=== PATIENT | female | born 1975 | race Caucasian/White ===

== ENCOUNTER 2017-09-12 18:20 | Emergency (ER) | payer OTHER ==
[2017-09-12 18:56] LABS: Absolute Lymphocytes (CBC) 1.9 K/uL (0.7-4.9); Absolute Monocytes 0.5 K/uL (0.1-1.3); Absolute Neutrophil 4.2 K/uL (1.8-8.0); Basophils % 0.7 % (0-1.3); Eosinophils % 3.8 % (0-4.4); Lymphocytes % 27.3 % (15.3-44.8); MCH 29.3 pg (27.0-35.0); MCV 89.5 fL (80-100); MPV 9.2 fL (7.6-11.3); RBC Red Blood Cell Count 4.03 M/uL (3.86-4.86)
[2017-09-12] MEDS ORDERED: NA CHLORIDE 0.9% 1,000 ML ONE (18:56)
[2017-09-12 18:57] LABS: Urine Blood TRACE (NEG); Urine Glucose NEGATIVE (NEG); Urine Protein TRACE (NEG); Urine pH 7.5 (5.0-7.0)
[2017-09-12 19:01] LABS: Protime INR 1.04
[2017-09-12 19:04] LABS: Barbiturates POSITIVE (NEGATIVE); Benzodiazepines NEGATIVE (NEGATIVE); Cocaine NEGATIVE (NEGATIVE); METHAMPHETAM NEGATIVE (NEGATIVE); Methadone NEGATIVE (NEGATIVE); Opiates NEGATIVE (NEGATIVE); Phencyclidine NEGATIVE (NEGATIVE); THC Cannibis NEGATIVE (NEGATIVE)
--- NOTE | 2017-09-12 19:07 | RAD REPORT ---
EXAM DESCRIPTION: CT - Head Brain Wo Cont - 09/12/2017 6:47 pm CLINICAL HISTORY: Transient alteration of awareness, possible overdose COMPARISON: August 2016 TECHNIQUE: Axial 5 mm thick images of the head were obtained without IV contrast. All CT scans are performed using dose optimization technique as appropriate and may include automated exposure control or mA/KV adjustment according to patient size. FINDINGS: No intracranial hemorrhage, mass, edema or shift of mid-line structures. No acute infarcti on changes seen. No abnormal extra-axial fluid collections. Ventricles are normal. Mastoid air cells and visualized portions of the paranasal sinuses are clear. No acute bony findings. IMPRESSION: Negative non-contrast CT head examination. No significant change from comparison.
[2017-09-12 19:19] LABS: ALT/SGPT 20 U/L (12-78); AST/SGOT 29 U/L (15-37); Albumin 3.4 g/dL (3.4-5.0); Alcohol Serum/Plasma 4 mg/dL (<3); Alkaline Phosphatase 117 U/L (45-117); BUN Blood Urea Nitrogen 9 mg/dL (7-18); Bicarbonate 28 mmol/L (21-32); Bilirubin Direct < 0.1 mg/dL (0-0.2); Bilirubin Total 0.1 mg/dL (0.2-1.0); Glucose Level 85 mg/dL (74-106); Potassium 4.2 mmol/L (3.5-5.1); Protein, Total 6.9 g/dL (6.4-8.2); Sodium Level 139 mmol/L (136-145)
--- NOTE | 2017-09-12 20:10 | ER ---
Nurse's Notes [facility] Name: Pina Castrejon Age: 42 yrs Sex: Female : 1975 Arrival Date: 09/12/2017 Time: 18:23 Bed 3 Private MD: Diagnosis: Adverse effect of unspecified psychotropic drug Presentation: 09/12 18:23 Presenting complaint: EMS states: EMS reports that patient was at work and was called ss out by her because she was drowsy. Pt denies taking excess amount of medications, denies SI/HI. Pt is unable to state exactly what she took, but states it's to help with her balance. Transition of care: patient was not received from another setting of care. Onset of symptoms was September 12, 2017. Risk Assessment: Do you want to hurt yourself or someone else? Patient reports no desire to harm self or others. Initial Sepsis Screen: Does the patient meet any 2 criteria? No. Patient's initial sepsis screen is negative. Does the patient have a suspected source of infection? No. Patient's initial sepsis screen is negative. Care prior to arrival: Glucose check: 70. 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 hb Historical: - Allergies: 18:28 Sulfa (Sulfonamide Antibiotics); ss 18:28 NSAIDS; ss 18:28 Morphine; ss 18:28 Aspirin; - Home Meds: 20:14 Ambien 10 mg Oral tab 1 tab once daily [Active]; Klonopin 1 mg Oral tab 1 tab nightly ak1 [Active]; primidone 50 mg Oral tab 2 tabs twice a day [Active]; Prozac 40 mg Oral cap 1 cap 2 times per day [Active]; Xanax 0.25 mg Oral tab 1 tab nightly [Active]; 20:16 gabapentin 300 mg oral cap 1 cap nightly [Active]; Ambien 10 mg Oral tab 1 tab nightly fc [Active]; Ritalin Oral [Active]; Xanax Oral [Active]; Prozac Oral [Active]; primidone Oral [Active]; - PMHx: 18:28 Anemia; Anxiety; Depression; ESSENTIAL TREMORS; insomnia; diabetes (controlled with diet); - PSHx: 18:28 Gastric Bypass; Tubal ligation; uterine ablation; Cholecystectomy; ss - Immunization history:: Adult Immunizations up to date. - Social history:: Smoking status: Patient uses tobacco products, smokes one-half pack cigarettes per day. - Ebola Screening: : Patient negative for fever greater than or equal to 101.5 degrees Fahrenheit, and additional compatible Ebola Virus Disease symptoms Patient denies exposure to infectious person Patient denies travel to an Ebola-affected area in the 21 days before illness onset. Screenin:20 Abuse screen: Denies threats or abuse. Denies injuries from another. Nutritional hb screening: No deficits noted. Tuberculosis screening: No symptoms or risk factors identified. Fall Risk Total Mcconnell Fall Scale indicates High Risk Score (45 or more points). Fall prevention measures have been instituted. Side Rails Up X 2 Frequent Obs/Assessments Occuring Family Present and informed to notify staff if the need to leave the bedside As available patient and family educated on Fall Prevention Program and Strategies. Assessment: 18:30 General: Appears in no apparent distress. Behavior is calm, cooperative. Pain: Denies hb pain. Neuro: Level of Consciousness is confused, lethargic, Oriented to person. Cardiovascular: Heart tones S1 S2 present Capillary refill < 3 seconds Patient's skin is warm and dry. Respiratory: Airway is patent Trachea midline Respiratory effort is even, Respiratory pattern is regular, symmetrical, Breath sounds are clear bilaterally. GI: No signs and/or symptoms were reported involving the gastrointestinal system. : No signs and/or symptoms were reported regarding the genitourinary system. EENT: No signs and/or symptoms were reported regarding the EENT system. Derm: No signs and/or symptoms reported regarding the dermatologic system. Skin is intact, is healthy with good turgor. Musculoskeletal: No signs and/or symptoms reported regarding the musculoskeletal system. 20:14 Reassessment: Patient appears in no apparent distress at this time. No changes from ak1 previously documented assessment. Patient states feeling better. Patient states symptoms have improved. Charge nurse calling pt's for transport. . 20:17 Reassessment: Spoke with Ray pts at [phone] and got a list of pts fc medications but no doses. He states that he will not give her any medications tonight. He also understands that she is ready for discharge and will be here shortly. Vital Signs: 18:55 BP 110 / 88; Pulse 73; Resp 16; Temp 97.9; Pulse Ox 100% on R/A; Pain 0/10; hb 20:18 BP 103 / 75; Pulse 73; Resp 20; Pulse Ox 100% on R/A; Pain 0/10; ak1 ED Course: 18:23 Patient arrived in ED. ss 18:26 Triage completed. ss 18:28 Arm band placed on right wrist. ss 18:30 Patient has correct armband on for positive identification. Placed in gown. Bed in low hb position. Call light in reach. Side rails up X2. 18:30 Inserted saline lock: 22 gauge in right antecubital area, using aseptic technique. hb Blood collected. 18:31 Deyanira Welch, RN is Primary Nurse. hb 18:34 Balaji Smith MD is Attending Physician. gs 18:[address] via stretcher. jj2 18:46 CT Head Brain wo Cont In Process Unspecified. EDMS 18:46 CT completed. Patient tolerated procedure well. Patient moved back from CT. nj 20:13 No provider procedures requiring assistance completed. ak1 20:46 IV discontinued, pt pulled IV out on her own. ak1 Administered Medications: 18:50 Drug: NS 0.9% 1000 ml Route: IV; Rate: 1 bolus; Site: right antecubital; hb 20:16 Follow up: IV Status: Completed infusion ak1 Outcome: 20:09 Discharge ordered by . gs 20:15 Condition: improved ak1 20:47 Discharged to home ambulatory, with family. ak1 20:47 Discharge instructions given to patient, family, Instructed on discharge instructions, follow up and referral plans. Demonstrated understanding of instructions, follow-up care. 20:47 Patient left the ED. ak1 Signatures: Dispatcher [employer] EDMS Gurpreet Kwon jDebbie Awad RN RN fc Smirch, Shelby, RN RN ss Krenek, Amber, RN RN ak1 Deyanira Welch, Alebrt Martins RN, Gregory, MD MD
--- NOTE | 2017-09-12 20:10 | EDPHYS ---
Physician Documentation [facility] Name: Pina Castrejon Age: 42 yrs Sex: Female : 1975 Arrival Date: 09/12/2017 Time: 18:23 Bed 3 Private MD: ED Physician Balaji Smith HPI: 09/12 20:41 This 42 yrs old Female presents to ER via EMS with complaints of Possible gs Overdose. 20:41 The patient presents to the emergency department after a known overdose, that was gs intentional, says took an extra primidone, found lethargic at work. Associated signs and symptoms: Pertinent negatives: head injury. Severity of symptoms: At their worst the symptoms were moderate in the emergency department the symptoms have improved mildly. The patient has experienced similar episodes in the past, a few times. 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 hb Historical: - Allergies: 18:28 Sulfa (Sulfonamide Antibiotics); ss 18:28 NSAIDS; ss 18:28 Morphine; ss 18:28 Aspirin; ss - Home Meds: 20:14 Ambien 10 mg Oral tab 1 tab once daily [Active]; Klonopin 1 mg Oral tab 1 tab nightly ak1 [Active]; primidone 50 mg Oral tab 2 tabs twice a day [Active]; Prozac 40 mg Oral cap 1 cap 2 times per day [Active]; Xanax 0.25 mg Oral tab 1 tab nightly [Active]; 20:16 gabapentin 300 mg oral cap 1 cap nightly [Active]; Ambien 10 mg Oral tab 1 tab nightly fc [Active]; Ritalin Oral [Active]; Xanax Oral [Active]; Prozac Oral [Active]; primidone Oral [Active]; - PMHx: 18:28 Anemia; Anxiety; Depression; ESSENTIAL TREMORS; insomnia; diabetes (controlled with ss diet); - PSHx: 18:28 Gastric Bypass; Tubal ligation; uterine ablation; Cholecystectomy; ss - Immunization history:: Adult Immunizations up to date. - Social history:: Smoking status: Patient uses tobacco products, smokes one-half pack cigarettes per day. - Ebola Screening: : Patient negative for fever greater than or equal to 101.5 degrees Fahrenheit, and additional compatible Ebola Virus Disease symptoms Patient denies exposure to infectious person Patient denies travel to an Ebola-affected area in the 21 days before illness onset. ROS: 20:41 All other systems are negative. gs Exam: 20:41 Head/Face: Normocephalic, atraumatic. Eyes: Pupils equal round and reactive to light, gs extra-ocular motions intact. Lids and lashes normal. Conjunctiva and sclera are non-icteric and not injected. Cornea within normal limits. Periorbital areas with no swelling, redness, or edema. ENT: Nares patent. No nasal discharge, no septal abnormalities noted. Tympanic membranes are normal and external auditory canals are clear. Oropharynx with no redness, swelling, or masses, exudates, or evidence of obstruction, uvula midline. Mucous membranes moist. Neck: Trachea midline, no thyromegaly or masses palpated, and no cervical lymphadenopathy. Supple, full range of motion without nuchal rigidity, or vertebral point tenderness. No Meningismus. Chest/axilla: Normal chest wall appearance and motion. Nontender with no deformity. No lesions are appreciated. Cardiovascular: Regular rate and rhythm with a normal S1 and S2. No gallops, murmurs, or rubs. Normal PMI, no JVD. No pulse deficits. Respiratory: Lungs have equal breath sounds bilaterally, clear to auscultation and percussion. No rales, rhonchi or wheezes noted. No increased work of breathing, no retractions or nasal flaring. Abdomen/GI: Soft, non-tender, with normal bowel sounds. No distension or tympany. No guarding or rebound. No evidence of tenderness throughout. Back: No spinal tenderness. No costovertebral tenderness. Full range of motion. Skin: Warm, dry with normal turgor. Normal color with no rashes, no lesions, and no evidence of cellulitis. MS/ Extremity: Pulses equal, no cyanosis. Neurovascular intact. Full, normal range of motion. 20:41 Constitutional: The patient appears alert, awake, confused 20:41 Neuro: Orientation: to person, place, Not oriented to time, situation, Cranial nerves: CN II- XII are normal as tested, Cerebellar function: no acute changes, Motor: strength is normal, Sensation: is normal. 20:41 Psych: Patient has no thoughts/intents to harm self or others. Vital Signs: 18:55 BP 110 / 88; Pulse 73; Resp 16; Temp 97.9; Pulse Ox 100% on R/A; Pain 0/10; hb 20:18 BP 103 / 75; Pulse 73; Resp 20; Pulse Ox 100% on R/A; Pain 0/10; ak1 MDM: 18:38 Patient medically screened. 20:41 Differential diagnosis: polypharmacy, over medication, closed head injury, intracranial gs hemorrhage. Data reviewed: vital signs, nurses notes. Response to treatment: the patient's symptoms have markedly improved after treatment, the patient's symptoms have resolved after treatment, walking on own remembers circumstances of od says accidental. 09/12 18:39 Order name: Acetaminophen; Complete Time: 20:08 09/12 18:39 Order name: Basic Metabolic Panel; Complete Time: 20:08 09/12 18:39 Order name: CBC with Diff; Complete Time: 19:10 09/12 18:39 Order name: ETOH Level; Complete Time: 20:08 09/12 18:39 Order name: Hepatic Function; Complete Time: 20:08 09/12 18:39 Order name: PT-INR; Complete Time: 19:10 09/12 18:39 Order name: Salicylate; Complete Time: 20:08 09/12 18:39 Order name: Urine Drug Screen; Complete Time: 19:10 09/12 18:39 Order name: EKG - Nurse/Tech; Complete Time: 19:03 09/12 18:39 Order name: CT Head Brain wo Cont; Complete Time: 19:10 09/12 18:53 Order name: Urine Dipstick--Ancillary (enter results); Complete Time: 19:10 09/12 18:53 Order name: Urine --Ancillary (enter results); Complete Time: 19:10 09/12 18:39 Order name: IV Saline Lock; Complete Time: 19:03 09/12 18:39 Order name: Labs collected and sent; Complete Time: 19:03 09/12 18:39 Order name: Urine Test (obtain specimen); Complete Time: 19:03 Administered Medications: 18:50 Drug: NS 0.9% 1000 ml Route: IV; Rate: 1 bolus; Site: right antecubital; hb 20:16 Follow up: IV Status: Completed infusion ak1 Disposition: 09/12/17 20:09 Discharged to Home. Impression: Adverse effect of unspecified psychotropic drug. - Condition is Stable. - Discharge Instructions: Accidental Overdose. - Medication Reconciliation Form, Thank You Letter, Antibiotic Education, Prescription Opioid Use form. - Follow up: Private Physician; When: 2 - 3 days; Reason: Re-evaluation by your physician. Signatures: Dispatcher [employer] EDDebbie Pena RN RN Maira Marina RN RN Loni Flores RN RN ak1 Deyanira Welch RN RN Balaji Smith MD MD Corrections: (The following items were deleted from the chart) 20:47 20:09 09/12/2017 20:09 Discharged to Home. Impression: Adverse effect of unspecified ak1 psychotropic drug. Condition is Stable. Forms are Medication Reconciliation Form, Thank You Letter, Antibiotic Education, Prescription Opioid Use. Follow up: Private Physician; When: 2 - 3 days; Reason: Re-evaluation by your physician. gs
[2017-09-12 20:51] VITALS: TEMP 97.9; O2SAT 100
[2017-09-12 20:52] VITALS: BP 103/75
== END 2017-09-12 20:47 | disposition home or self-care (01) ==
LOC: ER 18:20
DX: T43.95XA Adverse effect of unspecified psychotropic drug, initial encounter (principal); E11.9 Type 2 diabetes mellitus without complications; F17.210 Nicotine dependence, cigarettes, uncomplicated; Y92.9 Unspecified place or not applicable; Z88.6 Allergy status to analgesic agent; Z88.2 Allergy status to sulfonamides
CPT/HCPCS: 36415; 70450; 80048; 80076; 80307; 80320; 80329; 81003; 81025; 85025; 85610; 96360; 99284; J7030

== ENCOUNTER 2018-02-18 18:45 | Emergency (ER) | payer OTHER ==
--- NOTE | 2018-02-18 19:50 | RAD REPORT ---
EXAM DESCRIPTION: CT - Stone Protocol - 02/18/2018 7:17 pm CLINICAL HISTORY: Coffee-ground emesis, possible perforation, anemia, diabetes and hypertension, gas tric bypass COMPARISON: CT study March 2016, January 2016 TECHNIQUE: Axial 5 mm thick images were obtained without oral or IV contrast. The jbrej-[id number]-imys span s the entirety of the system including uppermost abdomen and lung bases. All CT scans are performed using dose optimization technique as appropriate and may include automated exposure control or mA/KV adjustment according to patient size. FINDINGS: No lung base abnormality. No pericardial thickening effusion. The liver, spleen and pancreas show no suspicious findings. Cholecystectomy clips are present with no biliary tree dilatation. No suspicious adrenal finding. No hydronephrosis is present and no obstructing ureteral calculi. No suspicious renal masses. Isodens e masses and pyelonephritis are not excluded on a stone protocol CT scan. Left-sided parapelvic cysts are present similar to comparison. No significant adrenal finding. Urinary bladder is contracted swartz iting assessment. No suspicious uterine finding. No primary ovarian process seen. No adnexal mass. No distal esophagus abnormality. Patient is status post gastric bypass procedure which inherently dis torts the stomach. No extraluminal free air or fluid seen. No CT findings for bowel perforation. The stomach to small bowel anastomosis does appear irregular with thickened or nodular gastric sue. The pattern is not substantially different from comparison imaging. Gastritis or even small gastric mass cannot be excluded. No walled off fluid collection to suspect abscess. No acute colon finding seen. The remainder of the small bowel without acute finding. No bulky lymphadenopathy or mass. Very small abdominal wall defect is present to right of midline at the umbilicus. This is a stable finding. No significant bony abnormality. No acute vascular finding suspected. IMPRESSION: No free air, free fluid or other finding that would indicate perforation of a viscus. No abscess identified. Patient is status post gastric bypass surgery. This inherently distorts the stomach. The stomach smal l bowel anastomosis shows thickened irregular contour to the sue. Stomach small bowel anastomosis pattern is not substantially different back to 2016 imaging. Gastriti s, stomach/small bowel ulceration or small gastric wall mass(es) are certainly possible. Additional nonacute findings are detailed in the body of the report.
[2018-02-18] MEDS ORDERED: NA CHLORIDE 0.9% 1,000 ML ONE (20:18)
[2018-02-18] MEDS ORDERED: PANTOPRAZOLE 40 MG INJ ONE (20:18)
[2018-02-18 20:19] LABS: Absolute Lymphocytes (CBC) 1.8 K/uL (0.7-4.9); Absolute Neutrophil 7.1 K/uL (1.8-8.0); Basophils % 0.6 % (0-1.3); Eosinophils % 2.1 % (0-4.4); Hematocrit 35.3 % (36.0-45.0); Lymphocytes % 17.6 % (15.3-44.8); MPV 8.5 fL (7.6-11.3); Monocytes % 9.5 % (3.3-12.3); RBC Red Blood Cell Count 3.87 M/uL (3.86-4.86)
[2018-02-18 20:22] LABS: ALT/SGPT 26 U/L (12-78); AST/SGOT 26 U/L (15-37); Albumin 3.6 g/dL (3.4-5.0); Alkaline Phosphatase 108 U/L (45-117); BUN Blood Urea Nitrogen 16 mg/dL (7-18); Bicarbonate 29 mmol/L (21-32); Bilirubin Direct < 0.1 mg/dL (0-0.2); Bilirubin Total 0.2 mg/dL (0.2-1.0); Glucose Level 96 mg/dL (74-106); Lipase 112 U/L (73-393); Potassium 4.1 mmol/L (3.5-5.1); Protein, Total 7.3 g/dL (6.4-8.2); Sodium Level 140 mmol/L (136-145)
[2018-02-18 20:23] LABS: Urine Blood 1+ (NEG); Urine Glucose NEGATIVE (NEG); Urine Protein 2+ (NEG); Urine Specific Gravity 1.025 (1.005-1.030)
[2018-02-18] MEDS ORDERED: CIPROFLOXACIN 400mg IV 400 MG/200 ML BAG IV ONE (20:44)
[2018-02-18] MEDS ORDERED: ACETAMINOPHEN 500 MG TAB ONE (21:29)
[2018-02-18] MEDS ORDERED: PROMETHAZINE 25 MG/ML VIAL ONE (22:16)
[2018-02-18] MEDS ORDERED: FENTANYL CITR 100 MCG/2 ML ONE (22:34)
[2018-02-18] MEDS ORDERED: NA CHLORIDE 0.9% 500 ML ONE (22:34)
--- NOTE | 2018-02-18 23:22 | ER ---
Nurse's Notes [facility] Name: Pina Castrejon Age: 43 yrs Sex: Female : 1975 Arrival Date: 02/18/2018 Time: 18:47 Bed 14 Private MD: Fausto Ugarte T Diagnosis: Gastrointestinal hemorrhage, unspecified;Diarrhea, unspecified Presentation: 02/18 18:57 Presenting complaint: Patient states: I think my ucler perforated. I have not been able ch to eat or drink for 7 days, three days ago my stool started looking like coffee ground emesis. Transition of care: patient was not received from another setting of care. Onset of symptoms was February 11, 2018. Risk Assessment: Do you want to hurt yourself or someone else? Patient reports no desire to harm self or others. Initial Sepsis Screen: Does the patient meet any 2 criteria? No. Patient's initial sepsis screen is negative. Does the patient have a suspected source of infection? No. Patient's initial sepsis screen is negative. Care prior to arrival: None. 18:57 Method Of Arrival: Ambulatory 18:57 Acuity: SAMIRA 3 ch Triage Assessment: 18:59 General: Appears in no apparent distress. comfortable, Behavior is calm, cooperative, ch appropriate for age. Pain: Complains of pain in epigastric area, right upper quadrant, left upper quadrant and abdomen diffusely. GI: Reports lower abdominal pain, upper abdominal pain. Historical: - Allergies: 18:59 Aspirin; ch 18:59 Morphine; ch 18:59 NSAIDS; ch 18:59 Sulfa (Sulfonamide Antibiotics); - Home Meds: 18:59 Ritalin Oral [Active]; Primidone Oral [Active]; levothyroxine 50 mcg tab 1 tab once ch daily [Active]; Ambien 10 mg Oral tab 1 tab once daily [Active]; gabapentin 300 mg Oral cap 1 cap nightly [Active]; primidone 50 mg Oral tab 2 tabs twice a day [Active]; Prozac 40 mg Oral cap 1 cap 2 times per day [Active]; Prozac Oral [Active]; Xanax 0.25 mg Oral tab 1 tab nightly [Active]; Klonopin 1 mg Oral tab 1 tab nightly [Active]; - PMHx: 18:59 Anemia; Anxiety; Depression; diabetes (controlled with diet); ESSENTIAL TREMORS; ch insomnia; - PSHx: 18:59 Gastric Bypass; Tubal ligation; uterine ablation; Cholecystectomy; ch - Immunization history:: Adult Immunizations up to date, Flu vaccine is not up to date. - Social history:: Smoking status: Patient uses tobacco products, denies chronic smoking, but will smoke occasionally. - Ebola Screening: : Patient negative for fever greater than or equal to 101.5 degrees Fahrenheit, and additional compatible Ebola Virus Disease symptoms Patient denies exposure to infectious person Patient denies travel to an Ebola-affected area in the 21 days before illness onset No symptoms or risks identified at this time. Screenin:05 Abuse screen: Denies threats or abuse. Nutritional screening: No deficits noted. jb4 Tuberculosis screening: No symptoms or risk factors identified. Fall Risk None identified. Assessment: 19:05 General: Appears in no apparent distress. uncomfortable, Behavior is calm, cooperative, jb4 appropriate for age. Pain: Complains of pain in abdomen Pain does not radiate. Pain currently is 8 out of 10 on a pain scale. Quality of pain is described as burning, crampy, Pain began 2-3 days ago. Is continuous. Neuro: Level of Consciousness is awake, alert, obeys commands, Oriented to person, place, time, situation. Cardiovascular: Patient's skin is warm and dry. Respiratory: Airway is patent Respiratory effort is even, unlabored, Respiratory pattern is regular, symmetrical. GI: Abdomen is flat, Bowel sounds present X 4 quads. Abd is soft X 4 quads Abd is non tender in right upper quadrant and right lower quadrant Abdomen is tender to palpation in left upper quadrant and left lower quadrant Reports lower abdominal pain, upper abdominal pain, diarrhea, nausea, vomiting. : No signs and/or symptoms were reported regarding the genitourinary system. EENT: No signs and/or symptoms were reported regarding the EENT system. Derm: Skin is intact, Skin is pink, warm \T\ dry. Musculoskeletal: Circulation, motion, and sensation intact. 20:45 Reassessment: Patient appears in no apparent distress at this time. Patient and/or jb4 family updated on plan of care and expected duration. Pain level reassessed. Patient is alert, oriented x 3, equal unlabored respirations, skin warm/dry/pink. Pt reports pain but denies wanting pain medication. 21:15 Reassessment: Pt requested Tylenol for pain, see MAR for orders. jb4 22:20 Reassessment: Patient appears in no apparent distress at this time. Patient and/or jb4 family updated on plan of care and expected duration. Pain level reassessed. Patient is alert, oriented x 3, equal unlabored respirations, skin warm/dry/pink. Pt reports no decrease in pain after Tylenol given. Physician notified, see MAR for orders. Vital Signs: 18:59 BP 133 / 93; Pulse 95; Resp 16; Temp 98.8; Pulse Ox 99% on R/A; Weight 66.68 kg; Height 5 ft. 5 in. (165.10 cm); Pain 9/10; 20:45 BP 131 / 73; Pulse 77; Resp 16; Pulse Ox 100% on R/A; jb4 22:00 BP 133 / 75; Pulse 86; Resp 16; Pulse Ox 100% on R/A; jb4 23:00 BP 125 / 88; Pulse 75; Resp 16; Pulse Ox 100% ; jb4 18:59 Body Mass Index 24.46 (66.68 kg, 165.10 cm) ED Course: 18:47 Patient arrived in ED. as 18:47 Fausto Ugarte MD is Private Physician. as 18:48 Uzma Hwang FNP-C is [facility]. snw 18:48 Balaji Smith MD is Attending Physician. snw 18:57 Triage completed. ch 18:59 Arm band placed on left wrist. Patient placed in an exam room, on a stretcher. ch 19:01 Chon Velazquez RN is Primary Nurse. jb4 19:05 Patient has correct armband on for positive identification. Placed in gown. Bed in low jb4 position. Call light in reach. Side rails up X 1. Pulse ox on. NIBP on. 19:[address] via wheelchair. kw1 19:17 CT completed. Patient tolerated procedure well. Patient moved back from CT. bq 19:17 CT Stone Protocol In Process Unspecified. EDMS 20:12 Missed attempt(s): 22 gauge in right antecubital area. Bleeding controlled, band aid oe applied, catheter tip intact. 20:13 Inserted saline lock: 22 gauge in left forearm, using aseptic technique. Blood oe collected. 23:21 Fausto Ugarte MD is Referral Physician. snw 23:41 No provider procedures requiring assistance completed. IV discontinued, intact, jb4 bleeding controlled. Administered Medications: 20:20 Drug: NS 0.9% 1000 ml Route: IV; Rate: 1 bolus; Site: left forearm; jb4 21:50 Follow up: Response: No adverse reaction; IV Status: Completed infusion jb4 20:20 Drug: ProTONIX 40 mg Route: IVP; Site: left forearm; jb4 22:15 Follow up: Response: No adverse reaction jb4 20:43 Drug: Cipro 400 mg Volume: 200 ml; Route: IVPB; Infused Over: 60 mins; Site: left jb4 forearm; 21:43 Follow up: Response: No adverse reaction; IV Status: Completed infusion jb4 21:20 Drug: Tylenol 1000 mg Route: PO; jb4 22:32 Follow up: Response: No adverse reaction; Pain is unchanged, physician notified jb4 22:12 Drug: Phenergan 12.5 mg Route: IVP; Site: left forearm; jb4 22:32 Follow up: Response: No adverse reaction; Nausea is decreased jb4 22:31 Drug: fentaNYL (PF) 25 mcg Route: IVP; Site: left forearm; jb4 23:42 Follow up: Response: No adverse reaction; Pain is decreased jb4 22:32 Drug: NS 0.9% 500 ml Route: IV; Rate: bolus; Site: left forearm; jb4 23:15 Follow up: Response: No adverse reaction; IV Status: Completed infusion jb4 Outcome: 23:22 Discharge ordered by MD. snw 23:41 Discharged to home ambulatory, with significant other. jb4 23:41 Condition: stable 23:41 Discharge instructions given to patient, Instructed on discharge instructions, follow up and referral plans. medication usage, Demonstrated understanding of instructions, follow-up care, medications, Prescriptions given X 2. 23:43 Patient left the ED. jb4 Signatures: Dispatcher [employer] EDMS Gisel Hayes, APOLLO RN Uzma Rodriguez, LATH TIER-C LATH TIER-Csnw Leesa Leon Amelia as Bryson, James, RN RN jb4 Dejan Mckeon Kimberly kw1
--- NOTE | 2018-02-18 23:23 | EDPHYS ---
Physician Documentation [facility] Name: Pina Castrejon Age: 43 yrs Sex: Female : 1975 Arrival Date: 02/18/2018 Time: 18:47 Bed 14 Private MD: Fausto Ugarte T ED Physician Balaji Smith HPI: 02/18 20:15 This 43 yrs old Female presents to ER via Ambulatory with complaints of snw Vomiting. 20:15 The patient presents to the emergency department with nausea, vomiting, diarrhea, that snw is continuous. Onset: The symptoms/episode began/occurred 1 week(s) ago, and became persistent. Possible causes: unknown. The symptoms are aggravated by movement. Associated signs and symptoms: Pertinent positives: GI bleeding. Severity of symptoms: At their worst the symptoms were moderate severe. The patient has experienced a previous episode, approximately 2 years ago. The patient has not recently seen a physician. denies fever, bypass surgery was performed at [place]. Historical: - Allergies: 18:59 Aspirin; ch 18:59 Morphine; ch 18:59 NSAIDS; ch 18:59 Sulfa (Sulfonamide Antibiotics); ch - Home Meds: 18:59 Ritalin Oral [Active]; Primidone Oral [Active]; levothyroxine 50 mcg tab 1 tab once ch daily [Active]; Ambien 10 mg Oral tab 1 tab once daily [Active]; gabapentin 300 mg Oral cap 1 cap nightly [Active]; primidone 50 mg Oral tab 2 tabs twice a day [Active]; Prozac 40 mg Oral cap 1 cap 2 times per day [Active]; Prozac Oral [Active]; Xanax 0.25 mg Oral tab 1 tab nightly [Active]; Klonopin 1 mg Oral tab 1 tab nightly [Active]; - PMHx: 18:59 Anemia; Anxiety; Depression; diabetes (controlled with diet); ESSENTIAL TREMORS; ch insomnia; - PSHx: 18:59 Gastric Bypass; Tubal ligation; uterine ablation; Cholecystectomy; ch - Immunization history:: Adult Immunizations up to date, Flu vaccine is not up to date. - Social history:: Smoking status: Patient uses tobacco products, denies chronic smoking, but will smoke occasionally. - Ebola Screening: : Patient negative for fever greater than or equal to 101.5 degrees Fahrenheit, and additional compatible Ebola Virus Disease symptoms Patient denies exposure to infectious person Patient denies travel to an Ebola-affected area in the 21 days before illness onset No symptoms or risks identified at this time. ROS: 20:17 Constitutional: Negative for fever, chills, and weight loss, Eyes: Negative for injury, snw pain, redness, and discharge, ENT: Negative for injury, pain, and discharge, Neck: Negative for injury, pain, and swelling, Cardiovascular: Negative for chest pain, palpitations, and edema, Respiratory: Negative for shortness of breath, cough, wheezing, and pleuritic chest pain, Back: Negative for injury and pain, : Negative for injury, bleeding, discharge, and swelling, MS/Extremity: Negative for injury and deformity, Skin: Negative for injury, rash, and discoloration, Neuro: Negative for headache, weakness, numbness, tingling, and seizure. 20:17 Abdomen/GI: Positive for abdominal pain, nausea, vomiting, and diarrhea. Exam: 20:17 Constitutional: This is a well developed, well nourished patient who is awake, alert, snw and in no acute distress. Head/Face: Normocephalic, atraumatic. Eyes: Pupils equal round and reactive to light, extra-ocular motions intact. Lids and lashes normal. Conjunctiva and sclera are non-icteric and not injected. Cornea within normal limits. Periorbital areas with no swelling, redness, or edema. ENT: Nares patent. No nasal discharge, no septal abnormalities noted. Tympanic membranes are normal and external auditory canals are clear. Oropharynx with no redness, swelling, or masses, exudates, or evidence of obstruction, uvula midline. Mucous membranes moist. Neck: Trachea midline, no thyromegaly or masses palpated, and no cervical lymphadenopathy. Supple, full range of motion without nuchal rigidity, or vertebral point tenderness. No Meningismus. Chest/axilla: Normal chest wall appearance and motion. Nontender with no deformity. No lesions are appreciated. Cardiovascular: Regular rate and rhythm with a normal S1 and S2. No gallops, murmurs, or rubs. Normal PMI, no JVD. No pulse deficits. Respiratory: Lungs have equal breath sounds bilaterally, clear to auscultation and percussion. No rales, rhonchi or wheezes noted. No increased work of breathing, no retractions or nasal flaring. Back: No spinal tenderness. No costovertebral tenderness. Full range of motion. Skin: Warm, dry with normal turgor. Normal color with no rashes, no lesions, and no evidence of cellulitis. MS/ Extremity: Pulses equal, no cyanosis. Neurovascular intact. Full, normal range of motion. Neuro: Awake and alert, GCS 15, oriented to person, place, time, and situation. Cranial nerves II-XII grossly intact. Motor strength 5/5 in all extremities. Sensory grossly intact. Cerebellar exam normal. Normal gait. Psych: Awake, alert, with orientation to person, place and time. Behavior, mood, and affect are within normal limits. 20:17 Abdomen/GI: Inspection: abdomen appears normal, Bowel sounds: diminished, in all quadrants, Palpation: moderate abdominal tenderness, in the right lower quadrant and left lower quadrant, Rectal exam: rectal tone normal, Stool: guaiac positive, hemorrhoid(s), are not appreciated, tenderness, is not appreciated. Vital Signs: 18:59 BP 133 / 93; Pulse 95; Resp 16; Temp 98.8; Pulse Ox 99% on R/A; Weight 66.68 kg; Height ch 5 ft. 5 in. (165.10 cm); Pain 9/10; 20:45 BP 131 / 73; Pulse 77; Resp 16; Pulse Ox 100% on R/A; jb4 22:00 BP 133 / 75; Pulse 86; Resp 16; Pulse Ox 100% on R/A; jb4 23:00 BP 125 / 88; Pulse 75; Resp 16; Pulse Ox 100% ; jb4 18:59 Body Mass Index 24.46 (66.68 kg, 165.10 cm) MDM: 19:07 Patient medically screened. snw 23:24 Data reviewed: vital signs, nurses notes. Data interpreted: Pulse oximetry: on room air snw is 100 %. Interpretation: normal. Counseling: I had a detailed discussion with the patient and/or guardian regarding: the historical points, exam findings, and any diagnostic results supporting the discharge/admit diagnosis, lab results, radiology results, the need for outpatient follow up, to return to the emergency department if symptoms worsen or persist or if there are any questions or concerns that arise at home. Special discussion: Based on the patient's Hx, exam, and Dx evaluation, there is no indication for emergent surgery or inpatient Tx. It is understood by the patient/guardian that if the Sx's persist or worsen they need to return immediately for re-evaluation. Based on the history and exam findings, there is no indication for further emergent testing or inpatient evaluation. I discussed with the patient/guardian the need to see the barn worker for further evaluation of the symptoms. I discussed with the patient/guardian the need to see the primary care provider for further evaluation of the symptoms. 02/18 19:01 Order name: Basic Metabolic Panel; Complete Time: 20:36 snw 02/18 19:01 Order name: CBC with Diff; Complete Time: 20:36 snw 02/18 19:01 Order name: Hepatic Function; Complete Time: 20:36 snw 02/18 19:01 Order name: Lipase; Complete Time: 20:36 snw 02/18 19:01 Order name: TS; Complete Time: 20:44 snw 02/18 20:13 Order name: Urine Dipstick--Ancillary (enter results); Complete Time: 20:36 ag4 02/18 19:01 Order name: CT Stone Protocol; Complete Time: 19:53 snw 02/18 20:13 Order name: Urine --Ancillary (enter results); Complete Time: 20:36 ag4 02/18 19:01 Order name: IV Saline Lock; Complete Time: 20:03 snw 02/18 19:01 Order name: Labs collected and sent; Complete Time: 20:03 snw 02/18 21:53 Order name: PO challenge; Complete Time: 22:14 snw Administered Medications: 20:20 Drug: NS 0.9% 1000 ml Route: IV; Rate: 1 bolus; Site: left forearm; jb4 21:50 Follow up: Response: No adverse reaction; IV Status: Completed infusion jb4 20:20 Drug: ProTONIX 40 mg Route: IVP; Site: left forearm; jb4 22:15 Follow up: Response: No adverse reaction jb4 20:43 Drug: Cipro 400 mg Volume: 200 ml; Route: IVPB; Infused Over: 60 mins; Site: left jb4 forearm; 21:43 Follow up: Response: No adverse reaction; IV Status: Completed infusion jb4 21:20 Drug: Tylenol 1000 mg Route: PO; jb4 22:32 Follow up: Response: No adverse reaction; Pain is unchanged, physician notified jb4 22:12 Drug: Phenergan 12.5 mg Route: IVP; Site: left forearm; jb4 22:32 Follow up: Response: No adverse reaction; Nausea is decreased jb4 22:31 Drug: fentaNYL (PF) 25 mcg Route: IVP; Site: left forearm; jb4 23:42 Follow up: Response: No adverse reaction; Pain is decreased jb4 22:32 Drug: NS 0.9% 500 ml Route: IV; Rate: bolus; Site: left forearm; jb4 23:15 Follow up: Response: No adverse reaction; IV Status: Completed infusion jb4 Disposition: 02/18/18 23:22 Discharged to Home. Impression: Gastrointestinal hemorrhage, unspecified, Diarrhea, unspecified. - Condition is Stable. - Discharge Instructions: Food Choices to Help Relieve Diarrhea, Adult, Diarrhea, Adult, Gastrointestinal Bleeding, Peptic Ulcer, Rehydration, Adult. - Prescriptions for Zofran 4 mg Oral Tablet - take 1 tablet by ORAL route every 12 hours As needed; 20 tablet. Cipro 500 mg Oral Tablet - take 1 tablet by ORAL route every 12 hours for 10 days; 20 tablet. - Medication Reconciliation Form, Thank You Letter, Antibiotic Education, Prescription Opioid Use form. - Follow up: Fausto Ugarte MD; When: 2 - 3 days; Reason: Recheck today's complaints, Continuance of care, Re-evaluation by your physician. Follow up: Emergency Department; When: As needed; Reason: Worsening of condition. Addendum: 02/21/2018 10:20 Co-signature as Attending Physician, Balaji Smith MD. g s Signatures: Dispatcher [employer] EDOR Gisel Hayes, RN RN Uzma Rodriguez, PROGRAM WRITER-C PROGRAM WRITER-Csnw Chon Velazquez RN RN jb4 Starr, Gregory, MD MD Corrections: (The following items were deleted from the chart) 02/18 23:43 23:22 02/18/2018 23:22 Discharged to Home. Impression: Gastrointestinal hemorrhage, jb4 unspecified; Diarrhea, unspecified. Condition is Stable. Forms are Medication Reconciliation Form, Thank You Letter, Antibiotic Education, Prescription Opioid Use. Follow up: Fausto Ugarte; When: 2 - 3 days; Reason: Recheck today's complaints, Continuance of care, Re-evaluation by your physician. Follow up: Emergency Department; When: As needed; Reason: Worsening of condition. snw
[2018-02-18 23:48] VITALS: TEMP 98.8
[2018-02-18 23:49] VITALS: O2SAT 100
[2018-02-18 23:52] VITALS: BP 125/88
== END 2018-02-18 23:43 | disposition home or self-care (01) ==
LOC: ER 18:45
DX: K92.2 Gastrointestinal hemorrhage, unspecified (principal); E11.9 Type 2 diabetes mellitus without complications; F32.9 Major depressive disorder, single episode, unspecified; F41.9 Anxiety disorder, unspecified; Z72.0 Tobacco use; Z88.2 Allergy status to sulfonamides; Z88.5 Allergy status to narcotic agent; Z88.6 Allergy status to analgesic agent
CPT/HCPCS: 36415; 74176; 76377; 80048; 80076; 81003; 81025; 83690; 85025; 86850; 86900; 86901; 96361; 96365; 96375; 99284; C9113; J0744; J2550; J3010; J7030

== ENCOUNTER 2018-02-23 17:01 | Emergency (ER) | payer OTHER ==
[2018-02-23 19:08] LABS: BUN Blood Urea Nitrogen 8 mg/dL (7-18); Bicarbonate 29 mmol/L (21-32); Glucose Level 98 mg/dL (74-106); Potassium 3.5 mmol/L (3.5-5.1); Sodium Level 141 mmol/L (136-145)
[2018-02-23 19:13] LABS: Urine Blood TRACE (NEG); Urine Glucose NEGATIVE (NEG); Urine Protein NEGATIVE (NEG); Urine Specific Gravity 1.015 (1.005-1.030); Urine pH 8.5 (5.0-7.0)
--- NOTE | 2018-02-23 19:20 | RAD REPORT ---
EXAM DESCRIPTION: CT - Head Brain Wo Cont - 02/23/2018 6:50 pm CLINICAL HISTORY: Seizure COMPARISON: September 2017 TECHNIQUE: Computed axial tomography of the head was obtained. IV contrast was not requested. All CT scans are performed using dose optimization technique as appropriate and may include automated exposure control or mA/KV adjustment according to patient size. FINDINGS: An intracranial bleed is not seen . The ventricles are normal in caliber. No extra-axial fluid collection is noted. Fluid within the sinuses/ mastoids is not seen. IMPRESSION: No acute intracranial abnormality is seen. If patient's symptoms persist MRI of the bra in would be recommended.
[2018-02-23 19:27] LABS: Barbiturates POSITIVE (NEGATIVE); Benzodiazepines POSITIVE (NEGATIVE); Cocaine NEGATIVE (NEGATIVE); METHAMPHETAM NEGATIVE (NEGATIVE); Methadone NEGATIVE (NEGATIVE); Opiates NEGATIVE (NEGATIVE); Phencyclidine NEGATIVE (NEGATIVE); THC Cannibis NEGATIVE (NEGATIVE)
--- NOTE | 2018-02-23 20:42 | ER ---
Nurse's Notes [facility] Name: Pina Castrejon Age: 43 yrs Sex: Female : 1975 Arrival Date: 02/23/2018 Time: 17:01 Bed 27 Private MD: Diagnosis: Convulsions, not elsewhere classified Presentation: 02/23 17:02 Presenting complaint: EMS states: toned out for seizure like activity at Dr. Jean office. pt laid down on the floor and started thrashing. pt stopped with painful stimuli to check consciousness. no postictal time, pt remained responsive during her "seizure". pt followed commands during her seizure. no loss of consciousness. pt was in Dr. Jean office for a follow up, pt was discharged from our facility after a GI bleed two days ago. Transition of care: patient was not received from another setting of care. Onset of symptoms was February 23, 2018 at 16:30. Risk Assessment: Do you want to hurt yourself or someone else? Patient reports no desire to harm self or others. Initial Sepsis Screen: Does the patient meet any 2 criteria? No. Patient's initial sepsis screen is negative. Does the patient have a suspected source of infection? No. Patient's initial sepsis screen is negative. Care prior to arrival: None. 17:02 Method Of Arrival: EMS: [facility] 17:02 Acuity: SAMIRA 3 Triage Assessment: 17:08 General: Appears in no apparent distress. comfortable, Behavior is calm, cooperative, ch appropriate for age. Neuro: No deficits noted. Level of Consciousness is awake, alert, obeys commands, Oriented to person, place, time, situation. Historical: - Allergies: 17:08 Aspirin; 17:08 Morphine; 17:08 NSAIDS; 17:08 Sulfa (Sulfonamide Antibiotics); ch - PMHx: 17:08 Anemia; Depression; Anxiety; diabetes (controlled with diet); ESSENTIAL TREMORS; insomnia; GI Bleed; - PSHx: 17:08 Gastric Bypass; Tubal ligation; uterine ablation; Cholecystectomy; - Immunization history:: Adult Immunizations up to date. - Social history:: Smoking status: Patient uses tobacco products. - Ebola Screening: : Patient negative for fever greater than or equal to 101.5 degrees Fahrenheit, and additional compatible Ebola Virus Disease symptoms Patient denies exposure to infectious person Patient denies travel to an Ebola-affected area in the 21 days before illness onset No symptoms or risks identified at this time. Screenin:50 Abuse screen: Denies threats or abuse. Denies injuries from another. Nutritional rv screening: No deficits noted. Tuberculosis screening: No symptoms or risk factors identified. Fall Risk None identified. Assessment: 17:49 General: Appears in no apparent distress. comfortable, Behavior is calm, cooperative. rv Pain: Denies pain. Neuro: Level of Consciousness is awake, alert, obeys commands, Oriented to person, place, time, situation. Cardiovascular: Capillary refill < 3 seconds. Respiratory: Airway is patent. GI: No signs and/or symptoms were reported involving the gastrointestinal system. : No signs and/or symptoms were reported regarding the genitourinary system. EENT: No signs and/or symptoms were reported regarding the EENT system. Derm: Skin is intact. Musculoskeletal: No signs and/or symptoms reported regarding the musculoskeletal system. 17:50 Reassessment: Patient appears in no apparent distress at this time. Patient and/or ch family updated on plan of care and expected duration. Pain level reassessed. Patient is alert, oriented x 3, equal unlabored respirations, skin warm/dry/pink. pt has three "seizures". pt family reports pt eyes rolled back into her head and she shakes. pt episodes are finished before I can get from the nurses station into the room. pt is aaox4, responds appropriately to verbal commands. no s/s of distress. pt immediately c/o pain to L side of face when I walk into the room. episodes are not witnessed by staff. Vital Signs: 17:06 BP 154 / 101; Pulse 71; Resp 14; Temp 99.1(O); Pulse Ox 100% on R/A; Weight 70.76 kg; ss Height 5 ft. 5 in. (165.10 cm); Pain 8/10; 18:16 BP 132 / 74; Pulse 78; Resp 16; Temp 98.5; Pulse Ox 99% on R/A; Pain 7/10; ch 19:00 BP 133 / 92; Pulse 77; Resp 18; Pulse Ox 98% ; rv 19:30 BP 141 / 91; Pulse 68; Resp 17 S; Pulse Ox 100% on R/A; rv 20:00 BP 137 / 87; Pulse 71; Resp 18; Pulse Ox 100% on R/A; rv 20:30 BP 128 / 103; Pulse 80; Resp 18; Pulse Ox 100% on R/A; rv 17:06 Body Mass Index 25.96 (70.76 kg, 165.10 cm) ED Course: 17:01 Patient arrived in ED. 17:06 Triage completed. 17:06 Arm band placed on right wrist. ss 17:50 Patient has correct armband on for positive identification. Bed in low position. Call rv light in reach. Side rails up X 1. Adult w/ patient. Pulse ox on. NIBP on. 17:51 Neha Kurtz FNP-C is PHCP. kb 17:51 Mono Rojas MD is Attending Physician. kb 18:52 CT Head Brain wo Cont In Process Unspecified. EDMS 20:50 No provider procedures requiring assistance completed. Patient did not have IV access rv during this emergency room visit. Administered Medications: No medications were administered Outcome: 20:42 Discharge ordered by . kb 20:50 Discharged to home ambulatory. rv 20:50 Condition: good 20:50 Discharge instructions given to patient, Instructed on discharge instructions, follow up and referral plans. Demonstrated understanding of instructions, follow-up care. 20:52 Patient left the ED. rv Signatures: Dispatcher [employer] EDTX Neha Kurtz FNP-C FNP-Ckb Hammond, Christina, RN RN Maira Marina RN RN Carlos Manuel Lara RN RN rv Corrections: (The following items were deleted from the chart) 18:44 17:02 Acuity: SAMIRA 4 [facility]
--- NOTE | 2018-02-23 20:43 | EDPHYS ---
Physician Documentation [facility] Name: Pina Castrejon Age: 43 yrs Sex: Female : 1975 Arrival Date: 02/23/2018 Time: 17:01 Bed 27 Private MD: ED Physician Mono Rojas HPI: 02/23 20:53 This 43 yrs old Female presents to ER via EMS with complaints of Altered kb Mental Status. 20:53 The patient presents with a history of multiple seizures. Character of seizure(s): Loss kb of consciousness: the patient did not lose consciousness, Motor activity: blank stare, Incontinence: none, Apnea: the patient experienced apnea, Circulation: the patient did not experience evidence of pulse disturbance. Seizure onset: just prior to arrival. Context: the seizure(s) was witnessed, by family, sister, occurred at an office, occurred while the patient was sitting, Contributing factors: missed recent doses of medications. Seizure Hx: the patient has no previous seizure history. Associated injury: The patient did not suffer any apparent associated injury. EMS care: none. Current symptoms: Currently, the patient is not experiencing any symptoms, the patient feels back to baseline, no decreased level of consciousness, no confusion, no dysphasia, no headache, no paralysis, no visual changes. The patient has not experienced similar symptoms in the past. The patient has been recently seen by a physician: the patient's primary care provider, earlier today, with different complaint(s). Pt was at PCP's office and had seizure-like activity in the exam room. Sister reports pts muscles tightened up and she stopped breathing. States she had a few episodes. EMS reports pt had similar episodes in ambulance, but was able to stop them with painful stimuli. Reports pt followed commands during episodes as well. Pt A\T\Ox4, not post ictal, and normal neuro exam. Historical: - Allergies: 17:08 Aspirin; ch 17:08 Morphine; ch 17:08 NSAIDS; ch 17:08 Sulfa (Sulfonamide Antibiotics); ch - PMHx: 17:08 Anemia; Depression; Anxiety; diabetes (controlled with diet); ESSENTIAL TREMORS; ch insomnia; GI Bleed; - PSHx: 17:08 Gastric Bypass; Tubal ligation; uterine ablation; Cholecystectomy; ch - Immunization history:: Adult Immunizations up to date. - Social history:: Smoking status: Patient uses tobacco products. - Ebola Screening: : Patient negative for fever greater than or equal to 101.5 degrees Fahrenheit, and additional compatible Ebola Virus Disease symptoms Patient denies exposure to infectious person Patient denies travel to an Ebola-affected area in the 21 days before illness onset No symptoms or risks identified at this time. ROS: 20:52 Constitutional: Negative for fever, chills, and weight loss, ENT: Negative for injury, kb pain, and discharge, Neck: Negative for injury, pain, and swelling, Cardiovascular: Negative for chest pain, palpitations, and edema, Respiratory: Negative for shortness of breath, cough, wheezing, and pleuritic chest pain, Abdomen/GI: Negative for abdominal pain, nausea, vomiting, diarrhea, and constipation, Back: Negative for injury and pain, MS/Extremity: Negative for injury and deformity, Skin: Negative for injury, rash, and discoloration. 20:52 Neuro: Positive for seizure activity. Exam: 20:52 Constitutional: This is a well developed, well nourished patient who is awake, alert, kb and in no acute distress. Head/Face: Normocephalic, atraumatic. ENT: Nares patent. No nasal discharge, no septal abnormalities noted. Tympanic membranes are normal and external auditory canals are clear. Oropharynx with no redness, swelling, or masses, exudates, or evidence of obstruction, uvula midline. Mucous membranes moist. Neck: Trachea midline, no thyromegaly or masses palpated, and no cervical lymphadenopathy. Supple, full range of motion without nuchal rigidity, or vertebral point tenderness. No Meningismus. Chest/axilla: Normal chest wall appearance and motion. Nontender with no deformity. No lesions are appreciated. Cardiovascular: Regular rate and rhythm with a normal S1 and S2. No gallops, murmurs, or rubs. Normal PMI, no JVD. No pulse deficits. Respiratory: Lungs have equal breath sounds bilaterally, clear to auscultation and percussion. No rales, rhonchi or wheezes noted. No increased work of breathing, no retractions or nasal flaring. Abdomen/GI: Soft, non-tender, with normal bowel sounds. No distension or tympany. No guarding or rebound. No evidence of tenderness throughout. Skin: Warm, dry with normal turgor. Normal color with no rashes, no lesions, and no evidence of cellulitis. MS/ Extremity: Pulses equal, no cyanosis. Neurovascular intact. Full, normal range of motion. Neuro: Awake and alert, GCS 15, oriented to person, place, time, and situation. Cranial nerves II-XII grossly intact. Motor strength 5/5 in all extremities. Sensory grossly intact. Cerebellar exam normal. Normal gait. Vital Signs: 17:06 BP 154 / 101; Pulse 71; Resp 14; Temp 99.1(O); Pulse Ox 100% on R/A; Weight 70.76 kg; ss Height 5 ft. 5 in. (165.10 cm); Pain 8/10; 18:16 BP 132 / 74; Pulse 78; Resp 16; Temp 98.5; Pulse Ox 99% on R/A; Pain 7/10; ch 19:00 BP 133 / 92; Pulse 77; Resp 18; Pulse Ox 98% ; rv 19:30 BP 141 / 91; Pulse 68; Resp 17 S; Pulse Ox 100% on R/A; rv 20:00 BP 137 / 87; Pulse 71; Resp 18; Pulse Ox 100% on R/A; rv 20:30 BP 128 / 103; Pulse 80; Resp 18; Pulse Ox 100% on R/A; rv 17:06 Body Mass Index 25.96 (70.76 kg, 165.10 cm) ss MDM: 17:53 Patient medically screened. kb 20:39 Data reviewed: vital signs, nurses notes. Data interpreted: Pulse oximetry: on room air kb is 100 %. Interpretation: normal. Counseling: I had a detailed discussion with the patient and/or guardian regarding: the historical points, exam findings, and any diagnostic results supporting the discharge/admit diagnosis, lab results, radiology results, the need for outpatient follow up, a family practitioner, a neurologist, to return to the emergency department if symptoms worsen or persist or if there are any questions or concerns that arise at home. Physician consultation: Tarun Sandoval MD was contacted at 20:41, regarding consult, patient's condition, and will see patient in office, tomorrow. 02/23 18:32 Order name: UDS; Complete Time: 19:29 kb 02/23 18:32 Order name: CBC with Diff kb 02/23 18:17 Order name: CT Head Brain wo Cont; Complete Time: 19:29 kb 02/23 18:32 Order name: Basic Metabolic Panel; Complete Time: 19:12 kb 02/23 18:32 Order name: Urine Dipstick-Ancillary (obtain specimen); Complete Time: 19:48 kb 02/23 19:11 Order name: Urine Dipstick--Ancillary (enter results); Complete Time: 19:16 ag4 Administered Medications: No medications were administered Disposition: 02/23/18 20:42 Discharged to Home. Impression: Convulsions, not elsewhere classified. - Condition is Stable. - Discharge Instructions: Seizure, Adult, [id number]. - Medication Reconciliation Form, Thank You Letter, Antibiotic Education, Prescription Opioid Use form. - Follow up: Emergency Department; When: As needed; Reason: Worsening of condition. Follow up: Private Physician; When: 2 - 3 days; Reason: Recheck today's complaints, Continuance of care, Re-evaluation by your physician. Addendum: 03/02/2018 09:35 Co-signature as Attending Physician, Mono Rojas MD I agree with the assessment and k dr plan of care. Signatures: Dispatcher [employer] EDNM Neha Kurtz, SILK SCREEN FRAME ASSEMBLER-C SILK SCREEN FRAME ASSEMBLER-Ckb Gisel Hayes RN RN Mono Rojas MD MD [facility] Carlos Manuel Lara, RN RN rv Corrections: (The following items were deleted from the chart) 02/23 20:52 20:42 02/23/2018 20:42 Discharged to Home. Impression: Convulsions, not elsewhere rv classified. Condition is Stable. Forms are Medication Reconciliation Form, Thank You Letter, Antibiotic Education, Prescription Opioid Use. Follow up: Emergency Department; When: As needed; Reason: Worsening of condition. Follow up: Private Physician; When: 2 - 3 days; Reason: Recheck today's complaints, Continuance of care, Re-evaluation by your physician. kb
[2018-02-23 21:05] VITALS: TEMP 98.5
[2018-02-23 21:08] VITALS: O2SAT 100
[2018-02-23 21:10] VITALS: BP 128/103
== END 2018-02-23 20:52 | disposition home or self-care (01) ==
LOC: ER 17:01
DX: R56.9 Unspecified convulsions (principal); D64.9 Anemia, unspecified; F32.9 Major depressive disorder, single episode, unspecified; E11.9 Type 2 diabetes mellitus without complications; F41.9 Anxiety disorder, unspecified
CPT/HCPCS: 36415; 70450; 80048; 80307; 81003; 85025

== ENCOUNTER 2018-03-02 12:51 | Emergency (ER) | payer OTHER ==
--- OUTSIDE RECORDS SUMMARY | 2018-03-02 13:02 | XMS REPORT ---
:1975 [facility] Address [address] [place] [address] Dr. Moh[address]ud [address] [place] [id number] Care Team Providers Name Role Phone Unavailable Unavailable Unavailable Problems This patient has no known problems. Allergies, Adverse Reactions, Alerts This patient has no known allergies or adverse reactions. Medications This patient has no known medications.
[2018-03-02] MEDS ORDERED: NA CHLORIDE 0.9% 1,000 ML ONE ×2 (13:17→13:51)
[2018-03-02 14:19] LABS: Absolute Lymphocytes (CBC) 1.9 K/uL (0.7-4.9); Absolute Monocytes 0.9 K/uL (0.1-1.3); Absolute Neutrophil 7.1 K/uL (1.8-8.0); Basophils % 0.7 % (0-1.3); Eosinophils % 2.2 % (0-4.4); Hematocrit 29.9 % (36.0-45.0); Lymphocytes % 19.1 % (15.3-44.8); MPV 9.2 fL (7.6-11.3); Monocytes % 8.9 % (3.3-12.3); RBC Red Blood Cell Count 3.32 M/uL (3.86-4.86)
--- NOTE | 2018-03-02 14:20 | RAD REPORT ---
EXAM DESCRIPTION: CT - Head Brain Wo Cont - 03/02/2018 2:06 pm CLINICAL HISTORY: Syncope COMPARISON: CT head February 23 TECHNIQUE: Axial 5 mm thick images of the head were obtained without IV contrast. All CT scans are performed using dose optimization technique as appropriate and may include automated exposure control or mA/KV adjustment according to patient size. FINDINGS: No intracranial hemorrhage, mass, edema or shift of mid-line structures. No acute infarcti on changes seen. No abnormal extra-axial fluid collections. Ventricles are normal. Physiologic calcif ications are present. No changes identifiable since February 23. Mastoid air cells and visualized portions of the paranasal sinuses are clear. No acute bony findings. IMPRESSION: Negative non-contrast CT head examination for acute finding. No identifiable changes fr om February 23.
[2018-03-02 14:22] LABS: Protime INR 1.1
--- NOTE | 2018-03-02 15:00 | RAD REPORT ---
EXAM DESCRIPTION: RAD - Hip Right 2 View - 03/02/2018 2:29 pm CLINICAL HISTORY: Syncopal episode, fall, hip pain COMPARISON: None. FINDINGS: AP and frog-leg views of the right hip were obtained. There is no fracture or dislocation . No acute or destructive bony process seen. IMPRESSION: Negative right hip examination for acute findings.
--- NOTE | 2018-03-02 15:01 | RAD REPORT ---
EXAM DESCRIPTION: RAD - Hand Left 3 View - 03/02/2018 2:28 pm CLINICAL HISTORY: Syncope, fall, left hand pain COMPARISON: None. FINDINGS: No fracture, dislocation or periosteal reaction noted. No foreign body or other soft tissu e abnormality. IMPRESSION: Negative left hand examination.
--- NOTE | 2018-03-02 15:01 | RAD REPORT ---
EXAM DESCRIPTION: RAD - Chest Single View - 03/02/2018 2:29 pm CLINICAL HISTORY: Syncope, chest pain COMPARISON: August 2016 TECHNIQUE: AP portable chest image was obtained 1424 hours . FINDINGS: Lungs are clear. Heart and vasculature are normal. No measurable pleural effusion and no p neumothorax. No acute bony abnormality seen. No acute aortic findings suspected. IMPRESSION: No acute cardiopulmonary process. No significant interval change.
[2018-03-02 15:03] LABS: ALT/SGPT 13 U/L (12-78); AST/SGOT 15 U/L (15-37); Alkaline Phosphatase 86 U/L (45-117); BUN Blood Urea Nitrogen 13 mg/dL (7-18); Bicarbonate 27 mmol/L (21-32); Bilirubin Direct < 0.1 mg/dL (0-0.2); Bilirubin Total 0.2 mg/dL (0.2-1.0); Glucose Level 78 mg/dL (74-106); Potassium 3.9 mmol/L (3.5-5.1); Protein, Total 6.2 g/dL (6.4-8.2); Sodium Level 136 mmol/L (136-145); Troponin (Emerg Dept Use Only) < 0.02 ng/mL (0.0-0.045)
[2018-03-02 15:40] LABS: Barbiturates POSITIVE (NEGATIVE); Benzodiazepines NEGATIVE (NEGATIVE); Cocaine NEGATIVE (NEGATIVE); METHAMPHETAM NEGATIVE (NEGATIVE); Methadone NEGATIVE (NEGATIVE); Opiates NEGATIVE (NEGATIVE); Phencyclidine NEGATIVE (NEGATIVE); THC Cannibis NEGATIVE (NEGATIVE)
--- NOTE | 2018-03-02 16:18 | ER ---
Nurse's Notes [facility] Name: Pina Castrejon Age: 43 yrs Sex: Female : 1975 Arrival Date: 03/02/2018 Time: 13:02 Bed 15 Private MD: Diagnosis: Hypotension;Syncope and collapse;Dizziness and giddiness Presentation: 03/02 13:03 Presenting complaint: EMS states: Syncopal episode when patient was ambulating at home. aj Patient reports being taken off her medications yesterday. EMS reports patient was hypotensive upon arrival. Patient speech is slurred and pupils are sluggish to respond to light. Transition of care: patient was not received from another setting of care. Onset of symptoms was March 02, 2018. Risk Assessment: Do you want to hurt yourself or someone else? Patient reports no desire to harm self or others. Initial Sepsis Screen: Does the patient meet any 2 criteria? No. Patient's initial sepsis screen is negative. Does the patient have a suspected source of infection? No. Patient's initial sepsis screen is negative. Care prior to arrival: None. 13:03 Method Of Arrival: EMS: [facility] 13:03 Acuity: SAMIRA 2 aj Triage Assessment: 13:08 General: Appears in no apparent distress. comfortable, Behavior is flat. Pain: aj Complains of pain in dorsal aspect of distal phalanx of left middle finger. Neuro: Level of Consciousness is awake, lethargic, Oriented to person, place, time, situation, Appropriate for age Holistic Pulser are equal bilaterally Moves all extremities. Speech is slurred, Reports a syncopal episode. Respiratory: Airway is patent Respiratory effort is even, unlabored, Respiratory pattern is regular, symmetrical. Derm: Skin is intact, is healthy with good turgor, Skin is pale. CARDIOLOGY SPECIALIST: 13:08 LMP N/A - ablation aj Historical: - Allergies: 13:08 Aspirin; aj 13:08 Morphine; aj 13:08 NSAIDS; aj 13:08 Sulfa (Sulfonamide Antibiotics); aj - Home Meds: 13:08 Prozac 40 mg Oral cap 1 cap 2 times per day [Active]; carvedilol oral oral [Active]; aj levothyroxine 50 mcg tab 1 tab once daily [Active]; - PMHx: 13:08 Anemia; Anxiety; Depression; diabetes (controlled with diet); ESSENTIAL TREMORS; GI aj Bleed; insomnia; - PSHx: 13:08 Gastric Bypass; Tubal ligation; uterine ablation; Cholecystectomy; aj - Immunization history:: Adult Immunizations up to date. - Social history:: Smoking status: Patient/guardian denies using tobacco. - Ebola Screening: : Patient negative for fever greater than or equal to 101.5 degrees Fahrenheit, and additional compatible Ebola Virus Disease symptoms Patient denies exposure to infectious person Patient denies travel to an Ebola-affected area in the 21 days before illness onset No symptoms or risks identified at this time. Screenin:17 Abuse screen: Denies threats or abuse. Denies injuries from another. Nutritional jl7 screening: No deficits noted. Tuberculosis screening: No symptoms or risk factors identified. Fall Risk Fall in past 12 months (25 points). IV access (20 points). Gait- Weak (10 pts.). Total Mcconnell Fall Scale indicates High Risk Score (45 or more points). Fall prevention measures have been instituted. Side Rails Up X 2 Placed Close to Nursing Station Frequent Obs/Assessments Occuring Family Present and informed to notify staff if the need to leave the bedside As available patient and family educated on Fall Prevention Program and Strategies. Assessment: 13:17 General: Appears in no apparent distress. Behavior is cooperative, drowsy. Neuro: Level jl7 of Consciousness is obeys commands, Oriented to person, place, time, situation, Speech is slurred, Pupils are sluggish, pt responds to verbal stimuli, reports only taking Primidone this morning. Cardiovascular: Rhythm is regular. Respiratory: Airway is patent Respiratory effort is even, unlabored, Respiratory pattern is regular, symmetrical. EENT: Oral mucosa is dry. Derm: Skin Skin is dry, Skin is pale, Skin temperature is warm. 14:20 Reassessment: Patient appears in no apparent distress at this time. No changes from jl7 previously documented assessment. Patient and/or family updated on plan of care and expected duration. Pain level reassessed. Patient is alert, oriented x 3, equal unlabored respirations, skin warm/dry/pink. 15:11 Reassessment: Sary Esquivel, pt's sister, , reports will return in a little jl7 while. 16:00 Reassessment: Patient appears in no apparent distress at this time. Patient and/or jl7 family updated on plan of care and expected duration. Pain level reassessed. Patient is alert, oriented x 3, equal unlabored respirations, skin warm/dry/pink. Patient states feeling better. Patient states symptoms have improved. Vital Signs: 13:08 BP 87 / 65; Pulse 55; Resp 20; Temp 98.1; Pulse Ox 99% on R/A; Weight 68.04 kg; Height aj 5 ft. 3 in. (160.02 cm); 13:15 BP 92 / 66; Pulse 54; Resp 16 S; Pulse Ox 100% on R/A; jl7 13:30 BP 95 / 74; Pulse 57; Resp 12; Pulse Ox 94% on R/A; jl7 14:00 BP 101 / 66; Pulse 57; Resp 16 S; Pulse Ox 100% on R/A; jl7 14:51 BP 120 / 67; Pulse 58; Resp 18; Pulse Ox 98% on R/A; 5 15:30 BP 116 / 85; Pulse 61; Resp 13 S; Pulse Ox 100% on R/A; jl7 16:00 BP 118 / 83; Pulse 64; Resp 16 S; Pulse Ox 100% on R/A; jl7 16:26 BP 119 / 97; Pulse 58; Resp 16 S; Pulse Ox 100% on R/A; jl7 13:08 Body Mass Index 26.57 (68.04 kg, 160.02 cm) ED Course: 13:02 Patient arrived in ED. aj 13:06 Triage completed. aj 13:08 Arm band placed on left wrist. Patient placed in an exam room, on a stretcher, on aj environmental monitoring technician, on pulse oximetry. 13:09 Pb Patel PA is PHCP. jr8 13:09 Mono Rojas MD is Attending Physician. jr8 13:10 Inserted saline lock: 18 gauge in left EJ, using aseptic technique. Blood collected. aj Missed attempt(s): 22 gauge in right forearm. Bleeding controlled, band aid applied, catheter tip intact. 13:16 Jazmin Pardo, APOLLO is Primary Nurse. jl7 13:17 Patient has correct armband on for positive identification. Bed in low position. Call jl7 light in reach. Side rails up X2. Adult w/ patient. color television console monitor on. Pulse ox on. NIBP on. 13:22 EKG done, by certified medication technician. reviewed by Pb CHO. at1 14:10 Patient moved to radiology via stretcher. jb2 14:11 CT Head Brain wo Cont In Process Unspecified. EDMS 14:30 XRAY Chest (1 view) In Process Unspecified. EDMS 14:30 XRAY Hip RIGHT 2 view In Process Unspecified. EDMS 14:30 XRAY Hand LEFT 3 View In Process Unspecified. EDMS 14:30 X-ray completed. Patient tolerated procedure well. jb2 14:30 Patient moved back from radiology. jb2 15:13 Urine Drug Screen Sent. mh5 16:17 Tarun Sandoval MD is Referral Physician. jr8 16:39 No provider procedures requiring assistance completed. IV discontinued, intact, jl7 bleeding controlled, No redness/swelling at site. Pressure dressing applied. Administered Medications: 13:15 Drug: NS 0.9% 1000 ml Route: IV; Rate: 1 bolus; Site: left jugular; jl7 13:45 Follow up: IV Status: Completed infusion jl7 13:38 Drug: NS 0.9% 1000 ml Route: IV; Rate: 125 ml/hr; Site: left jugular; jl7 16:40 Follow up: IV Status: Completed infusion; Order to discontinue infusion jl7 Point of Care Testing: Blood Glucose: 16:42 Blood Glucose: 78 mg/dL; jl7 Ranges: Outcome: 16:18 Discharge ordered by MD. jr8 16:39 Discharged to home ambulatory, with family. jl7 16:39 Condition: stable 16:39 Discharge instructions given to patient, family, Instructed on discharge instructions, follow up and referral plans. Demonstrated understanding of instructions, follow-up care. 16:42 Patient left the ED. jl7 Signatures: Dispatcher [employer] Mirella Arellano, RN RN Beck Almaguer jb2 Pb Patel PA PA jr8 Mirella Rodríguez, transcriptionist EKG Tat1 Leila Seals [facility] Jazmin Pardo, RN RN jl7 Corrections: (The following items were deleted from the chart) 16:39 16:00 No provider procedures requiring assistance completed. jl7 jl7 16:39 16:00 IV discontinued, intact, bleeding controlled, No redness/swelling at site. jl7 Pressure dressing applied, jl7
--- NOTE | 2018-03-02 16:18 | EDPHYS ---
Physician Documentation [facility] Name: Pina Castrejon Age: 43 yrs Sex: Female : 1975 Arrival Date: 03/02/2018 Time: 13:02 Bed 15 Private MD: ED Physician Mono Rojas HPI: 03/02 16:18 This 43 yrs old Female presents to ER via EMS with complaints of Syncope. jr8 16:18 The patient has experienced syncope. Onset: The symptoms/episode began/occurred jr8 acutely, today. Duration: This was a single episode, that lasted 10 second(s). Context: the episode(s) was witnessed, by family, occurred at home, occurred while the patient was standing. Associated injury: Left upper extremity: contusion, swelling, tenderness, Right lower extremity: tenderness. Associated signs and symptoms: Pertinent positives: dizziness. Current symptoms: Currently, the patient is not experiencing any symptoms, the patient feels back to baseline, no decreased level of consciousness, no confusion, no dysphasia, no headache, no paralysis, no visual changes. It is unknown whether or not the patient has had similar symptoms in the past. The patient has been recently seen by a physician:. Patient with history of familial tremor. Was on benzodiazepines for some time for tremor and was recently taken off because of abuse. Now on primidone. Stated that she had upwards of 20, 1 mg Klonopin over the past two days. Non today. Has been dizzy and falling lately. Had another episode today . 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 - Social history:: Smoking status: Patient/guardian denies using tobacco. - Ebola Screening: : Patient negative for fever greater than or equal to 101.5 degrees Fahrenheit, and additional compatible Ebola Virus Disease symptoms Patient denies exposure to infectious person Patient denies travel to an Ebola-affected area in the 21 days before illness onset No symptoms or risks identified at this time. ROS: 16:18 Eyes: Negative for injury, pain, redness, and discharge, ENT: Negative for injury, jr8 pain, and discharge, Neck: Negative for injury, pain, and swelling, Cardiovascular: Negative for chest pain, palpitations, and edema, Respiratory: Negative for shortness of breath, cough, wheezing, and pleuritic chest pain, Abdomen/GI: Negative for abdominal pain, nausea, vomiting, diarrhea, and constipation, Back: Negative for injury and pain. 16:18 MS/extremity: Positive for contusion, pain, tenderness, of the left hand. 16:18 Neuro: Positive for dizziness, loss of consciousness, syncope, Negative for seizure activity, visual changes, weakness. Exam: 16:18 Eyes: Pupils equal round and reactive to light, extra-ocular motions intact. Lids and jr8 lashes normal. Conjunctiva and sclera are non-icteric and not injected. Cornea within normal limits. Periorbital areas with no swelling, redness, or edema. ENT: Nares patent. No nasal discharge, no septal abnormalities noted. Tympanic membranes are normal and external auditory canals are clear. Oropharynx with no redness, swelling, or masses, exudates, or evidence of obstruction, uvula midline. Mucous membranes moist. Neck: Trachea midline, no thyromegaly or masses palpated, and no cervical lymphadenopathy. Supple, full range of motion without nuchal rigidity, or vertebral point tenderness. No Meningismus. Cardiovascular: Regular rate and rhythm with a normal S1 and S2. No gallops, murmurs, or rubs. Normal PMI, no JVD. No pulse deficits. Respiratory: Lungs have equal breath sounds bilaterally, clear to auscultation and percussion. No rales, rhonchi or wheezes noted. No increased work of breathing, no retractions or nasal flaring. Abdomen/GI: Soft, non-tender, with normal bowel sounds. No distension or tympany. No guarding or rebound. No evidence of tenderness throughout. Back: No spinal tenderness. No costovertebral tenderness. Full range of motion. Skin: Warm, dry with normal turgor. Normal color with no rashes, no lesions, and no evidence of cellulitis. Neuro: Awake and alert, GCS 15, oriented to person, place, time, and situation. Cranial nerves II-XII grossly intact. Motor strength 5/5 in all extremities. Sensory grossly intact. Cerebellar exam normal. Normal gait. 16:18 Musculoskeletal/extremity: Extremities: grossly normal except: noted in the left hand: ecchymosis, pain, tenderness, small superficial avulsion of skin noted to left dorsal hand on fingers. Mild bruising and swelling to 3rd digit left hand. No other trauma noted to hand, noted in the right hip: pain, tenderness, ROM: intact in all extremities, full active range of motion, full passive range of motion, Circulation is intact in all extremities. Sensation intact. Weight bearing: able to fully bear weight, without difficulty. Vital Signs: 13:08 BP 87 / 65; Pulse 55; Resp 20; Temp 98.1; Pulse Ox 99% on R/A; Weight 68.04 kg; Height aj 5 ft. 3 in. (160.02 cm); 13:15 BP 92 / 66; Pulse 54; Resp 16 S; Pulse Ox 100% on R/A; jl7 13:30 BP 95 / 74; Pulse 57; Resp 12; Pulse Ox 94% on R/A; jl7 14:00 BP 101 / 66; Pulse 57; Resp 16 S; Pulse Ox 100% on R/A; jl7 14:51 BP 120 / 67; Pulse 58; Resp 18; Pulse Ox 98% on R/A; 5 15:30 BP 116 / 85; Pulse 61; Resp 13 S; Pulse Ox 100% on R/A; jl7 16:00 BP 118 / 83; Pulse 64; Resp 16 S; Pulse Ox 100% on R/A; jl7 16:26 BP 119 / 97; Pulse 58; Resp 16 S; Pulse Ox 100% on R/A; jl7 13:08 Body Mass Index 26.57 (68.04 kg, 160.02 cm) aj MDM: 13:46 Patient medically screened. 8 16:16 Data reviewed: vital signs, nurses notes, lab test result(s), EKG, radiologic studies, jr CT scan, plain films, and as a result, I will discharge patient. Data interpreted: Pulse oximetry: on room air is 98 %. Interpretation: normal. Counseling: I had a detailed discussion with the patient and/or guardian regarding: the historical points, exam findings, and any diagnostic results supporting the discharge/admit diagnosis, lab results, radiology results, the need for outpatient follow up, a family practitioner, a neurologist, to return to the emergency department if symptoms worsen or persist or if there are any questions or concerns that arise at home. Response to treatment: the patient's symptoms have markedly improved after treatment, patient is well hydrated. ED course: Patient with negative orthostatics. Well hydrated now and without hypotension. Feeling better. No other acute findings. Will f/u with Dr. Sandoval . 03/02 13:46 Order name: Acetaminophen; Complete Time: 15:55 03/02 13:46 Order name: Basic Metabolic Panel; Complete Time: 15:55 03/02 13:46 Order name: CBC with Diff; Complete Time: 14:32 03/02 13:46 Order name: ETOH Level; Complete Time: 14:41 03/02 13:46 Order name: Hepatic Function; Complete Time: 15:55 03/02 13:46 Order name: PT-INR; Complete Time: 14:32 03/02 13:46 Order name: Salicylate; Complete Time: 14:57 03/02 13:46 Order name: Urine Drug Screen; Complete Time: 15:55 03/02 13:46 Order name: Troponin (emerg Dept Use Only); Complete Time: 15:55 03/02 13:47 Order name: XRAY Chest (1 view); Complete Time: 15:03/02 13:47 Order name: XRAY Hip RIGHT 2 view; Complete Time: 15:03/02 13:47 Order name: XRAY Hand LEFT 3 View; Complete Time: 15:03/02 15:13 Order name: Urine Dipstick--Ancillary (enter results) 03/02 15:13 Order name: Urine --Ancillary (enter results) 03/02 13:46 Order name: EKG; Complete Time: 13:47 03/02 13:46 Order name: EKG - Nurse/Tech; Complete Time: 14:12 03/02 13:46 Order name: IV Saline Lock; Complete Time: 14:11 03/02 13:46 Order name: Labs collected and sent; Complete Time: 14:11 03/02 13:46 Order name: Urine Dipstick-Ancillary (obtain specimen); Complete Time: 15:13 03/02 13:47 Order name: CT Head Brain wo Cont; Complete Time: 14:32 Administered Medications: 13:15 Drug: NS 0.9% 1000 ml Route: IV; Rate: 1 bolus; Site: left jugular; jl7 13:45 Follow up: IV Status: Completed infusion jl7 13:38 Drug: NS 0.9% 1000 ml Route: IV; Rate: 125 ml/hr; Site: left jugular; jl7 16:40 Follow up: IV Status: Completed infusion; Order to discontinue infusion jl7 Point of Care Testing: Blood Glucose: 16:42 Blood Glucose: 78 mg/dL; jl7 Ranges: Critical Glucose Levels:Adult <50 mg/dl or >400 mg/dl <40 mg/dl or >180 mg/dl Disposition: 19:04 Co-signature as Attending Physician, Mono Rojas MD I agree with the assessment and kdr plan of care. Disposition: 03/02/18 16:18 Discharged to Home. Impression: Hypotension, Syncope and collapse, Dizziness and giddiness. - Condition is Stable. - Discharge Instructions: Dizziness, Hypotension, Syncope. - Medication Reconciliation Form, Thank You Letter, Antibiotic Education, Prescription Opioid Use form. - Follow up: Tarun Sandoval MD; When: 2 - 3 days; Reason: Recheck today's complaints, Continuance of care, Re-evaluation by your physician. - Problem is new. - Symptoms have improved. Signatures: Dispatcher [employer] Mirella Arellano RN Mono Canales MD MD kdr Roszak, Josh, PA PA jr8 Jazmin Pardo RN RN jl7 Corrections: (The following items were deleted from the chart) 16:42 16:18 03/02/2018 16:18 Discharged to Home. Impression: Hypotension; Syncope and jl7 collapse; Dizziness and giddiness. Condition is Stable. Forms are Medication Reconciliation Form, Thank You Letter, Antibiotic Education, Prescription Opioid Use. Follow up: Tarun Sandoval; When: 2 - 3 days; Reason: Recheck today's complaints, Continuance of care, Re-evaluation by your physician. Problem is new. Symptoms have improved. jr8
[2018-03-02 17:27] VITALS: TEMP 98.1
[2018-03-02 17:37] VITALS: O2SAT 100
[2018-03-02 17:38] VITALS: BP 119/97
[2018-03-02 21:48] LABS: Urine Blood NEGATIVE (NEG); Urine Glucose NEGATIVE (NEG); Urine Protein NEGATIVE (NEG)
--- NOTE | 2018-03-03 11:54 | EKG ---
Test Date: 2018-03-02 Test Time: 13:13:08 Apron Man: BENITO MEASUREMENT RESULTS: Intervals: Rate: 56 RI: 186 QRSD: 86 QT: 436 QTc: 420 [place]: P: 48 RI: 186 QRS: 40 T: 46 INTERPRETIVE STATEMENTS: Sinus bradycardia Otherwise normal ECG Compared to ECG 08/16/2016 08:07:16 Sinus rhythm no longer present Electronically Signed On 03-03-18 11:52:04 ETHNOARCHAEOLOGY PROFESSOR by Alexander Velez
== END 2018-03-02 16:42 | disposition home or self-care (01) ==
LOC: ER 12:51
DX: I95.9 Hypotension, unspecified (principal); R55 Syncope and collapse; R42 Dizziness and giddiness; M25.551 Pain in right hip; S60.032A Contusion of left middle finger without damage to nail, initial encounter; X58.XXXA Exposure to other specified factors, initial encounter; F32.9 Major depressive disorder, single episode, unspecified; F41.9 Anxiety disorder, unspecified; G25.0 Essential tremor; Z79.899 Other long term (current) drug therapy; Z98.84 Bariatric surgery status
CPT/HCPCS: 36415; 70450; 71045; 80048; 80076; 80307; 80320; 80329; 81003; 81025; 84484; 85025; 85610; 93005; 96360; 96361; 99285; J7030

== ENCOUNTER 2019-01-19 10:46 | Emergency (ER) | payer OTHER ==
--- OUTSIDE RECORDS SUMMARY | 2019-01-19 10:49 | XMS REPORT ---
:1975 [facility] Address [address] [place] [address] Dr. Mohamud [address] [place] [id number] Care Team Providers Name Role Phone Unavailable Unavailable Unavailable Problems This patient has no known problems. Allergies, Adverse Reactions, Alerts This patient has no known allergies or adverse reactions. Medications This patient has no known medications.
--- NOTE | 2019-01-19 11:51 | ER ---
Nurse's Notes [facility] Name: Pina Castrejon Age: 43 yrs Sex: Female : 1975 Arrival Date: 01/19/2019 Time: 10:49 Bed Waiting Private MD: Diagnosis: Presentation: 01/19 10:54 Presenting complaint: Patient states: Sitting in recovery with family member and the jl7 next thing I know my daughter is yelling at me and said I had a seizure, hit my head on the bed rail and passed out. Pt reports MICHELE rated 7/10, pupils are PERRLA at this time. Transition of care: patient was not received from another setting of care. Onset of symptoms was January 19, 2019 at 10:50. Risk Assessment: Do you want to hurt yourself or someone else? Patient reports no desire to harm self or others. Initial Sepsis Screen: Does the patient meet any 2 criteria? No. Patient's initial sepsis screen is negative. Does the patient have a suspected source of infection? No. Patient's initial sepsis screen is negative. 10:54 Method Of Arrival: Wheelchair jl7 10:54 Acuity: SAMIRA 3 jl7 Triage Assessment: 11:00 General: Appears in no apparent distress. uncomfortable, Behavior is calm, cooperative, jl7 appropriate for age. Pain: Complains of pain in MICHELE Pain currently is 7 out of 10 on a pain scale. Neuro: Level of Consciousness is awake, alert, obeys commands, Oriented to person, place, time, situation, Pupils are PERRLA. 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 - Social history:: Smoking status: Patient uses tobacco products, smokes one-half pack cigarettes per day. - Ebola Screening: : No symptoms or risks identified at this time. Vital Signs: 11:00 BP 112 / 63; Pulse 80; Resp 16 S; Temp 97.9(O); Pulse Ox 97% on R/A; Weight 61.23 kg jl7 (R); Pain 7/10; Monserrat Coma Score: 11:00 Eye Response: spontaneous(4). Verbal Response: oriented(5). Motor Response: obeys jl7 commands(6). Total: 15. ED Course: 10:49 Patient arrived in ED. as 10:58 Triage completed. jl7 11:00 Arm band placed on right wrist. jl7 11:03 Patient placed in waiting room, in view of staff members, Patient notified of wait time.jl7 11:25 Patient's name was called from ER lobby. No response. Unable to locate patient. Will jl7 disposition as left without being seen by a provider. Administered Medications: No medications were administered Outcome: 11:30 Eloped from waiting room, before seeing physician 11:50 Patient left the ED. Signatures: Evangelina Seals Shelby, RN RN Jazmin Pardo RN RN jl7
[2019-01-19 12:09] VITALS: BP 112/63; TEMP 97.9; O2SAT 97
== END 2019-01-19 11:50 | disposition left against medical advice (07) ==
LOC: ER 10:46
DX: Z02.9 Encounter for administrative examinations, unspecified (principal); Z53.21 Procedure and treatment not carried out due to patient leaving prior to being seen by health care provider
CPT/HCPCS: 99281

== ENCOUNTER 2019-09-29 16:30 | Emergency (ER) | payer OTHER ==
[2019-09-29] MEDS ORDERED: ONDANSETRON 4 MG/2 ML VIAL ONE ×2 (18:06→19:27)
[2019-09-29] MEDS ORDERED: MORPHINE 4 MG/ML SYR ONE (18:06)
[2019-09-29] MEDS ORDERED: NA CHLORIDE 0.9% 1,000 ML ONE (18:06)
[2019-09-29] MEDS ORDERED: PANTOPRAZOLE 40 MG INJ ONE ×2 (18:06→19:18)
[2019-09-29 18:42] LABS: Absolute Lymphocytes (CBC) 1.8 K/uL (0.7-4.9); Basophils % 0.9 % (0-1.3); Hematocrit 31.7 % (36.0-45.0); Lymphocytes % 25.3 % (15.3-44.8); MPV 7.3 fL (7.6-11.3); RBC Red Blood Cell Count 3.64 M/uL (3.86-4.86)
[2019-09-29 18:57] LABS: ALT/SGPT 15 U/L (12-78); AST/SGOT 14 U/L (15-37); Albumin 3.2 g/dL (3.4-5.0); Alkaline Phosphatase 99 U/L (45-117); BUN Blood Urea Nitrogen 11 mg/dL (7-18); Bicarbonate 29 mmol/L (21-32); Bilirubin Direct < 0.1 mg/dL (0-0.2); Bilirubin Total 0.2 mg/dL (0.2-1.0); Glucose Level 86 mg/dL (74-106); Lipase 100 U/L (73-393); Potassium 3.4 mmol/L (3.5-5.1); Protein, Total 7.2 g/dL (6.4-8.2); Sodium Level 140 mmol/L (136-145)
[2019-09-29] MEDS ORDERED: HYDROMORPHONE HCL 1 MG/ML INJ ONE (19:27)
[2019-09-29] MEDS ORDERED: NS KCL 20MEQ 1,000 ML IV ONE (19:28)
[2019-09-29 19:46] LABS: Urine Blood NEGATIVE (NEG); Urine Glucose NEGATIVE (NEG); Urine Protein NEGATIVE (NEG); Urine pH 6.5 (5.0-7.0)
--- NOTE | 2019-09-29 20:17 | RAD REPORT ---
EXAM DESCRIPTION: CT - Abdomen Pelvis W Contrast - 09/29/2019 7:45 pm CLINICAL HISTORY: Abdominal pain COMPARISON: 2018 TECHNIQUE: Computed axial tomography of the abdomen pelvis was obtained. 100 cc Isovue-300 was admin istered intravenously. Oral contrast was given All CT scans are performed using dose optimization technique as appropriate and may include automated exposure control or mA/KV adjustment according to patient size. FINDINGS: Post postsurgical changes of a gastric jejunostomy are present. The wall of the jejunum ju st distal to the anastomotic site is thickened. Curvilinear increased density near the anastomotic si te is unchanged from prior exam and is presumably postsurgical material. No free air. No abscess Mild fatty liver. Spleen, pancreas, and adrenal appear unremarkable. Parapelvic renal cysts There is no evidence of diverticulitis. Normal appendix IMPRESSION: Gastrojejunostomy. Thickening of the jejunal wall distal to the anastomotic site may ind icate inflammation.
--- NOTE | 2019-09-29 20:20 | RAD REPORT ---
EXAM DESCRIPTION: Janice Single View09/29/2019 6:29 pm CLINICAL HISTORY: Abdominal pain COMPARISON: 2014 FINDINGS: The lungs appear clear of acute infiltrate. The heart is normal size. Bilateral breast im plants IMPRESSION: No acute abnormalities displayed
[2019-09-29 20:26] LABS: Anisocytosis 2+; Blood Morphology Comment NOTED (NOT SEEN); Platelet Estimate ADEQ; Urine White Blood Cell Casts OK
--- NOTE | 2019-09-29 20:44 | ER ---
Nurse's Notes [facility] Name: Pina Castrejon Age: 44 yrs Sex: Female : 1975 Arrival Date: 09/29/2019 Time: 16:36 Bed 13 Private MD: Diagnosis: Gastritis, unspecified;Abdominal tenderness;Anemia, unspecified Presentation: 09/28 16:49 Chief complaint: Patient states: "My stomach ulcer has been hurting me for the past jd3 couple of days and I am just wanting to make sure everything is ok and that I do not have a bowel perforation.". Coronavirus screen: At this time, the client does not indicate any symptoms associated with coronavirus-19. Ebola Screen: Patient negative for fever greater than or equal to 101.5 degrees Fahrenheit, and additional compatible Ebola Virus Disease symptoms. Initial Sepsis Screen: Does the patient meet any 2 criteria? No. Patient's initial sepsis screen is negative. Does the patient have a suspected source of infection? No. Patient's initial sepsis screen is negative. Risk Assessment: Do you want to hurt yourself or someone else? Patient reports no desire to harm self or others. Onset of symptoms was September 26, 2019. 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 - Social history:: Smoking status: Patient reports the use of cigarette tobacco products, denies chronic smoking, but will smoke occasionally. - Family history:: not pertinent. Screenin:30 Abuse screen: Denies threats or abuse. Denies injuries from another. Nutritional jl7 screening: No deficits noted. Tuberculosis screening: No symptoms or risk factors identified. Fall Risk IV access (20 points). Total Mcconnell Fall Scale indicates No Risk (0-24 pts). Assessment: 18:00 General: Appears in no apparent distress. uncomfortable, Behavior is calm, cooperative, jl7 appropriate for age, drowsy. Pain: Complains of pain in right lower quadrant and left lower quadrant Pain currently is 9 out of 10 on a pain scale. Neuro: Level of Consciousness is awake, alert, obeys commands, Oriented to person, place, time, situation. Cardiovascular: Patient's skin is warm and dry. Respiratory: Airway is patent Respiratory effort is even, unlabored, Respiratory pattern is regular, symmetrical. GI: Abdomen is flat, non-distended, Abdomen is tender to palpation X 4 quads. : No signs and/or symptoms were reported regarding the genitourinary system. Derm: Skin is dry, Skin is pale, Skin temperature is warm. 19:46 Reassessment: Patient appears in no apparent distress at this time. Patient and/or mg2 family updated on plan of care and expected duration. Pain level reassessed. Patient is alert, oriented x 3, equal unlabored respirations, skin warm/dry/pink. sent to CT scan via stretcher. 20:57 Reassessment: Patient states feeling better. Patient states symptoms have improved. mg2 Vital Signs: 16:52 BP 115 / 95; Pulse 88; Resp 17 S; Temp 98.3(O); Pulse Ox 100% on R/A; Weight 64.41 kg jd3 (R); Height 5 ft. 6 in. (167.64 cm) (R); Pain 9/10; 18:30 BP 122 / 91; Pulse 73; Resp 17; Pulse Ox 100% ; Pain 9/10; jl7 20:57 BP 118 / 80; Pulse 80; Resp 18; Temp 98; Pulse Ox 100% ; Pain 1/10; mg2 16:52 Body Mass Index 22.92 (64.41 kg, 167.64 cm) jd3 ED Course: 16:36 Patient arrived in ED. as 16:51 Triage completed. jd3 16:51 Arm band placed on. jd3 17:19 Manuel Hemphill PA is PHCP. jmm 17:19 Jose Chahal MD is Attending Physician. jmm 17:32 Jose Chahal MD is Attending Physician. pino 18:29 Chest Single View XRAY In Process Unspecified. EDMS 18:30 Patient has correct armband on for positive identification. Placed in gown. Bed in low jl7 position. Call light in reach. Side rails up X 1. Pulse ox on. NIBP on. Warm blanket given. 18:30 Initial lab(s) drawn, by me, sent to lab. Inserted saline lock: 22 gauge in right jl7 antecubital area, using aseptic technique. Blood collected. 18:51 Jazmin Pardo, APOLLO is Primary Nurse. [facility] 19:33 Manuel Hemphill PA is PHCP. jm 19:46 CT Abd/Pelvis - PO and IV Contrast In Process Unspecified. EDMS 20:43 Missy Yanes MD is Referral Physician. jm 20:57 No provider procedures requiring assistance completed. IV discontinued, intact, mg2 bleeding controlled, No redness/swelling at site. Pressure dressing applied. Administered Medications: 18:30 Drug: NS 0.9% 1000 ml Route: IV; Rate: 1 bolus; Site: right antecubital; jl7 20:24 Follow up: Response: No adverse reaction; IV Status: Completed infusion; IV Intake: mg2 1000ml 18:30 Drug: ProTONIX 40 mg Route: IVP; Site: right antecubital; jl7 20:23 Follow up: Response: No adverse reaction mg2 18:30 Drug: morphine 2 mg Route: IVP; Site: right antecubital; jl7 18:30 Drug: Zofran (Ondansetron) 4 mg Route: IVP; Site: right antecubital; jl7 20:23 Follow up: Response: No adverse reaction mg2 18:35 Drug: morphine 2 mg Route: IVP; Site: right antecubital; jl7 20:23 Follow up: Response: No adverse reaction mg2 19:12 Drug: ProTONIX 40 mg Route: IVP; Site: right antecubital; mg2 20:23 Follow up: Response: No adverse reaction mg2 19:20 Drug: Zofran (Ondansetron) 4 mg Route: IVP; Site: right antecubital; mg2 20:22 Follow up: Response: No adverse reaction mg2 19:21 Drug: Dilaudid 0.5 mg Route: IVP; Site: right antecubital; mg2 20:23 Follow up: Response: No adverse reaction; RASS: Alert and Calm (0) mg2 19:30 Drug: NS 0.9% with KCl 20 mEq/L 1000 ml Route: IV; Rate: 500 ml/hr; Site: right mg2 antecubital; 20:50 Follow up: IV Status: Order to discontinue infusion; IV Intake: 500ml mg2 19:30 Drug: Dilaudid 0.5 mg Route: IVP; Site: right antecubital; mg2 20:23 Follow up: Response: No adverse reaction mg2 Intake: 20:24 IV: 1000ml; Total: 1000ml. mg2 20:50 IV: 500ml; Total: 1500ml. mg2 Outcome: 20:44 Discharge ordered by . erica 20:57 Discharged to home ambulatory. mg2 20:57 Condition: stable 20:57 Discharge instructions given to patient, Instructed on discharge instructions, follow up and referral plans. medication usage, Demonstrated understanding of instructions, follow-up care, medications, Prescriptions given X 3. 20:57 Patient left the ED. mg2 Signatures: Dispatcher [employer] EDJose Mcintosh MD MD cha Mickail, Joel, PA PA jmm Martinez, Amelia as Leal, Jahala, RN RN jl7 Maxime Najera RN RN jd3 Bib Rome RN RN mg2
--- NOTE | 2019-09-29 20:44 | EDPHYS ---
Physician Documentation [facility] Name: Pina Castrejon Age: 44 yrs Sex: Female : 1975 Arrival Date: 09/29/2019 Time: 16:36 Bed 13 Private MD: CATHIE Physician Jose Chahal HPI: 09/28 18:04 This 44 yrs old Female presents to ER via Ambulatory with complaints of pino Abdominal Pain. 18:04 The patient presents with abdominal pain in the epigastric area, in the upper abdomen. pino Onset: The symptoms/episode began/occurred 2 day(s) ago. The patient presents to the emergency department vomiting blood, red consistency . Onset: The symptoms/episode began/occurred 2 day(s) ago. Abdominal pain: located in the epigastric area, right upper quadrant and left upper quadrant. Modifying factors: The symptoms are alleviated by nothing, the symptoms are aggravated by food, PO intake. Associated signs and symptoms: The patient has no apparent associated signs or symptoms. The symptoms do not radiate. Associated signs and symptoms: Pertinent positives: nausea and vomiting. Severity of pain: At its worst the pain was mild moderate in the emergency department the pain is unchanged. 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 - Social history:: Smoking status: Patient reports the use of cigarette tobacco products, denies chronic smoking, but will smoke occasionally. - Family history:: not pertinent. ROS: 18:04 Constitutional: Negative for fever, chills, and weight loss, Eyes: Negative for injury, pino pain, redness, and discharge, ENT: Negative for injury, pain, and discharge, Neck: Negative for injury, pain, and swelling, Cardiovascular: Negative for chest pain, palpitations, and edema, Respiratory: Negative for shortness of breath, cough, wheezing, and pleuritic chest pain, Back: Negative for injury and pain, : Negative for injury, bleeding, discharge, and swelling, MS/Extremity: Negative for injury and deformity, Neuro: Negative for headache, weakness, numbness, tingling, and seizure, Psych: Negative for depression, anxiety, suicide ideation, homicidal ideation, and hallucinations, Allergy/Immunology: Negative for hives, rash, and allergies, Endocrine: Negative for neck swelling, polydipsia, polyuria, polyphagia, and marked weight changes, Hematologic/Lymphatic: Negative for swollen nodes, abnormal bleeding, and unusual bruising. 18:04 Abdomen/GI: Positive for abdominal pain, nausea and vomiting, black/tarry stool. 18:04 Skin: Positive for pallor. Exam: 18:04 Constitutional: This is a well developed, well nourished patient who is awake, alert, pino and in no acute distress. Head/Face: Normocephalic, atraumatic. Eyes: Pupils equal round and reactive to light, extra-ocular motions intact. Lids and lashes normal. Conjunctiva and sclera are non-icteric and not injected. Cornea within normal limits. Periorbital areas with no swelling, redness, or edema. ENT: Nares patent. No nasal discharge, no septal abnormalities noted. Tympanic membranes are normal and external auditory canals are clear. Oropharynx with no redness, swelling, or masses, exudates, or evidence of obstruction, uvula midline. Mucous membranes moist. Neck: Trachea midline, no thyromegaly or masses palpated, and no cervical lymphadenopathy. Supple, full range of motion without nuchal rigidity, or vertebral point tenderness. No Meningismus. Chest/axilla: Normal chest wall appearance and motion. Nontender with no deformity. No lesions are appreciated. Cardiovascular: Regular rate and rhythm with a normal S1 and S2. No gallops, murmurs, or rubs. Normal PMI, no JVD. No pulse deficits. Respiratory: Lungs have equal breath sounds bilaterally, clear to auscultation and percussion. No rales, rhonchi or wheezes noted. No increased work of breathing, no retractions or nasal flaring. Back: No spinal tenderness. No costovertebral tenderness. Full range of motion. MS/ Extremity: Pulses equal, no cyanosis. Neurovascular intact. Full, normal range of motion. Neuro: Awake and alert, GCS 15, oriented to person, place, time, and situation. Cranial nerves II-XII grossly intact. Motor strength 5/5 in all extremities. Sensory grossly intact. Cerebellar exam normal. Normal gait. Psych: Awake, alert, with orientation to person, place and time. Behavior, mood, and affect are within normal limits. 18:04 Abdomen/GI: Inspection: abdomen appears normal, Bowel sounds: normal, Palpation: mild abdominal tenderness, in the epigastric area, right upper quadrant and left upper quadrant, Rectal exam: is unremarkable, rectal tone normal, Stool: normal, guaiac negative, hemorrhoid(s), are not appreciated, mass, is not appreciated, swelling, is not appreciated, tenderness, is not appreciated, Liver: no appreciated palpable abnormalities, Hernia: not appreciated. Vital Signs: 16:52 BP 115 / 95; Pulse 88; Resp 17 S; Temp 98.3(O); Pulse Ox 100% on R/A; Weight 64.41 kg jd3 (R); Height 5 ft. 6 in. (167.64 cm) (R); Pain 9/10; 18:30 BP 122 / 91; Pulse 73; Resp 17; Pulse Ox 100% ; Pain 9/10; jl7 20:57 BP 118 / 80; Pulse 80; Resp 18; Temp 98; Pulse Ox 100% ; Pain 1/10; mg2 16:52 Body Mass Index 22.92 (64.41 kg, 167.64 cm) jd3 MDM: 17:32 Patient medically screened. pino 18:08 Differential diagnosis: gastritis, bowel obstruction, cholecystitis, Cholelithiasis, pino gastritis, gastroesophageal reflux disease, GI Bleed, myocardia ischemia or infarction, non-specific abd pain, pancreatitis, Peptic Ulcer Disease, Perf. Duodenal Ulcer, Perf. Gastric Ulcer, urinary tract infection. Data reviewed: vital signs, nurses notes, lab test result(s), EKG, radiologic studies, CT scan, plain films. Data interpreted: desk monitor: rate is 88 beats/min, rhythm is regular, Pulse oximetry: on room air is 100 %. Test interpretation: by ED physician or midlevel provider: ECG, plain radiologic studies. Counseling: I had a detailed discussion with the patient and/or guardian regarding: the historical points, exam findings, and any diagnostic results supporting the discharge/admit diagnosis, lab results, radiology results, the need for outpatient follow up. Medication response: 19:05 ED course: follow up dr herring, christelle, gibran and conor. [facility] 09/28 17:35 Order name: Basic Metabolic Panel; Complete Time: 19:04 [facility] 09/28 17:35 Order name: CBC with Diff; Complete Time: 20:40 [facility] 09/28 17:35 Order name: Hepatic Function; Complete Time: 19:04 [facility] 09/28 17:35 Order name: Lipase; Complete Time: 19:04 [facility] 09/28 18:04 Order name: Troponin (emerg Dept Use Only); Complete Time: 19:34 [facility] 09/28 18:44 Order name: CBC Smear Scan; Complete Time: 20:40 [facility] 09/28 17:35 Order name: CT Abd/Pelvis - PO and IV Contrast; Complete Time: 20:24 [facility] 09/28 18:04 Order name: Chest Single View XRAY; Complete Time: 20:24 [facility] 09/28 19:40 Order name: Urine Dipstick--Ancillary (enter results); Complete Time: 19:51 [facility] 09/28 19:40 Order name: Urine --Ancillary (enter results); Complete Time: 19:51 [facility] 09/28 17:35 Order name: IV Saline Lock; Complete Time: 18:54 [facility] 09/28 17:35 Order name: Labs collected and sent; Complete Time: 18:54 [facility] 09/28 17:35 Order name: Urine Test (obtain specimen); Complete Time: 19:31 [facility] 09/28 18:04 Order name: EKG; Complete Time: 18:05 [facility] 09/28 18:04 Order name: EKG - Nurse/Tech; Complete Time: 19:30 [facility] Administered Medications: 18:30 Drug: NS 0.9% 1000 ml Route: IV; Rate: 1 bolus; Site: right antecubital; jl7 20:24 Follow up: Response: No adverse reaction; IV Status: Completed infusion; IV Intake: mg2 1000ml 18:30 Drug: ProTONIX 40 mg Route: IVP; Site: right antecubital; jl7 20:23 Follow up: Response: No adverse reaction mg2 18:30 Drug: morphine 2 mg Route: IVP; Site: right antecubital; jl7 18:30 Drug: Zofran (Ondansetron) 4 mg Route: IVP; Site: right antecubital; jl7 20:23 Follow up: Response: No adverse reaction mg2 18:35 Drug: morphine 2 mg Route: IVP; Site: right antecubital; jl7 20:23 Follow up: Response: No adverse reaction mg2 19:12 Drug: ProTONIX 40 mg Route: IVP; Site: right antecubital; mg2 20:23 Follow up: Response: No adverse reaction mg2 19:20 Drug: Zofran (Ondansetron) 4 mg Route: IVP; Site: right antecubital; mg2 20:22 Follow up: Response: No adverse reaction mg2 19:21 Drug: Dilaudid 0.5 mg Route: IVP; Site: right antecubital; mg2 20:23 Follow up: Response: No adverse reaction; RASS: Alert and Calm (0) mg2 19:30 Drug: NS 0.9% with KCl 20 mEq/L 1000 ml Route: IV; Rate: 500 ml/hr; Site: right mg2 antecubital; 20:50 Follow up: IV Status: Order to discontinue infusion; IV Intake: 500ml mg2 19:30 Drug: Dilaudid 0.5 mg Route: IVP; Site: right antecubital; mg2 20:23 Follow up: Response: No adverse reaction mg2 Disposition: 09/29/19 20:44 Discharged to Home. Impression: Gastritis, unspecified, Abdominal tenderness, Anemia, unspecified. - Condition is Stable. - Discharge Instructions: Abdominal Pain, Adult, Anemia, Nonspecific, Gastrointestinal Bleeding, Nausea and Vomiting, Adult, Abdominal Pain, Adult, [id number]. - Prescriptions for Zofran ODT 4 mg Oral tablet,disintegrating - place 1 tablet by TRANSLINGUAL route every 4-6 hours; 20 tablet. Bentyl 20 mg Oral Tablet - take 1 tablet by ORAL route every 6 hours As needed; 20 tablet. Cipro 500 mg Oral Tablet - take 1 tablet by ORAL route every 12 hours for 7 days; 14 tablet. - Medication Reconciliation Form, Thank You Letter, Antibiotic Education, Prescription Opioid Use form. - Follow up: Private Physician; When: 2 - 3 days; Reason: Recheck today's complaints, Continuance of care, Re-evaluation by your physician. Follow up: Missy Herring; When: 2 - 3 days; Reason: Recheck today's complaints, Re-evaluation by your physician. - Problem is new. - Symptoms have improved. Signatures: Dispatcher [employer] EDJose Mcintosh MD MD cha Mickail, Joel, PA PA jmm Leal, Jahala RN RN jl7 Maxime Najera RN RN jd3 Bib Rome RN RN mg2 Corrections: (The following items were deleted from the chart) 20:57 20:44 09/29/2019 20:44 Discharged to Home. Impression: Gastritis, unspecified; mg2 Abdominal tenderness; Anemia, unspecified. Condition is Stable. Discharge Instructions: Abdominal Pain, Adult, Anemia, Nonspecific, Gastrointestinal Bleeding, Nausea and Vomiting, Adult, Abdominal Pain, Adult, [id number]. Prescriptions for Bentyl 20 mg Oral Tablet - take 2 tablets by ORAL route every 6 hours As needed; 28 tablet, Protonix 40 mg Oral Tablet - take 1 tablet by ORAL route once daily; 30 tablet, Zofran 4 mg Oral Tablet - take 1 tablet by ORAL route every 12 hours As needed; 20 tablet. and Forms are Medication Reconciliation Form, Thank You Letter, Antibiotic Education, Prescription Opioid Use. Follow up: Private Physician; When: 2 - 3 days; Reason: Recheck today's complaints, Continuance of care, Re-evaluation by your physician. Follow up: Missy Herring; When: 2 - 3 days; Reason: Recheck today's complaints, Re-evaluation by your physician. Problem is new. Symptoms have improved. erica
== END 2019-09-29 20:57 | disposition home or self-care (01) ==
LOC: ER 16:30
DX: K29.70 Gastritis, unspecified, without bleeding (principal); R10.9 Unspecified abdominal pain; D64.9 Anemia, unspecified; Z88.2 Allergy status to sulfonamides; Z88.6 Allergy status to analgesic agent; K92.2 Gastrointestinal hemorrhage, unspecified; F41.8 Other specified anxiety disorders; F17.210 Nicotine dependence, cigarettes, uncomplicated
CPT/HCPCS: 96361; 93005; 85025; 80048; 36415; 81025; 80076; 81003; 84484; 83690; 74177; 71045; 96375; 96374; 99284; Q9967; C9113 ×2; J1170; J7030; J2405 ×2

== ENCOUNTER 2019-11-17 11:32 | Emergency (ER) | payer OTHER ==
[2019-11-17 12:31] LABS: Absolute Lymphocytes (CBC) 1.4 K/uL (0.7-4.9); Basophils % 0.4 % (0-1.3); Hematocrit 38.8 % (36.0-45.0); Lymphocytes % 9.2 % (15.3-44.8); MPV 7.4 fL (7.6-11.3); RBC Red Blood Cell Count 4.47 M/uL (3.86-4.86)
[2019-11-17 12:36] LABS: Protime INR 1.11
[2019-11-17] MEDS ORDERED: MORPHINE 2 MG/ML SYR ONE (12:40)
[2019-11-17] MEDS ORDERED: NA CHLORIDE 0.9% 1,000 ML ONE ×3 (12:40→15:52)
[2019-11-17] MEDS ORDERED: FAMOTIDINE 20 MG/2 ML VIAL IV ONE ×2 (12:40→16:45)
[2019-11-17] MEDS ORDERED: ONDANSETRON 4 MG/2 ML VIAL ONE ×4 (12:40→18:58)
[2019-11-17 12:50] LABS: ALT/SGPT 14 U/L (12-78); AST/SGOT 14 U/L (15-37); Albumin 3.6 g/dL (3.4-5.0); Alkaline Phosphatase 144 U/L (45-117); BUN Blood Urea Nitrogen 17 mg/dL (7-18); Bicarbonate 21 mmol/L (21-32); Bilirubin Direct 0.1 mg/dL (0-0.2); Bilirubin Total 0.5 mg/dL (0.2-1.0); Glucose Level 103 mg/dL (74-106); Lipase 52 U/L (73-393); Magnesium 2.2 mg/dL (1.8-2.4); NT PRO-BNP 42 pg/mL (<125); Potassium 3.9 mmol/L (3.5-5.1); Protein, Total 8.3 g/dL (6.4-8.2); Sodium Level 134 mmol/L (136-145); Troponin (Emerg Dept Use Only) < 0.02 ng/mL (0.0-0.045)
[2019-11-17 13:20] LABS: Blood Morphology Comment NOT SEEN (NOT SEEN); Platelet Estimate INCR
[2019-11-17 13:42] LABS: Urine Blood NEGATIVE (NEG); Urine Glucose NEGATIVE (NEG); Urine Protein 1+ (NEG)
[2019-11-17] MEDS ORDERED: PANTOPRAZOLE 40 MG INJ ONE (14:01)
[2019-11-17] MEDS ORDERED: HYDROMORPHONE HCL 1 MG/ML INJ ONE ×3 (14:16→18:58)
--- NOTE | 2019-11-17 14:30 | RAD REPORT ---
EXAM DESCRIPTION: CT - Abdomen Pelvis W Contrast - 11/17/2019 1:55 pm CLINICAL HISTORY: Abdominal pain COMPARISON: September 2019 TECHNIQUE: Computed axial tomography of the abdomen pelvis was obtained. 100 cc Isovue-300 was admin istered intravenously. Oral contrast was not requested which limits evaluation of bowel. All CT scans are performed using dose optimization technique as appropriate and may include automated exposure control or mA/KV adjustment according to patient size. FINDINGS: Post postsurgical changes of a gastric jejunostomy are present. Marked thickening of the w all of the stomach. There is stranding within the fat adjacent to the anterior aspect of the proximal stomach. A 5 millimeter air bubble is present. Fatty liver. Cholecystectomy. Spleen, pancreas, and adrenal appear unremarkable. Parapelvic renal cysts There is no evidence of diverticulitis. Normal appendix IMPRESSION: Marked thickening of the wall of the stomach probably a gastritis. 5 millimeter air bubble lies adjacent to the anterior aspect of the proximal stomach. The air bubble probably is extraluminal.
--- NOTE | 2019-11-17 14:31 | RAD REPORT ---
EXAM DESCRIPTION: Janice Single View11/17/2019 12:11 pm CLINICAL HISTORY: Abdominal pain COMPARISON: September 2019 FINDINGS: The lungs appear clear of acute infiltrate. The heart is normal size IMPRESSION: No acute abnormalities displayed
--- NOTE | 2019-11-17 15:20 | EDPHYS ---
Physician Documentation [facility] Name: Pina Castrejon Age: 44 yrs Sex: Female : 1975 Arrival Date: 11/17/2019 Time: 11:34 Bed 13 Private MD: Jose Ariza HPI: 11/16 12:27 This 44 yrs old Female presents to ER via Ambulatory with complaints of pino Abdominal Pain. 12:27 The patient presents with abdominal pain in the epigastric area, in the upper abdomen. pino Onset: The symptoms/episode began/occurred 3 day(s) ago. The symptoms do not radiate. Associated signs and symptoms: Pertinent positives: nausea, vomiting. Severity of pain: At its worst the pain was mild. The patient has not experienced similar symptoms in the past. 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 - Social history:: Smoking status: Patient reports the use of cigarette tobacco products, denies chronic smoking, but will smoke occasionally, smokes one-half pack cigarettes per day. ROS: 12:27 Constitutional: Negative for fever, chills, and weight loss, Eyes: Negative for injury, pino pain, redness, and discharge, ENT: Negative for injury, pain, and discharge, Neck: Negative for injury, pain, and swelling, Cardiovascular: Negative for chest pain, palpitations, and edema, Respiratory: Negative for shortness of breath, cough, wheezing, and pleuritic chest pain, Back: Negative for injury and pain, : Negative for injury, bleeding, discharge, and swelling, MS/Extremity: Negative for injury and deformity, Skin: Negative for injury, rash, and discoloration, Neuro: Negative for headache, weakness, numbness, tingling, and seizure, Psych: Negative for depression, anxiety, suicide ideation, homicidal ideation, and hallucinations, Allergy/Immunology: Negative for hives, rash, and allergies, Endocrine: Negative for neck swelling, polydipsia, polyuria, polyphagia, and marked weight changes. 12:27 Abdomen/GI: Positive for abdominal pain, nausea, vomiting. Exam: 12:27 Constitutional: This is a well developed, well nourished patient who is awake, alert, pino and in no acute distress. Head/Face: Normocephalic, atraumatic. Eyes: Pupils equal round and reactive to light, extra-ocular motions intact. Lids and lashes normal. Conjunctiva and sclera are non-icteric and not injected. Cornea within normal limits. Periorbital areas with no swelling, redness, or edema. ENT: Nares patent. No nasal discharge, no septal abnormalities noted. Tympanic membranes are normal and external auditory canals are clear. Oropharynx with no redness, swelling, or masses, exudates, or evidence of obstruction, uvula midline. Mucous membranes moist. Neck: Trachea midline, no thyromegaly or masses palpated, and no cervical lymphadenopathy. Supple, full range of motion without nuchal rigidity, or vertebral point tenderness. No Meningismus. Chest/axilla: Normal chest wall appearance and motion. Nontender with no deformity. No lesions are appreciated. Cardiovascular: Regular rate and rhythm with a normal S1 and S2. No gallops, murmurs, or rubs. Normal PMI, no JVD. No pulse deficits. Respiratory: Lungs have equal breath sounds bilaterally, clear to auscultation and percussion. No rales, rhonchi or wheezes noted. No increased work of breathing, no retractions or nasal flaring. Back: No spinal tenderness. No costovertebral tenderness. Full range of motion. Female : Normal external genitalia. Skin: Warm, dry with normal turgor. Normal color with no rashes, no lesions, and no evidence of cellulitis. MS/ Extremity: Pulses equal, no cyanosis. Neurovascular intact. Full, normal range of motion. Neuro: Awake and alert, GCS 15, oriented to person, place, time, and situation. Cranial nerves II-XII grossly intact. Motor strength 5/5 in all extremities. Sensory grossly intact. Cerebellar exam normal. Normal gait. Psych: Awake, alert, with orientation to person, place and time. Behavior, mood, and affect are within normal limits. 12:27 Abdomen/GI: Inspection: abdomen appears normal, Bowel sounds: normal, Palpation: mild abdominal tenderness, in the epigastric area, right upper quadrant and left upper quadrant, Liver: no appreciated palpable abnormalities, Hernia: not appreciated. Vital Signs: 11:44 BP 121 / 91; Pulse 123; Resp 18; Temp 97.7; Pulse Ox 100% ; Weight 58.97 kg; Height 5 ll1 ft. 5 in. (165.10 cm); Pain 10/10; 14:08 BP 140 / 64; Pulse 97; Resp 16 S; Pulse Ox 100% on R/A; jd3 15:23 BP 128 / 77; Pulse 93; Resp 15 S; Pulse Ox 100% on R/A; jd3 16:45 BP 124 / 64; Pulse 100; Resp 17 S; Pulse Ox 100% on R/A; jd3 18:31 BP 121 / 87; Pulse 92; Resp 17 S; Pulse Ox 100% on R/A; jd3 19:30 BP 127 / 75; Pulse 90; Resp 17 S; Pulse Ox 100% on R/A; jd3 11:44 Body Mass Index 21.63 (58.97 kg, 165.10 cm) ll1 MDM: 11:51 Patient medically screened. pino 12:29 Differential diagnosis: cholecystitis, Cholelithiasis, gastritis, GI Bleed, pino non-specific abd pain, pancreatitis, Peptic Ulcer Disease, Perf. Duodenal Ulcer, Perf. Gastric Ulcer. Data reviewed: vital signs, nurses notes, lab test result(s), EKG, radiologic studies, CT scan, plain films. 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 Test interpretation: by ED physician or midlevel provider: ECG, plain radiologic studies. Counseling: I had a detailed discussion with the patient and/or guardian regarding: the historical points, exam findings, and any diagnostic results supporting the discharge/admit diagnosis, lab results, radiology results, the need for outpatient follow up. 11/16 11:56 Order name: Basic Metabolic Panel; Complete Time: 12:59 pino 11/16 11:56 Order name: CBC with Diff; Complete Time: 14:10 pino 11/16 11:56 Order name: LFT's; Complete Time: 12:59 [facility] 11/16 11:56 Order name: Magnesium; Complete Time: 12:59 [facility] 11/16 11:56 Order name: NT PRO-BNP; Complete Time: 12:59 [facility] 11/16 11:56 Order name: PT-INR; Complete Time: 12:59 [facility] 11/16 11:56 Order name: Troponin (emerg Dept Use Only); Complete Time: 12:59 [facility] 11/16 11:56 Order name: XRAY Chest (1 view); Complete Time: 15:11 [facility] 11/16 11:56 Order name: Lipase; Complete Time: 12:59 [facility] 11/16 11:56 Order name: Urine Culture [facility] 11/16 12:33 Order name: Manual Differential; Complete Time: 14:10 EDMS 11/16 13:09 Order name: Urine Dipstick--Ancillary (enter results); Complete Time: 14:10 11/16 17:18 Order name: SARS-COV-2 RT PCR; Complete Time: 18:44 EDMS 11/16 11:56 Order name: CT Abd/Pelvis - IV Contrast Only; Complete Time: 15:11 [facility] 11/16 11:56 Order name: EKG; Complete Time: 11:57 [facility] 11/16 11:56 Order name: Cardiac monitoring; Complete Time: 12:52 [facility] 11/16 11:56 Order name: EKG - Nurse/Tech; Complete Time: 12:52 [facility] 11/16 11:56 Order name: IV Saline Lock; Complete Time: 12:34 [facility] 11/16 11:56 Order name: Labs collected and sent; Complete Time: 12:34 [facility] 11/16 11:56 Order name: O2 Per Protocol; Complete Time: 11:57 [facility] 11/16 11:56 Order name: O2 Sat Monitoring; Complete Time: 11:57 [facility] 11/16 11:56 Order name: Urine Dipstick-Ancillary (obtain specimen); Complete Time: 13:01 [facility] Administered Medications: 12:34 Drug: Zofran (Ondansetron) 4 mg Route: IVP; Site: right antecubital; jd3 13:30 Follow up: Response: No adverse reaction jd3 12:35 Drug: NS 0.9% 1000 ml Route: IV; Rate: 1 bolus; Site: right antecubital; jd3 13:30 Follow up: Response: No adverse reaction; IV Status: Completed infusion; IV Intake: jd3 1000ml 12:35 Drug: Pepcid 20 mg Route: IVP; Site: right antecubital; jd3 13:30 Follow up: Response: No adverse reaction jd3 12:35 Drug: morphine 2 mg Route: IVP; Site: right antecubital; jd3 13:30 Follow up: Response: No adverse reaction; RASS: Alert and Calm (0) jd3 14:01 Drug: NS 0.9% 1000 ml Route: IV; Rate: 1 bolus; Site: right antecubital; jd3 14:01 Drug: ProTONIX 40 mg Route: IVP; Site: right antecubital; jd3 15:00 Follow up: Response: No adverse reaction jd3 14:07 Drug: Dilaudid 1 mg Route: IVP; Site: right antecubital; jd3 15:00 Follow up: Response: No adverse reaction; RASS: Alert and Calm (0) jd3 14:07 Drug: Zofran (Ondansetron) 4 mg Route: IVP; Site: right antecubital; jd3 15:00 Follow up: Response: No adverse reaction jd3 15:47 Drug: NS 0.9% 1000 ml Route: IV; Rate: 125 ml/hr; Site: right antecubital; jd3 19:31 Follow up: Response: No adverse reaction; IV Status: Infusion continued upon transfer jd3 15:48 Drug: Dilaudid 1 mg Route: IVP; Site: right antecubital; jd3 16:40 Follow up: Response: No adverse reaction; RASS: Alert and Calm (0) jd3 15:59 Drug: Zosyn 3.375 grams Route: IVPB; Infused Over: 60 mins; Site: right antecubital; jd3 16:40 Follow up: Response: itching noted, med stopped, and provider notified; IV Status: jd3 Order to discontinue infusion 15:59 Drug: Zofran (Ondansetron) 4 mg Route: IVP; Site: right antecubital; jd3 16:50 Follow up: Response: No adverse reaction jd3 16:43 Drug: Benadryl 25 mg Route: IVP; Site: right antecubital; jd3 17:40 Follow up: Response: No adverse reaction jd3 16:43 Drug: Meropenem 1 grams Route: IV; Rate: per protocol; Site: right antecubital; jd3 17:40 Follow up: Response: No adverse reaction; IV Status: Completed infusion jd3 18:50 Drug: Dilaudid 1 mg Route: IVP; Site: right antecubital; hb 19:30 Follow up: Response: No adverse reaction; RASS: Alert and Calm (0) jd3 18:50 Drug: Zofran (Ondansetron) 4 mg Route: IVP; Site: right antecubital; hb 19:30 Follow up: Response: No adverse reaction jd3 19:11 Drug: Benadryl 25 mg Route: IVP; Site: right antecubital; jd3 19:30 Follow up: Response: No adverse reaction j Disposition: 11/17/19 15:19 Transfer ordered to Other Acute Care Facility. Diagnosis are Acute gastric ulcer with perforation, Abdominal tenderness, Elevated white blood cell count, Bandemia. - Reason for transfer: Higher level of care. - Accepting physician is to [facility]. - Condition is Fair. - Problem is new. - Symptoms have improved. Signatures: Dispatcher [employer] [facility] Jose Chahal MD MD cha Baxter, Heather, RN RN hb Davies, Jonathon, RN RN jd3 Lewis, Lynsay, RN RN ll1 Corrections: (The following items were deleted from the chart) 15:53 15:19 11/17/2019 15:19 Transfer ordered to [facility]. Diagnosis is Acute pino gastric ulcer with perforation; Abdominal tenderness; Elevated white blood cell count. Reason for transfer: Higher level of care. Accepting physician is to [facility]. Condition is Fair. Problem is new. Symptoms have improved. [facility] 17:18 17:03 CORONAVIRUS+MR.LAB.BRZ ordered. [facility] 18:46 15:53 11/17/2019 15:19 Transfer ordered to Other Acute Care Facility. Diagnosis is [facility] Acute gastric ulcer with perforation; Abdominal tenderness; Elevated white blood cell count. Reason for transfer: Higher level of care. Accepting physician is to [facility]. Condition is Fair. Problem is new. Symptoms have improved. [facility] 19:31 18:46 11/17/2019 15:19 Transfer ordered to Other Acute Care Facility. Diagnosis is jd3 Acute gastric ulcer with perforation; Abdominal tenderness; Elevated white blood cell count; Bandemia. Reason for transfer: Higher level of care. Accepting physician is to [facility]. Condition is Fair. Problem is new. Symptoms have improved. pino
--- NOTE | 2019-11-17 15:20 | ER ---
Nurse's Notes [facility] Name: Pina Castrejon Age: 44 yrs Sex: Female : 1975 Arrival Date: 11/17/2019 Time: 11:34 Bed 13 Private MD: Diagnosis: Acute gastric ulcer with perforation;Abdominal tenderness;Elevated white blood cell count;Bandemia Presentation: 11/16 11:44 Chief complaint: Patient states: EGD done 11/05. Having abdominal pain since. Unable to ll1 hold down foods/fluids. No fever. Coronavirus screen: Client denies travel out of the [place] in the last 14 days. At this time, the client does not indicate any symptoms associated with coronavirus-19. The client reports previous COVID testing was negative. Ebola Screen: Patient denies travel to an Ebola-affected area in the 21 days before illness onset. Initial Sepsis Screen: Does the patient meet any 2 criteria? HR > 90 bpm. No. Patient's initial sepsis screen is negative. Does the patient have a suspected source of infection? Yes: Acute abdominal pain. Risk Assessment: Do you want to hurt yourself or someone else? Patient reports no desire to harm self or others. Onset of symptoms was November 06, 2019. 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 - Social history:: Smoking status: Patient reports the use of cigarette tobacco products, denies chronic smoking, but will smoke occasionally, smokes one-half pack cigarettes per day. Screenin:08 Abuse screen: Denies threats or abuse. Nutritional screening: No deficits noted. jd3 Tuberculosis screening: No symptoms or risk factors identified. Fall Risk IV access (20 points). Ambulatory Aid- None/Bed Rest/Nurse Assist (0 pts). Gait- Normal/Bed Rest/Wheelchair (0 pts) Mental Status- Oriented to own ability (0 pts). Total M[place]onnell Fall Scale indicates No Risk (0-24 pts). Assessment: 11:52 General: Appears in no apparent distress. uncomfortable, Behavior is calm, cooperative, jd3 appropriate for age. Pain: Complains of pain in abdomen Quality of pain is described as sharp, tender. Neuro: Level of Consciousness is awake, alert, obeys commands, Oriented to person, place, time, situation. Cardiovascular: Denies chest pain, Capillary refill < 3 seconds Patient's skin is warm and dry. Rhythm is regular. Respiratory: Airway is patent Respiratory effort is even, unlabored, Respiratory pattern is regular, symmetrical, Denies cough, shortness of breath. GI: Abdomen is flat, non-distended, Bowel sounds present X 4 quads. Abd is soft X 4 quads Abdomen is tender to palpation X 4 quads. Reports upper abdominal pain, intolerance of fluids, intolerance of food, nausea, vomiting. : No signs and/or symptoms were reported regarding the genitourinary system. EENT: No signs and/or symptoms were reported regarding the EENT system. Derm: Skin is intact, Skin is dry, Skin is normal, Skin temperature is warm. Musculoskeletal: Circulation, motion, and sensation intact. Range of motion:. 12:50 Reassessment: Patient appears in no apparent distress at this time. No changes from jd3 previously documented assessment. Patient and/or family updated on plan of care and expected duration. Pain level reassessed. Patient is alert, oriented x 3, equal unlabored respirations, skin warm/dry/pink. 13:40 Reassessment: Patient appears in no apparent distress at this time. No changes from jd3 previously documented assessment. Patient and/or family updated on plan of care and expected duration. Pain level reassessed. Patient is alert, oriented x 3, equal unlabored respirations, skin warm/dry/pink. 14:08 Reassessment: Patient appears in no apparent distress at this time. Patient and/or jd3 family updated on plan of care and expected duration. Pain level reassessed. Patient is alert, oriented x 3, equal unlabored respirations, skin warm/dry/pink. pt reports feeling better after new pain medication Patient states feeling better. 15:23 Reassessment: Patient appears in no apparent distress at this time. No changes from jd3 previously documented assessment. Patient and/or family updated on plan of care and expected duration. Pain level reassessed. Patient is alert, oriented x 3, equal unlabored respirations, skin warm/dry/pink. 16:29 Reassessment: Pt c/o itching, mild hives noted to back. Rusty paused and Dr. Chahal j notified. 16:40 Reassessment: Patient appears in no apparent distress at this time. Patient and/or jd3 family updated on plan of care and expected duration. Pain level reassessed. Patient is alert, oriented x 3, equal unlabored respirations, skin warm/dry/pink. provider notified of pt itching after antibiotics started, antibiotics changed after pt reporting itching Patient states feeling better. 16:50 Reassessment: called to [facility] to give report, was told to wait to give report until after jd3 COVID result by Toyin. 17:30 Reassessment: Patient appears in no apparent distress at this time. No changes from jd3 previously documented assessment. Patient and/or family updated on plan of care and expected duration. Pain level reassessed. Patient is alert, oriented x 3, equal unlabored respirations, skin warm/dry/pink. 18:31 Reassessment: Patient appears in no apparent distress at this time. No changes from jd3 previously documented assessment. Patient and/or family updated on plan of care and expected duration. Pain level reassessed. Patient is alert, oriented x 3, equal unlabored respirations, skin warm/dry/pink. 18:47 Reassessment: Patient appears in no apparent distress at this time. Patient and/or jd3 family updated on plan of care and expected duration. Pain level reassessed. Patient is alert, oriented x 3, equal unlabored respirations, skin warm/dry/pink. report given to Jeannine BUSTILLOS at [facility]. 18:51 Reassessment: Pt c/o abdominal pain 10/17, Dr. Chahal notified, repeat dilaudid and hb zofran administered as ordered. Vital Signs: 11:44 BP 121 / 91; Pulse 123; Resp 18; Temp 97.7; Pulse Ox 100% ; Weight 58.97 kg; Height 5 ll1 ft. 5 in. (165.10 cm); Pain 10/10; 14:08 BP 140 / 64; Pulse 97; Resp 16 S; Pulse Ox 100% on R/A; jd3 15:23 BP 128 / 77; Pulse 93; Resp 15 S; Pulse Ox 100% on R/A; jd3 16:45 BP 124 / 64; Pulse 100; Resp 17 S; Pulse Ox 100% on R/A; jd3 18:31 BP 121 / 87; Pulse 92; Resp 17 S; Pulse Ox 100% on R/A; jd3 19:30 BP 127 / 75; Pulse 90; Resp 17 S; Pulse Ox 100% on R/A; jd3 11:44 Body Mass Index 21.63 (58.97 kg, 165.10 cm) ll1 ED Course: 11:34 Patient arrived in ED. ds1 11:41 Jose Chahal MD is Attending Physician. pino 11:46 Triage completed. ll1 11:46 Arm band placed on Patient placed in an exam room, on a stretcher. ll1 11:52 Maxime Najera, RN is Primary Nurse. jd3 12:11 XRAY Chest (1 view) In Process Unspecified. EDMS 12:52 Accessed peripheral vein via ultrasound, utilizing dynamic ultrasound technique using jd3 20G Nexia IV catheter ,sterile technique, per hospital protocol. Clean \T\ dry. Dressing intact. placed to the right AC. Good blood return. Flushes easily. 12:56 EKG done, by ED staff, reviewed by Jose Chahal MD. dh3 13:55 CT Abd/Pelvis - IV Contrast Only In Process Unspecified. EDMS 14:09 Patient has correct armband on for positive identification. Placed in gown. Bed in low jd3 position. Call light in reach. Side rails up X2. cloth cutter on. Pulse ox on. NIBP on. 15:[address] Chahal with Ana from the [facility] Transfer [place]. bro 15:[address] Penaloza the Surgeon television station manager for [facility] with Dr. Chahal for bro patient transfer consultation. 15:[address] Ronan Sweet general surgeon from [facility] with James Chahal/ Dr. bro Ferraro requests we transfer the patient to [facility] where he will accept the patient in transfer. 15:52 initiated a transfer with Yolis from the [facility] transfer Center. 15:[address] Dejan Holloway the Emergency Room Doctor television station manager for [facility] with Dr. Chahal for patient transfer consultation. 15:59 administrative approval given by Yolis Orozco/ patient has been accepted to [facility] ER/ Dr. Dejan Cid has accepted the patient in transfer/ report to be called to [phone]. 19:28 No provider procedures requiring assistance completed. Patient transferred, IV remains jd3 in place. Administered Medications: 12:34 Drug: Zofran (Ondansetron) 4 mg Route: IVP; Site: right antecubital; jd3 13:30 Follow up: Response: No adverse reaction jd3 12:35 Drug: NS 0.9% 1000 ml Route: IV; Rate: 1 bolus; Site: right antecubital; jd3 13:30 Follow up: Response: No adverse reaction; IV Status: Completed infusion; IV Intake: jd3 1000ml 12:35 Drug: Pepcid 20 mg Route: IVP; Site: right antecubital; jd3 13:30 Follow up: Response: No adverse reaction jd3 12:35 Drug: morphine 2 mg Route: IVP; Site: right antecubital; jd3 13:30 Follow up: Response: No adverse reaction; RASS: Alert and Calm (0) jd3 14:01 Drug: NS 0.9% 1000 ml Route: IV; Rate: 1 bolus; Site: right antecubital; jd3 14:01 Drug: ProTONIX 40 mg Route: IVP; Site: right antecubital; jd3 15:00 Follow up: Response: No adverse reaction jd3 14:07 Drug: Dilaudid 1 mg Route: IVP; Site: right antecubital; jd3 15:00 Follow up: Response: No adverse reaction; RASS: Alert and Calm (0) jd3 14:07 Drug: Zofran (Ondansetron) 4 mg Route: IVP; Site: right antecubital; jd3 15:00 Follow up: Response: No adverse reaction jd3 15:47 Drug: NS 0.9% 1000 ml Route: IV; Rate: 125 ml/hr; Site: right antecubital; jd3 19:31 Follow up: Response: No adverse reaction; IV Status: Infusion continued upon transfer jd3 15:48 Drug: Dilaudid 1 mg Route: IVP; Site: right antecubital; jd3 16:40 Follow up: Response: No adverse reaction; RASS: Alert and Calm (0) jd3 15:59 Drug: Zosyn 3.375 grams Route: IVPB; Infused Over: 60 mins; Site: right antecubital; jd3 16:40 Follow up: Response: itching noted, med stopped, and provider notified; IV Status: jd3 Order to discontinue infusion 15:59 Drug: Zofran (Ondansetron) 4 mg Route: IVP; Site: right antecubital; jd3 16:50 Follow up: Response: No adverse reaction jd3 16:43 Drug: Benadryl 25 mg Route: IVP; Site: right antecubital; jd3 17:40 Follow up: Response: No adverse reaction jd3 16:43 Drug: Meropenem 1 grams Route: IV; Rate: per protocol; Site: right antecubital; jd3 17:40 Follow up: Response: No adverse reaction; IV Status: Completed infusion jd3 18:50 Drug: Dilaudid 1 mg Route: IVP; Site: right antecubital; hb 19:30 Follow up: Response: No adverse reaction; RASS: Alert and Calm (0) jd3 18:50 Drug: Zofran (Ondansetron) 4 mg Route: IVP; Site: right antecubital; hb 19:30 Follow up: Response: No adverse reaction jd3 19:11 Drug: Benadryl 25 mg Route: IVP; Site: right antecubital; jd3 19:30 Follow up: Response: No adverse reaction jd3 Intake: 13:30 IV: 1000ml; Total: 1000ml. jd3 Outcome: 15:19 ER care complete, transfer ordered by MD. pringle 19:30 Transferred by ground EMS to other acute care facility: [facility]. Transfer form jd3 completed. X-rays sent w/ patient. 19:30 Condition: stable 19:30 Instructed on the need for transfer, Demonstrated understanding of instructions. 19:31 Patient left the ED. jd3 Signatures: Dispatcher [employer] EDJose Mcintosh MD MD cha Sanford, Demi ds1 Deyanira Welch RN Ashly Mosqueda [facility] Maxime Najera RN RN qued3 Arianna Cruz Lynsay RN RN ll1 Corrections: (The following items were deleted from the chart) 14:09 14:08 Pulse 97bpm; Resp 16bpm; Spontaneous; Pulse Ox 100% RA; jd3 jd3 16:07 16:[address] Dejan Holloway the Emergency Room Doctor television station manager for [facility] with Dr. Chahal for patient transfer consultation. 16:42 14:08 Reassessment: Patient appears in no apparent distress at this time. No changes jd3 from previously documented assessment. Patient and/or family updated on plan of care and expected duration. Pain level reassessed. Patient is alert, oriented x 3, equal unlabored respirations, skin warm/dry/pink. jd3 16:42 15:23 Reassessment: Patient appears in no apparent distress at this time. No changes jd3 from previously documented assessment. Patient and/or family updated on plan of care and expected duration. Pain level reassessed. Patient is alert, oriented x 3, equal unlabored respirations, skin warm/dry/pink. jd3 16:42 16:40 Reassessment: Patient appears in no apparent distress at this time. Patient jd3 and/or family updated on plan of care and expected duration. Pain level reassessed. Patient is alert, oriented x 3, equal unlabored respirations, skin warm/dry/pink. Patient states feeling better. jd3 16:42 12:50 Reassessment: Patient appears in no apparent distress at this time. Patient jd3 and/or family updated on plan of care and expected duration. Pain level reassessed. Patient is alert, oriented x 3, equal unlabored respirations, skin warm/dry/pink. jd3 16:42 13:40 Reassessment: Patient appears in no apparent distress at this time. Patient jd3 and/or family updated on plan of care and expected duration. Pain level reassessed. Patient is alert, oriented x 3, equal unlabored respirations, skin warm/dry/pink. jd3 18:33 16:29 Reassessment: Pt c/o itching, mild hives noted to back. Rusty paused and Dr. eric Chahal notified, 18:35 16:50 Reassessment: called to [facility] to give report, was told to wait to give report until jd3 after COVID result jd3
[2019-11-17] MEDS ORDERED: PIPER/TAZO/NS 3.375gm 3.375 GM/100 ML BAG ONE (15:53)
[2019-11-17] MEDS ORDERED: DIPHENHYDRAMINE 50 MG/ML VIAL ONE ×2 (16:44→19:21)
[2019-11-17 20:07] VITALS: TEMP 97.7; O2SAT 100
[2019-11-17 20:24] VITALS: BP 127/75
--- NOTE | 2019-11-19 07:46 | EKG ---
Test Date: 2019-11-17 Test Time: 12:56:17 Credit Card Clerk: OJ MEASUREMENT RESULTS: Intervals: Rate: 84 SC: 168 QRSD: 76 QT: 356 QTc: 420 [place]: P: 66 SC: 168 QRS: 72 T: 82 INTERPRETIVE STATEMENTS: Normal sinus rhythm Normal ECG Compared to ECG 09/29/2019 19:25:57 No significant changes Electronically Signed On 11-19-19 07:43:19 CDT by Alexander Velez
== END 2019-11-17 19:31 ==
LOC: ER 11:32
DX: K25.1 Acute gastric ulcer with perforation (principal); D72.825 Bandemia; Z20.828 Contact with and (suspected) exposure to other viral communicable diseases; F17.210 Nicotine dependence, cigarettes, uncomplicated; Z88.2 Allergy status to sulfonamides; Z88.6 Allergy status to analgesic agent
CPT/HCPCS: 96365; 96367; 96361; 93005; 87088; 85025; 87086; 80048; 36415; 83735; 85610; 80076; 81003; 84484; 83690; 83880; 74177; 71045; 96375; 99285; U0003; Q9967; J1200 ×2; C9113; J2543; J2270; J1170 ×3; J7030 ×3; J2405 ×4

== ENCOUNTER 2020-08-16 23:42 | Emergency (ER) | payer OTHER ==
--- OUTSIDE RECORDS SUMMARY | 2020-08-16 23:44 | XMS REPORT | Continuity of Care Document ---
:1975 Author Organization [facility] t Address [address] [place] [address] Care Team Providers Name Role Phone Amado Saldaña MD Primary Care Physician Amrik Leggett MD Attending Clinician Cathleen Oglesby Attending Clinician Solis Gibson MD Attending Clinician Marley Whitley APRN Attending Clinician MD Alba LEGGETT. Attending Clinician Unavailable Layo PACHECO Attending Clinician Unavailable Alexis العلي MD Attending Clinician Kianna Lerner MD Attending Clinician MD KIANNA LERNER Attending Clinician Unavailable BETSEY Admitting Clinician Unavailable MD Amrik LEGGETT Admitting Clinician Unavailable MD KIANNA LERNER Admitting Clinician Unavailable Payers Payer Name Policy Type Policy Effective Date Expiration Date Sour ce Number AETNAAETNA [id number] [facility]00 Vi DAVID/[id number] /01/2012-Present [facility] Problems Condition Condition Condition Status Onset Resolution Last Treating Co mments Source Name Details Category Date Date Treatment Clinician Date Adult Adult Disease Active [place] hypertroph hypertroph 5-21 Me thodi ic pyloric ic pyloric 00:00: st stenosis stenosis 00 Vomiting Vomiting Disease Active [place] without without 06-03 [facility] nausea nausea 00:00: st 00 Anastomoti Anastomoti Disease Active [place] c stenosis c stenosis 4-27 Me thodi of of 00:00: st gastrojeju gastrojeju 00 nostomy nostomy Regurgitat Regurgitat Disease Active [place] ion of ion of 06-03 [facility] food food 00:00: st 00 Weight Weight Disease Active [place] loss loss 06-03 Methodi 00:00: st 00 Iron Iron Disease Active [place] deficiency deficiency 3-30 Me thodi anemia anemia 00:00: st secondary secondary 00 to to inadequate inadequate dietary dietary iron iron intake intake Vitamin A Vitamin A Disease Active [place] ston deficiency deficiency 3-30 Me thodi 00:00: st 00 Status Status Disease Active Overview: [place] post post 25 Formattin Methodi bariatric bariatric 00:00: g of this s t surgery surgery 00 note might be different from the original. Added automatic ally from request for surgery [id number] Allergies, Adverse Reactions, Alerts Allergy Allergy Status Severity Reaction(s) Onset Inactive Treating Comm ents Source Name Type Date Date Clinician Nsaids Propensi Active GI Bleeding [place] ston (Non-Kush ty to 511 [facility] roidal adverse 00:00: st Anti-Inf reaction 00 lammator s to y Drug) drug Morphine Propensi Active Itching [place] ty to 3 [facility] adverse 00:00: st reaction 00 s to drug aspirin DA Active MO 2019-02 [facility] 0[facility]11 [facility] NSAIDS; DA Active U 2019-02 [facility] SULFA 0-10 [place] (SULFONA 00:00: Health MIDE 00 are ANTIBIOT [facility] Center ASPIRIN Sulfa Propensi Active Other (See [place] (Sulfona ty to Comments) 03-01 Metho di mide adverse 00:00: st Antibiot reaction 00 ics) s to drug Family History Family Member Diagnosis Comments Start Date Stop Date Source Natural daughter Depression [place] [facility] Natural daughter Obesity [place] [facility] Natural daughter Autism [place] [facility] Natural father COPD [place] [facility] Natural father Hypertension [place] [facility] Natural father Ulcers [place] [facility] Natural mother Fibromyalgia [place] [facility] Natural sister Anxiety disorder [place] [facility] Natural sister Depression [place] [facility] Natural sister Tremor [place] Me th[facility]ist Natural sister Ulcers [place] [facility] Natural sister Fibromyalgia [place] [facility] Natural son ADD / ADHD [place] Metho dist Social History Social Habit Start Date Stop Date Quantity Comments Source Cigarettes smoked 2020-07-11 2020-07-11 Domenico Lebron current (pack per 00:00:00 00:00:00 day) - Reported Tobacco use and 2020-07-11 2020-07-11 Never used Domenico Willis ethodist exposure 00:00:00 00:00:00 Alcohol intake 2020-07-11 2020-07-11 Ex-drinker [place] thodist 00:00:00 00:00:00 (finding) History of tobacco 2020-06-07 Current smoker [place] [facility] use 00:00:00 History SDOH 2020-05-01 2020-05-01 14 [place] [facility]ist Education 00:00:00 00:00:00 Sex [birth year] Domenico petersonodist 00:00:00 00:00:00 Smoking Status Start Date Stop Date Source Former smoker 2020-07-11 00:00:00 2020-07-11 00:00:00 Domenico Lebron Medications Ordered Filled Start Stop Current Ordering Indication Dosage Frequency Signature Comments Components Source Medication Medication Date Date Medication? Clinician (SIG) Name Name ALPRAZolam Yes .25mg Q.5D Take 0.25 [place] (XANAX) 6-04 mg by [facility] 0.25 MG 11:15: mouth 2 st tablet 19 (two) times a day as needed for anxiety. FLUoxetine Yes 40mg QD Take 40 mg [place] (PROzac) 40 6-04 by mouth Meth yris MG capsule 11:15: daily. st 19 zolpidem Yes 20mg QD Take 20 mg [place] ston (AMBIEN) 10 6-04 by mouth Meth yris mg tablet 11:15: nightly. st 19 gabapentin Yes 300mg QD Take 300 [place] (NEURONTIN) 6-04 mg by Methodi 300 mg 11:15: mouth st capsule 19 every morning. dexlansopra Yes 20mg QD Take 20 mg [place] zole 6-04 by mouth Methodi (DEXILANT) 11:15: daily. st 60 mg 19 capsule trazodone Yes 50mg QD Take 50 mg [place] HCl 6-04 by mouth [facility] (TRAZODONE 11:15: nightly. st ORAL) 19 busPIRone Yes 10mg Q.5D Take 10 mg [place] (BUSPAR) 10 6-04 by mouth 2 Me thodi MG tablet 11:15: (two) st 19 times a day. FOLIC ACID Yes Take by Isaías ton ORAL 6-04 mouth. Methodi 11:15: st 19 cyanocobala Yes Q14D Inject as H mel[place] min, 6-04 directed [facility]i vitamin 11:15: every 14 st B-12, 19 (fourteen) (VITAMIN days. B-12 INJ) ergocalcife Yes Q.5W Take by Cort[place] roesnbaum rol, 6- mouth 2 Methodi vitamin D2, 11:15: (two) st (VITAMIN D2 19 times a ORAL) week. MULTIVITAMI Yes QD Take by Cort[place] rosenbaum N ORAL 6-04 mouth Methodi 11:15: daily. st 19 omeprazole 2020- No 40mg QD Take 1 Isaías ton (PriLOSEC) 06-29 06-22 capsule Metho di 40 MG 00:00: 23:59 ([address] capsule 00 :00 total) by mouth daily for 30 days. acetaminoph 2020- No 1000mg Q8H Take 2 H melchor en (Tylenol 5-23 05-30 tablets Meth yris Extra 00:00: 23:59 (1,[address] Strength) 00 :00 total) by 500 MG mouth tablet every 8 (eight) hours for 7 days. fluconazole 0 2020- No 200mg QD Take 1 [place] (Diflucan) 3-26 04-09 tablet Method i 200 MG 00:00: 23:59 ([address] tablet 00 :00 total) by mouth daily for 14 days. Vital Signs Vital Name Observation Time Observation Value Comments Source Systolic blood 2020-07-11 11:09:00 130 mm[Hg] Isaíasto n Tenriism pressure Diastolic blood 2020-07-11 11:09:00 77 mm[Hg] Olivia on Tenriism pressure Heart rate 2020-07-11 11:09:00 103 /min [place] [facility] Body temperature 2020-07-11 11:09:00 36.17 Aleah [place] [facility] Respiratory rate 2020-07-11 11:09:00 16 /min [place] [facility] Body height 2020-07-11 11:09:00 166.4 cm [place] [facility] Body weight 2020-07-11 11:09:00 51.982 kg [place] [facility] BMI 2020-07-11 11:09:00 18.78 kg/m2 [place] [facility] Oxygen saturation in 2020-06-29 08:45:58 99 /min [place] [facility] Arterial blood by Pulse oximetry Procedures Procedure Date / Time Performing Source Performed Clinician BASIC METABOLIC PANEL 2020-06-29 Issa Love 05:04:00 Ten[facility] HC COMPLETE BLD COUNT W/AUTO DIFF 2020-06-29 Issa Love 05:04:00 [facility] ESTIMATED GFR 2020-06-29 Gaby Leggett 05:04:00 Ten[facility] FL UGI W OR WO KUB 2020-06-28 Domenico Brown 10:45:00 Rogelio BOSE COMPLETE BLD COUNT W/AUTO DIFF 2020-06-28 Beck Quan [place] 03:06:00 Ten[facility] BASIC METABOLIC PANEL 2020-06-28 Beck Quan [place] 03:06:00 Ten[facility] ESTIMATED GFR 2020-06-28 Beck Quan [place] 03:06:00 [facility] SURGICAL PATHOLOGY REQUEST 2020-06-27 Gaby Leggett on 13:46:00 Tenriism MN AN ELECTIVE ENDOTRACHEAL AIRWAY 2020-06-27 Ramírez Maldonado 08:01:00 Ten[facility]ism PLACEMENT, JEJUNOSTOMY TUBE 2020-06-27 Gaby Leggett ton 07:54:00 [facility] COVID-19 QUALITATIVE RT-PCR 2020-06-26 aGby Leggett ton 12:50:00 [facility] HCG QUALITATIVE, SERUM SCREEN 2020-06-26 Manuela Whitleykanwal Roach [place] 12:50:00 Tenriism CBC HEMOGRAM 2020-06-26 Gaby Leggett [place] 12:50:00 Tenriism BASIC METABOLIC PANEL 2020-06-26 Gaby Leggett [place] 12:50:00 Tenriism ESTIMATED GFR 2020-06-26 Gaby Leggett [place] 12:50:00 Tenriism ECG 12-LEAD 2020-06-26 Gaby Leggett [place] 12:43:[address] ABDOMEN PELVIS W CONTRAST 2020-06-17 Pina Colunga [place] 15:07:42 Cathleen Ten[facility]ism YEAST SCREEN CULTURE 2020-05-02 Gaby Leggett [place] 07:13:00 Tenriism ESOPHAGOGASTRODUODENOSCOPY (EGD) 2020-05-02 Gaby Leggett [place] 06:57:00 Tenriism FL UGI W OR WO KUB 2020-05-01 Nwokedi, Ugoeze [place] 18:27:00 Kianna Lebron MAGNESIUM LEVEL 2020-05-01 Nwokedi, Ugoeze [place] 17:45:00 Kianna Lebron PHOSPHORUS LEVEL 2020-05-01 Nwokedi, Ugoeze [place] 17:45:00 Kianna Tenriism COMPREHENSIVE METABOLIC PANEL 2020-05-01 Nwokedi, Ugoeze [facility] 17:45:00 Kianna Tenriism LIPID PANEL 2020-05-01 Nwokedi, Ugoeze [place] 17:45:00 Kianna Lebron TOTAL IRON BINDING CAPACITY 2020-05-01 Nwokedi, Ugoeze [place] 17:45:00 Kianna Lebron T4, FREE 2020-05-01 Nwokedi, Ugoeze [place] 17:45:00 Kianna Tenriism THYROID STIMULATING HORMONE 2020-05-01 Nwokedi, Ugoeze [facility] 17:45:00 Kianna Lebron HEMOGLOBIN A1C 2020-05-01 Nwokedi, Ugoeze [place] 17:45:00 Kianna Tenriism PARATHYROID HORMONE 2020-05-01 Nwokedi, Ugoeze [place] 17:45:00 Kianna Lebron HC COMPLETE BLD COUNT W/AUTO DIFF 2020-05-01 Nwokedi, Ugoez e [place] 17:45:00 Kianna Tenriism VITAMIN A LEVEL, PLASMA OR SERUM 2020-05-01 Nwkyler, Ugoemaggie [place] 17:45:00 Kianna Lebron VITAMIN B12 LEVEL 2020-05-01 Scotty Lerner [place] 17:45:00 Kianna Lebron VITAMIN D 25 HYDROXY LEVEL 2020-05-01 Nwtrenti Ugoemaggie [place] 17:45:00 Kianna Lebron COPPER LEVEL, SERUM 2020-05-01 Scotty Lerner [place] 17:45:00 Kianna Lebron FOLATE LEVEL 2020-05-01 NwScotty chávez [place] 17:45:00 Kianna Lebron FERRITIN LEVEL 2020-05-01 Scotty Lerner [place] 17:45:00 Kianna Lebron VITAMIN B1 LEVEL, WHOLE BLOOD 2020-05-01 Scotty Lerner 17:45:00 Kianna Lebron ZINC LEVEL, SERUM 2020-05-01 Scotty Lerner [place] 17:45:00 Kianna Lebron T3 2020-05-01 [facility] [place] 17:45:00 Kianna Lebron VITAMIN E LEVEL, PLASMA OR SERUM 2020-05-01 Scotty Lerner [place] 17:45:00 Kianna Lebron ESTIMATED GFR 2020-05-01 [facility] [place] 17:45:00 Kianna Lebron COVID-19 QUALITATIVE RT-PCR 2020-05-01 Scotty Lerner [facility] 17:11:00 Kianna Lebron Plan of Care Planned Activity Planned Date Details Comments Source Future Scheduled 2020-09-07 INFLUENZA VACCINE Esvin n Tenriism Test 00:00:00 [code = INFLUENZA VACCINE] Future Scheduled 1995 Screening for [place] [facility] Test 00:00:00 malignant neoplasm of cervix (procedure) [code = 135155090] Future Scheduled 1992-02-10 Hepatitis C [place] Met [facility]odist Test 00:00:00 screening (procedure) [code = 437892250] Future Scheduled 1986 COVID-19 VACCINE (1) Cortney rosenbaum Ten[facility]ism Test 00:00:00 [code = COVID-19 VACCINE (1)] Encounters Start End Encounter Admission Attending Care Care Encounter Source Date/Time Date/Time Type Type Clinicians Facility Department ID 2020-07-11 2020-07-11 [facility] [id number] [place] 00:00:00 00:00:[address] 2020-06-27 2020-06-29 Outpatient G[facility]Y LEGGETT [facility] [id number] [place] 00:00:00 00:00:[address] 2020-06-26 2020-06-26 Outpatient [facility] LEGG[facility] [id number] [place] 00:00:00 00:00:[address] 2020-06-17 2020-06-17 Outpatient [facility] LEGGET[facility] [id number] [place] 00:00:00 00:00:[address] 2020-06-17 2020-06-17 Outpatient [facility] [id number] [place] 00:00:00 00:00:[address] 2020-06-03 2020-06-03 Outpatient [facility] [id number] [place] 00:00:00 00:00:[address] 2020-06-03 2020-06-03 Outpatient [facility] [id number] [place] 00:00:00 00:00:[address] 2020-05-02 2020-05-02 Outpatient GABY LEGGETT [facility] [id number] [place] 00:00:00 00:00:[address] 2020-05-01 2020-05-01 Outpatient [facility] [id number] [place] 00:00:00 00:00:00 UGOEZE [address] 2020-05-01 2020-05-01 Outpatient [facility] [id number] [place] 00:00:00 00:00:[address] 2020-05-01 2020-05-01 Outpatient [facility] [id number] [place] 00:00:00 00:00:00 UGOE[place] [address] Results Test Description Test Time Test Comments Results Result Comments Source Surgical pathology request 2020-07-02 10:01:37 Test Item Value Reference Range Interpretation Comme nts Case number (test code = [id number]) [id number] Surgical pathology report (test code = See link below for PDF Lab R [place]port 4889) Result status (test code = 4370171) This is Final Report for [id number] [place] [facility] with or without [id number] 12:33:28Hm Interface, Radiology Results Incoming - 06/28/2020 12:36 PM CDT EXAMINATION: [place] UGI W OR WO KUBCLINICAL HISTORY: s p Gastro-jejunostomy revisionCOMPARISON: CT 06/17/2020TECHNIQUE: Upper GI study was performed with water-soluble contrast.6 fluoroscopic spot images are acquired along with overhead radiographs.Total fluoroscopy time was 0.3 minutes.FINDINGS:[employer] Officer radiograph shows nonspecific bowel gas pattern.Patent gastrojejunostomy without extraluminal contrast extravasation.Opacified jejunal loops are borderline dilated.IMPRESSION:Patent gastrojejunostomy without evidence of leak.[id number] [id number] 08:01:00Ramírez Maldonado CRNA 06/27/2020 9:01 AMAirway Date/Time: 06/27/2020 8:01 AM Location: OR Performed by: ABDI/CRUZnesthesiologist: Corey Gibson MDResident/ABDI/AA: Ramírez Maldonado CRNAAuthorized by: Corey Gibson MD Urgency: ElectiveDifficult Airway: No C-spine Precautions Maintained Throughout: Yes Mask Ventilation: Easy maskFinal Airway Type: Endotracheal airwayFinal Endotracheal Airway: ETTCuffed: Yes Technique Used: Direct laryngoscopyDevices/Methods Used in Placement: Intubating styletInsertion Site: OralBlade Type: MillerLaryngoscope Blade/Videolaryngoscope Blade Size: 2ETT Size (mm): 7.0Cuff at minimum occlusion pressure: Yes Measured from: LipsETT to Lips (cm): 21Placement Verified by: CO2 detection, direct visualization and equal breath sounds Laryngoscopic view: Grade I - full view of glottisRapid Sequence Induction (RSI): No Modified RSI: No Number of Attempts at Approach: 1 Patient pre-oxygenated > 3 mins. Easy mask ventilation established on induction. DL X 1 with Serrano 2 blade by [employer] OPERATOR. Grade I view obtained. ETT easily passed through vocal cords with placement confirmed. Atraumatic intubation to lips, gums, and teeth intact as before induction.[place] NettieclayECG 12 lead 2020-06-26 21:02:32 Test Item Value Reference Range Interpretation Comments Ventricular rate (test 64 code = 253) Atrial rate (test code = 64 255) MN interval (test code = 154 266) QRSD interval (test code 76 = 260) QT interval (test code = 398 264) QTC interval (test code = 410 265) P axis 1 (test code = 73 267) QRS axis 1 (test code = 72 268) T wave axis (test code = 79 270) EKG impression (test code Normal sinus = 273) rhythm-Electronicall y Signed By Varun East MD ([id number]) on 06/26/2020 9:02:32 PM Domenico LebronCOVID-19 qualitative [id number] 19:44:56 Test Item Value Reference Range Interpretation Comments Interpretation (test Negative results do code = 5377491) not preclude 2019-nCoV infection and should not be used as the sole basis for treatment or other patient management decisions. Negative results must be combined with clinical observations, patient history, and epidemiological information. COVID-19 qualitative Not-Detected Not-Detected RT-PCR result (test code = 92731-9) COVID-19 qualitative See link below for C ase Number: RT-PCR (test code = PDF Lab Report [id number]) Domenico AlvarezCzgnvetjjUDOW-FzP-7 (COVID-19) RNA [Presence] in Respiratory specimen by NOLA with probe [id number] 19:44:12 Test Item Value Reference Range Interpretation Comments SARS-CoV-2 (COVID-19) RNA Not detected Not-Detected [Presence] in Respiratory specimen by NOLA with probe detection (test code = 40526-2) Whether patient is employed in a healthcare setting (test code = 74222-8) Whether the patient has symptoms related to condition of interest (test code = 90611-2) Patient was hospitalized because of this condition (test code = 77055-6) Whether the patient was admitted to intensive care unit (ICU) for condition of interest (test code = 37893-7) Whether patient resides in a congregate care setting (test code = 08468-6) CT Abdomen Pelvis W [id number] 15:51:57Hm Interface, Radiology Results Incoming 06/17/2020 3:55 PM CDT EXAMINATION: CT ABDOMEN PELVIS W CONTRAST CLINICAL HISTORY: E46 Unspecified protein-calorie malnutrition, R13.10 Dysphagia unspecified, GJ stenosis malnutrition intolerance to solids COMPARISON: None.Technique: Axial images of the abdomen and pelvis were obtained following intravenous and oral contrast administration using radiation dose reduction technique. 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 The gastrojejunostomy anastomosis is patent, and contrast extends from the gastric pouch into nondilated small bowel loops. Air is a moderate amount residual contrast and food within the gastric pouch. No extravasation id entified.2.No lesion seen in the liver, spleen, pancreas, kidneys, or adrenal glands3.Abdominal aorta is of normal caliber. No retroperitoneal mass or adenopathy.4.No CT findings of acute diverticulitis. No pelvic sidewall mass, adenopathy, or fluid collection.5.No inflammatory changes around the cecum .IMPRESSION:Dimple-en-Y gastric bypass with patent gastrojejunal anastomosis; moderate amount of residual contrast and food in the stomach above the level of the anastomosis..[id number] [facility] screen [id number] 12:51:10 Test Item Value Reference Interpretation Comments Range Yeast screen Nery albicansThe A Specimen culture isolate performance InformationS pecimen (test code = characteristics of Source: mervin torre 2536) this assay on this [facility] Site: isolatewere Not otherwise validated by the specified Microbiology Laboratory at [facility]. This source has not been approved by the U.S. Food and Drug Administration. The results are not intended to be used as the sole means for clinical diagnosis or patient management. The Microbiology Laboratory is authorized under the clinical Laboratory Improvement Amendments of 1988 (CLIA-88) to perform high complexity testing. Lab Abnormal Interpretation (test code = 88451-4) [facility] Hospital[facility]glcayykmJIEY-MpE-0 (COVID-19) RNA [Presence] in Respiratory specimen by NOLA with probe [id number] 21:53:07 Test Item Value Reference Range Interpretation Comments SARS-CoV-2 (COVID-19) RNA Not detected Not-Detected [Presence] in Respiratory specimen by NOLA with probe detection (test code = 39632-4) RENAL FUNCTION [id number] 06:31:00 Test Item Value Reference Range Interpretation Comments SODIUM (test code = 140 MMOL/L 136-143 N NA) POTASSIUM (test 3.6 MMOL/L 3.5-5.1 N code = K) CHLORIDE (test code 105 MMOL/L 98-107 N = CL) CARBON DIOXIDE 30 mmol/L 24-31 N (test code = CO2) GLUCOSE (test code 90 mg/dL 70-104 N = GLU) BLOOD UREA NITROGEN <1.4 MG/DL 7.0-21.0 L (test code = BUN) GLOMERULAR >=60 max >60 The estimated FILTRATION RATE estimate glomerular (test code = GFR) filtration rate is computed usingpatient ra ce, age (>18), sex, and serum creatinin e. If anyof the ne eded data elements a re missing the Laboratory bonifacio ot compute an estimation of t he glomerular filtration rate . CREATININE (test 0.5 mg/dL 0.8-1.5 L code = CREAT) ALBUMIN (test code 2.9 G/DL 3.5-5.0 L = ALB) CALCIUM (test code 8.5 mg/dL 8.8-10.2 L = CA) PHOSPHOROUS (test 3.0 mg/dL 2.7-4.5 N code = PHOS) [id number] 06:31:00 Test Item Value Reference Range Interpretation Comments MAGNESIUM (test code = MAG) 1.7 mg/dL 1.4-2.6 N - XR UGI SGL [id number] 10:18:00Patient Name: PINA MILLAN Unit No: [id number] EXAMS: CPT CODE: [id number] XR UGI SGL CONTRAST [id number] Single contrast upper GI 11/19/2019 CLINICAL INDICATION: Abdominaltenderness LOCATION: W1 REPORTED FLUOROSCOPY TIME: 0.9 minutes FINDINGS: Fluoroscopic imaging during oral administration of single contrast Gastrografin shows contrast passing into the stomach and small bowel with no evidence for leak or perforation. There was mild intraesophageal and gastroesophageal reflux. IMPRESSION: Nonworrisome postoperative appearance. at 1018 Reported and signed by: AYAKA MCCURDY M.D. CC: Ty Oliveira MD;Edy Chanel MD; Ronan Sweet MD Technologist: Mikael Lemos Time: DAP (Gy m2): Air Kerma (mGy): Trscr Dt/Tm: 11/19/2019 (1018) by:[email or web address] Printed Date/Time: 11/19/2019 (1022) Name: PINA MILLAN [facility] Phys: Ronan Srinivasan MD [address] : 1975 Age: 44 Sex: [place] [address] Loc: P.[id number] 1 Exam Date: 11/19/2019 Status: ADM IN PH: FAX: PAGE 1 Signed ReportFERRITIN 2019-11-18 13:48:00 Test Item Value Reference Range Interpretation Comments FERRITIN (test code = ROBYN) 21 ng/mL 13-150 N FE W/TOTAL IRON BINDING [id number] 13:28:00 Test Item Value Reference Range Interpretation Comments IRON (test code = IRON) 17 mcg/dL 53-167 L TOTAL IRON BINDING CAPACITY (test 261 mcg/dL 250-450 N code = TIBC) IRON SATURATION (test code = 7 % 15-50 L FESAT) [id number] 12:46:00 Test Item Value Reference Range Interpretation Comments PREALBUMIN (test code = PREALB) 7.8 MG/ML 15-42 L COMPREHENSIVE METABOLIC [id number] 12:46:00 Test Item Value Reference Range Interpretation Comments SODIUM (test code = 134 MMOL/L 136-143 L NA) POTASSIUM (test 3.4 MMOL/L 3.5-5.1 L code = K) CHLORIDE (test code 102 MMOL/L 98-107 N = CL) CARBON DIOXIDE 23 mmol/L 24-31 L (test code = CO2) GLUCOSE (test code 77 mg/dL 70-104 N = GLU) BLOOD UREA NITROGEN 6.3 MG/DL 7.0-21.0 L (test code = BUN) GLOMERULAR >=60 max >60 The estimated FILTRATION RATE estimate glomerular (test code = GFR) filtration rate is computed usingpatient ra ce, age (>18), sex, and serum creatinin e. If anyof the ne eded data elements a re missing the Laboratory bonifacio ot compute an estimation of t he glomerular filtration rate . CREATININE (test 0.4 mg/dL 0.8-1.5 L code = CREAT) TOTAL PROTEIN (test 5.5 g/dL 6.3-8.3 L code = PROT) ALBUMIN (test code 3.2 G/DL 3.5-5.0 L = ALB) CALCIUM (test code 8.4 mg/dL 8.8-10.2 L = CA) BILIRUBIN TOTAL 0.2 mg/dL 0.2-1.0 N (test code = BILT) SGOT/AST (test code 17 IU/L 10-34 N = AST) SGPT/ALT (test code 8 U/L 10-36 L = ALT) ALKALINE 83 U/L 32-104 N PHOSPHATASE (test code = ALKP) CBC W/AUTO [id number] 12:13:00 Test Item Value Reference Range Interpretation Comments WHITE BLOOD CELL (test code = 7.5 x10 3/uL 4.8-10.8 N WBC) RED BLOOD CELL (test code = 3.14 x10 6/uL 4.20-5.40 L RBC) HEMOGLOBIN (test code = HGB) 8.7 g/dL 14.5-20 L HEMATOCRIT (test code = HCT) 27.7 % 37.0-47.0 L MEAN CELL VOLUME (test code = 88.2 fL 81.0-99.0 N MCV) MEAN CELL HGB (test code = MCH) 27.7 pg 27-31 N MEAN CELL HGB CONCENTRATION 31.4 G/DL 33-36.5 L (test code = MCHC) RED CELL DISTRIBUTION WIDTH 18.3 % 12.9-16.9 H (test code = RDW) PLATELET COUNT (test code = 319 150-440 N PLT) MEAN PLATELET VOLUME (test code 9.3 fL 8.9-12.4 N = MPV) NEUTROPHIL % (test code = NT%) 62.2 % 42.2-75.2 N LYMPHOCYTE % (test code = LY%) 24.1 % 20.5-51.1 N MONOCYTE % (test code = MO%) 8.8 % 1.7-9.3 N EOSINOPHIL % (test code = EO%) 3.1 % 0.0-7.0 N BASOPHIL % (test code = BA%) 0.7 % 0-2.5 N NEUTROPHIL # (test code = NT#) 4.68 x10 3/uL 1.80-7.70 N LYMPHOCYTE # (test code = LY#) 1.81 x10 3/uL 1.00-4.80 N MONOCYTE # (test code = MO#) 0.66 x10 3/uL 0.00-0.80 N EOSINOPHIL # (test code = EO#) 0.23 x10 3/uL 0.00-0.45 N BASOPHIL # (test code = BA#) 0.05 x10 3/uL 0.0-0.20 N
[2020-08-17] MEDS ORDERED: ACETAMINOPHEN 500 MG TAB ONE (01:48)
--- NOTE | 2020-08-17 03:51 | ER ---
Nurse's Notes [facility] Name: Pina Castrejon Age: 45 yrs Sex: Female : 1975 Arrival Date: 08/16/2020 Time: 23:45 Bed 18 Private MD: Diagnosis: Phalanx Fracture, Left 5th Toe;Avulsion Fracture Phalanx, Right 5th Finger Presentation: 08/17 00:22 Chief complaint: Patient states: she fell earlier today injuring her right pinky finger bb and her left pinky toe pt denies LOC, did not hit her head. Coronavirus screen: At this time, the client does not indicate any symptoms associated with coronavirus-19. Ebola Screen: No symptoms or risks identified at this time. Initial Sepsis Screen: Does the patient meet any 2 criteria? No. Patient's initial sepsis screen is negative. Does the patient have a suspected source of infection? No. Patient's initial sepsis screen is negative. Risk Assessment: Do you want to hurt yourself or someone else? Patient reports no desire to harm self or others. Onset of symptoms was August 16, 2020. 00:22 Method Of Arrival: Ambulatory bb 00:22 Acuity: SAMIRA 4 bb Triage Assessment: 01:00 Injury Description: swelling. 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 - Social history:: Smoking status: Patient reports the use of cigarette tobacco products, denies chronic smoking, but will smoke occasionally. Screenin:42 Abuse screen: Denies threats or abuse. Denies injuries from another. Nutritional rr5 screening: No deficits noted. Tuberculosis screening: No symptoms or risk factors identified. Fall Risk None identified. Total Mcconnell Fall Scale indicates No Risk (0-24 pts). Assessment: 00:39 General: Appears in no apparent distress. uncomfortable, Behavior is calm, cooperative, rr5 appropriate for age. Pain: Complains of pain in right little finger and left foot 5th toe Pain currently is 7 out of 10 on a pain scale. Quality of pain is described as aching, Pain began suddenly, Is intermittent. Neuro: Level of Consciousness is awake, alert, obeys commands, Oriented to person, place, time. Cardiovascular: Patient's skin is warm and dry. Respiratory: Airway is patent Respiratory effort is even, unlabored, Respiratory pattern is regular, symmetrical. Musculoskeletal: Reports pain in right fifth finger and left fot 5th toe. 01:30 Reassessment: Patient appears in no apparent distress at this time. Patient is alert, rr5 oriented x 3, equal unlabored respirations, skin warm/dry/pink. 02:20 Reassessment: Patient appears in no apparent distress at this time. Patient is alert, rr5 oriented x 3, equal unlabored respirations, skin warm/dry/pink. awaiting for xray result. 03:54 Reassessment: Patient appears in no apparent distress at this time. Patient is alert, rr5 oriented x 3, equal unlabored respirations, skin warm/dry/pink. discharge instruction given and explained without complaints made. Vital Signs: 00:22 BP 124 / 81; Pulse 98; Resp 16 S; Temp 97.4(TE); Pulse Ox 100% on R/A; Weight 56.25 kg bb (R); Height 5 ft. 5 in. (165.10 cm) (R); Pain 7/10; 03:54 BP 121 / 75; Pulse 85; Resp 16; Pulse Ox 98% ; rr5 00:22 Body Mass Index 20.63 (56.25 kg, 165.10 cm) bb ED Course: 08/16 23:45 Patient arrived in ED. am4 08/17 00:24 Triage completed. bb 00:25 Arm band placed on. bb 00:30 Patient has correct armband on for positive identification. Bed in low position. Call rr5 light in reach. 00:35 Ziyad Galvin MD is Attending Physician. 7 00:39 Joe Gayle, APOLLO is Primary Nurse. rr5 01:48 Foot Left 3 View XRAY In Process Unspecified. EDMS 01:48 Hand Right 3 View XRAY In Process Unspecified. EDMS 03:00 No provider procedures requiring assistance completed. Patient did not have IV access rr5 during this emergency room visit. 03:48 Gentry Rios MD is Referral Physician. 7 03:52 Aluminum finger splint applied to dorsal aspect of middle phalanx of right little rr5 finger and dorsal aspect of proximal phalanx of right little finger Ortho shoe applied to left foot. Administered Medications: 01:29 Drug: Tylenol 1000 mg Route: PO; rr5 02:30 Follow up: Response: No adverse reaction rr5 Outcome: 03:51 Discharge ordered by . 7 04:10 Condition: stable rr5 04:10 Discharged to home ambulatory. rr5 04:10 Discharge instructions given to patient, Instructed on discharge instructions, follow up and referral plans. medication usage, Demonstrated understanding of instructions, follow-up care, medications, Prescriptions given X 1. 04:11 Patient left the ED. rr5 Signatures: Dispatcher [employer] EDME Cesilia Laura RN RN bb Roque, Raymond, RN RN rr5 Ziyad Galvin MD MD [facility] Gudelia Seals 4
--- NOTE | 2020-08-17 03:51 | EDPHYS ---
Physician Documentation [facility] Name: Pina Castrejon Age: 45 yrs Sex: Female : 1975 Arrival Date: 08/16/2020 Time: 23:45 Bed 18 Private MD: ED Physician Ziyad Galvin HPI: 08/17 01:31 This 45 yrs old Female presents to ER via Ambulatory with complaints of Foot mh7 Injury. 01:31 Trauma demographics: County: The injury occurred in [place] Location of Injury: The mh7 injury occurred at home, Date: August 14, 2020. 01:33 Mechanism of injury: playing around. Associated injuries: The patient sustained left mh7 foot little toe, painful injury. Onset: The symptoms/episode began/occurred 3 day(s) ago. 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 - Social history:: Smoking status: Patient reports the use of cigarette tobacco products, denies chronic smoking, but will smoke occasionally. ROS: 01:33 Constitutional: Negative for fever, chills, and weight loss, Eyes: Negative for injury, mh7 pain, redness, and discharge, ENT: Negative for injury, pain, and discharge, Neck: Negative for injury, pain, and swelling, Cardiovascular: Negative for chest pain, palpitations, and edema, Respiratory: Negative for shortness of breath, cough, wheezing, and pleuritic chest pain, Abdomen/GI: Negative for abdominal pain, nausea, vomiting, diarrhea, and constipation, Back: Negative for injury and pain, : Negative for injury, bleeding, discharge, and swelling, Skin: Negative for injury, rash, and discoloration, Neuro: Negative for headache, weakness, numbness, tingling, and seizure, Psych: Negative for depression, anxiety, suicide ideation, homicidal ideation, and hallucinations, Allergy/Immunology: Negative for hives, rash, and allergies, Endocrine: Negative for neck swelling, polydipsia, polyuria, polyphagia, and marked weight changes, Hematologic/Lymphatic: Negative for swollen nodes, abnormal bleeding, and unusual bruising. Exam: 01:33 Constitutional: This is a well developed, well nourished patient who is awake, alert, mh7 and in no acute distress. Head/Face: Normocephalic, atraumatic. Skin: Warm, dry with normal turgor. Normal color with no rashes, no lesions, and no evidence of cellulitis. 01:33 Neuro: Awake and alert, GCS 15, oriented to person, place, time, and situation. Cranial nerves II-XII grossly intact. Motor strength 5/5 in all extremities. Sensory grossly intact. Cerebellar exam normal. Normal gait. Psych: Awake, alert, with orientation to person, place and time. Behavior, mood, and affect are within normal limits. 01:33 Musculoskeletal/extremity: Extremities: noted in the left foot 5 th toe: ROM: limited active range of motion due to pain, in the left foot 5th toe, limited passive range of motion due to pain, in the left foot 5th toe, Circulation is intact in all extremities. Sensation intact. Compartment Syndrome exam of affected extremity: is normal. no numbness, no tingling, no sensation deficit, no palor, no weak pulses, Joints: All joints appear normal with full range of motion. Weight bearing: able to fully bear weight, without difficulty, Tendon exam: specific tendon testing normal through active and passive range of motion Vital Signs: 00:22 BP 124 / 81; Pulse 98; Resp 16 S; Temp 97.4(TE); Pulse Ox 100% on R/A; Weight 56.25 kg bb (R); Height 5 ft. 5 in. (165.10 cm) (R); Pain 7/10; 03:54 BP 121 / 75; Pulse 85; Resp 16; Pulse Ox 98% ; rr5 00:22 Body Mass Index 20.63 (56.25 kg, 165.10 cm) bb MDM: 03:47 Differential diagnosis: extremity fracture, contusion. Data reviewed: vital signs, [facility] nurses notes, radiologic studies, plain films. Counseling: I had a detailed discussion with the patient and/or guardian regarding: the historical points, exam findings, and any diagnostic results supporting the discharge/admit diagnosis, radiology results, the need for outpatient follow up, a orthopedic surgeon, to return to the emergency department if symptoms worsen or persist or if there are any questions or concerns that arise at home. Response to treatment: the patient's symptoms have markedly improved after treatment. 03:51 Patient medically screened. [facility] 08/17 01:17 Order name: Foot Left 3 View XRAY [facility] 08/17 01:37 Order name: Hand Right 3 View XRAY 5 08/17 03:35 Order name: Finger Splint; Complete Time: 03:52 7 08/17 03:35 Order name: Orthopedic shoe; Complete Time: 03:52 [facility] Administered Medications: 01:29 Drug: Tylenol 1000 mg Route: PO; rr5 02:30 Follow up: Response: No adverse reaction rr5 Disposition Summary: 08/17/20 03:51 Discharge Ordered Location: Home [facility] Problem: new [facility] Symptoms: have improved [facility] Condition: Stable [facility] Diagnosis - Phalanx Fracture, Left 5th Toe 7 - Avulsion Fracture Phalanx, Right 5th Finger [facility] Followup: [facility] - With: Private Physician - When: 1 - 2 days - Reason: Worsening of condition, Recheck today's complaints, Continuance of care, Re-evaluation by your physician Followup: [facility] - With: Gentry Rios MD - When: 1 - 2 days - Reason: Worsening of condition, Recheck today's complaints Discharge Instructions: - Discharge Summary Sheet [facility] - Toe Fracture, [id number] [facility] - Finger Fracture, Adult, [id number] [facility] Forms: - Medication Reconciliation Form [facility] - Thank You Letter [facility] - Antibiotic Education [facility] - Prescription Opioid Use [facility] Prescriptions: - Tramadol 50 mg Oral Tablet - take 1 tablet by ORAL route every 8 hours as needed; 12 tablet; Refills: 0, 7 Product Selection Permitted Signatures: Dispatcher [employer] Cesilia Snow RN RN bb Joe Gayle RN RN rr5 Ziyad Galvin MD MD 7
[2020-08-17 04:35] VITALS: TEMP 97.4
[2020-08-17 04:36] VITALS: BP 121/75; O2SAT 98
--- NOTE | 2020-08-17 09:49 | RAD REPORT ---
EXAM DESCRIPTION: RAD - Foot Left 3 View - 08/17/2020 1:48 am CLINICAL HISTORY: Left Foot pain status post injury FINDINGS: Nondisplaced oblique fracture fifth proximal phalanx. No dislocation
--- NOTE | 2020-08-17 09:55 | RAD REPORT ---
EXAM DESCRIPTION: RAD - Hand Right 3 View - 08/17/2020 1:48 am CLINICAL HISTORY: Right hand pain status post injury FINDINGS: 2.5 millimeter bony density adjacent to the dorsal aspect of the fifth DIP joint probably an avulsed bone fracture fragment. Clinical correlation is needed assure the patient has point tende rness in this region to confirm this is acute. No dislocation
== END 2020-08-17 04:11 | disposition home or self-care (01) ==
LOC: ER 23:42
PROC: 2W3JX1Z Immobilization of Right Finger using Splint (ICD-10-PCS; principal; 2020-08-17)
DX: S92.502A Displaced unspecified fracture of left lesser toe(s), initial encounter for closed fracture (principal); S62.606A Fracture of unspecified phalanx of right little finger, initial encounter for closed fracture; X58.XXXA Exposure to other specified factors, initial encounter; Y92.009 Unspecified place in unspecified non-institutional (private) residence as the place of occurrence of the external cause; Z88.2 Allergy status to sulfonamides; Z88.6 Allergy status to analgesic agent; F17.210 Nicotine dependence, cigarettes, uncomplicated
CPT/HCPCS: 99284

== ENCOUNTER 2020-11-18 07:32 | Emergency (ER) | payer OTHER ==
[2020-11-18 08:02] LABS: Absolute Lymphocytes (CBC) 1.2 K/uL (0.7-4.9); Basophils % 0.9 % (0-1.3); Hematocrit 32.4 % (36.0-45.0); Lymphocytes % 17.8 % (15.3-44.8); RBC Red Blood Cell Count 3.87 M/uL (3.86-4.86)
[2020-11-18 08:04] LABS: Protime INR 0.99
[2020-11-18 08:24] LABS: ALT/SGPT 15 U/L (12-78); AST/SGOT 17 U/L (15-37); Albumin 3.1 g/dL (3.4-5.0); Alkaline Phosphatase 111 U/L (45-117); BUN Blood Urea Nitrogen 11 mg/dL (7-18); Bicarbonate 25 mmol/L (21-32); Bilirubin Direct 0.1 mg/dL (0-0.2); Bilirubin Total 0.3 mg/dL (0.2-1.0); Glucose Level 90 mg/dL (74-106); Magnesium 2.1 mg/dL (1.8-2.4); NT PRO-BNP 118 pg/mL (<125); Potassium 3.2 mmol/L (3.5-5.1); Protein, Total 6.2 g/dL (6.4-8.2); Sodium Level 141 mmol/L (136-145); Troponin (Emerg Dept Use Only) < 0.02 ng/mL (0.0-0.045)
[2020-11-18] MEDS ORDERED: NA CHLORIDE 0.9% 500 ML ONE (08:24)
--- NOTE | 2020-11-18 08:41 | RAD REPORT ---
EXAM DESCRIPTION: CT - [id number] - 11/18/2020 8:06 am CLINICAL HISTORY: Trauma, head and neck injury. Syncope;Pain COMPARISON: CT HEAD CSPINE MPR WO CONTRAST dated 06/01/2014 TECHNIQUE: Axial 5 mm thick images of the head were obtained. Axial 2 mm thick images of the cervical spine were obtained with sagittal and coronal reconstruction images generated and reviewed. All CT scans are performed using dose optimization technique as appropriate and may include automated exposure control or mA/KV adjustment according to patient size. FINDINGS: CT HEAD WITHOUT CONTRAST: No acute hemorrhage, hydrocephalus or extra-axial collection is identified.No areas of brain edema or midline shift. The paranasal sinuses and mastoids are clear.The calvarium is intact. CT CERVICAL SPINE WITHOUT CONTRAST: No fracture or subluxation.Mild spondylosis is present at C4-5 and C6-7.No prevertebral soft tissues swelling is identified. IMPRESSION: No acute intracranial or cervical spine findings. Mild cervical spondylosis.
[2020-11-18] MEDS ORDERED: ONDANSETRON 4 MG/2 ML VIAL ONE (08:57)
[2020-11-18] MEDS ORDERED: MEPERIDINE HCL 25 MG/ML SYR ONE (08:58)
--- NOTE | 2020-11-18 09:46 | RAD REPORT ---
EXAM DESCRIPTION: RAD - Chest Single View - 11/18/2020 8:02 am CLINICAL HISTORY: Syncope Chest pain. COMPARISON: Chest Single View dated 11/17/2019; Chest Single View dated 09/29/2019; Chest Single View dated 03/02/2018; Chest Single View dated 08/16/2016 FINDINGS: Portable technique limits examination quality. The lungs are grossly clear. The heart is normal in size. No displaced fractures. IMPRESSION: No acute intrathoracic process suspected.
[2020-11-18] MEDS ORDERED: POTASSIUM CL SA 10 MEQ TAB PO ONE (10:03)
[2020-11-18] MEDS ORDERED: FENTANYL CITR 100 MCG/2 ML ONE ×2 (10:19→12:11)
--- NOTE | 2020-11-18 10:34 | RAD REPORT ---
EXAM DESCRIPTION: RAD - Shoulder Right 2 View - 11/18/2020 9:27 am CLINICAL HISTORY: PAIN COMPARISON: Shoulder Right 2 View dated 11/28/2009 FINDINGS: Mild AC joint and glenohumeral joint arthritic changes are present. Subtle irregularity is seen of the acromion in the region of the AC joint which could represent nondisplaced fracture. Harsh elation with clinical point tenderness in the AC joint region would be advised.
--- NOTE | 2020-11-18 10:36 | RAD REPORT ---
EXAM DESCRIPTION: RAD - Elbow Right 3 View - 11/18/2020 9:27 am CLINICAL HISTORY: PAIN COMPARISON: No comparisons FINDINGS: Subtle elevation of the fat pads is noted which could indicate radial head fracture which is not well seen by plain radiograph. Based on the radiographs, a clear fracture or dislocation is no t seen. If elbow pain persists, CT or MR imaging could be obtained for further evaluation.
--- NOTE | 2020-11-18 10:57 | EKG ---
Test Date: 2020-11-18 Test Time: 07:44:56 Admission Discharge Rn: DAYANARA MEASUREMENT RESULTS: Intervals: Rate: 76 IA: 182 QRSD: 86 QT: 398 QTc: 447 [place]: P: 55 IA: 182 QRS: 59 T: 86 INTERPRETIVE STATEMENTS: Normal sinus rhythm Normal ECG Compared to ECG 11/17/2019 12:56:17 No significant changes Electronically Signed On 11-18-20 10:56:44 CDT by Alexander Velez
--- NOTE | 2020-11-18 13:06 | ER ---
Nurse's Notes [facility] Name: Pina Castrejon Age: 45 yrs Sex: Female : 1975 Arrival Date: 11/18/2020 Time: 07:33 Bed 7 Private MD: Diagnosis: Syncope Near;Contusion of right elbow;Pain in right elbow Presentation: 11/18 07:38 Chief complaint: EMS states: "pt was [place] the [place] when she reported passing out and jd3 feeling faint. a bystander reported that the pt passed out twice. on our arrival the pt's BP was low on standing up. pt is now fully awake and no trauma noted. reports right shoulder and elbow pain. the pt reported this has happened before when her electrolytes were unbalanced, but reports eating well.". Coronavirus screen: Vaccine status: Patient reports receiving the 1st dose of the Covid vaccine. Date October 2020 At this time, the client does not indicate any symptoms associated with coronavirus-19. Ebola Screen: Patient negative for fever greater than or equal to 101.5 degrees Fahrenheit, and additional compatible Ebola Virus Disease symptoms. Initial Sepsis Screen: Does the patient meet any 2 criteria? No. Patient's initial sepsis screen is negative. Does the patient have a suspected source of infection? No. Patient's initial sepsis screen is negative. Risk Assessment: Do you want to hurt yourself or someone else? Patient reports no desire to harm self or others. Onset of symptoms was November 18, 2020. 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 - Social history:: Smoking status: Patient reports the use of cigarette tobacco products, denies chronic smoking, but will smoke occasionally. Screenin:47 Abuse screen: Denies threats or abuse. Nutritional screening: No deficits noted. jd3 Tuberculosis screening: No symptoms or risk factors identified. Fall Risk IV access (20 points). Ambulatory Aid- None/Bed Rest/Nurse Assist (0 pts). Gait- Normal/Bed Rest/Wheelchair (0 pts) Mental Status- Oriented to own ability (0 pts). Total Mcconnell Fall Scale indicates No Risk (0-24 pts). Assessment: 07:45 General: Appears comfortable, Behavior is calm, cooperative, appropriate for age. Pain: jd3 Complains of pain in right shoulder and right elbow Quality of pain is described as aching, tender. Neuro: Level of Consciousness is awake, alert, obeys commands, Oriented to person, place, time, situation, Moves all extremities. Full function Speech is normal, Facial symmetry appears normal, Pupils are PERRLA, Intact Reports a syncopal episode. Cardiovascular: Denies chest pain, Capillary refill < 3 seconds Patient's skin is warm and dry. Rhythm is regular. Respiratory: Airway is patent Respiratory effort is even, unlabored, Respiratory pattern is regular, symmetrical, Denies cough, shortness of breath. GI: No signs and/or symptoms were reported involving the gastrointestinal system. Patient currently denies constipation, diarrhea, nausea, vomiting. : No signs and/or symptoms were reported regarding the genitourinary system. EENT: No signs and/or symptoms were reported regarding the EENT system. Derm: Skin is intact, Skin is dry, Skin is normal, Skin temperature is warm. Musculoskeletal: Circulation, motion, and sensation intact. Range of motion: intact in all extremities. 08:20 Reassessment: Patient appears in no apparent distress at this time. No changes from j previously documented assessment. Patient and/or family updated on plan of care and expected duration. Pain level reassessed. Patient is alert, oriented x 3, equal unlabored respirations, skin warm/dry/pink. 09:30 Reassessment: Patient appears in no apparent distress at this time. Patient and/or jd3 family updated on plan of care and expected duration. Pain level reassessed. Patient is alert, oriented x 3, equal unlabored respirations, skin warm/dry/pink. 10:30 Reassessment: Patient appears in no apparent distress at this time. No changes from jd3 previously documented assessment. Patient and/or family updated on plan of care and expected duration. Pain level reassessed. Patient is alert, oriented x 3, equal unlabored respirations, skin warm/dry/pink. 11:20 Reassessment: Patient appears in no apparent distress at this time. No changes from jd3 previously documented assessment. Patient and/or family updated on plan of care and expected duration. Pain level reassessed. Patient is alert, oriented x 3, equal unlabored respirations, skin warm/dry/pink. 12:09 Reassessment: Patient appears in no apparent distress at this time. Patient and/or jd3 family updated on plan of care and expected duration. Pain level reassessed. Patient is alert, oriented x 3, equal unlabored respirations, skin warm/dry/pink. pt stated the pain medication took the edge off, but it is still hurting. 13:27 Reassessment: Patient appears in no apparent distress at this time. Patient and/or jd3 family updated on plan of care and expected duration. Pain level reassessed. Patient is alert, oriented x 3, equal unlabored respirations, skin warm/dry/pink. awaiting ride for discharge. Vital Signs: 07:42 BP 117 / 77; Pulse 77; Resp 16 S; Temp 98.0(O); Pulse Ox 99% on R/A; Weight 68.04 kg jd3 (R); Height 5 ft. 5 in. (165.10 cm) (R); Pain 4/10; 08:19 BP 130 / 84 Supine; Pulse 78; jd3 08:19 BP 132 / 85 Sitting; Pulse 78; jd3 08:19 BP 124 / 81 Standing; Pulse 89; Resp 16 S; Pulse Ox 100% on R/A; jd3 11:20 BP 125 / 80; Pulse 81; Resp 15 S; Pulse Ox 100% on R/A; jd3 12:10 BP 130 / 88; Pulse 79; Resp 16 S; Pulse Ox 100% on R/A; jd3 13:27 BP 130 / 91; Pulse 78; Resp 16 S; Pulse Ox 100% on R/A; jd3 07:42 Body Mass Index 24.96 (68.04 kg, 165.10 cm) jd3 ED Course: 07:33 Patient arrived in ED. am2 07:34 Mono Rojas MD is Attending Physician. kdr 07:37 Maxime Najera, APOLLO is Primary Nurse. jd3 07:42 Triage completed. jd3 07:45 Arm band placed on. EKG completed in triage. Results shown to MD. jd3 07:47 Patient has correct armband on for positive identification. Bed in low position. Call jd3 light in reach. Side rails up X2. ekg monitor tech on. Pulse ox on. NIBP on. 07:47 Maintain EMS IV. Dressing intact. Site clean \\T\\ dry. Gauge \\T\\ site: 20 G right hand. lina 3 07:50 Radiology exam delayed due to patient is not appropriately dressed for the exam at this md1 time. 07:52 EKG done, by ED staff, reviewed by Mono Rojas MD. em1 08:02 XRAY Chest (1 view) In Process Unspecified. EDMS 08:06 CT Head C Spine In Process Unspecified. EDMS 09:27 Shoulder Right (2 View) XRAY In Process Unspecified. EDMS 09:27 Elbow Right 3 View XRAY In Process Unspecified. EDMS 10:58 Orthoglass splint: posterior long arm splint applied to the right arm. Sling applied to kj1 right arm. 11:54 Shoulder Right Wo Cont In Process Unspecified. EDMS 11:54 Elbow Right Wo Con In Process Unspecified. EDMS 13:25 No provider procedures requiring assistance completed. IV discontinued, intact, jd3 bleeding controlled, No redness/swelling at site. Pressure dressing applied. Administered Medications: 08:20 Drug: NS 0.9% 500 ml Route: IV; Rate: bolus; Site: right hand; jd3 09:20 Follow up: Response: No adverse reaction; IV Status: Completed infusion; IV Intake: jd3 500ml 08:36 Drug: Demerol (meperidine) 12.5 mg Route: IVP; Site: right hand; jd3 09:33 Follow up: Response: Pain is decreased ch5 08:36 Drug: Zofran (Ondansetron) 4 mg Route: IVP; Site: right hand; jd3 09:33 Follow up: Response: No adverse reaction ch5 09:49 Drug: Potassium Chloride 40 mEq Route: PO; ch5 10:40 Follow up: Response: No adverse reaction jd3 09:57 Drug: fentaNYL (PF) 25 mcg Route: IVP; Site: right hand; ch5 10:50 Follow up: Response: No adverse reaction; RASS: Alert and Calm (0) jd3 11:49 Drug: fentaNYL (PF) 50 mcg Route: IVP; Site: right hand; ch5 12:45 Follow up: Response: No adverse reaction; RASS: Alert and Calm (0) jd3 Point of Care Testing: Blood Glucose: 07:50 Blood Glucose: 61 mg/dL; jd3 Ranges: Intake: 09:20 IV: 500ml; Total: 500ml. jd3 Outcome: 13:06 Discharge ordered by . kdr 13:26 Discharged to home ambulatory, with family. jd3 13:26 Condition: stable 13:26 Discharge instructions given to patient, Instructed on discharge instructions, follow up and referral plans. medication usage, Demonstrated understanding of instructions, follow-up care, medications, Prescriptions given X 1. 13:48 Patient left the ED. jd3 Signatures: Dispatcher [employer] EDMS Mono Rojas MD MD kdr Martinez, Eric em1 Mirella Slade am2 Maxime Najera RN RN Nette Porras kj1 Marie Funk md1 Rogelio Lala RN RN ch5 Corrections: (The following items were deleted from the chart) 07:42 07:37 Chief complaint: jd3 jd3
--- NOTE | 2020-11-18 13:06 | EDPHYS ---
Physician Documentation [facility] Name: Pina Castrejon Age: 45 yrs Sex: Female : 1975 Arrival Date: 11/18/2020 Time: 07:33 Bed 7 Private MD: ED Physician Mono Rojas HPI: 11/18 07:56 This 45 yrs old Female presents to ER via EMS with complaints of Syncope. kdr 07:56 The patient has experienced syncope, became unresponsive, collapsed. Onset: The kdr symptoms/episode began/occurred suddenly, just prior to arrival. Duration: This was a single episode, that lasted an unknown period of time. 11/19 08:06 Context: occurred At a bus stop. Associated injury: Head/face: Right upper extremity: kdr anterior aspect of right shoulder, right antecubital area and right elbow, decreased range of motion, pain, swelling, tenderness. Associated signs and symptoms: The patient has no apparent associated signs or symptoms. Current symptoms: Patient is back to baseline mentally however she continues to have pain in her right elbow and shoulder. The patient has had syncopal episodes in the past and this is not unusual for her. The patient has not recently seen a physician. CIO: 11/18 07:55 LMP N/A - pt reports LMP over 5 years ago jd3 Historical: - Allergies: 07:42 Sulfa (Sulfonamide Antibiotics); jd3 07:42 NSAIDS; jd3 07:42 Aspirin; jd3 07:42 Morphine; jd3 - Home Meds: 07:42 gabapentin Oral [Active]; Xanax Oral [Active]; Ambien Oral [Active]; Adipex-P oral jd3 [Active]; - PMHx: 07:42 Anemia; Anxiety; Depression; diabetes (controlled with diet); ESSENTIAL TREMORS; GI jd3 Bleed; insomnia; Seizures; - PSHx: 07:42 ablation; gastric bypass; jd3 - Immunization history:: Adult Immunizations up to date, Client reports receiving the 1st dose of the Covid vaccine, October 2020. - Social history:: Smoking status: Patient reports the use of cigarette tobacco products, denies chronic smoking, but will smoke occasionally. ROS: 11/19 08:06 Constitutional: Negative for fever, chills, and weight loss, Eyes: Negative for injury, kdr pain, redness, and discharge, ENT: Negative for injury, pain, and discharge, Neck: Negative for injury, pain, and swelling, Cardiovascular: Negative for chest pain, palpitations, and edema, Respiratory: Negative for shortness of breath, cough, wheezing, and pleuritic chest pain, Abdomen/GI: Negative for abdominal pain, nausea, vomiting, diarrhea, and constipation, Back: Negative for injury and pain, : Negative for injury, bleeding, discharge, and swelling, Skin: Negative for injury, rash, and discoloration, Psych: Negative for depression, anxiety, suicide ideation, homicidal ideation, and hallucinations, Allergy/Immunology: Negative for hives, rash, and allergies, Endocrine: Negative for neck swelling, polydipsia, polyuria, polyphagia, and marked weight changes, Hematologic/Lymphatic: Negative for swollen nodes, abnormal bleeding, and unusual bruising. MS/extremity: Positive for injury or acute deformity, decreased range of motion, pain, swelling, of the right antecubital area, posterior aspect of right shoulder and right elbow. Neuro: Positive for syncope, near syncope, weakness. Exam: 08:06 Constitutional: This is a well developed, well nourished patient who is awake, alert, kdr and in no acute distress. Head/Face: Normocephalic, atraumatic. Eyes: Pupils equal round and reactive to light, extra-ocular motions intact. Lids and lashes normal. Conjunctiva and sclera are non-icteric and not injected. Cornea within normal limits. Periorbital areas with no swelling, redness, or edema. Neck: Trachea midline, no thyromegaly or masses palpated, and no cervical lymphadenopathy. Supple, full range of motion without nuchal rigidity, or vertebral point tenderness. No Meningismus. Chest/axilla: Normal chest wall appearance and motion. Nontender with no deformity. No lesions are appreciated. Cardiovascular: Regular rate and rhythm with a normal S1 and S2. No gallops, murmurs, or rubs. Normal PMI, no JVD. No pulse deficits. Respiratory: Lungs have equal breath sounds bilaterally, clear to auscultation and percussion. No rales, rhonchi or wheezes noted. No increased work of breathing, no retractions or nasal flaring. Abdomen/GI: Soft, non-tender, with normal bowel sounds. No distension or tympany. No guarding or rebound. No evidence of tenderness throughout. Back: No spinal tenderness. No costovertebral tenderness. Full range of motion. Skin: Warm, dry with normal turgor. Normal color with no rashes, no lesions, and no evidence of cellulitis. Neuro: Awake and alert, GCS 15, oriented to person, place, time, and situation. Cranial nerves II-XII grossly intact. Motor strength 5/5 in all extremities. Sensory grossly intact. Cerebellar exam normal. Normal gait. Psych: Awake, alert, with orientation to person, place and time. Behavior, mood, and affect are within normal limits. 08:06 Musculoskeletal/extremity: Extremities: grossly normal except: noted in the anterior aspect of right shoulder, right antecubital area, posterior aspect of right shoulder and right elbow: decreased ROM, pain, swelling, tenderness. Vital Signs: 11/18 07:42 BP 117 / 77; Pulse 77; Resp 16 S; Temp 98.0(O); Pulse Ox 99% on R/A; Weight 68.04 kg jd3 (R); Height 5 ft. 5 in. (165.10 cm) (R); Pain 4/10; 08:19 BP 130 / 84 Supine; Pulse 78; jd3 08:19 BP 132 / 85 Sitting; Pulse 78; jd3 08:19 BP 124 / 81 Standing; Pulse 89; Resp 16 S; Pulse Ox 100% on R/A; jd3 11:20 BP 125 / 80; Pulse 81; Resp 15 S; Pulse Ox 100% on R/A; jd3 12:10 BP 130 / 88; Pulse 79; Resp 16 S; Pulse Ox 100% on R/A; jd3 13:27 BP 130 / 91; Pulse 78; Resp 16 S; Pulse Ox 100% on R/A; jd3 07:42 Body Mass Index 24.96 (68.04 kg, 165.10 cm) j MDM: 13:06 Patient medically screened. kdr 11/19 08:06 Data reviewed: vital signs, nurses notes, lab test result(s), radiologic studies. kdr Counseling: I had a detailed discussion with the patient and/or guardian regarding: the historical points, exam findings, and any diagnostic results supporting the discharge/admit diagnosis, lab results, radiology results, the need for outpatient follow up. 11/18 07:36 Order name: Basic Metabolic Panel; Complete Time: 09:33 kdr 11/18 07:36 Order name: CBC with Diff; Complete Time: 09:33 kdr 11/18 07:36 Order name: LFT's; Complete Time: 09:33 kdr 11/18 07:36 Order name: Magnesium; Complete Time: 09:33 kdr 11/18 07:36 Order name: NT PRO-BNP; Complete Time: 09:33 kdr 11/18 07:36 Order name: PT-INR; Complete Time: 09:33 kdr 11/18 07:36 Order name: Troponin (emerg Dept Use Only); Complete Time: 09:33 kdr 11/18 07:36 Order name: XRAY Chest (1 view); Complete Time: 09:52 kdr 11/18 07:55 Order name: CT Head C Spine; Complete Time: 09:33 kdr 11/18 08:02 Order name: Glucose, Ancillary Testing; Complete Time: 09:33 EDMS 11/18 08:23 Order name: Shoulder Right (2 View) XRAY; Complete Time: 10:51 kdr 11/18 08:23 Order name: Elbow Right 3 View XRAY; Complete Time: 10:51 kdr 11/18 07:36 Order name: EKG; Complete Time: 07:37 kdr 11/18 07:36 Order name: Cardiac monitoring; Complete Time: 07:55 kdr 11/18 07:36 Order name: EKG - Nurse/Tech; Complete Time: 07:52 kdr 11/18 07:36 Order name: IV Saline Lock; Complete Time: 07:55 kdr 11/18 07:36 Order name: Labs collected and sent; Complete Time: 07:55 kdr 11/18 07:36 Order name: O2 Per Protocol; Complete Time: 07:55 kdr 11/18 07:36 Order name: O2 Sat Monitoring; Complete Time: 07:55 kdr 11/18 11:16 Order name: Shoulder Right Wo Cont EDMS 11/18 11:16 Order name: Elbow Right Wo Con EDMS 11/18 07:56 Order name: Orthostatic Blood Pressure; Complete Time: 08:20 kdr 11/18 10:10 Order name: Posterior Elbow Splint; Complete Time: 10:58 kdr 11/18 12:59 Order name: Sling; Complete Time: 13:24 kdr Administered Medications: 11/18 08:20 Drug: NS 0.9% 500 ml Route: IV; Rate: bolus; Site: right hand; jd3 09:20 Follow up: Response: No adverse reaction; IV Status: Completed infusion; IV Intake: jd3 500ml 08:36 Drug: Demerol (meperidine) 12.5 mg Route: IVP; Site: right hand; jd3 09:33 Follow up: Response: Pain is decreased ch5 08:36 Drug: Zofran (Ondansetron) 4 mg Route: IVP; Site: right hand; jd3 09:33 Follow up: Response: No adverse reaction ch5 09:49 Drug: Potassium Chloride 40 mEq Route: PO; ch5 10:40 Follow up: Response: No adverse reaction jd3 09:57 Drug: fentaNYL (PF) 25 mcg Route: IVP; Site: right hand; ch5 10:50 Follow up: Response: No adverse reaction; RASS: Alert and Calm (0) jd3 11:49 Drug: fentaNYL (PF) 50 mcg Route: IVP; Site: right hand; ch5 12:45 Follow up: Response: No adverse reaction; RASS: Alert and Calm (0) jd3 Point of Care Testing: Blood Glucose: 07:50 Blood Glucose: 61 mg/dL; jd3 Ranges: Critical Glucose Levels:Adult <50 mg/dl or >400 mg/dl <40 mg/dl or >180 mg/dl Disposition Summary: 11/18/20 13:06 Discharge Ordered Location: Home kdr Problem: new kdr Symptoms: have improved kdr Condition: Stable kdr Diagnosis - Syncope Near kdr - Contusion of right elbow kdr - Pain in right elbow kdr Followup: kdr - With: Private Physician - When: 2 - 3 days - Reason: If symptoms return, Further diagnostic work-up, Recheck today's complaints, Continuance of care, Re-evaluation by your physician Discharge Instructions: - Discharge Summary Sheet kdr - Joint Pain kdr - Musculoskeletal Pain kdr - Syncope, [id number] kdr - Elbow Contusion, [id number] kdr - Elbow Sprain kdr Forms: - Medication Reconciliation Form kdr - Thank You Letter kdr - Prescription Opioid Use kdr Prescriptions: - Tylenol-Codeine #3 300 mg-30 mg Oral - take 1 tablet by ORAL route every 4-6 hours; 12 tablet; Refills: 0, Product kdr Selection Permitted Signatures: Dispatcher [employer] EDMS Mono Rojas MD MD kdr Davies, Jonathon RN RN jd3 Rogelio Lala RN RN ch5 Corrections: (The following items were deleted from the chart) 11:16 10:55 CT RIGHT ELEBOW WO CONTRAST ordered. EDMS EDMS 11:16 10:55 CT RIGHT SHOULDER W/O CONTRAST ordered. EDMS EDMS 12:29 07:56 TYPE AND SCREEN+[id number].BRZ ordered. EDMS EDMS
[2020-11-18 13:58] VITALS: TEMP 98
[2020-11-18 14:03] VITALS: O2SAT 100
[2020-11-18 14:26] VITALS: BP 130/91
--- NOTE | 2020-11-18 17:19 | RAD REPORT ---
EXAM DESCRIPTION: CT - Elbow Right Wo Con - 11/18/2020 11:54 am CLINICAL HISTORY: r/o fracture Right shoulder pain and swelling COMPARISON: No comparisons FINDINGS: The bones are mildly demineralized. AC joint and glenohumeral joint alignment is normal. T here is no evidence of fracture or dislocation seen. IMPRESSION: No evidence of fracture or dislocation. All CT scans are performed using dose optimization technique as appropriate and may include automated exposure control or mA/KV adjustment according to patient size.
--- NOTE | 2020-11-18 17:21 | RAD REPORT ---
EXAM DESCRIPTION: CT - Shoulder Right Wo Cont - 11/18/2020 11:54 am CLINICAL HISTORY: r/o fracture Trauma, pain and swelling COMPARISON: No comparisons FINDINGS: A mild elbow joint effusion is seen. No acute fracture or dislocation is evident. No aggre ssive marrow lesion. No evidence of a soft tissue mass or hematoma. IMPRESSION: No acute fracture or dislocation seen. Mild elbow joint effusion. If the patient experiences progressive symptoms or pain, MRI of the elbow may be of value.
== END 2020-11-18 13:48 | disposition home or self-care (01) ==
LOC: ER 07:32
DX: S50.01XA Contusion of right elbow, initial encounter (principal); F41.8 Other specified anxiety disorders; F17.210 Nicotine dependence, cigarettes, uncomplicated
CPT/HCPCS: 93005; 85025; 80048; 36415; 83735; 85610; 82947; 80076; 84484; 83880; 70450; 72125; 73200 ×2; 71045; 73080; 73030; J3010 ×2; J2175; J7040; J2405

== ENCOUNTER 2021-07-07 12:32 | Emergency (ER) | payer OTHER ==
--- OUTSIDE RECORDS SUMMARY | 2021-07-07 12:35 | XMS REPORT | Continuity of Care Document ---
:1975 Author Organization [facility] t Address [address] [place] [address] Care Team Providers Name Role Phone Darío Attending Clinician Unavailable BETSEY Attending Clinician Unavailable MD Amrik LEGGETT Attending Clinician Unavailable MD CHERYL LERNER Attending Clinician Unavailable YANN Attending Clinician Unavailable VINAY Attending Clinician Unavailable Darío Admitting Clinician Unavailable BETSEY Admitting Clinician Unavailable MD Amrik LEGGETT Admitting Clinician Unavailable MD CHERYL LERNER Admitting Clinician Unavailable Payers Payer Name Policy Type Policy Number Effective Date Expiration Date S ource [employer] CHOICE POS [id number] 2019 00:00:00 II Problems This patient has no known problems. Allergies, Adverse Reactions, Alerts Allergy Allergy Status Severity Reaction(s) Onset Inactive Treating Comm ents Source Name Type Date Date Clinician aspirin DA Active MO 2019-02 [facility] 011 [place] 00:00: Health 00 are [facility] aspirin DA Active MO RASH-HIVES 2019-02 [facility] 0-11 [place] 00:00: Health 00 are [facility] NSAIDS; DA Active U RASH WITH 2019-02 [facility] SULFA THE SULFA [place] (SULFONA DRUGS; CAN'T 00:00: He althc MIDE NSAIDS D/T 00 are ANTIBIOT HX GASTRIC Medi michele ICS); [facility] ASPIRIN NSAIDS Drug Active Unknown-Cmnt Univ ers (NON-NICOLE Class 1-23 ity of ROIDAL 00:00: [place] ANTI-INF 00 Medical LAMMATOR Branch Y DRUG) SULFA Drug Active N/V Univers (SULFONA Class 1-23 ity of MIDE 00:00: [place] ANTIBIOT 00 Medical ICS) Branch Medications This patient has no known medications. Procedures This patient has no known procedures. Encounters Start End Encounter Admission Attending Care Care Encounter Source Date/Time Date/Time Type Type Clinicians Facility Department ID 2019-11-17 Inpatient FELTON Chanel [facility] ADMI [id number] [facility] 20:47:00 Adnan [facility] 2020-07-11 2020-07-11 Outpatient [facility] [id number] [place] 00:00:00 00:00:[address] 2020-06-27 2020-06-29 Outpatient GABY LEGGETT [facility] 021 [id number] [place] 00:00:00 00:00:[address] 2020-06-26 2020-06-26 Outpatient GABY LEGGETT [facility] [id number] [place] 00:00:00 00:00:[address] 2020-06-17 2020-06-17 Outpatient GABY LEGGETT [facility] [id number] [place] 00:00:00 00:00:[address] 2020-06-17 2020-06-17 Outpatient GABY LEGGETT [facility] [id number] [place] 00:00:00 00:00:[address] 2020-06-03 2020-06-03 Outpatient GABY LEGGETT [facility] [id number] [place] 00:00:00 00:00:[address] 2020-06-03 2020-06-03 Outpatient GABY LEGGETT [facility] [id number] [place] 00:00:00 00:00:[address] 2020-05-02 2020-05-02 Outpatient GABY LEGGETT [facility] 021 [id number] [place] 00:00:00 00:00:[address] 2020-05-01 2020-05-01 Outpatient YANN [facility] [id number] [place] 00:00:00 00:00:00 UGOEZE [address] 2020-05-01 2020-05-01 Outpatient BETSEYGAYB [facility] [id number] [place] 00:00:00 00:00:[address] 2020-05-01 2020-05-01 Outpatient NWAZAMI, [facility] [id number] [place] 00:00:00 00:00:00 DIANNA [address] 2019-11-30 2019-11-30 Emergency X VINAY [facility] [id number] [facility] 18:13:00 18:13:00 OPAL hassan [facility] Results Test Description Test Time Test Comments Results Result Comments Source SARS-CoV-2 (COVID-19) RNA [Presence] in Respiratory sp ecimen by 2020-06-26 19:44:12 NOLA with probe detection Test Item Value Reference Range Interpretation Comme nts SARS-CoV-2 (COVID-19) RNA [Presence] in Respiratory Not detected No t-Detected specimen by NOLA with probe detection (test code = 70224-5) Whether patient is employed in a healthcare setting (test code = 82492-3) Whether the patient has symptoms related to condition of interest (test code = 03318-6) Patient was hospitalized because of this condition (test code = 70530-1) Whether the patient was admitted to intensive care unit (ICU) for condition of interest (test code = 39299-4) Whether patient resides in a congregate care setting (test code = 94414-8) SARS-CoV-2 (COVID-19) RNA [Presence] in Respiratory specimen by NOLA with probe [id number] 21:53:07 Test Item Value Reference Range Interpretation Comments SARS-CoV-2 (COVID-19) RNA Not detected Not-Detected [Presence] in Respiratory specimen by NOLA with probe detection (test code = 51563-1) RENAL FUNCTION [id number] 06:31:00 Test Item Value Reference Range Interpretation [...] 3.0 mg/dL 2.7-4.5 N code = PHOS) [id number] 06:31:00 Test Item Value Reference Range Interpretation Comments MAGNESIUM (test code = MAG) 1.7 mg/dL 1.4-2.6 N - XR UGI SGL [id number] 10:18:00Patient Name: ERIC MILLAN DOTTIE Unit No: [id number] EXAMS: CPT CODE: [id number] XR UGI SGL CONTRAST [id number] Single contrast upper GI 11/19/2019 CLINICAL INDICATION: [...] Chanel MD; Ronan Sweet MD Technologist: Mikael Gallardo Fluoro Time: DAP (Gy m2): Air Kerma (mGy): Trscr Dt/Tm: 11/19/2019 (1018) by:[email or web address] Printed Date/Time: 11/19/2019 (1022) Name: ERIC MILLAN [facility] Phys: Ronan Srinivasan MD [address] : 1975 Age: 44 Sex: [place] [id number] Loc: P.[phone] 1 Exam Date: 11/19/2019 Status: ADM IN PH: FAX: PAGE 1 Signed ReportFERRITIN 2019-11-18 13:48:00 Test Item Value Reference Range Interpretation Comments FERRITIN (test code = ROBYN) 21 ng/mL 13-150 N FE W/TOTAL IRON BINDING [id number] 13:28:00 Test Item Value Reference Range Interpretation Comments IRON (test code = IRON) 17 mcg/dL 53-167 L TOTAL IRON BINDING CAPACITY (test 261 mcg/dL 250-450 N code = TIBC) IRON SATURATION (test code = 7 % 15-50 L FESAT) [id number] 12:46:00 Test Item Value Reference Range Interpretation Comments PREALBUMIN (test code = PREALB) 7.8 MG/ML 15-42 L COMPREHENSIVE METABOLIC [id number] 12:46:00 Test Item Value Reference Range Interpretation [...] PHOSPHATASE (test code = ALKP) CBC W/AUTO [id number] 12:13:00 Test Item Value Reference Range Interpretation [...]
--- NOTE | 2021-07-07 13:08 | RAD REPORT ---
EXAM DESCRIPTION: CT - Head Brain Wo Cont - 07/07/2021 1:03 pm CLINICAL HISTORY: syncope, fall Fall, trauma, head injury COMPARISON: Head Brain Wo Cont dated 03/02/2018; Head Brain Wo Cont dated 02/23/2018 TECHNIQUE: All CT scans are performed using dose optimization technique as appropriate and may inclu de automated exposure control or mA/KV adjustment according to patient size. FINDINGS: No intracranial hemorrhage, hydrocephalus or extra-axial fluid collection.Mild brain atrop hy.No areas of brain edema or evidence of midline shift. The paranasal sinuses and mastoids are clear. The calvarium is intact. IMPRESSION: No acute intracranial abnormality.
--- NOTE | 2021-07-07 13:14 | RAD REPORT ---
EXAM DESCRIPTION: RAD - Chest Single View - 07/07/2021 1:08 pm CLINICAL HISTORY: syncope Chest pain. COMPARISON: Chest Single View dated 11/18/2020; Chest Single View dated 11/17/2019; Chest Single Vie w dated 09/29/2019; Chest Single View dated 03/02/2018 FINDINGS: Portable technique limits examination quality. The lungs are grossly clear. The heart is normal in size. No displaced fractures. IMPRESSION: No acute intrathoracic process suspected.
[2021-07-07 14:13] LABS: Absolute Lymphocytes (CBC) 1.1 K/uL (0.7-4.9); Lymphocytes % 12.9 % (15.3-44.8); MPV 8.1 fL (7.6-11.3); RBC Red Blood Cell Count 4.83 M/uL (3.86-4.86)
[2021-07-07 14:43] LABS: ALT/SGPT 18 U/L (12-78); AST/SGOT 18 U/L (15-37); Albumin 3.7 g/dL (3.4-5.0); Alkaline Phosphatase 150 U/L (45-117); BUN Blood Urea Nitrogen 10 mg/dL (7-18); Bicarbonate 24 mmol/L (21-32); Bilirubin Total 0.3 mg/dL (0.2-1.0); Glomerular Filtration Rate 82 ml/min (=/>90); Glucose Level 105 mg/dL (74-106); Magnesium 2.2 mg/dL (1.8-2.4); NT PRO-BNP 34 pg/mL (<125); Potassium 3.7 mmol/L (3.5-5.1); Protein, Total 7.4 g/dL (6.4-8.2); Sodium Level 138 mmol/L (136-145); Troponin High Sensitivity 3.6 pg/mL (<58.9)
[2021-07-07 14:53] LABS: Bilirubin Direct < 0.1 mg/dL (0-0.2)
[2021-07-07] MEDS ORDERED: NA CHLORIDE 0.9% 1,000 ML ONE (15:38)
--- NOTE | 2021-07-07 17:15 | ER ---
Nurse's Notes [facility] Name: Pina Castrejon Age: 46 yrs Sex: Female : 1975 Arrival Date: 07/07/2021 Time: 12:33 Bed 10 Private MD: Diagnosis: Dehydration;Syncope;Orthostatic hypotension Presentation: 07/07 12:33 Chief complaint: pt was found on ground in lab office , someone heard her fall , has iw had syncopal episode in past and was dehydrated and anemic on two different occasions , pt does not remember falling, denies pain or injury at this time, does not falling. Coronavirus screen: At this time, the client does not indicate any symptoms associated with coronavirus-19. Ebola Screen: Patient negative for fever greater than or equal to 101.5 degrees Fahrenheit, and additional compatible Ebola Virus Disease symptoms Patient denies exposure to infectious person. Patient denies travel to an Ebola-affected area in the 21 days before illness onset. No symptoms or risks identified at this time. 12:33 Method Of Arrival: Wheelchair iw 12:35 Initial Sepsis Screen: Does the patient meet any 2 criteria? No. Patient's initial iw sepsis screen is negative. Does the patient have a suspected source of infection? No. Patient's initial sepsis screen is negative. Risk Assessment: Do you want to hurt yourself or someone else? Patient reports no desire to harm self or others. Onset of symptoms was July 07, 2021. 12:35 Acuity: SAMIRA 3 iw Historical: - Allergies: 12:35 Aspirin; iw 12:35 Morphine; iw 12:35 NSAIDS; iw 12:35 Sulfa (Sulfonamide Antibiotics); iw - Home Meds: 12:35 Adipex-P Oral [Active]; Ambien Oral [Active]; gabapentin Oral [Active]; Xanax Oral iw [Active]; - PMHx: 12:35 Anemia; Anxiety; Depression; diabetes (controlled with diet); ESSENTIAL TREMORS; GI iw Bleed; insomnia; Seizures; - PSHx: 12:35 ablation; Gastric Bypass; iw Screenin:30 Abuse screen: Denies threats or abuse. Nutritional screening: No deficits noted. jb4 Tuberculosis screening: No symptoms or risk factors identified. Fall Risk Fall in past 12 months (25 points). Total Mcconnell Fall Scale indicates Low Risk Score (25-44 pts). Fall prevention measures have been instituted. Side Rails Up X 2 Placed close to Nursing Station Frequent Obs/Assesments occuring Family Present and informed to notify staff if they need to leave bedside As available Patient and Family Educated on Fall Prevention Program and strategies. Assessment: 15:30 Reassessment: Pt appears dazed and is AO\T\x2, is disoriented to time and situation. jb4 Respirations are even and unlabored with no s/s of distress noted. 16:33 Reassessment: Patient appears in no apparent distress at this time. Patient and/or jb4 family updated on plan of care and expected duration. Pain level reassessed. Patient is alert, oriented x 3, equal unlabored respirations, skin warm/dry/pink. 17:34 Reassessment: Patient appears in no apparent distress at this time. Patient and/or jb4 family updated on plan of care and expected duration. Pain level reassessed. Patient is alert, oriented x 3, equal unlabored respirations, skin warm/dry/pink. Vital Signs: 12:33 BP 147 / 90; Pulse 105; Resp 16; Pulse Ox 98% on R/A; iw 15:30 BP 145 / 91 LA Supine (auto/reg); Pulse 95; Resp 16; Pulse Ox 98% on R/A; jb4 15:31 BP 164 / 91 LA Sitting (auto/reg); Pulse 95; Resp 16; Pulse Ox 98% on R/A; jb4 15:32 BP 147 / 91 LA Standing (auto/reg); Pulse 104; Resp 16; Pulse Ox 97% on R/A; jb4 16:33 BP 148 / 88; Pulse 95; Resp 16; Pulse Ox 100% on R/A; jb4 ED Course: 12:33 Patient arrived in ED. iw 12:35 Triage completed. iw 12:36 Arm band placed on. iw 12:37 Gomez Khan NP is PHCP. iw 12:42 Kavon Marrero DO is Attending Physician. pm1 13:04 CT Head Brain wo Cont In Process Unspecified. EDMS 13:09 XRAY Chest (1 view) In Process Unspecified. EDMS 14:05 Fatmata Kent, RN is Primary Nurse. iw 15:30 Patient has correct armband on for positive identification. Bed in low position. Call jb4 light in reach. Side rails up X 1. 15:47 Diet: Patient given a heart healthy meal tray. Patient given juice. 5 17:35 No provider procedures requiring assistance completed. IV discontinued, intact, jb4 bleeding controlled, No redness/swelling at site. Pressure dressing applied. Administered Medications: 15:37 Drug: NS 0.9% 1000 ml Route: IV; Rate: 1000 ml; Site: right antecubital; jb4 17:35 Follow up: Response: No adverse reaction; IV Status: Completed infusion; IV Intake: jb4 1000ml Medication: 16:33 VIS not applicable for this client. jb4 Intake: 17:35 IV: 1000ml; Total: 1000ml. jb4 Outcome: 17:14 Discharge ordered by . pm1 17:35 Discharged to home ambulatory. jb4 17:35 Condition: stable 17:35 Discharge instructions given to patient, Instructed on discharge instructions, follow up and referral plans. Demonstrated understanding of instructions, follow-up care. 17:36 Patient left the ED. 4 Signatures: Dispatcher [employer] EDMS Fatmata Kent RN RN iw Gomez Khan, CHILD ADOLESCENT PSYCHIATRIST CHILD ADOLESCENT PSYCHIATRIST pm1 Chon Velazquez RN RN 4 Leila Seals [facility] Corrections: (The following items were deleted from the chart) 12:35 12:33 Chief complaint: pt was found on ground in lab office , someone heard her fall , iw has had syncopal episode in past and was dehydrated and anemic on two different occasions , pt does not remember falling, denies pain or injury at this time, does not remember getting to work today iw
--- NOTE | 2021-07-07 17:15 | EDPHYS ---
Physician Documentation [facility] Name: Pina Castrejon Age: 46 yrs Sex: Female : 1975 Arrival Date: 07/07/2021 Time: 12:33 Bed 10 Private MD: ED Physician Kavon Marrero HPI: 07/07 12:40 This 46 yrs old Female presents to ER via Wheelchair with complaints of Syncope. pm1 12:40 The patient has experienced syncope. Onset: The symptoms/episode began/occurred just pm1 prior to arrival. Duration: This was a single episode, that lasted an unknown period of time. Context: the episode(s) was witnessed, by a bystander, occurred at work, occurred while the patient was walking, To work. Just prior to the episode the patient experienced no apparent symptoms. Associated injury: The patient did not suffer any apparent associated injury. Associated signs and symptoms: Pertinent negatives: chest pain, headache, shortness of breath, vomiting, weakness. Current symptoms: Currently, the patient is not experiencing any symptoms. The patient has experienced similar episodes in the past, a few times. The patient has not recently seen a physician. Patient reports no p.o. intake of fluids and food today. Patient was walking into work and was found outside the lab door on the floor by a bystander that exited the restroom. Historical: - Allergies: 12:35 Aspirin; iw 12:35 Morphine; iw 12:35 NSAIDS; iw 12:35 Sulfa (Sulfonamide Antibiotics); iw - Home Meds: 12:35 Adipex-P Oral [Active]; Ambien Oral [Active]; gabapentin Oral [Active]; Xanax Oral iw [Active]; - PMHx: 12:35 Anemia; Anxiety; Depression; diabetes (controlled with diet); ESSENTIAL TREMORS; GI iw Bleed; insomnia; Seizures; - PSHx: 12:35 ablation; Gastric Bypass; iw ROS: 12:40 Constitutional: Negative for fever, chills, and weight loss, Cardiovascular: Negative pm1 for chest pain, palpitations, and edema, Respiratory: Negative for shortness of breath, cough, wheezing, and pleuritic chest pain, Abdomen/GI: Negative for abdominal pain, nausea, vomiting, diarrhea, and constipation, MS/Extremity: Negative for injury and deformity, Skin: Negative for injury, rash, and discoloration. 12:40 Neuro: Positive for syncope, Negative for headache, weakness. 12:40 All other systems are negative. Exam: 12:40 Abdomen/GI: Exam negative for acute changes, Inspection: abdomen appears normal, pm1 Palpation: abdomen is soft and non-tender, in all quadrants. 12:40 Constitutional: This is a well developed, well nourished patient who is awake, alert, and in no acute distress. Head/Face: Normocephalic, atraumatic. 12:40 Back: No spinal tenderness. No costovertebral tenderness. Full range of motion. Skin: Warm, dry with normal turgor. Normal color with no rashes, no lesions, and no evidence of cellulitis. MS/ Extremity: Pulses equal, no cyanosis. Neurovascular intact. Full, normal range of motion. 12:40 Cardiovascular: Exam negative for acute changes, Rate: normal, Rhythm: regular, Pulses: no pulse deficits are appreciated, Heart sounds: normal, Edema: is not appreciated. 12:40 Respiratory: Exam negative for acute changes, respiratory distress, shortness of breath, Breath sounds: are clear throughout. 12:40 Abdomen/GI: Exam negative for acute changes, Inspection: abdomen appears normal, Palpation: abdomen is soft and non-tender, in all quadrants. 12:40 Neuro: Exam negative for acute changes, Orientation: is normal, Mentation: is normal, Motor: is normal, moves all fours, Gait: is steady, at a normal pace, without difficulty. Vital Signs: 12:33 BP 147 / 90; Pulse 105; Resp 16; Pulse Ox 98% on R/A; iw 15:30 BP 145 / 91 LA Supine (auto/reg); Pulse 95; Resp 16; Pulse Ox 98% on R/A; jb4 15:31 BP 164 / 91 LA Sitting (auto/reg); Pulse 95; Resp 16; Pulse Ox 98% on R/A; jb4 15:32 BP 147 / 91 LA Standing (auto/reg); Pulse 104; Resp 16; Pulse Ox 97% on R/A; jb4 16:33 BP 148 / 88; Pulse 95; Resp 16; Pulse Ox 100% on R/A; jb4 MDM: 12:38 Patient medically screened. pm1 17:13 Data reviewed: vital signs. Data interpreted: Pulse oximetry: on room air is 100 %. pm1 Interpretation: normal. Counseling: I had a detailed discussion with the patient and/or guardian regarding: the historical points, exam findings, and any diagnostic results supporting the discharge/admit diagnosis, lab results, radiology results, the need for outpatient follow up, to return to the emergency department if symptoms worsen or persist or if there are any questions or concerns that arise at home. 07/07 12:40 Order name: Basic Metabolic Panel; Complete Time: 14:59 pm1 07/07 12:40 Order name: CBC with Diff; Complete Time: 14:42 pm1 07/07 12:40 Order name: LFT's; Complete Time: 14:59 pm1 07/07 12:40 Order name: Magnesium; Complete Time: 14:59 pm1 07/07 12:40 Order name: NT PRO-BNP; Complete Time: 14:59 pm1 07/07 12:40 Order name: PT-INR; Complete Time: 14:15 pm07/07 12:40 Order name: Troponin HS; Complete Time: 14:59 pm1 07/07 12:40 Order name: XRAY Chest (1 view); Complete Time: 13:17 pm1 07/07 12:40 Order name: EKG; Complete Time: 12:41 pm1 07/07 12:40 Order name: CT Head Brain wo Cont; Complete Time: 13:17 pm1 07/07 12:51 Order name: Glucose, Ancillary Testing; Complete Time: 12:53 EDMS 07/07 14:05 Order name: Diet Regular; Complete Time: 14:07/07 16:36 Order name: Glucose, Ancillary Testing; Complete Time: 16:51 EDMS 07/07 12:40 Order name: Cardiac monitoring pm07/07 12:40 Order name: EKG - Nurse/Tech; Complete Time: 15:37 pm1 07/07 12:40 Order name: IV Saline Lock; Complete Time: 15:37 pm07/07 12:40 Order name: Labs collected and sent; Complete Time: 15:37 pm1 07/07 12:40 Order name: O2 Per Protocol; Complete Time: 15:37 pm1 07/07 12:40 Order name: O2 Sat Monitoring; Complete Time: 15:37 pm07/07 12:41 Order name: Urine Dipstick-Ancillary (obtain specimen) pm1 07/07 12:41 Order name: Urine Test (obtain specimen) pm1 07/07 15:01 Order name: Orthostatics; Complete Time: 15:37 pm1 07/07 15:31 Order name: Glucose Level; Complete Time: 16:25 pm1 Administered Medications: 15:37 Drug: NS 0.9% 1000 ml Route: IV; Rate: 1000 ml; Site: right antecubital; jb4 17:35 Follow up: Response: No adverse reaction; IV Status: Completed infusion; IV Intake: jb4 1000ml Disposition: 22:11 Co-signature as Attending Physician, Kavon Marrero DO I was immediately available on-site ms3 in the Emergency Department for consultation in the care of the patient. . Disposition Summary: 07/07/21 17:14 Discharge Ordered Location: Home pm1 Problem: new pm1 Symptoms: have improved pm1 Condition: Stable pm1 Diagnosis - Dehydration pm1 - Syncope pm1 - Orthostatic hypotension pm1 Followup: pm1 - With: Emergency Department - When: As needed - Reason: Worsening of condition Followup: pm1 - With: Private Physician - When: 2 - 3 days - Reason: Recheck today's complaints, Continuance of care, Re-evaluation by your physician Discharge Instructions: - Discharge Summary Sheet pm1 - Dehydration, Adult pm1 - Syncope pm1 - Rehydration, Adult pm1 - Orthostatic Hypotension pm1 Forms: - Work release form pm1 - Medication Reconciliation Form pm1 - Thank You Letter pm1 - Antibiotic Education pm1 - Prescription Opioid Use pm1 Signatures: Dispatcher [employer] Fatmata Johnston RN RN iw Marinas, Patrick, NP COMMERCIAL LINES MANAGER pm1 Chon Velazquez RN RN Kavon Almonte DO DO ms3
[2021-07-07 17:48] VITALS: BP 148/88; O2SAT 100
--- NOTE | 2021-07-08 07:52 | EKG ---
Test Date: 2021-07-07 Test Time: 15:38:08 Attending Ambulatory Care: VANESSA MEASUREMENT RESULTS: Intervals: Rate: 86 AK: 190 QRSD: 80 QT: 370 QTc: 442 [place]: P: 45 AK: 190 QRS: 39 T: 74 INTERPRETIVE STATEMENTS: Normal sinus rhythm Normal ECG Compared to ECG 11/18/2020 07:44:56 No significant changes Electronically Signed On 07-08-21 07:50:27 CDT by Alexander Velez
== END 2021-07-07 17:36 | disposition home or self-care (01) ==
LOC: ER 12:32
DX: E86.0 Dehydration (principal); I95.1 Orthostatic hypotension; E11.9 Type 2 diabetes mellitus without complications; F32.A Depression, unspecified; F41.9 Anxiety disorder, unspecified; Z98.84 Bariatric surgery status; Z88.2 Allergy status to sulfonamides; Z88.5 Allergy status to narcotic agent; Z88.6 Allergy status to analgesic agent
CPT/HCPCS: 96361; 93005; 85025; 80048; 36415; 83735; 85610; 82947 ×2; 80076; 84484; 83880; 70450; 71045; 96360; 99283; J7030

== ENCOUNTER 2021-10-26 20:29 | Emergency (ER) | payer OTHER ==
--- OUTSIDE RECORDS SUMMARY | 2021-10-26 20:32 | XMS REPORT | Continuity of Care Document ---
:1975 Author Organization [facility] t Address [address] [place] [address] Care Team Providers Name Role Phone Yuriy Saldaña MD Primary Care Physician [phone] Edy Chanel Attending Clinician Unavailable Provider, Unknown Attending Clinician Unavailable GABY LEGGETT Attending Clinician Unavailable MD GABY LEGGETT Attending Clinician Unavailable MD DIANNA LERNER Attending Clinician Unavailable DIANNA LERNER Attending Clinician Unavailable OPAL MCLEAN Attending Clinician Unavailable Edy Chanel Admitting Clinician Unavailable GABY LEGGETT Admitting Clinician Unavailable MD GABY LEGGETT Admitting Clinician Unavailable MD DIANNA LERNER Admitting Clinician Unavailable Payers Payer Name Policy Type Policy Number Effective Date Expiration Date S ourtorey [employer] CHOICE POS [id number] 2019 00:00:00 II Problems Condition Condition Condition Status Onset Resolution Last Treating Co mments Source Name Details Category Date Date Treatment Clinician Date 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 5-21 st ic pyloric ic pyloric 00:00: Ho spita stenosis stenosis 00 l Vomiting Vomiting Disease Active Metho di without without 4-27 st nausea nausea 00:00: Hospita 00 l Anastomoti 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 4-27 st of of 00:00: Hospita gastrojeju gastrojeju 00 l nostomy nostomy Regurgitat Regurgitat Disease Active M ethodi ion of ion of 06-03 food food 00:00: Hospita 00 l Weight Weight Disease Active Methodi loss loss 06-03 00:00: Hospita 00 l Iron Iron Disease Active Methodi deficiency deficiency 05-06 anemia anemia 00:00: Hospita secondary secondary 00 l to to inadequate inadequate dietary dietary iron iron intake intake Vitamin A Vitamin A Disease Active Met hodi deficiency deficiency 05-06 00:00: Hospita 00 l Status Status Disease Active Overview: Method i post post 05-01 bariatric bariatric 00:00: g of this H ospita surgery surgery 00 note l might be different from the original. Added automatic ally from request for surgery [id number] Allergies, Adverse Reactions, Alerts Allergy Allergy Status Severity Reaction(s) Onset Inactive Treating Comm ents Source Name Type Date Date Clinician Nsaids Propensi Active GI Bleeding Met hodi (Non-Kush ty to 06-17 roidal adverse 00:00: Hospita Anti-Inf reaction 00 l lammator s to y Drug) drug Morphine Propensi Active Itching Metho di ty to 05-01 adverse 00:00: Hospita reaction 00 l s to drug aspirin DA Active MO 2019-02 [facility] [place] [facility] aspirin DA Active MO RASH-HIVES 2019-02 [facility] [place] 00:00: [facility] NSAIDS; DA Active U RASH WITH 2019-02 [facility] SULFA THE SULFA [place] (SULFONA DRUGS; CAN'T 00:00: He althc MIDE NSAIDS D/T 00 are ANTIBIOT HX GASTRIC Medi michele ICS); [facility] ASPIRIN Sulfa Propensi Active Other (See Meth yris (Sulfona ty to Comments) 03-01 st mide adverse 00:00: Hospita Antibiot reaction 00 l ics) s to drug NSAIDS Drug Active Unknown-Cmnt Univ ers (NON-KUSH Class 03-01 ity of ROIDAL 00:00: [place] ANTI-INF 00 Medical LAMMATOR Branch Y DRUG) SULFA Drug Active N/V Univers (SULFONA Class 1-23 ity of MIDE 00:00: [place] ANTIBIOT 00 Medical ICS) Branch Family History Family Member Diagnosis Comments Start Date Stop Date Source Natural daughter Autism [facility] Natural daughter Depression [facility] Natural daughter Obesity [facility] Natural father COPD Pentecostalism [facility] Natural father Hypertension [facility] Natural father Ulcers [facility] Natural mother [facility] An[facility] sister Depression [facility] Natural sister Tremor [facility] Natural sister Ulcers [facility] Natural sister Fibromyalgia [facility] Natural son ADD / ADHD [facility] Hos pital Social History Social Habit Start Date Stop Date Quantity Comments Source Alcohol intake 2020-07-11 2020-07-11 Ex-drinker Pent[employer]ism 00:00:00 00:00:00 (finding) [facility] Cigarettes smoked 2020-06-24 2020[facility] 00:00:00 Hospita l day) - Reported Tobacco use and 2020-06-24 2020-06-24 Smokeless tobacco [facility] exposure 00:00:00 00:00:00 non-user Hospital History of tobacco 2020-06-07 Current smoker [facility] use 00:00:00 Hospital Education 2020-05-01 2020-05-01 14 [facility]ism 00:00:00 00:00:00 [facility] Sex Ass[birth year] Pent[employer]ism 00:00:00 00:00:00 [facility] Smoking Status Start Date Stop Date Source Ex-smoker 2020-06-24 00:00:00 2020-06-24 00:00:00 [facility] Medications Ordered Filled Start Stop Current Ordering Indication Dosage Frequency Signature Comments Components Source Medication Medication Date Date Medication? Clinician (SIG) Name Name ALPRAZolam Yes .25mg Q.5D Take 0.25 M ethodi (XANAX) 6-[address] 0.25 MG 11:15: mouth 2 Hospita tablet 19 (two) l times a day as needed for anxiety. FLUoxetine Yes 40mg QD Take 40 mg M ethodi (PROzac) 40 6-[address] MG capsule 11:15: daily. Hospi ta 19 l zolpidem 0 Yes 20mg QD Take 20 mg Met hodi (AMBIEN) 10 6-[address] mg tablet 11:15: nightly. Hosp mehrdad 19 l gabapentin 0 Yes 300mg QD Take 300 Me thodi (NEURONTIN) 6-[address] 300 mg 11:15: mouth Hospita capsule 19 every l morning. dexlansopra 0 Yes 20mg QD Take 20 mg Methodi zole 6-[address] (DEXILANT) 11:15: daily. Hospi ta 60 mg 19 l capsule trazodone Yes 50mg QD Take 50 mg Me thodi HCl 6-[address] (TRAZODONE 11:15: nightly. Hos rhina ORAL) 19 l busPIRone 0 Yes 10mg Q.5D Take 10 mg Me thodi (BUSPAR) 10 6-[address] MG tablet 11:15: (two) Hospita 19 times a l day. FOLIC ACID Yes Take by Meth yris ORAL 6-[address] 11:15: Hospita 19 l cyanocobala 0 Yes Q14D Inject as M ethodi min, 6-[address] vitamin 11:15: every 14 Hospit a B-12, 19 (fourteen) l (VITAMIN days. B-12 INJ) ergocalcife 0 Yes Q.5W Take by Met garrett rol, 6-[address] vitamin D2, 11:15: (two) Hospi ta (VITAMIN D2 19 times a l ORAL) week. MULTIVITAMI Yes QD Take by Met garrett N ORAL 6-[address] 11:15: daily. Hospita 19 l Procedures This patient has no known procedures. Plan of Care Planned Activity Planned Date Details Comments Source Future Scheduled 2021-10-09 HEPATITIS B VACCINES [facility] Test 20:23:15 (1 of 3 - 3-dose series) [code = HEPATITIS B VACCINES (1 of 3 - 3-dose series)] Future Scheduled 2021-10-09 COVID-19 VACCINE (#1) [facility] Test 20:23:15 [code = COVID-19 VACCINE (#1)] Future Scheduled 2021-10-09 Hepatitis C screening [facility] Test 20:23:15 (procedure) [code = 372584506] Future Scheduled 2021-10-09 Screening for [facility] Test 20:23:15 malignant neoplasm of cervix (procedure) [code = 756715932] Future Scheduled 2021-10-09 BREAST CANCER [facility] Test 20:23:15 SCREENING [code = BREAST CANCER SCREENING] Future Scheduled 2021-10-09 COLONOSCOPY SCREENING [facility] Test 20:23:15 [code = COLONOSCOPY SCREENING] Future Scheduled 2021-10-09 INFLUENZA VACCINE [facility] Test 20:23:15 [code = INFLUENZA VACCINE] Encounters Start End Encounter Admission Attending Care Care Encounter Source Date/Time Date/Time Type Type Clinicians Facility Department ID 2019-11-17 Inpatient FELTON Chanel [facility] ADMI [id number] [facility] 20:47:00 Tusharbutch Talley [facility] 2021-10-07 2021-10-07 Documentat Provider, [id number] Methodi 00:00:00 00:00:00 ion Unknown [id number] [id number] Hospit a .[id number] l .8 2020-07-11 2020-07-11 Outpatient [facility] [id number] [place] 00:00:00 00:00:[address] 2020-06-27 2020-06-29 Outpatient GABY LEGGETT [place] [id number] [place] 00:00:00 00:00:[address] 2020-06-26 2020-06-26 Outpatient GABY LEGGETT [facility] [id number] [place] 00:00:00 00:00:[address] 2020-06-17 2020-06-17 Outpatient GABY LEGGETT [facility] [id number] [place] 00:00:00 00:00:[address] 2020-06-17 2020-06-17 Outpatient GABY LEGGETT [facility] [id number] [place] 00:00:00 00:00:[address] 2020-06-03 2020-06-03 Outpatient GABY LEGGETT [facility] [id number] [place] 00:00:00 00:00:[address] 2020-06-03 2020-06-03 Outpatient GABY LEGGETT [facility] [id number] [place] 00:00:00 00:00:00 108 Method i 2020-05-02 2020-05-02 Outpatient GABY LEGGETT [facility] [id number] [place] 00:00:00 00:00:00 765 Method i 2020-05-01 2020-05-01 Outpatient YANN [facility] [id number] [place] 00:00:00 00:00:00 UGOEZE 426 Method i 2020-05-01 2020-05-01 Outpatient GABY LEGGETT [facility] [id number] [place] 00:00:00 00:00:00 070 Method i 2020-05-01 2020-05-01 Outpatient YANN [facility] [id number] [place] 00:00:00 00:00:00 UGOEZE 433 Method i 2019-11-30 2019-11-30 Emergency X [facility]LEAN, [facility] [id number] [facility] 18:13:00 18:13:00 OPAL hassan [facility] Results Test Description Test Time Test Comments Results Result Comments Source SARS-CoV-2 (COVID-19) RNA [Presence] in Respiratory sp ecimen by 2020-06-26 19:44:12 [place] with probe detection Test Item Value Reference Range Interpretation Comme nts SARS-CoV-2 (COVID-19) RNA [Presence] in Respiratory Not detected No t-Detected specimen by NOLA with probe detection (test code = 06424-3) Whether patient is employed in a healthcare setting (test code = 85316-3) Whether the patient has symptoms related to condition of interest (test code = 31777-9) Patient was hospitalized because of this condition (test code = 19823-5) Whether the patient was admitted to intensive care unit (ICU) for condition of interest (test code = 20452-1) Whether patient resides in a congregate care setting (test code = 99489-5) SARS-CoV-2 (COVID-19) RNA [Presence] in Respiratory specimen by NOLA with probe [id number] 21:53:07 Test Item Value Reference Range Interpretation Comments SARS-CoV-2 (COVID-19) RNA Not detected Not-Detected [Presence] in Respiratory specimen by NOLA with probe detection (test code = 93592-9) RENAL FUNCTION [id number] 06:31:00 Test Item Value Reference Range Interpretation [...] 3.0 mg/dL 2.7-4.5 N code = PHOS) [id number] 06:31:00 Test Item Value Reference Range Interpretation Comments MAGNESIUM (test code = MAG) 1.7 mg/dL 1.4-2.6 N - XR UGI SGL [id number] 10:18:00Patient Name: ERIC MILLAN Unit No: [id number] EXAMS: CPT CODE: [id number] XR UGI SGL CONTRAST [id number] Single contrast upper GI 11/19/2019 CLINICAL INDICATION: Abdominal tenderness LOCATION: W1 REPORTED FLUOROSCOPY TIME: 0.9 minutes FINDINGS: Fluoroscopic imaging during oral administration of single contrast Gastrografin shows contrast passing into the stomach and small bowel with no evidence for leak or perforation. There was mild intraesophageal and gastroesophageal reflux. IMPRESSION: Nonworrisome postoperative appearance. at 1018 Reported and signed by: AYAKA MCCURDY M.D. CC: Ty Oliveira MD; Edy Chanel MD; Ronan Sweet MD Technologist: Mikael Lemos Time: DAP (Gy m2): Air Kerma (mGy): Trscr Dt/Tm: 11/19/2019 (1018) by:[email or web address] Printed Date/Time: 11/19/2019 (1022) Name: ERIC MILLAN [facility] Phys: Ronan Srinivasan MD [address] : 1975 Age: 44 Sex: [place] [address] Loc: P.0571 1 Exam Date: 11/19/2019 Status: ADM IN PH: FAX: PAGE 1 Signed ReportFERRITIN 2019-11-18 13:48:00 Test Item Value Reference Range Interpretation Comments FERRITIN (test code = ROBYN) 21 ng/mL 13-150 N FE W/TOTAL IRON BINDING [id number] 13:28:00 Test Item Value Reference Range Interpretation Comments IRON (test code = IRON) 17 mcg/dL 53-167 L TOTAL IRON BINDING CAPACITY (test 261 mcg/dL 250-450 N code = TIBC) IRON SATURATION (test code = 7 % 15-50 L FESAT) [id number] 12:46:00 Test Item Value Reference Range Interpretation Comments PREALBUMIN (test code = PREALB) 7.8 MG/ML 15-42 L COMPREHENSIVE METABOLIC [id number] 12:46:00 Test Item Value Reference Range Interpretation [...] PHOSPHATASE (test code = ALKP) CBC W/AUTO [id number] 12:13:00 Test Item Value Reference Range Interpretation [...]
[2021-10-26 21:12] LABS: Hematocrit 35.6 % (36.0-45.0); Lymphocytes % 18.6 % (15.3-44.8); MCV 72.6 fL (80-100); MPV 7.7 fL (7.6-11.3)
[2021-10-26 21:26] LABS: Albumin 3.4 g/dL (3.4-5.0); Bilirubin Total 0.2 mg/dL (0.2-1.0); Potassium 3.4 mmol/L (3.5-5.1); Protein, Total 7.3 g/dL (6.4-8.2)
--- NOTE | 2021-10-26 22:09 | RAD REPORT ---
EXAM DESCRIPTION: CT - Abdomen Pelvis W Contrast - 10/26/2021 9:44 pm CLINICAL HISTORY: Abdominal pain COMPARISON: none. TECHNIQUE: Computed axial tomography of the abdomen pelvis was obtained. 100 cc Isovue-300 was admin istered intravenously. Oral contrast was not requested which limits evaluation of bowel and appendix All CT scans are performed using dose optimization technique as appropriate and may include automated exposure control or mA/KV adjustment according to patient size. FINDINGS: Postsurgical changes stomach and jejunum. Chronic mild dilatation of a loop of jejunum. Mild fatty liver. Cholecystectomy. Spleen, pancreas, adrenals and right kidney unremarkable. Parapelvic left renal cyst. . There is no evidence of diverticulitis. Normal appendix. 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 IMPRESSION: 2 centimeter right ovarian cyst without significant free fluid
[2021-10-26] MEDS ORDERED: FAMOTIDINE 20 MG/2 ML VIAL IV ONE (22:10)
[2021-10-26] MEDS ORDERED: ONDANSETRON 4 MG/2 ML VIAL ONE (22:10)
[2021-10-26] MEDS ORDERED: NA CHLORIDE 0.9% 1,000 ML ONE (22:10)
[2021-10-26] MEDS ORDERED: FENTANYL CITR 100 MCG/2 ML ONE (22:25)
--- NOTE | 2021-10-26 22:54 | EDPHYS ---
[facility] Name: Pina Castrejon Age: 46 yrs Sex: Female : 1975 Arrival Date: 10/26/2021 Time: 20:33 Bed 11 Private MD: ED Physician Kavon Marrero HPI: 10/26 23:09 This 46 yrs old Female presents to ER via Ambulatory with complaints of Abdominal Pain. kb 23:09 The patient presents with abdominal pain in the upper abdomen. The patient has not kb recently seen a physician. 23:09 Onset: The symptoms/episode began/occurred today. The symptoms do not radiate. kb Associated signs and symptoms: Pertinent positives: nausea and vomiting, constipation. The symptoms are described as constant. Modifying factors: The symptoms are alleviated by nothing, the symptoms are aggravated by nothing. Severity of pain: At its worst the pain was moderate in the emergency department the pain is unchanged. The patient has not experienced similar symptoms in the past. 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 - Social history:: Smoking status: Patient reports the use of cigarette tobacco products, denies chronic smoking, but will smoke occasionally. ROS: 23:08 Constitutional: Negative for fever, chills, and weight loss. kb 23:08 Abdomen/GI: Positive for abdominal pain, nausea and vomiting, Negative for diarrhea, constipation. 23:08 All other systems are negative. Exam: 23:08 Constitutional: This is a well developed, well nourished patient who is awake, alert, kb and in no acute distress. Head/Face: Normocephalic, atraumatic. ENT: Moist Mucous membranes Cardiovascular: Regular rate and rhythm with a normal S1 and S2. No gallops, murmurs, or rubs. No pulse deficits. Respiratory: Respirations even and unlabored. No increased work of breathing. Talking in full sentences Skin: Warm, dry with normal turgor. Normal color. MS/ Extremity: Pulses equal, no cyanosis. Neurovascular intact. Full, normal range of motion. Neuro: Awake and alert, GCS 15, oriented to person, place, time, and situation. Moves all extremities. Normal gait. Psych: Awake, alert, with orientation to person, place and time. Behavior, mood, and affect are within normal limits. 23:08 Abdomen/GI: Inspection: abdomen appears normal, Bowel sounds: normal, in all quadrants, Palpation: soft, in all quadrants, nontender, in the right lower quadrant and left lower quadrant, mild abdominal tenderness, in the right upper quadrant and left upper quadrant. Vital Signs: 20:35 BP 152 / 95; Pulse 98; Resp 18 S; Temp 98.3(O); Pulse Ox 100% on R/A; Weight 77.11 kg as6 (R); Height 5 ft. 5 in. (165.10 cm) (R); Pain 5/10; 20:35 Body Mass Index 28.29 (77.11 kg, 165.10 cm) as6 MDM: 20:39 Patient medically screened. kb 23:08 Data reviewed: vital signs, nurses notes. Data interpreted: Pulse oximetry: on room air kb is 100 %. Interpretation: normal. 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 10/26 20:40 Order name: CBC with Diff; Complete Time: 21:32 kb 10/26 20:40 Order name: CMP; Complete Time: 21:32 kb 10/26 20:40 Order name: Lipase; Complete Time: 21:32 kb 10/26 20:40 Order name: CT Abd/Pelvis - IV Contrast Only; Complete Time: 22:14 kb 10/26 20:40 Order name: IV Saline Lock; Complete Time: 20:50 kb 10/26 20:40 Order name: Labs collected and sent; Complete Time: 20:50 kb Administered Medications: 22:07 Drug: NS 0.9% 1000 ml Route: IV; Rate: 1 bolus; Site: left antecubital; kl 23:15 Follow up: IV Status: Completed infusion; IV Intake: 1000ml kl 22:07 Drug: Pepcid (famotidine) 20 mg Route: IVP; Site: right antecubital; kl 23:19 Follow up: Response: No adverse reaction kl 22:07 Drug: Zofran (Ondansetron) 4 mg Route: IVP; Site: right antecubital; kl 23:19 Follow up: Response: No adverse reaction kl 22:18 Drug: fentaNYL (PF) 50 mcg Route: IVP; Site: right antecubital; kl 22:57 Follow up: Response: Marked relief of symptoms kl 22:56 Drug: Ketorolac 15 mg Route: IVP; Site: right antecubital; Disposition: 10/27 03:18 Co-signature as Attending Physician, Kavon HARP was immediately available onsite ms3 in the emergency department for consultation in the care of the patient. Disposition Summary: 10/26/21 22:53 Discharge Ordered Location: Home kb Condition: Stable kb Diagnosis - Upper abdominal pain, unspecified kb Followup: kb - With: Emergency Department - When: As needed - Reason: Worsening of condition Followup: kb - With: Private Physician - When: 2 - 3 days - Reason: Recheck today's complaints, Continuance of care, Re-evaluation by your physician Discharge Instructions: - Discharge Summary Sheet kb - Abdominal Pain, Adult, [id number] kb Forms: - Medication Reconciliation Form kb - Thank You Letter kb - Antibiotic Education kb - Prescription Opioid Use kb Prescriptions: - Zofran 4 mg Oral Tablet - take 1 tablet by ORAL route every 6 hours As needed; 20 tablet; Refills: 0, kamini Product Selection Permitted - dicyclomine 20 mg Oral Tablet - take 1 tablet by ORAL route 4 times per day As needed; 20 tablet; Refills: 0, kb Product Selection Permitted Signatures: Dispatcher [employer] Neha Patino FNP-C FNP-Ckb Lewis, Kimberly RN Kavon Alford DO DO ms3 Frederick Mcleod RN RN as6
--- NOTE | 2021-10-26 22:54 | ER ---
Nurse's Notes [facility] Name: Pina Castrejon Age: 46 yrs Sex: Female : 1975 Arrival Date: 10/26/2021 Time: 20:33 Bed 11 Private MD: Diagnosis: Upper abdominal pain, unspecified Presentation: 10/26 20:35 Chief complaint: Patient states: "I've been having abdominal pain and I can't remember as6 the last time I had a bowel movement". Coronavirus screen: At this time, the client does not indicate any symptoms associated with coronavirus-19. Ebola Screen: No symptoms or risks identified at this time. Initial Sepsis Screen: Does the patient meet any 2 criteria? No. Patient's initial sepsis screen is negative. Does the patient have a suspected source of infection? No. Patient's initial sepsis screen is negative. Risk Assessment: Do you want to hurt yourself or someone else? Patient reports no desire to harm self or others. Onset of symptoms was October 12, 2021. 20:35 Method Of Arrival: Ambulatory as6 20:35 Acuity: SAMIRA 3 as6 Triage Assessment: 20:41 General: Appears uncomfortable, Behavior is calm, cooperative. Pain: Complains of pain as6 in abdomen. Neuro: Level of Consciousness is awake, alert. Respiratory: Respiratory effort is even, unlabored. GI: Reports lower abdominal pain, upper abdominal pain, constipation, vomiting. 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 - Social history:: Smoking status: Patient reports the use of cigarette tobacco products, denies chronic smoking, but will smoke occasionally. Screenin:10 Abuse screen: Denies threats or abuse. Nutritional screening: No deficits noted. kl Tuberculosis screening: No symptoms or risk factors identified. Fall Risk None identified. Assessment: 22:10 General: Appears distressed, uncomfortable, Behavior is calm, cooperative. Pain: kl Complains of pain in left lower quadrant and right lower quadrant and left upper quadrant and right upper quadrant and abdomen. Neuro: No deficits noted. Cardiovascular: No deficits noted. Respiratory: No deficits noted. GI: No deficits noted. Bowel sounds present X 4 quads. Abdomen is tender to palpation. : No deficits noted. No signs and/or symptoms were reported regarding the genitourinary system. EENT: No deficits noted. No signs and/or symptoms were reported regarding the EENT system. Derm: No deficits noted. No signs and/or symptoms reported regarding the dermatologic system. Vital Signs: 20:35 BP 152 / 95; Pulse 98; Resp 18 S; Temp 98.3(O); Pulse Ox 100% on R/A; Weight 77.11 kg as6 (R); Height 5 ft. 5 in. (165.10 cm) (R); Pain 5/10; 20:35 Body Mass Index 28.29 (77.11 kg, 165.10 cm) as6 ED Course: 20:33 Patient arrived in ED. dt4 20:35 Neha Kurtz FNP-C is PHCP. kb 20:35 Kavon Marrero DO is Attending Physician. kb 20:40 Triage completed. as6 20:41 Arm band placed on. as6 20:50 Inserted saline lock: 20 gauge in right antecubital area, using aseptic technique. as6 Blood collected. 21:46 CT Abd/Pelvis - IV Contrast Only In Process Unspecified. EDMS 23:17 Patient has correct armband on for positive identification. kl 23:17 No provider procedures requiring assistance completed. IV discontinued, intact, kl bleeding controlled, No redness/swelling at site. Pressure dressing applied. Administered Medications: 22:07 Drug: NS 0.9% 1000 ml Route: IV; Rate: 1 bolus; Site: left antecubital; kl 23:15 Follow up: IV Status: Completed infusion; IV Intake: 1000ml kl 22:07 Drug: Pepcid (famotidine) 20 mg Route: IVP; Site: right antecubital; kl 23:19 Follow up: Response: No adverse reaction kl 22:07 Drug: Zofran (Ondansetron) 4 mg Route: IVP; Site: right antecubital; kl 23:19 Follow up: Response: No adverse reaction kl 22:18 Drug: fentaNYL (PF) 50 mcg Route: IVP; Site: right antecubital; kl 22:57 Follow up: Response: Marked relief of symptoms kl 22:56 Drug: Ketorolac 15 mg Route: IVP; Site: right antecubital; Medication: 23:17 VIS not applicable for this client. kl Intake: 23:15 IV: 1000ml; Total: 1000ml. kl Outcome: 22:53 Discharge ordered by . kamini 23:17 Discharged to home ambulatory. kl 23:17 Condition: improved 23:17 Discharge instructions given to patient, Instructed on discharge instructions, follow up and referral plans. medication usage, Demonstrated understanding of instructions, follow-up care, medications, Prescriptions given X 2. 23:18 Patient left the ED. Signatures: Dispatcher [employer] EDIA Neha Kurtz, SENIOR STAFF [employer]-C SENIOR [employer]AFF [employer]MENT-Taisha Olivera RN RN kl Slawson, Ashby, RN RN as6 Rita Madrigal dt4
[2021-10-26] MEDS ORDERED: KETOROLAC 30 MG/ML INJ ONE (23:03)
[2021-10-28 08:02] VITALS: BP 152/95; TEMP 98.3; O2SAT 100
== END 2021-10-26 23:18 | disposition home or self-care (01) ==
LOC: ER 20:29
DX: R10.10 Upper abdominal pain, unspecified (principal); F32.A Depression, unspecified; F17.210 Nicotine dependence, cigarettes, uncomplicated; Z88.2 Allergy status to sulfonamides; Z88.5 Allergy status to narcotic agent
CPT/HCPCS: 96361; 85025; 36415; 83690; 80053; 74177; 96375; 96374; 99284; Q9967; J3010; J7030; J2405

== ENCOUNTER 2022-01-27 10:36 | Observation (INO) | payer OTHER ==
--- OUTSIDE RECORDS SUMMARY | 2022-01-27 10:38 | XMS REPORT | Continuity of Care Document ---
:1975 Author Organization [facility] t Address [address] [place] [address] Care Team Providers Name Role Phone Yuriy Saldaña MD Primary Care Physician [phone] Edy Chanel Attending Clinician Unavailable Provider, Unknown [...] Expiration Date S ourtorey [employer] CHOICE POS [id number] 2019 00:00:00 II Problems Condition Condition Condition [...] Added automatic ally from request for surgery [id number] Allergies, Adverse Reactions, Alerts Allergy Allergy Status [...] aspirin DA Active MO 2019-02 [facility] [place] [facility] aspirin DA Active MO RASH-HIVES 2019-02 [facility] [place] 00:00: [facility] NSAIDS; DA Active U RASH WITH 2019-02 [facility] SULFA THE SULFA [place] (SULFONA DRUGS; CAN'T 00:00: He althc MIDE NSAIDS D/T 00 are ANTIBIOT HX GASTRIC Medi michele ICS); [facility] ASPIRIN Sulfa Propensi Active Other (See Meth yris (Sulfona ty to Comments) 03-01 st mide adverse 00:00: Hospita Antibiot reaction 00 l ics) s to drug NSAIDS Drug Active Unknown-Cmnt Univ ers (NON-KUHS Class 03-01 ity of RO[place] 00:00: [place] ANTI-INF 00 Medical LAMMATOR Branch Y DRUG) SULFA Drug Active N/V Univers (SULFONA Class 1-23 ity of MIDE 00:00: [place] ANTIBIOT 00 Medical ICS) Branch Family History Family Member Diagnosis Comments Start Date Stop Date Source [facility] Natural daughter Depression [facility] Natural father COPD [facility] Natural father Hypertension [facility] Natural father Ulcers [facility] Natural mother Fibromyalgia [facility] Natural [facility] An[facility] sister Depression [facility] Natural sister Trem[place] [facility] Natural sister Ulcers [facility] Natural sister Fibromyalgia [facility] Natural son ADD / ADHD [facility] Social History Social Habit Start Date Stop Date Quantity Comments Source Alcohol intake 2020-07-11 2020-07-11 Ex-drinker [facility] 00:00:00 00:00:00 (finding) [facility] Cigarettes smoked 2020-06-24 2020-06-[facility] per 00:[facility]:00 00:00:00 Hospita l day) - Reported Tobacco use and 2020-06-24 2020-06-24 Smokeless tobacco [facility] exposure 00:00:00 00:00:00 non-user Hospital History of tobacco 2020-06-07 Current smoker [facility] use 00:00:00 Hospital Education 2020-05-01 2020-05-01 14 [facility] 00:00:00 00:00:00 [facility] Sex Ass[birth year] [facility] 00:00:00 00:00:00 [facility] Smoking Status Start Date Stop Date Source Ex-smoker 2020-06-24 00:00:00 2020-06-24 00:00:00 [facility] Medications Ordered Filled Start Stop Current Ordering [...] ta 60 mg 19 l capsule trazodone 0 Yes 50mg QD Take 50 mg Me [...] 19 times a l ORAL) week. MULTIVITAMI 0 Yes QD Take by [facility] garrett N ORAL 6-[address] 11:15: daily. Hospita 19 l ALPRAZolam 0 Yes .25mg Q.5D Take 0.25 M ethodi [...] Hospita capsule 19 every l morning. dexlansopra Yes 20mg QD Take 20 mg Methodi [...] mouth. st 11:15: Hospita 19 l cyanocobala Yes Q14D Inject as M ethodi min, 6-[address] vitamin 11:15: every 14 Hospit a B-12, 19 (fourteen) l (VITAMIN days. B-12 INJ) ergocalcife 0 Yes Q.5W Take by [facility] rol, 6-[address] vitamin D2, 11:15: (two) Hospi ta (VITAMIN D2 19 times a l ORAL) week. MULTIVITAMI Yes QD Take by Met agrrett N ORAL 6-[address] 11:15: daily. Hospita 19 l Procedures This patient has no known procedures. Plan of Care Planned Activity Planned Date Details Comments Source Future Scheduled 2022-01-21 COVID-19 VACCINE (#1) [facility] Test 12:53:01 [code = COVID-19 VACCINE (#1)] Future Scheduled 2022-01-21 Hepatitis C screening [facility] Test 12:53:01 (procedure) [code = 321252425] Future Scheduled 2022-01-21 BREAST CANCER [facility] Test 12:53:01 SCREENING [code = BREAST CANCER SCREENING] Future Scheduled 2022-01-21 COLONOSCOPY SCREENING [facility] Test 12:53:01 [code = COLONOSCOPY SCREENING] Future Scheduled 2022-01-21 INFLUENZA VACCINE [facility] Test 12:53:01 [code = INFLUENZA VACCINE] Future Scheduled 2021-10-09 HEPATITIS B VACCINES Met [facility] Test 20:23:15 (1 of 3 - 3-dose series) [code = HEPATITIS B VACCINES (1 of 3 - 3-dose series)] Future Scheduled 2021-10-09 COVID-19 VACCINE (#1) [facility] Test 20:23:15 [code = COVID-19 VACCINE (#1)] Future Scheduled 2021-10-09 Hepatitis C screening [facility] Test 20:23:15 (procedure) [code = 692697170] Future Scheduled 2021-10-09 Screening for [facility] Test 20:23:15 malignant neoplasm of cervix (procedure) [code = 834155187] Future Scheduled 2021-10-09 BREAST CANCER [facility] Test 20:23:15 SCREENING [code = BREAST CANCER SCREENING] Future Scheduled 2021-10-09 COLONOSCOPY SCREENING [facility] Test 20:23:15 [code = COLONOSCOPY SCREENING] Future Scheduled 2021-10-09 INFLUENZA VACCINE Method [facility] Test 20:23:15 [code = INFLUENZA VACCINE] Encounters Start End Encounter Admission Attending Care Care Encounter Source Date/Time Date/Time Type Type Clinicians Facility Department ID 2019-11-17 Inpatient FELTON Chanel [facility] ADMI [id number] [facility] 20:47:[address] 2021-12-09 2021-12-09 Documentat Provider, 1.2.840.1 [id number] Methodi 00:00:00 00:00:00 ion Unknown [id number] 3.430.2.7 Hospit a .3.857062 l .8 2021-10-07 2021-10-07 Documentat Provider, 1.2.840.1 [id number] 2 [id number] [facility] 00:00:00 00:00:00 ion Unknown [id number] 3.430.2.7 Hospit a .3.669154 l .8 2021-10-07 2021-10-07 Documentat Provider, 1.2.840.1 [id number] 2 [id number] [facility] 00:00:00 00:00:00 ion Unknown 48099.1.[address] 3.430.2.7 Hospit a .3.459752 l .8 2020-07-11 2020-07-11 Outpatient [facility] [id number] [place] 00:00:00 00:00:[address] 2020-06-27 2020-06-29 Outpatient GABY LEGGETT [facility] 021 [id number] [place] 00:00:00 00:00:[address] 2020-06-26 2020-06-26 Outpatient GABY LEGGETT [facility] [id number] [place] 00:00:00 00:00:[address] 2020-06-17 2020-06-17 Outpatient GABY LEGGETT [facility] [id number] [place] 00:00:00 00:00:[address] 2020-06-17 2020-06-17 Outpatient GABY LEGGETT [facility] [id number] [place] 00:00:00 00:00:[address] 2020-06-03 2020-06-03 Outpatient GABY LEGGETT [facility] [id number] [place] 00:00:00 00:00:[address] 2020-06-03 2020-06-03 Outpatient GABY LEGGETT [facility] [id number] [place] 00:00:00 00:00:[address] 2020-05-02 2020-05-02 Outpatient GABY LEGGETT [facility] 021 [id number] [place] 00:00:00 00:00:[address] 2020-05-01 2020-05-01 Outpatient NWHENRY [facility] [id number] [place] 00:00:00 00:00:00 UGOEZE [address] 2020-05-01 2020-05-01 Outpatient GABY LEGGETT [facility] [id number] [place] 00:00:00 00:00:[address] 2020-05-01 2020-05-01 Outpatient NWHENRY [facility] [id number] [place] 00:00:00 00:00:00 UGOEZE [address] 2019-11-30 2019-11-30 Emergency X MCLEAN, [facility] ERT [id number] [facility] 18:13:00 18:13:00 OPAL hassan [facility] Results Test Description Test Time Test Comments Results Result Comments Source SARS-CoV-2 (COVID-19) RNA [Presence] in Respiratory sp ecimen by 2020-06-26 19:44:12 [place] with probe detection Test Item Value Reference Range Interpretation Comme nts SARS-CoV-2 (COVID-19) RNA [Presence] in Respiratory Not detected No t-Detected specimen by [place]OL[place] with probe detection (test code = 14764-3) Whether patient is employed in a healthcare setting (test code = 25330-9) Whether the patient has symptoms related to condition of interest (test code = 12619-1) Patient was hospitalized because of this condition (test code = 17085-1) Whether the patient was admitted to intensive care unit (ICU) for condition of interest (test code = 49262-1) Whether patient resides in a congregate care setting (test code = 70971-6) ZULAY WILLISSARS-CoV-2 (COVID-19) RNA [Presence] in Respiratory specimen by NOL[place] with probe [id number] 21:53:07 Test Item Value Reference Range Interpretation Comments SARS-CoV-2 (COVID-19) RNA Not detected Not-Detected [Presence] in Respiratory specimen by [place]OL[place] with probe detection (test code = 41831-3) ZULAY WILLISRENAL FUNCTION [id number] 06:31:00 Test Item Value Reference Range Interpretation [...] 3.0 mg/dL 2.7-4.5 N code = PHOS) [id number] 06:31:00 Test Item Value Reference Range Interpretation Comments MAGNESIUM (test code = MAG) 1.7 mg/dL 1.4-2.6 N - XR UGI SGL [id number] 10:18:00Patient Name: ERIC MILLAN Unit No: [id number] EXAMS: CPT CODE: [id number] XR UGI SGL CONTRAST [id number] Single contrast upper GI 11/19/2019 CLINICAL INDICATION: Abdominal tenderness LOCATION: [id number] FLUOROSCOPY TIME: 0.9 minutes FINDINGS: Fluoroscopic imaging during oral administration of single contrast Gastrografin shows contrast passing into the stomach and small bowel with no evidencefor leak or perforation. There was mild intraesophageal and gastroesophageal reflux. IMPRESSION: Nonworrisome postoperative appearance. at 1018 Reported and signed by: AYAKA MCCURDY M.D. CC: Ty Oliveira MD; Edy Chanel MD; Ronan Sweet MD Technologist: Mikael Gallardo Fluoro Time: DAP (Gy m2): Air Kerma (mGy): Trscr Dt/Tm: 11/19/2019 (1018) by:[email or web address] Printed Date/Time: 11/19/2019 (1022) Name: ERIC MILLAN [facility] Phys: Ronan Srinivasan MD [address] : 1975 Age: 44 Sex: [place] [id number] Loc: P.0571 1 Exam Date: 11/19/2019 Status: ADM IN PH: FAX: PAGE 1 Signed [id number] 13:48:00 Test Item Value Reference Range Interpretation Comments FERRITIN (test code = ROBYN) 21 ng/mL 13-150 N FE W/TOTAL IRON BINDING [id number] 13:28:00 Test Item Value Reference Range Interpretation Comments IRON (test code = IRON) 17 mcg/dL 53-167 L TOTAL IRON BINDING CAPACITY (test 261 mcg/dL 250-450 N code = TIBC) IRON SATURATION (test code = 7 % 15-50 L FESAT) [id number] 12:46:00 Test Item Value Reference Range Interpretation Comments PREALBUMIN (test code = PREALB) 7.8 MG/ML 15-42 L COMPREHENSIVE METABOLIC [id number] 12:46:00 Test Item Value Reference Range Interpretation [...] PHOSPHATASE (test code = ALKP) CBC W/AUTO [id number] 12:13:00 Test Item Value Reference Range Interpretation [...]
[2022-01-27] MEDS ORDERED: NA CHLORIDE 0.9% 1,000 ML ONE (10:50)
[2022-01-27 10:54] LABS: Absolute Lymphocytes (CBC) 1.5 K/uL (0.7-4.9); Hematocrit 33.9 % (36.0-45.0); Lymphocytes % 18.4 % (15.3-44.8); MPV 7.6 fL (7.6-11.3); RBC Red Blood Cell Count 4.65 M/uL (3.86-4.86)
--- NOTE | 2022-01-27 11:03 | RAD REPORT ---
EXAM DESCRIPTION: CT - Head Brain Wo Cont - 01/27/2022 10:49 am CLINICAL HISTORY: seizure Headache, drowsiness COMPARISON: Head Brain Wo Cont dated 07/07/2021; Head Brain Wo Cont dated 03/02/2018 TECHNIQUE: All CT scans are performed using dose optimization technique as appropriate and may inclu de automated exposure control or mA/KV adjustment according to patient size. FINDINGS: No intracranial hemorrhage, hydrocephalus or extra-axial fluid collection.Mild brain atrop hy.No areas of brain edema or evidence of midline shift. The paranasal sinuses and mastoids are clear. The calvarium is intact. IMPRESSION: No acute intracranial abnormality.
[2022-01-27] MEDS ORDERED: ONDANSETRON 4 MG/2 ML VIAL ONE (11:04)
[2022-01-27 11:15] LABS: ALT/SGPT 21 U/L (13-56); AST/SGOT 19 U/L (15-37); Albumin 3.4 g/dL (3.4-5.0); Alkaline Phosphatase 167 U/L (45-117); BUN Blood Urea Nitrogen 9 mg/dL (7-18); Bicarbonate 25 mmol/L (21-32); Bilirubin Total 0.3 mg/dL (0.2-1.0); Glomerular Filtration Rate 104 ml/min (=/>90); Glucose Level 106 mg/dL (74-106); Magnesium 2.1 mg/dL (1.6-2.4); Potassium 3.7 mmol/L (3.5-5.1); Sodium Level 137 mmol/L (136-145); Troponin High Sensitivity 3.6 pg/mL (<58.9)
[2022-01-27 11:17] LABS: Bilirubin Direct < 0.1 mg/dL (0-0.2)
--- NOTE | 2022-01-27 11:31 | RAD REPORT ---
EXAM DESCRIPTION: RAD - Chest Single View - 01/27/2022 11:21 am CLINICAL HISTORY: MALAISE Chest pain. COMPARISON: Chest Single View dated 07/07/2021; Chest Single View dated 11/18/2020; Chest Single View dated 11/17/2019; Chest Single View dated 09/29/2019 FINDINGS: Portable technique limits examination quality. The lungs are grossly clear. The heart is normal in size. No displaced fractures. IMPRESSION: No acute intrathoracic process suspected.
[2022-01-27] MEDS ORDERED: KETOROLAC 30 MG/ML INJ ONE (11:57)
[2022-01-27] MEDS ORDERED: LORazepam 2 MG/ML VIAL ONE (11:59)
[2022-01-27] MEDS ORDERED: LEVETIRACETAM IV ONE (12:15)
[2022-01-27] MEDS ORDERED: NA CHLORIDE 0.9% IV ONE (12:15)
--- NOTE | 2022-01-27 12:58 | ER ---
Nurse's Notes [facility] Name: Pina Castrejon Age: 46 yrs Sex: Female : 1975 Arrival Date: 01/27/2022 Time: 10:39 Bed 6 Private MD: Diagnosis: Other seizures Presentation: 01/27 10:39 Chief complaint: EMS states: Toned out for witnessed seizure, coworkers assisted pt to 7 ground and reported tonic clonic activity x30 seconds and a period of post ictal; pt A\T\Ox4 on EMS arrival and pt reports hx of seizure one time a few months ago. Coronavirus screen: Vaccine status: Patient reports receiving the 2nd dose of the covid vaccine. At this time, the client does not indicate any symptoms associated with coronavirus-19. Ebola Screen: No symptoms or risks identified at this time. Initial Sepsis Screen: Does the patient meet any 2 criteria? No. Patient's initial sepsis screen is negative. Does the patient have a suspected source of infection? No. Patient's initial sepsis screen is negative. Risk Assessment: Do you want to hurt yourself or someone else? Patient reports no desire to harm self or others. Onset of symptoms was January 27, 2022 at 10:00. Care prior to arrival: IV initiated. 20 GA, in the right antecubital area, Glucose check: 81. 10:39 Method Of Arrival: EMS: [facility] 10:39 Acuity: SAMIRA 2 jl7 Triage Assessment: 10:42 General: Appears in no apparent distress. uncomfortable, Behavior is calm, cooperative, jl7 appropriate for age. Pain: Denies pain. Neuro: Roque Agitation-Sedation Scale (RASS): -1 Drowsy Level of Consciousness is awake, alert, obeys commands, Oriented to person, place, time, situation, Speech is normal, slow to respond. Cardiovascular: Patient's skin is warm and dry. Respiratory: Airway is patent Respiratory effort is even, unlabored, Respiratory pattern is regular, symmetrical. Derm: Skin is pink, warm \T\ dry. 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 - Social history:: Smoking status: Patient reports the use of cigarette tobacco products, denies chronic smoking, but will smoke occasionally. Screenin:45 [facility] ED Fall Risk Assessment (Adult) History of falling in the last 3 months, kd3 including since admission No falls in past 3 months (0 pts) Confusion or Disorientation No (0 pts) Intoxicated or Sedated No (0 pts) Impaired Gait No (0 pts) Mobility Assist Device Used No (0 pt) Altered Elimination No (0 pt) Score/Fall Risk Level 0 - 2 = Low Risk Oriented to surroundings. Abuse screen: Denies threats or abuse. Denies injuries from another. Nutritional screening: No deficits noted. Tuberculosis screening: No symptoms or risk factors identified. Assessment: 11:55 Reassessment: Pt reports MICHELE to left side of head, ERP notified, see MAR for orders. jl7 11:55 Reassessment: Prior to Toradol administration ERP at bedside and pt appeared to stare jl7 off then right eye and lip appeared to twitch. Pt not verbally responding, ERP gave VO to administer 2 mg Ativan IVP. On arrival back to bedside pt's O2 noted to be 80% on room air. O2 administered at 4 lpm via NC with good results. Pt post ictal. Ativan administered as ordered. 19:46 General: Appears in no apparent distress. Behavior is calm, cooperative. Neuro: Level kd3 of Consciousness is awake, alert, obeys commands, Oriented to person, place, time, situation. Cardiovascular: Patient's skin is warm and dry. Respiratory: Airway is patent Trachea midline Respiratory effort is even, unlabored, Respiratory pattern is regular, symmetrical. Vital Signs: 10:39 BP 146 / 102; Pulse 94; Resp 15; Temp 97.6(TE); Pulse Ox 95% on R/A; Weight 77.11 kg; jl7 Height 5 ft. 6 in. (167.64 cm); Pain 0/10; 11:07 BP 147 / 93; Pulse 87; Resp 15; Pulse Ox 99% ; jl7 12:00 BP 148 / 90; Pulse 92; Resp 17; Pulse Ox 100% on 4 lpm NC; jl7 14:00 BP 154 / 84; Pulse 84; Resp 15; Pulse Ox 99% ; jl7 15:00 BP 132 / 68; Pulse 83; Resp 14; Pulse Ox 100% ; jl7 16:00 BP 131 / 94; Pulse 77; Resp 15; Pulse Ox 100% ; jl7 10:39 Body Mass Index 27.44 (77.11 kg, 167.64 cm) jl7 [place] Coma Score: 10:42 Eye Response: spontaneous(4). Verbal Response: oriented(5). Motor Response: obeys jl7 commands(6). Total: 15. ED Course: 10:39 Patient arrived in ED. jl7 10:39 Kianna Hackett FNP [facility]. jh7 10:39 Adrian Muir MD is Attending Physician. jh7 10:42 Triage completed. jl7 10:42 Arm band placed on right wrist. jl7 10:45 Patient has correct armband on for positive identification. Placed in gown. Bed in low jl7 position. Call light in reach. Side rails up X2. Client placed on continuous cardiac and pulse oximetry monitoring. NIBP monitoring applied. 10:45 Maintain EMS IV. Dressing intact. Good blood return noted. Site clean \T\ dry. Gauge \T\ jl 7 site: 20 R AC. 10:46 Jazmin Pardo RN is Primary Nurse. jl7 10:51 CT Head Brain wo Cont In Process Unspecified. EDMS 11:22 XRAY Chest (1 view) In Process Unspecified. EDMS 12:57 Luis Fernando Jones MD is Hospitalizing Provider. jh7 19:45 Seizure precautions initiated. kd3 19:45 No provider procedures requiring assistance completed. Patient admitted, IV remains in kd3 place. Administered Medications: 11:02 Drug: NS 0.9% 1000 ml Route: IV; Rate: 1 bolus; Site: right antecubital; aa5 12:06 Follow up: Response: No adverse reaction; IV Status: Completed infusion; IV Intake: jl7 1000ml 11:05 Drug: Zofran (Ondansetron) 4 mg Route: IVP; Site: right antecubital; jl7 11:45 Follow up: Response: Nausea is decreased jl7 11:58 Drug: Ativan (LORazepam) 2 mg Route: IVP; Site: right antecubital; jl7 19:47 Follow up: Response: No adverse reaction kd3 12:04 Not Given (Physician Discretion): Ketorolac 30 mg IVP once jl7 12:26 Drug: Keppra (levETIRAcetam) 2000 mg Route: IV; Rate: 1 calculated rate; Site: right jl7 antecubital; 19:47 Follow up: Response: No adverse reaction; IV Status: Completed infusion kd3 14:25 Drug: Tylenol 650 mg Route: PO; jl7 19:46 Follow up: Response: No adverse reaction; Pain is decreased kd3 Medication: 10:45 VIS not applicable for this client. jl7 Intake: 12:06 IV: 1000ml; Total: 1000ml. jl7 Outcome: 12:57 Decision to Hospitalize by Provider. jh7 19:45 Admitted to Med/surg kd3 19:45 Condition: stable 19:45 Discharge instructions given to patient, family, Instructed on follow up and referral plans. the need for admit, Demonstrated understanding of instructions, follow-up care, Prescriptions given X 19:47 Patient left the ED. kd3 Signatures: Dispatcher [employer] EDMS Lorraine Wang, RN RN aa5 Jazmin Pardo RN RN jl7 Kaleigh Silva RN RN kd3 Kianna Hackett, GUEST SERVICES COORDINATOR GUEST SERVICES COORDINATOR 7
--- NOTE | 2022-01-27 12:58 | EDPHYS ---
Physician Documentation [facility] Name: Pina Castrejon Age: 46 yrs Sex: Female : 1975 Arrival Date: 01/27/2022 Time: 10:39 Bed 6 Private MD: CATHIE Physician Adrian Muir HPI: 01/27 10:42 This 46 yrs old Female presents to ER via EMS with complaints of Seizure. jh7 10:42 The patient presents after having a single isolated seizure, that lasted 30 second(s), jh7 the episode(s) was witnessed, by co-worker(s). Character of seizure(s): Loss of consciousness: the patient experienced loss of consciousness, during seizure(s), Motor activity: generalized, shaking all over, Incontinence: none, Apnea: the patient did not experience apnea, Circulation: the patient did not experience evidence of pulse disturbance. Seizure onset: 45 minute(s) ago. Context: the seizure(s) was witnessed, by co-worker(s), occurred at work, occurred while the patient was standing, Contributing factors: unknown. Seizure Hx: 1 prior seizure occurring 2 months ago.. Associated injury: The patient did not suffer any apparent associated injury. EMS care: none. Current symptoms: Currently, the patient is not experiencing any symptoms, the patient feels back to baseline, no decreased level of consciousness. 43-year-old female presents for tonic-clonic seizure occurring for 30 seconds while at work. Her coworkers assisted her to the floor, and she had a short postictal period immediately after. The patient was ANO x4 upon EMS arrival. Patient reports 1 other occurrence a few months ago. She does not have a diagnosis of epilepsy and is not on any seizure medication. Reports that she takes Ambien and Xanax for anxiety and insomnia. Past surgical history includes gastric bypass. She has no complaints at this time.. 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 - Social history:: Smoking status: Patient reports the use of cigarette tobacco products, denies chronic smoking, but will smoke occasionally. ROS: 10:42 Constitutional: Negative for fever, chills, and weight loss, Eyes: Negative for injury, jh7 pain, redness, and discharge, Neck: Negative for injury, pain, and swelling, Cardiovascular: Negative for chest pain, palpitations, and edema, Respiratory: Negative for shortness of breath, cough, wheezing, and pleuritic chest pain, Abdomen/GI: Negative for abdominal pain, nausea, vomiting, diarrhea, and constipation, Back: Negative for injury and pain, MS/Extremity: Negative for injury and deformity, Skin: Negative for injury, rash, and discoloration. 10:42 Neuro: Positive for seizure activity, Negative for dizziness, headache, numbness, syncope, visual changes, weakness. 10:42 All other systems are negative. Exam: 10:42 Constitutional: This is a well developed, well nourished patient who is awake, alert, jh7 and in no acute distress. Head/Face: Normocephalic, atraumatic. Eyes: Pupils equal round and reactive to light, extra-ocular motions intact. Lids and lashes normal. Conjunctiva and sclera are non-icteric and not injected. Cornea within normal limits. Periorbital areas with no swelling, redness, or edema. ENT: Nares patent. No nasal discharge, no septal abnormalities noted. Tympanic membranes are normal and external auditory canals are clear. Oropharynx with no redness, swelling, or masses, exudates, or evidence of obstruction, uvula midline. Mucous membranes moist. Neck: Trachea midline, no thyromegaly or masses palpated, and no cervical lymphadenopathy. Supple, full range of motion without nuchal rigidity, or vertebral point tenderness. No Meningismus. Cardiovascular: Regular rate and rhythm with a normal S1 and S2. No gallops, murmurs, or rubs. Normal PMI, no JVD. No pulse deficits. Respiratory: Lungs have equal breath sounds bilaterally, clear to auscultation and percussion. No rales, rhonchi or wheezes noted. No increased work of breathing, no retractions or nasal flaring. Abdomen/GI: Soft, non-tender, with normal bowel sounds. No distension or tympany. No guarding or rebound. No evidence of tenderness throughout. Back: No spinal tenderness. No costovertebral tenderness. Full range of motion. Skin: Warm, dry with normal turgor. Normal color with no rashes, no lesions, and no evidence of cellulitis. MS/ Extremity: Pulses equal, no cyanosis. Neurovascular intact. Full, normal range of motion. Neuro: Awake and alert, GCS 15, oriented to person, place, time, and situation. Cranial nerves II-XII grossly intact. Motor strength 5/5 in all extremities. Sensory grossly intact. Cerebellar exam normal. Normal gait. Vital Signs: 10:39 BP 146 / 102; Pulse 94; Resp 15; Temp 97.6(TE); Pulse Ox 95% on R/A; Weight 77.11 kg; jl7 Height 5 ft. 6 in. (167.64 cm); Pain 0/10; 11:07 BP 147 / 93; Pulse 87; Resp 15; Pulse Ox 99% ; jl7 12:00 BP 148 / 90; Pulse 92; Resp 17; Pulse Ox 100% on 4 lpm NC; jl7 14:00 BP 154 / 84; Pulse 84; Resp 15; Pulse Ox 99% ; jl7 15:00 BP 132 / 68; Pulse 83; Resp 14; Pulse Ox 100% ; jl7 16:00 BP 131 / 94; Pulse 77; Resp 15; Pulse Ox 100% ; jl7 10:39 Body Mass Index 27.44 (77.11 kg, 167.64 cm) jl7 [place] Coma Score: 10:42 Eye Response: spontaneous(4). Verbal Response: oriented(5). Motor Response: obeys jl7 commands(6). Total: 15. MDM: 10:39 Patient medically screened. [facility] 12:00 ED course: Went to reassess the patient. When discussing her potential discharge, she [facility] suddenly stared off and stop speaking. Her right eye began twitching and her mouth began making unusual movements. The incident lasted about 30 seconds, there was a brief period of confusion (post ictal), and the patient became oriented about 2 minutes later. Ativan 2 mg IV and Keppra 2000 mg IV given. The patient will be admitted for new onset seizures.. 12:05 ED course: Dr. Suzette denise. [facility] 12:30 Differential diagnosis: cerebral vascular accident, seizure, TIA. Data reviewed: vital [facility] signs, nurses notes, lab test result(s), EKG, radiologic studies, CT scan. Data interpreted: Pulse oximetry: is 100 %. Interpretation: normal. Counseling: I had a detailed discussion with the patient and/or guardian regarding: the historical points, exam findings, and any diagnostic results supporting the discharge/admit diagnosis, the need for further work-up and treatment in the hospital. 01/27 10:40 Order name: Basic Metabolic Panel; Complete Time: 11:28 [facility] 01/27 10:40 Order name: CBC with Diff; Complete Time: 11:28 [facility] 01/27 10:40 Order name: LFT's; Complete Time: 11:28 [facility] 01/27 10:40 Order name: Magnesium; Complete Time: 11:28 [facility] 01/27 10:40 Order name: Troponin HS; Complete Time: 11:28 [facility] 01/27 10:40 Order name: Urine Microscopic Only [facility] 01/27 10:57 Order name: Glucose, Ancillary Testing; Complete Time: 10:57 [facility] 01/27 13:20 Order name: Hemoglobin A1c; Complete Time: 14:07 [facility] 01/27 13:20 Order name: Lipid Profile; Complete Time: 14:07 [facility] 01/27 13:22 Order name: Magnesium; Complete Time: 14:07 [facility] 01/27 13:22 Order name: Phosphorus; Complete Time: 14:07 [facility] 01/27 13:22 Order name: Protein, Total; Complete Time: 14:07 [facility] 01/27 13:22 Order name: Thyroid Stimulating Hormone; Complete Time: 14:07 [facility] 01/27 13:22 Order name: Urinalysis [facility] 01/27 10:40 Order name: XRAY Chest (1 view); Complete Time: 11:53 [facility] 01/27 10:40 Order name: EKG; Complete Time: 10:41 [facility] 01/27 10:40 Order name: CT Head Brain wo Cont; Complete Time: 11:28 [facility] 01/27 13:22 Order name: Regular [facility] 01/27 13:22 Order name: Basic Metabolic Panel [facility] 01/27 13:22 Order name: Basic Metabolic Panel EDMS 01/27 13:22 Order name: CBC with Automated Diff EDMS 01/27 13:22 Order name: CBC with Automated Diff EDMS 01/27 13:24 Order name: SARS-COV-2 Antigen Rapid bd 01/27 14:03 Order name: T4 Free; Complete Time: 14:07 EDMS 01/27 10:40 Order name: Cardiac monitoring; Complete Time: 10:41 [facility] 01/27 10:40 Order name: EKG - Nurse/Tech; Complete Time: 11:07 7 01/27 10:40 Order name: IV Saline Lock; Complete Time: 10:41 7 01/27 10:40 Order name: Labs collected and sent; Complete Time: 10:46 7 01/27 10:40 Order name: O2 Per Protocol; Complete Time: 10:41 7 01/27 10:40 Order name: O2 Sat Monitoring; Complete Time: 10:41 7 01/27 10:41 Order name: Blood Glucose Level; Complete Time: 10:46 7 EC:11 Rate is 87 beats/min. Rhythm is regular. QRS Bypro is Normal. [place] interval is normal at jh7 196 msec. QRS interval is normal at 86 msec. QT interval is normal at 360 msec. No Q waves. No ST changes noted. Clinical impression: Normal sinus rhythm with abnormal QRS-T angle. Administered Medications: 11:02 Drug: NS 0.9% 1000 ml Route: IV; Rate: 1 bolus; Site: right antecubital; aa5 12:06 Follow up: Response: No adverse reaction; IV Status: Completed infusion; IV Intake: jl7 1000ml 11:05 Drug: Zofran (Ondansetron) 4 mg Route: IVP; Site: right antecubital; jl7 11:45 Follow up: Response: Nausea is decreased jl7 11:58 Drug: Ativan (LORazepam) 2 mg Route: IVP; Site: right antecubital; jl7 19:47 Follow up: Response: No adverse reaction kd3 12:04 Not Given (Physician Discretion): Ketorolac 30 mg IVP once jl7 12:26 Drug: Keppra (levETIRAcetam) 2000 mg Route: IV; Rate: 1 calculated rate; Site: right jl7 antecubital; 19:47 Follow up: Response: No adverse reaction; IV Status: Completed infusion kd3 14:25 Drug: Tylenol 650 mg Route: PO; jl7 19:46 Follow up: Response: No adverse reaction; Pain is decreased kd3 Disposition: 01/28 12:34 Co-signature as Attending Physician, Adrian Muir MD I agree with the assessment and rt plan of care. Disposition Summary: 01/27/22 12:57 Hospitalization Ordered Hospitalization Status: Inpatient Admission [facility] Provider: Luis Fernando Jones [facility] Location: Telemetry/MedSurg (Inpatient) [facility] Condition: Stable [facility] Problem: new [facility] Symptoms: have worsened [facility] Bed/Room Type: Standard [facility] Room Assignment: 407(01/27/22 18:33) bd Diagnosis - Other seizures [facility] Forms: - Medication Reconciliation Form [facility] - SBAR form [facility] Signatures: Dispatcher [employer] EDMS Mag Everett Audri, RN RN aa5 Jazmin Pardo RN RN jl7 Kianna Hackett FNP GMAT TUTOR [facility] Adrian Muir MD MD rt Kaleigh Silva RN kd3 Corrections: (The following items were deleted from the chart) 01/27 18:33 12:57 [facility] bd
[2022-01-27] MEDS ORDERED: HYDROCODONE/APAP 5/325 MG TAB PO PRN (13:15)
[2022-01-27] MEDS ORDERED: ACETAMINOPHEN 325 MG TABLET PO PRN (13:15)
[2022-01-27] MEDS ORDERED: LORazepam 2 MG/ML VIAL IV PRN (13:16)
[2022-01-27] MEDS ORDERED: ONDANSETRON 4 MG/2 ML VIAL IV PRN (13:20)
--- NOTE | 2022-01-27 13:21 | P.HP ---
Certification for Inpatient Patient admitted to: Inpatient With expected LOS: >2 Midnights Patient will require the following post-hospital care: None Practitioner: I am a practitioner with admitting privileges, knowledge of patient current condition, hospital course, and medical plan of care. Services: Services provided to patient in accordance with Admission requirements found in Title 42 Section 412.3 of the Code of Federal Regulations <ChagoteriJeff jeffries Katya - Last Filed: 01/28/22 06:33> Patient History Date of Service: 01/27/22 Reason for admission: Seizures History of Present Illness: Patient is a 46-year-old female with a past medical history significant for seizures, anxiety, depression, insomnia who presents with complaint of seizures. Patient reported that she was at work sitting in the front of the computer when she started having seizures. Patient denies any precipitating factor. Patient reported that she regained consciousness when she was about to be transported to the ER. Initially patient was confused but regained her mental status. At time of assessment patient is alert and oriented x3. Patient reported associated signs and symptoms of nausea and headache. Patient denies any other signs or symptoms. Symptoms are aggravated or relieved by nothing. 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 - Past Medical/Surgical History Diabetic: No -: History of Gestational Diabetes-diet controlled -: GERD -: Gastric ulcer -: Iron deficiency anemia -: Insomnia -: Essential tremors -: T -: 1992 &1995-normal vaginal delivery -: 1998-D&C -: 1999- Section -: 2009-Cholecystectomy -: 03/16/2012-Gastric Bypass Psychosocial/ Personal History: The patient is . She has 4 children. She works in the [employer] the [employer]. - Family History Mother -: Other (see notes) Sister -: Other (see notes) - Social History Smoking Status: Unknown if ever smoked Alcohol use: No CD- Drugs: No Caffeine use: Yes Place of Residence: Home <Jeff Talbert - Last Filed: 01/28/22 06:33> Date of Service: 01/28/22 <Luis Fernando Jones - Last Filed: 01/28/22 16:29> Allergies aspirin Allergy (Intermediate, Verified 08/16/16 12:13) Nausea/Vomiting morphine Allergy (Intermediate, Verified 08/16/16 12:13) Rash Sulfa (Sulfonamide Antibiotics) Allergy (Mild, Verified 08/16/16 12:13) Hives NSAIDS Allergy (Intermediate, Uncoded 08/16/16 12:13) Nausea/Vomiting Home Medications: ALPRAZolam [Xanax*] 0.75 mg PO TID 01/27/22 Gabapentin 400 mg PO BID 01/27/22 Zolpidem Tartrate [Ambien] 1 tab PO BEDTIME 01/27/22 levETIRAcetam [Keppra Tab] 500 mg PO BID #60 tab 01/28/22 Review of Systems General: Unremarkable Eyes: Unremarkable ENT: Unremarkable Cardiovascular: Unremarkable Gastrointestinal: Nausea Genitourinary: Unremarkable Musculoskeletal: Unremarkable Integumentary: Unremarkable Neurological: Other (Headache) Lymphatics: Unremarkable <Jeff Talbert - Last Filed: 01/28/22 06:33> Physical Examination - Physical Exam General: Alert, In no apparent distress, Oriented x3, Cooperative HEENT: Atraumatic, PERRLA, Mucous membr. moist/pink, EOMI, Sclerae nonicteric Neck: Supple, 2+ carotid pulse no bruit, No LAD, Without JVD or thyroid abnormality Respiratory: Clear to auscultation bilaterally, Normal air movement Cardiovascular: No edema, Regular rate/rhythm, Normal S1 S2 Gastrointestinal: Normal bowel sounds, Non-distended, No tenderness Musculoskeletal: No clubbing, No swelling, No tenderness Integumentary: No rashes Neurological: Normal speech, Normal tone, Normal affect Lymphatics: No axilla or inguinal lymphadenopathy - Studies Laboratory Data (last 24 hrs) 01/27/22 10:45: WBC 8.00, Hgb 10.8 L, Hct 33.9 L, Plt Count 263 01/27/22 10:45: Sodium 137, Potassium 3.7, BUN 9, Creatinine 0.72, Glucose 106, Magnesium 2.1, Total Bilirubin 0.3, AST 19, ALT 21, Alkaline Phosphatase 167 H <Jeff Talbert - Last Filed: 01/28/22 06:33> Assessment and Plan - Plan -- Seizures. Seizure precautions. Continue Keppra. Patient reported that she is not on any medication for seizures. Neurologist consulted. We will await further recommendations. --Insomnia. Continue home medication. --Anxiety disorder\depression. Continue home medications. --JOSIANE. Continue ferrous sulfate --Hyperlipidemia. Further management per patient's PCP outpatient. --GERD. Continue protonix --Nasuea. Antiemetics on board --Headache. Tylenol prn --Hx of Essential tremors. Stable. Continue supportive care --DVT prophylaxis with Lovenox subQ. Discharge Plan: Home Plan to discharge in: Greater than 2 days - Advance Directives Does patient have a Living Will: No Does patient have a Durable POA for Healthcare: No - Code Status/Comfort Care Code Status Assessed: Yes Physician Review: Patient Assessed, Agree with Above Assessment and Plan Critical Care: No <Jeff Talbert - Last Filed: 01/28/22 06:33> Physician Review: Patient Assessed, Agree with Above Assessment and Plan <Luis Fernando Jones - Last Filed: 01/28/22 16:29>
[2022-01-27 13:49] LABS: Magnesium 2.1 mg/dL (1.6-2.4); Phosphorus 3.1 mg/dL (2.5-4.9); Protein, Total 6.9 g/dL (6.4-8.2)
[2022-01-27 13:50] LABS: Thyroid Stimulating Hormone 5.85 uIU/mL (0.358-3.740)
[2022-01-27] MEDS: ENOXAPARIN 40 MG/0.4 ML SQ SCH (14:00)
[2022-01-27] MEDS ORDERED: ACETAMINOPHEN 325 MG TABLET ONE (14:24)
[2022-01-27 15:27] LABS: SARS-CoV-2 Antigen Rapid Res Negative (Negative)
[2022-01-27 20:14] VITALS: BMI 28.1
[2022-01-27] MEDS ORDERED: HOME MED 1 EA UNK (Fluoxetine Hcl [Prozac] 40 MG Capsule) PO SCH (21:00)
[2022-01-27] MEDS ORDERED: levETIRAcetam 1,000 MG in NA CHLORIDE 0.9% 100 ML IV SCH (21:00)
[2022-01-27] MEDS ORDERED: clonazePAM 1 MG TAB PO SCH (21:00)
[2022-01-27] MEDS ORDERED: FERROUS SULFATE 325 MG TAB PO SCH (21:00)
[2022-01-27] MEDS: levETIRAcetam 1,000 MG in NA CHLORIDE 0.9% 100 ML IV SCH (22:11)
[2022-01-27] MEDS ORDERED: ALPRAZOLAM 0.25 MG TABLET PO PRN (22:49)
[2022-01-27] MEDS ORDERED: ZOLPIDEM TARTRATE 10 MG TABLET PO SCH (22:52)
[2022-01-27] MEDS: GABAPENTIN 400 MG CAP PO SCH (22:54)
[2022-01-28 05:56] LABS: Absolute Lymphocytes (CBC) 1.5 K/uL (0.7-4.9); Hematocrit 31.2 % (36.0-45.0); Lymphocytes % 19.7 % (15.3-44.8); MPV 7.7 fL (7.6-11.3); RBC Red Blood Cell Count 4.28 M/uL (3.86-4.86)
[2022-01-28 06:13] LABS: Potassium 3.8 mmol/L (3.5-5.1)
[2022-01-28] MEDS ORDERED: PANTOPRAZOLE 40MG TABLET PO SCH (07:00)
[2022-01-28] MEDS: levETIRAcetam 1,000 MG in NA CHLORIDE 0.9% 100 ML IV SCH (08:46)
[2022-01-28] MEDS: GABAPENTIN 400 MG CAP PO SCH (08:47)
[2022-01-28] MEDS: ENOXAPARIN 40 MG/0.4 ML SQ SCH (08:48)
[2022-01-28] MEDS ORDERED: FOLIC ACID 1 MG TABLET PO SCH (09:00)
[2022-01-28] MEDS ORDERED: ASPIRIN 81 MG CHEWABLE TABLET PO SCH (09:00)
[2022-01-28] MEDS ORDERED: FLUOXETINE 20 MG CAP PO SCH (09:00)
[2022-01-28] MEDS ORDERED: POTASSIUM CL SA 10 MEQ TAB PO ONE (09:00)
[2022-01-28] MEDS ORDERED: CYANOCOBALAMIN 1,000 MCG TAB PO SCH (09:00)
[2022-01-28 09:34] VITALS: O2SAT 97
--- NOTE | 2022-01-28 12:55 | EEG ---
CHART: [id number] TEST ID#: [id number] DATE OF STUDY: 01/28/2022 THE EEG WAS RECORDED PORTABLE IN THE PATIENT'S ROOM ON A 17 CHANNEL MACHINE. ELECTRODES WERE APPLIED IN THE USUAL MANNER USING THE INTERNATIONAL 10-20 SYSTEM. THE WAKING BACKGROUND RHYTHM IN THIS RECORD CONSISTS OF VERY WELL DEVELOPED AND WELL ORGANIZED WAVES OF 9 HZ., MAXIMAL IN THE POSTERIOR HEAD REGIONS WHICH ATTENUATE NORMALLY WITH EYE OPENING. LOW VOLTAGE 18-22 HZ ACTIVITY IS EXPRESSED IN THE FRONTAL REGIONS. THERE ARE NO FOCAL OR LATERALIZING FEATURES. NO EPILEPTIFORM ACTIVITY APPEARS. SLEEP DID NOT OCCUR. HYPERVENTILATION WAS NOT PERFORMED. PHOTIC STIMULATION PRODUCED GOOD DRIVING BILATERALLY. IMPRESSION: NORMAL EEG FOR THE AGE OF THE PATIENT IN [place].
--- NOTE | 2022-01-28 16:14 | RAD REPORT ---
EXAM DESCRIPTION: MRI - Brain W/Wo Cont - 01/28/2022 3:54 pm CLINICAL HISTORY: seizure COMPARISON: No comparisons TECHNIQUE: Sagittal T1-weighted images were obtained along with PD/heavily T2-weighted and T2-FLAIR images. Axial DWI and ADC mapping sequences were also obtained along with coronal heavily T2-weighted images were obtained. Post contrast enhanced images were obtained. FINDINGS: No intracranial hemorrhage, mass or acute infarction. No edema or shift of midline structu res. No extra-axial fluid collections. Signal voids are seen as a normal finding in the major intracr anial vessels. No significant white matter disease. No abnormal enhancement. Scattered nonspecific T2 /FLAIR hyperintense signal foci within the subcortical and deep white matter. No mastoid effusion.Paranasal sinuses are clear. IMPRESSION: No acute intracranial abnormality. No abnormal enhancement. Nonspecific T2/FLAIR hyperin tense signal foci within the centrum semiovale and nino radiata could reflect chronic small vessel ischemic changes versus sequela of autoimmune or inflammatory processes . No seizure focus identified .
--- NOTE | 2022-01-28 16:30 | P.DS ---
Admission Date: 01/27/22 Discharge Date: 01/28/22 Primary Care Provider: Dr. Ramsey Discharge Condition: GOOD Reason for Admission: Seizures Consultations: 1. Neurology Hospital Course: DIAGNOSES: # Acute Seizure with history of Seizure Disorder # Hyperintense Foci in the Centrum Semiovale and Nino Radiata # Generalized Anxiety Disorder # Depression # Dyslipidemia # Subclinical Hypothyroidism # History of Essential Tremors # Gastroesophageal Reflux Disease HOSPITAL COURSE: Ms. Pina Castrejon is a pleasant 46 year old female with a past medical hist ory significant for seizure disorder, essential tremors, generalized anxiety disorder, depression, dyslipidemia, and gastroesophageal reflux disease who was admitted to the [facility] on 01/27/2022 for a seizure. She was admitted to the Medicine service. CT head revealed, "no acute intracranial abnormality." Her EEG here revealed, "normal EEG for the age of the patient in [place]." MRI brain revealed, "no acute intracranial abnormality. No abnormal enhancement. Nonspecific T2/FLAIR hyperintense signal foci within the centrum semiovale and nino radiata could reflect chronic small vessel ischemic changes versus sequela of autoimmune or inflammatory processes. No seizure focus identified." Neurology was consulted and she was evaluated by Dr. Bradford. She was observed in the hospital and monitored, without any evidence of recurrent seizures. She was started on levetiracetam and did well. Dr. Bradford felt that given the non-specific findings, she should be empirically be started on clopidogrel, folic acid, and atorvastatin. He stated that she is cleared to be discharged and he will follow-up with her in the clinic setting. On 01/28/2022, she was seen on morning rounds and deemed medically stable for discharge. She was discharged with instructions to schedule follow-up appointments with her PCP (Dr. Ramsey) and with Neurology (Dr. Bradford). She was provided prescriptions for atorvastatin, clopidogrel, atorvastatin, and folic acid. She was given the opportunity to ask questions and reported no further questions. Furthermore, all questions were answered to the best of my ability. A copy of this discharge summary will be sent to the above providers to facilitate continuity of care. Today, I personally spent 35 minutes on her case, of which greater than 50% of the time was spent in patient education, counseling, and coordination of care as described above. Vital Signs/Physical Exam: Temp Pulse Resp BP Pulse Ox 97.5 F 78 16 120/66 95 01/28/22 12:00 01/28/22 12:00 01/28/22 12:00 01/28/22 12:00 01/28/22 12:00 General: Alert, In no apparent distress, Oriented x3 HEENT: Atraumatic, PERRLA, Mucous membr. moist/pink, EOMI, Sclerae nonicteric Neck: JVD not distended Respiratory: Clear to auscultation bilaterally, Normal air movement Cardiovascular: No edema, Regular rate/rhythm, Normal S1 S2, No gallops, No rubs, No murmurs Gastrointestinal: Normal bowel sounds, Soft and benign, Non-distended, No tenderness, No rebound, No guarding Musculoskeletal: No clubbing Integumentary: No rashes Neurological: Normal speech, Normal strength at 5/5 x4 extr, Sensation intact, Cranial nerves 3-12 intact, Normal affect Laboratory Data at Discharge: WBC 7.50 K/uL (4.3-10.9) 01/28/22 05:27 Hgb 10.1 g/dL (12.0-15.0) L 01/28/22 05:27 Hct 31.2 % (36.0-45.0) L 01/28/22 05:27 Plt Count 245 K/uL (152-406) 01/28/22 05:27 Sodium 138 mmol/L (136-145) 01/28/22 05:27 Potassium 3.8 mmol/L (3.5-5.1) 01/28/22 05:27 BUN 9 mg/dL (7-18) 01/28/22 05:27 Creatinine 0.70 mg/dL (0.55-1.02) 01/28/22 05:27 Glucose 86 mg/dL (74-106) 01/28/22 05:27 Phosphorus 3.1 mg/dL (2.5-4.9) 01/27/22 10:45 Magnesium 2.1 mg/dL (1.6-2.4) 01/27/22 10:45 Magnesium 2.1 mg/dL (1.6-2.4) 01/27/22 10:45 Total Bilirubin 0.3 mg/dL (0.2-1.0) 01/27/22 10:45 AST 19 U/L (15-37) 01/27/22 10:45 ALT 21 U/L (13-56) 01/27/22 10:45 Alkaline Phosphatase 167 U/L (45-117) H 01/27/22 10:45 Triglycerides 82 mg/dL (<150) 01/27/22 10:45 Cholesterol 219 mg/dL (<200) H 01/27/22 10:45 HDL Cholesterol 70 mg/dL (40-60) H 01/27/22 10:45 Cholesterol/HDL Ratio 3.13 01/27/22 10:45 Home Medications: ALPRAZolam [Xanax*] 0.75 mg PO TID 01/27/22 Gabapentin 400 mg PO BID 01/27/22 Zolpidem Tartrate [Ambien] 1 tab PO BEDTIME 01/27/22 Atorvastatin Calcium [Lipitor] 40 mg PO BEDTIME #30 tab 01/28/22 Clopidogrel Bisulfate [Plavix*] 75 mg PO DAILY #30 tab 01/28/22 Folic Acid 1 mg PO DAILY #30 tab 01/28/22 levETIRAcetam [Keppra Tab] 500 mg PO BID #60 tab 01/28/22 New Medications: Folic Acid 1 mg PO DAILY #30 tab levETIRAcetam [Keppra Tab] 500 mg PO BID #60 tab Atorvastatin Calcium [Lipitor] 40 mg PO BEDTIME #30 tab Clopidogrel Bisulfate [Plavix*] 75 mg PO DAILY #30 tab Physician Discharge Instructions: 1. Please call and schedule a follow-up appointment with your PCP (Dr. Ramsey) in 3-5 days - Please have him follow-up on your thyroid function tests 2. Please call and schedule a follow-up appointment with Neurology (Dr. Bradford) in 5-7 days - As we have discussed, please review the abnormalities on your MRI with him Diet: AHA Activity: No driving until cleared by Dr. Bradford Followup: Ramirez Bradford MD [ASSOCIATE-ACTIVE - CAN ADMIT] - 1 Week (Call for appointment.) Horacio Ramsey MD [Primary Care Provider] - 1 Week (Call for appointment.) Time spent managing pt's care (in minutes): 35
[2022-01-28 16:46] VITALS: BP 126/74; TEMP 97.6
[2022-01-28] MEDS ORDERED: CLOPIDOGREL 75 MG TABLET PO SCH (17:00)
--- NOTE | 2022-01-28 19:40 | CON ---
Reason For Consultation: Consultation called because of seizures. History Of Present Illness: Ms. Castrejon is a 46-year-old patient with a prior history of seizures, a nxiety, depression, gastroesophageal reflux disease, and gastric bypass surgery who had a witnessed s eizure while at work at [employer]. She reports remembering working on a computer and next recalled being on a gurney, being brought to the hospital. She reportedly had shaking consistent wit h seizures, loss of consciousness, and falling. She denies tongue biting or loss of bowel and bladde r control. She had another witnessed event while in the emergency room. Prior to that, she had epis odes of seizures and has also been treated for essential tremor with primidone by Dr. Tarun Sandoval, [facility] neurologist. She has not taken antiepileptic medication recently except for gabapentin 400 mg tw ice daily, apparently for tremors. Her MRI of the brain done earlier today identified scattered nonspecific T2 FLAIR hyperintensities wi thin the subcortical white matter. These included the centrum semiovale and nino radiata. Noted t hat this could reflect small vessel ischemic disease versus sequelae of autoimmune or inflammatory pr ocess. No areas were likely to be involved as etiology for seizures. Her electroencephalogram done yesterday was normal. She is now loaded with Keppra 1000 mg and is on 500 mg twice daily. She has n ot had additional events while hospitalized. Past Medical History: Diet-controlled diabetes mellitus, gastroesophageal reflux disease, insomnia, essential tremor, iron-deficiency anemia. Past Surgical History: section and D and C in 1998, cholecystectomy in 2009, and gastric by pass surgery on November 13, 2012. Family History: No seizures in family history. Social History: No alcohol, tobacco, or IV drug use. Allergies: ASPIRIN, MORPHINE, SULFA, AND NSAID. Medications: At home include gabapentin 400 mg twice daily, zolpidem 1 tab daily, and alprazolam 0.7 5 mg 3 times daily. Review of Systems: Aside from mentioned above, she denies any recent fevers or chills. She does have nausea related to her GI surgery, but no vomiting. She does have headaches per history and no dermatological issues, n o genitourinary issues, and no pulmonary issues or cardiovascular issues. Physical Examination: Vital Signs: Blood pressure 126/74, pulse 86, respiratory rate 16, temperature 97.6, and oxygen satu ration 99%. Weight 169 pounds, height 5 feet 5 inches, BMI 28.1. General: Ms. Castrejon is resting in bed. She is in no acute distress. HEENT: She is normocephalic, atraumatic. Sclerae anicteric. Oropharynx is pink and moist. Neck: Supple. Chest: Clear. Heart: Regular. Extremities: No clubbing, cyanosis, or edema. Neurologic: She is alert and oriented to person, place, time, and situation. Cranial nerves 2 throu gh 12 are intact. Motor examination: 5/5 strength proximally and distally in the upper and lower ex tremities. Sensation intact in the upper and lower extremities to light touch, pinprick, and tempera ture. Coordination intact in upper and lower extremities. Reflexes 2+ symmetric in upper and lower extremities. Gait good stance with right arm swing. Assessment: Ms. 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 She has areas of T2 and FLAIR hyperintensities suggestive of prior strokes versus a utoimmune or inflammatory processes. She has comorbidities as noted above. Plan: 1.Outpatient basis stroke workup. 2.Plavix 75 mg daily. 3.Her lipid panel does show elevated LDL to 133, total cholesterol 217, HDL is 70, and she should be on statin, may be Zocor 20 mg at night and she is actually on Lipitor 40 mg at bedtime. 4.Continue Keppra 500 mg twice daily and folic acid 1 mg daily. 5.After discharge, she should follow up with Dr. Bradford in clinic within 1-2 months. ARIK/RANDALL Voice ID: [id number] Report ID: [id number]
[2022-01-28] MEDS ORDERED: ATORVASTATIN 40 MG TAB PO SCH (21:00)
--- NOTE | 2022-01-30 17:33 | EKG ---
Test Date: 2022-01-27 Test Time: 11:11:57 [employer] Specialist: JOSE MEASUREMENT RESULTS: Intervals: Rate: 87 MS: 196 QRSD: 86 QT: 360 QTc: 433 [place]: P: 37 MS: 196 QRS: 24 T: 110 INTERPRETIVE STATEMENTS: Normal sinus rhythm Abnormal QRS-T angle, consider primary T wave abnormality Abnormal ECG Compared to ECG 07/07/2021 15:38:08 T-wave abnormality now present Electronically Signed On 01-30-22 17:28:26 [employer] by Bharathi Hamilton
== END 2022-01-28 17:30 | disposition home health service (06) ==
LOC: ER 10:36 → INTOOBSV 13:11 → ERHOLD 13:11 → 4TH 19:38
PROVIDERS: ADMIT Internal Medicine; ATTEND Internal Medicine
DX: R56.9 Unspecified convulsions (principal); G40.909 Epilepsy, unspecified, not intractable, without status epilepticus; F32.A Depression, unspecified; G47.00 Insomnia, unspecified; F41.9 Anxiety disorder, unspecified; E78.5 Hyperlipidemia, unspecified; K21.9 Gastro-esophageal reflux disease without esophagitis; R11.0 Nausea; R51.9 Headache, unspecified; E03.8 Other specified hypothyroidism; R94.02 Abnormal brain scan; D50.9 Iron deficiency anemia, unspecified; E78.00 Pure hypercholesterolemia, unspecified; Z20.822 Contact with and (suspected) exposure to COVID-19; Z88.2 Allergy status to sulfonamides; Z88.6 Allergy status to analgesic agent
CPT/HCPCS: 96365; 96361; 95816; 93005; 85025 ×2; 80048 ×2; 36415 ×2; 83735 ×2; 84100; 84155; 80061; 82947; 80076; 84443; 83036; 84484; 84439; 70450; 71045; 70553; 96375; 99285; 96366; 87811; A9577; J1650; J1953 ×2; J7030; J2405; G0378

== ENCOUNTER 2022-04-22 14:48 | Emergency (ER) | payer OTHER ==
--- OUTSIDE RECORDS SUMMARY | 2022-04-22 14:53 | XMS REPORT | Continuity of Care Document ---
:1975 Author Organization [facility] t Address [address] [place] [address] [place] [id number] Care Team Providers Name Role Phone Yuriy Saldaña MD Primary Care Physician [phone] Edy Chanel Attending Clinician Unavailable JOJO VAZQUEZ Attending Clinician Unavailable Jojo Washington Attending Clinician Cathy Moura NP Attending Clinician CATHY MOURA Attending Clinician Unavailable Provider, Unknown Attending Clinician Unavailable GABY LEGGETT Attending Clinician Unavailable MD GABY LEGGETT Attending Clinician Unavailable MD DIANNA LERNER Attending Clinician Unavailable DIANNA LERNER Attending Clinician Unavailable OPAL MCLEAN Attending Clinician Unavailable Edy Chanel Admitting Clinician Unavailable JOJO VAZQUEZ Admitting Clinician Unavailable CATHY MOURA Admitting Clinician Unavailable GABY LEGGETT Admitting Clinician Unavailable MD GABY LEGGETT Admitting Clinician Unavailable MD DIANNA LERNER Admitting Clinician Unavailable Payers Payer Name Policy Type Policy Number Effective Date Expiration Date [employer] [id number] 2021 OUT OF NETWORK 00:00:00 Problems Condition Condition Condition Status Onset Resolution Last Treating Co mments Source Name Details Category Date Date Treatment Clinician Date 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 06-27 st ic pyloric ic pyloric 00:00: Ho spita stenosis stenosis 00 l Vomiting Vomiting Disease Active Metho di without without 06-03 nausea nausea 00:00: Hospita 00 l Anastomoti 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 06-03 st of of 00:00: Hospita gastrojeju gastrojeju 00 l nostomy nostomy Regurgitat Regurgitat Disease Active M ethodi ion of ion of 06-03 food food 00:00: Hospita 00 l Weight Weight Disease Active Methodi loss loss 06-03 st 00:00: Hospita 00 l Iron Iron Disease Active Methodi deficiency deficiency 05-06 anemia anemia 00:00: Hospita secondary secondary 00 l to to inadequate inadequate dietary dietary iron iron intake intake Vitamin A Vitamin A Disease Active Met hodi deficiency deficiency 05-06 st 00:00: Hospita 00 l Status Status Disease Active Overview: Method i post post [address] bariatric bariatric 00:00: g of this H ospita surgery surgery 00 note l might be different from the original. Added automatic ally from request for surgery [id number] Allergies, Adverse Reactions, Alerts Allergy Allergy Status Severity Reaction(s) Onset Inactive Treating Comm ents Source Name Type Date Date Clinician Morphine Propensi Active Itching Unive rs ty to 2-04 ity of adverse 00:00: [place] reaction 00 Medical s Branch MORPHINE DRUG Active ITCHING Univers INGREDI 2-04 ity of 00:00: [place] 00 Medical Branch Nsaids Propensi Active GI Bleeding Met hodi (Non-Kush ty to 5-11 st roidal adverse 00:00: Hospita Anti-Inf reaction 00 l lammator s to y Drug) drug Morphine Propensi Active Itching Metho di ty to 05-01 adverse 00:00: Hospita reaction 00 l s to drug aspirin DA Active MO 2019-02 [facility] 0[facility] [place] [facility] aspirin DA Active MO RASH-HIVES 2019-02 [facility] 0 [place] 00:[facility]: [facility] NSAIDS; DA Active U RASH WITH 2019-02 [facility] SULFA THE SULFA [place] (SULFONA DRUGS; CAN'T 00:00: He althc MIDE NSAIDS D/T 00 are ANTIBIOT HX GASTRIC Medi michele ICS); [facility] ASPIRIN Nsaids Propensi Active Unknown - BYPASS Univ ers (Non-Kush ty to See comments 03-01 it y of roidal adverse 00:00: [place] Anti-Inf reaction 00 Medica l lammator s Branch y Drug) Sulfa Propensi Active Nausea Univers (Sulfona ty to and/or 03-01 ity of mide adverse Vomiting 00:00: [place] Antibiot reaction 00 Medica l ics) s Branch NSAIDS Drug Active Unknown-Cmnt Univ ers (NON-KUSH Class 1-23 ity of ROIDAL 00:00: [place] ANTI-INF 00 Medical LAMMATOR Branch Y DRUG) SULFA Drug Active N/V Univers (SULFONA Class -23 ity of MIDE 00:00: [place] ANTIBIOT 00 Medical ICS) Branch Sulfa Propensi Active Other (See Meth yris (Sulfona ty to Comments) 03-01 st mide adverse 00:00: Hospita Antibiot reaction 00 l ics) s to drug Family History Family Member Diagnosis Comments Start Date Stop Date Source Natural [facility] Natural daughter Depression [facility] Natural father COPD [facility] Natural father Hypertension [facility] Natural father Ulcers [facility] Natural mother Fibromyalgia [facility] Natural sister Anxiety [facility] Natural sister Depression [facility] Natural sister [facility] Natural sister Ulcers [facility] Natural sister Fibromyalgia [facility] Natural son ADD / ADHD [facility] Social History Social Habit Start Date Stop Date Quantity Comments Source Exposure to 2022-03-10 2022-03-20 Not sure University of SARS-CoV-2 (event) 00:00:00 14:40:00 [facility] Alcohol intake 2020-07-11 2020-07-11 Ex-drinker [facility] 00:00:00 00:00:00 (finding) Hospital Cigarettes smoked 2020-06-24 2020-06-[address] current (pack per 00:00:00 00:00:00 Hospita l day) - Reported History of tobacco 2020-06-07 Cigarette Smoker [facility] use 00:00:00 Hospital Education 2020-05-01 2020-05-01 14 [facility] 00:00:00 00:00:00 Hospital Tobacco use and 2018-03-01 2018-03-01 Smokeless Universit y of exposure 00:00:00 00:00:00 tobacco non-user [facility] Sex Ass[birth year] At [birth year] [facility] 00:00:00 00:00:00 Hospital Smoking Status Start Date Stop Date Source Ex-smoker 2020-06-24 00:00:00 2020-06-24 00:00:[facility] Sm[facility] tobacco daily 2018-03-01 00:00:00 Univers ity of [facility] Medications Ordered Filled Start Stop Current Ordering Indication Dosage Frequency Signature Comments Components Source Medication Medication Date Date Medication? Clinician (SIG) Name Name traMADoL 50 Yes [id number] 50mg Take 1 Univ ers mg tablet 2-11 tablet by ity o f 00:00: mouth [place] 00 every 6 Medical (six) Branch hours as needed for Pain (scale 7-10). Indication s: acute pain iopamidol 2022- No [id number] 80mL 80 mL, Univers (ISOVUE 2-03-14 Intravenou ity o f 370-500 mL) 02:15: 01:19 s, ONCE, 1 [place] injection 00 :00 dose, On Medica l 80 mL 03/13/22 Branch at 2014, Routine NaCl 0.9% Yes 1000mL at 999 Univ ers (NS) IV 2-05 mL/hr, ity of infusion 01:45: Intravenou [place] as 1,000 mL 00 s, Medical CONTINUOUS Branch , Starting on 03/13/22 at 1945, Until Discontinu ed, HEBER clopidogrel 0 Yes 75mg Take 75 mg Univers bisulfate 2-04 by mouth. ity o f (PLAVIX 21:00: [place] ORAL) 10 Medical Branch zolpidem 10 Yes 10mg Take 10 mg Univers mg tablet 2-04 by mouth. ity o f 21:00: [place] 10 Medical Branch traZODone 0 Yes 50mg Take 50 mg Un karime 50 mg 2-04 by mouth ity of tablet 21:00: at bedtime [place] 10 as needed. Medical Branch busPIRone Yes 10mg Take 10 mg Un karime 10 mg 2-04 by mouth. ity of tablet 21:00: [place] [address] Medical Branch foLIC acid 0 Yes Take by Univ ers 1 mg tablet 2-04 mouth ity of 21:00: daily. [place] [address] Medical Branch levETIRAcet Yes 500mg Take 500 U nivers am 500 mg 2-04 mg by ity of tablet 21:00: mouth in [place] 10 the Medical morning Branch and 500 mg in the evening. desvenlafax Yes 1{tbl} Take 1 Un karime ine 2-04 tablet by ity of succinate 21:00: mouth [place] 25 mg Tb24 10 daily. Medical Branch phentermine 0 Yes 37.5mg Take 37.5 Univers 37.5 mg 2-04 mg by ity of capsule 21:00: mouth [place] 10 every Medical morning. Branch propranoloL Yes 10mg Take 10 mg Univers 10 mg 2-04 by mouth ity of tablet 21:00: in the [place] 10 morning Medical and 10 mg Branch in the evening. atorvastati Yes 40mg Take 40 mg Univers n calcium 2-04 by mouth. ity o f (ATORVASTAT 21:00: [place] IN ORAL) 10 Medical Branch clopidogrel 2022-0 Yes 75mg Take 75 mg Univers bisulfate 2-04 by mouth. ity o f (PLAVIX 21:00: [place] ORAL) 10 Medical Branch zolpidem 10 Yes 10mg Take 10 mg Univers mg tablet 2-04 by mouth. ity o f 21:00: [place] 10 Medical Branch traZODone 2022-0 Yes 50mg Take 50 mg Un karime 50 mg 2-04 by mouth ity of tablet 21:00: at bedtime [place] [address] as needed. Medical Branch busPIRone 2022-0 Yes 10mg Take 10 mg Un karime 10 mg 2-04 by mouth. ity of tablet 21:00: [place] [address] Medical Branch foLIC acid 2022-0 Yes Take by Univ ers 1 mg tablet 2-04 mouth ity of 21:00: daily. [place] [address] Medical Branch levETIRAcet 2022-0 Yes 500mg Take 500 U nivers am 500 mg 2-04 mg by ity of tablet 21:00: mouth in [place] 10 the Medical morning Branch and 500 mg in the evening. desvenlafax 2022-0 Yes 1{tbl} Take 1 Un karime ine 2-04 tablet by ity of succinate 21:00: mouth [place] 25 mg Tb24 10 daily. Medical Branch phentermine 2022-0 Yes 37.5mg Take 37.5 Univers 37.5 mg 2-04 mg by ity of capsule 21:00: mouth [place] [address] every Medical morning. Branch propranoloL 2022-0 Yes 10mg Take 10 mg Univers 10 mg 2-04 by mouth ity of tablet 21:00: in the [place] [address] morning Medical and 10 mg Branch in the evening. atorvastati 2022-0 Yes 40mg Take 40 mg Univers n calcium 2-04 by mouth. ity o f (ATORVASTAT 21:00: [place] IN ORAL) 10 Medical Branch gabapentin 2022-0 Yes 400mg Take 400 Un karime 300 mg 2-04 mg by ity of capsule 16:52: mouth in [place] [address] the Medical morning Branch and 400 mg in the evening. ALPRAZolam 2022-0 Yes .75mg Take 0.75 U nivers 0.25 mg 2-04 mg by ity of tablet 16:52: mouth in [place] [address] the Medical morning Branch and 0.75 mg at noon and 0.75 mg in the evening. gabapentin 2022-0 Yes 400mg Take 400 Un karime 300 mg 2-04 mg by ity of capsule 16:52: mouth in [place] [address] the Medical morning Branch and 400 mg in the evening. ALPRAZolam 2023-0 Yes .75mg Take 0.75 U nivers 0.25 mg 2-04 mg by ity of tablet 16:52: mouth in [place] 17 the Medical morning Branch and 0.75 mg at noon and 0.75 mg in the evening. zolpidem 2022- No 20mg Take 20 mg Un karime tartrate 03-13-04 by mouth ity of (AMBIEN 16:52: 00:00 at [place] ORAL) 01 :00 bedtime. Medical Branch primidone 2022- No 250mg Take 250 Un karime 250 mg 03-13-04 mg by ity of tablet 16:51: 00:00 mouth 2 [place] 52 :00 (two) Medical times Branch daily. pantoprazol 2022- No 40mg Take 40 mg Univers e sodium 03-13- by mouth. ity o f (PANTOPRAZO 16:51: 00:00 [place] LE ORAL) 46 :00 Medical Branch methylpheni 2022- No 20mg Take 20 mg Univers date HCl 03-13 by mouth 2 ity of (RITALIN) 16:51: 00:00 (two) [place] 20 mg 37 :00 times Medical tablet daily. Branch MELATONIN 2022- No Take by [facility] ers ORAL 03-13-04 mouth. ity of 16:51: 00:00 [place] 34 :00 Medical Branch levothyroxi 2022- No 75ug Take 75 Un karime ne 75 mcg 03-13 mcg by ity of tablet 16:51: 00:00 mouth [place] 31 :00 every Medical morning. Branch FLUoxetine 2022- No 40mg Take 40 mg Univers (PROZAC) 40 03-13 by mouth 2 i ty of mg capsule 16:50: 00:00 (two) [place] 25 :00 times Medical daily. Branch diphenhydrA 2022- No 2722 25mg Take 25 mg Univers MINE 03-13-04 by mouth ity of (BENADRYL) 16:50: 00:00 at [place] 25 mg 19 :00 bedtime. Medical capsule Branch clonazePAM 2022- No 1mg Take 1 mg U nivers 1 mg tablet 03-13-04 by mouth ity of 16:50: 00:00 at [place] 16 :00 bedtime. Medical Branch carvedilol 2022- No 6.25mg Take 6.25 Univers 6.25 mg 2-04 02-04 mg by ity of tablet 16:49: 00:00 mouth as [place] 42 :00 needed for Medical Other Branch (take one pill for diastolic >100). butalb/acet 2022- No Take by Óscar schaffer aminophen/c 2-04 02-04 mouth. ity o f affeine 16:49: 00:00 [place] (FIORICET 18 :00 Medical ORAL) Branch ALPRAZolam Yes .25mg Q.5D Take 0.25 M ethodi (XANAX) 6-[address] 0.25 MG 11:15: mouth 2 Hospita tablet 19 (two) l times a day as needed for anxiety. FLUoxetine Yes 40mg QD Take 40 mg M ethodi (PROzac) 40 6-[address] MG capsule 11:15: daily. Hospi ta 19 l zolpidem Yes 20mg QD Take 20 mg Met hodi (AMBIEN) 10 6-[address] mg tablet 11:15: nightly. Hosp mehrdad 19 l gabapentin Yes 300mg QD Take 300 Me thodi [...] nightly. Hos rhina ORAL) 19 l busPIRone Yes 10mg Q.5D Take 10 mg Me [...] st 11:15: daily. Hospita 19 l ALPRAZolam Yes .25mg Q.5D Take 0.25 M ethodi (XANAX) 6-[address] 0.25 MG 11:15: mouth 2 Hospita tablet 19 (two) l times a day as needed for anxiety. FLUoxetine Yes 40mg QD Take 40 mg M ethodi (PROzac) 40 6-[address] MG capsule 11:15: daily. Hospi ta 19 l zolpidem Yes 20mg QD Take 20 mg Met [...] (fourteen) l (VITAMIN days. B-12 INJ) ergocalcife 2021-0 Yes Q.5W Take by Met garrett iqbal, 6-[address] vitamin D2, 11:15: [...] 11:15: nightly. Hosp mehrdad 19 l gabapentin Yes 300mg QD Take 300 Me thodi [...] 0 Yes Q.5W Take by Met garrett iqbal, 6-[address] vitamin D2, 11:15: (two) Hospi ta (VITAMIN D2 19 times a l ORAL) week. MULTIVITAMI Yes QD Take by Met garrett Márquez ORAL 6-[address] 11:15: daily. Hospita 19 l Vital Signs Vital Name Observation Time Observation Value Comments Source Systolic blood 2022-03-20 20:44:00 108 mm[Hg] Univer sity of [facility] Diastolic blood 2022-03-20 20:44:00 73 mm[Hg] Unive rsity of [facility] Heart rate 2022-03-20 20:44:00 80 /min Universi ty of [facility] Body temperature 2022-03-20 20:44:00 37 [place] Univ ersity [facility] Respiratory rate 2022-03-20 20:44:00 16 /min Univ ersity [facility] Body height 2022-03-20 20:44:00 165.1 cm Universi ty of [facility] Body weight 2022-03-20 20:44:00 77.111 kg Universi ty of [place] [facility] Sabin BMI 2022-03-20 20:44:00 28.29 kg/m2 Universi ty [facility] Oxygen saturation in 2022-03-20 20:44:00 100 /min University of Arterial blood by [facility] Pulse oximetry Branch Systolic blood 2022-03-14 02:00:00 120 mm[Hg] Univer sity of [facility] Diastolic blood 2022-03-14 02:00:00 79 mm[Hg] Unive rsity [facility] Heart rate 2022-03-14 02:00:00 64 /min Universi ty of [facility] Respiratory rate 2022-03-14 02:00:00 18 /min Univ ersity [facility] Oxygen saturation in 2022-03-14 02:00:00 100 /min University of Arterial blood by [facility] Pulse oximetry Branch Body temperature 2022-03-13 22:34:00 36.89 [place] Univ ersity of [facility] Body height 2022-03-13 22:34:00 165.1 cm Universi ty of [place] [facility] Body weight 2022-03-13 22:34:00 77.111 kg Universi ty of [place] [facility] Sab[place] BMI 2022-03-13 22:34:00 28.29 kg/m2 [facility] Procedures Procedure Date / Time Performed Performing Clinician Abdulkadir e XR ANKLE 3+ VW LEFT 2022-03-20 21:39:34 Jojo Vazquez [facility] XR FOOT 3+ VW LEFT 2022-03-20 21:39:34 [facility] TOES 2 VW LEFT 2022-03-20 21:39:34 [facility] CONSENT/REFUSAL FOR 2022-03-20 20:38:15 [facility]igned, [facility] Name [facility] TREATMENT CT CHEST PULMONARY 2022-03-14 01:18:11 Cathy Moura [facility] ANGIOGRAM Medical Branch MAGNESIUM 2022-03-14 00:05:00 Cathy Moura [facility] TROPONIN I 2022-03-14 00:05:00 Cathy Moura [facility] COMP. METABOLIC PANEL 2022-03-14 00:05:00 Cathy Moura [facility] ([id number]) [facility] CBC WITH DIFF 2022-03-14 00:05:00 Cathy Moura [facility] D-DIMER 2022-03-14 00:05:00 Cathy Moura [facility] N-TERMINAL PRO-BNP 2022-03-14 00:05:00 Cathy Moura [facility] NOTICE OF PRIVACY 2022-03-13 22:29:55 Doctor Unassigned, No Univ [facility] PRACTICES [facility] CONSENT/REFUSAL FOR 2022-03-13 22:26:01 Doctor Unassigned, No Un [facility] DIAGNOSIS AND [facility] TREATMENT Plan of Care Planned Activity Planned Date Details Comments Source Future Scheduled 2022-03-30 COVID-19 VACCINE (#1) [facility] Test 10:09:44 [code = COVID-19 VACCINE (#1)] Future Scheduled 2022-03-30 Hepatitis C screening [facility] Test 10:09:44 (procedure) [code = 316252228] Future Scheduled 2022-03-30 Screening for [facility] Test 10:09:44 malignant neoplasm of cervix (procedure) [code = 872823967] Future Scheduled 2022-03-30 BREAST CANCER [facility] Test 10:09:44 SCREENING [code = BREAST CANCER SCREENING] Future Scheduled 2022-03-30 COLONOSCOPY SCREENING [facility] Test 10:09:44 [code = COLONOSCOPY SCREENING] Future Scheduled 2022-03-30 INFLUENZA VACCINE [facility] Test 10:09:44 [code = INFLUENZA VACCINE] Future Scheduled 2022-01-21 COVID-19 VACCINE (#1) [facility] Test 12:53:01 [code = COVID-19 VACCINE (#1)] Future Scheduled 2022-01-21 Hepatitis C screening [facility] Test 12:53:01 (procedure) [code = 679269235] Future Scheduled 2022-01-21 BREAST CANCER [facility] Test 12:53:01 SCREENING [code = BREAST CANCER SCREENING] Future Scheduled 2022-01-21 COLONOSCOPY SCREENING [facility] Test 12:53:01 [code = COLONOSCOPY SCREENING] Future Scheduled 2022-01-21 INFLUENZA VACCINE [facility] Test 12:53:01 [code = INFLUENZA VACCINE] Future Scheduled 2021-10-09 HEPATITIS B VACCINES Met [facility] Test 20:23:15 (1 of 3 - 3-dose series) [code = HEPATITIS B VACCINES (1 of 3 - 3-dose series)] Future Scheduled 2021-10-09 COVID-19 VACCINE (#1) [facility] Test 20:23:15 [code = COVID-19 VACCINE (#1)] Future Scheduled 2021-10-09 Hepatitis C screening [facility] Test 20:23:15 (procedure) [code = 985401123] Future Scheduled 2021-10-09 Screening for [facility] Test 20:23:15 malignant neoplasm of cervix (procedure) [code = 500614569] Future Scheduled 2021-10-09 BREAST CANCER [facility] Test 20:23:15 SCREENING [code = BREAST CANCER SCREENING] Future Scheduled 2021-10-09 COLONOSCOPY SCREENING [facility] Test 20:23:15 [code = COLONOSCOPY SCREENING] Future Scheduled 2021-10-09 INFLUENZA VACCINE [facility] Test 20:23:15 [code = INFLUENZA VACCINE] Encounters Start End Encounter Admission Attending Care Care Encounter Source Date/Time Date/Time Type Type Clinicians Facility Department ID 2019-11-17 Inpatient FELTON Chanel [facility] ADMI [id number] [facility] 20:47:00 Tusharbutch Talley [facility] 2022-03-20 2022-03-20 Emergency X [facility] ERT [id number] Univers 14:47:00 16:38:00 JOJO ity [facility] 2022-03-20 2022-03-20 Emergency [facility] [id number] Univers 14:47:00 16:38:00 Jojo Diamond MANAN [id number] [facility] 4.2.7.2.686 [facility] [id number] [address] 2022-03-13 2022-03-13 Emergency [facility] [id number] Univers 16:37:00 21:05:00 Cathy HINKLE [id number] [facility] 4.2.7.2.686 [facility] [id number] [address] 2022-03-13 2022-03-13 Emergency X [facility] ERT [id number] Univers 16:37:00 21:05:00 CATHY hassan [facility] 2021-12-09 2021-12-09 Documentat Provider, 1.2.840.1 [id number] Methodi 00:00:00 00:00:00 ion Unknown [id number] 3.430.2.7 Hospit a .3.260512 l .8 2021-12-09 2021-12-09 Documentat Provider, 1.2.840.1 [id number] Methodi 00:00:00 00:00:00 ion Unknown [id number] 3.430.2.7 Hospit a .3.674685 l .8 2021-10-07 2021-10-07 Documentat Provider, 1.2.840.1 [id number] Methodi 00:00:00 00:00:00 ion Unknown [id number] 3.430.2.7 Hospit a .3.208632 l .8 2021-10-07 2021-10-07 Documentat [facility], .2.840.1 [id number] 2 [id number] Methodi 00:00:00 00:00:00 ion Unknown [id number] 3.430.2.7 Hospit a .3.787809 l .8 2020-07-11 2020-07-11 Outpatient [facility] [id number] [place] 00:00:00 00:00:[address] 2020-06-27 2020-06-29 Outpatient [facility] [id number] [place] 00:00:00 00:00:[address] 2020-06-26 2020-06-26 Outpatient GBAY LEGGETT [facility] [id number] [place] 00:00:00 00:00:[address] 2020-06-17 2020-06-17 Outpatient GABY LEGGETT [facility] [id number] [place] 00:00:00 00:00:[address] 2020-06-17 2020-06-17 Outpatient [facility] [id number] [place] 00:00:00 00:00:[address] 2020-06-03 2020-06-03 Outpatient GABY LEGGETT [facility] [id number] [place] 00:00:00 00:00:[address] 2020-06-03 2020-06-03 Outpatient GABY LEGGETT [facility] [id number] [place] 00:00:00 00:00:[address] 2020-05-02 2020-05-02 Outpatient GABY LEGGETT [facility] [id number] [place] 00:00:00 00:00:[address] 2020-05-01 2020-05-01 [facility] [id number] [place] 00:00:00 00:00:00 UGOEZE [address] 2020-05-01 2020-05-01 Outpatient GABY LEGGETT [facility] [id number] [place] 00:00:00 00:00:[address] 2020-05-01 2020-05-01 [facility] [id number] [place] 00:00:00 00:00:00 UGOEZE [address] 2019-11-30 2019-11-30 Emergency X VINAY [facility] ERT [id number] Univers 18:13:00 18:13:00 OPAL blaynerod [facility] Results Test Description Test Time Test Comments Results Result Comments Source TROPONIN I 2022-03-14 00:39:36 Test Item Value Reference Range Interpretation Comme nts TROPONIN I (test code = 8472059529) 0.003 ng/mL <=0.034 ARCADIO (test code = ARCADIO) Reference (Normal) Range (defined by the 99th percentile reference limit): <= 0.034 ng/mL Note: Cardiac troponin begins to rise 3-4 hours after the onset of ischemia. Repeat in 4-6 hours if the sample was drawn within 3-4 hours of the onset of the symptom and found normal. Diagnosis of myocardial injury is made with acute changes in cTn concentrations with at least one serial sample above the 99th percentile upper reference limit (URL), taken together with the patient's clinical presentation. Biotin has been reported to cause a negative bias, interpret results relative to patient's use of biotin. Lab Interpretation (test code = Normal 76648-7) [id number] 00:35:55 Test Item Value Reference Range Interpretation Comments NT-proBNP (test code = 62 pg/mL <=125 [id number]) ARCADIO (test code = ARCADIO) Biotin has been reported to cause a negative bias, interpret results relative to patient's use of biotin. Lab Interpretation (test Normal code = 83610-2) [facility] 00:27:58 Test Item Value Reference Range Interpretation Comments MAGNESIUM (test code = 8499010279) 2.1 mg/dL 1.7-2.4 Lab Interpretation (test code = Normal 93935-5) [facility] ([id number])2022-03-14 00:27:58 Test Item Value Reference Range Interpretation Comments NA (test code = 140 mmol/L 135-145 6973527094) K (test code = 3.9 mmol/L 3.5-5.0 6254787047) CL (test code = 106 mmol/L 98-108 1544100889) CO2 TOTAL (test code = 26 mmol/L 23-31 3183383480) AGAP (test code = 8 2-16 4633162833) BUN (test code = 10 mg/dL 7-23 6406914677) GLUCOSE (test code = 106 mg/dL 70-110 9166068686) CREATININE (test code = 0.72 mg/dL 0.50-1.04 [id number]) TOTAL BILI (test code = 0.4 mg/dL 0.1-1.8 6649411386) CALCIUM (test code = 8.5 mg/dL 8.6-10.6 L [id number]) T PROTEIN (test code = 6.5 g/dL 6.3-8.2 5772109645) ALBUMIN (test code = 3.9 g/dL 3.5-5.0 4815798789) ALK PHOS (test code = 108 U/L 34-122 8283883808) ALTv (test code = 20 U/L 5-35 1742-6) AST(SGOT) (test code = 25 U/L 13-40 7512829232) eGFR (test code = 86.5 mL/min/1.73m2 2096589793) ARCADIO (test code = ARCADIO) Association of Glomerular Filtration Rate (GFR) and Staging of Kidney Disease* + --+ --+ ------+| GFR (mL/min/1.73 m2) ?| With Kidney Damage ?| ?Without Kidney Damage+ --------+ --------+ +| ?>90 ?| ?Stage one ?| ? Normal ?+ ---+ ---+ -------+| ?60-89 ?| ?Stage two ?| ? Decreased GFR ? + --+ --+ ------+| ?30-59 ?| ?Stage three ?| ? Stage three ? + --+ --+ ------+| ?15-29 ?| ?Stage four ? | ? Stage four ?+ ---+ ---+ -------+| ?<15 (or dialysis) ? ?| ?Stage five ? | ? Stage five ?+ ---+ ---+ -------+ *Each stage assumes the associated GFR level has been in effect for at least three months. ?Stages 1 to 5, with or without kidney disease, indicate chronic kidney disease. Notes: Determination of stages one and two (with eGFR >59mL/min/1.73 m2) requires estimation of kidney damage for at least three months as defined by structural or functional abnormalities of the kidney, manifested by either:Pathological abnormalities or Markers of kidney damage (including abnormalities in the composition of the blood or urine or abnormalities in imaging tests). Lab Interpretation Abnormal (test code = 24098-1) [id number]17 Test Item Value Reference Interpretation Comments Range D-DIMER (test code = 0.99 See_Comment H [Autom ated [id number]) message] The system which generated this result transmitted reference range : <0.41 ?g/mL (FEU). The reference range was not used to interpret this result as normal/abnormal . ARCADIO (test code = This test may be ARCADIO) used in conjunction with a clinical pretest probability (PTP) assessment model to exclude venous thromboembolism (VTE) in patients suspected of deep venous thrombosis (DVT) and pulmonary embolism (PE) A D-Dimer value less than 0.50 ?g/ml (FEU) has a negative predicative value of 96 to 100% (95% CI)and 97 to 100% (95% CI) as an aid in the diagnosis of deep vein thrombosis (DVT) and pulmonary embolism when there is low or moderate pretest probability of PE or DVT. D-Dimer values are expressed in initial fibrinogen equivalent units (FEU)" The assay results should be used with other information, including the clinical context, in forming a diagnosis. Lab Interpretation Abnormal (test code = 58759-6) [facility] WITH [id number] 00:16:54 Test Item Value Reference Range Interpretation Comments WBC (test code = 6.85 See_Comment [Automated 3880-2) message] The sy stem which generated this result transmitted reference range : 4.30 - 11.10 10*3/?L. The reference range was not used to interpret this result as normal/abnormal . RBC (test code = 4.73 See_Comment [Automated 574-8) message] The sy stem which generated this result transmitted reference range : 3.93 - 5.25 10*6/?L. The reference range was not used to interpret this result as normal/abnormal . HGB (test code = 11.0 g/dL 11.6-15.0 L 718-7) HCT (test code = 36.4 % 35.7-45.2 4544-3) MCV (test code = 77.0 fL 80.6-95.5 L 787-2) MCH (test code = 23.3 pg 25.9-32.8 L 785-6) MCHC (test code = 30.2 g/dL 31.6-35.1 L 786-4) RDW-SD (test code = 47.4 fL 39.0-49.9 75152-0) RDW-CV (test code = 16.8 % 12.0-15.5 H 788-0) PLT (test code = 250 See_Comment [Automated 777-3) message] The sy stem which generated this result transmitted reference range : 166 - 358 10*3/ ?L. The reference r aayush was not used to interpret this result as normal/abnormal . MPV (test code = 9.9 fL 9.5-12.9 80425-8) NRBC/100 WBC (test 0.0 See_Comment [Automat ed code = [id number]) message] The system which generated this result transmitted reference range : 0.0 - 10.0 /100 WBCs. The refer ence range was not u sed to interpret th is result as normal/abnormal . NRBC x10^3 (test code See_Comment [Auto mated = 9581325570) message] The s ystem which generated this result transmitted reference range : 10*3/?L. The reference range was not used to interpret this result as normal/abnormal . GRAN MAT (NEUT) % 56.2 % (test code = 770-8) IMM GRAN % (test code 0.30 % = 2179804484) LYMPH % (test code = 33.9 % 736-9) MONO % (test code = 5.3 % 5905-5) EOS % (test code = 3.9 % 713-8) BASO % (test code = 0.4 % 706-2) GRAN MAT x10^3(ANC) 3.85 10*3/uL 1.88-7.09 (test code = 9899739160) IMM GRAN x10^3 (test 0.00-0.06 code = 1778755535) LYMPH x10^3 (test code 2.32 10*3/uL 1.32-3.29 = 731-0) MONO x10^3 (test code 0.36 10*3/uL 0.33-0.92 = 742-7) EOS x10^3 (test code = 0.27 10*3/uL 0.03-0.39 711-2) BASO x10^3 (test code 0.03 10*3/uL 0.01-0.07 = 704-7) Lab Interpretation Abnormal (test code = 39342-4) [facility] RNA [Presence] in Respiratory specimen by NOLA with probe [id number] 19:44:12 Test Item Value Reference Range Interpretation Comments SARS-CoV-2 (COVID-19) RNA Not detected Not-Detected [Presence] in Respiratory specimen by NOLA with probe detection (test code = 72947-7) Whether patient is employed in a healthcare setting (test code = 72982-3) Whether the patient has symptoms related to condition of interest (test code = 49175-2) Patient was hospitalized because of this condition (test code = 26458-6) Whether the patient was admitted to intensive care unit (ICU) for condition of interest (test code = 63664-0) Whether patient resides in a congregate care setting (test code = 20629-0) ZULAY JACOBRS-CoV-2 (COVID-19) RNA [Presence] in Respiratory specimen by NOLA with probe [id number] 21:53:07 Test Item Value Reference Range Interpretation Comments SARS-CoV-2 (COVID-19) RNA Not detected Not-Detected [Presence] in Respiratory specimen by NOLA with probe detection (test code = 31582-0) ZULAY TORRES WESTRENAL FUNCTION [id number] 06:31:00 Test Item Value Reference Range Interpretation [...] 3.0 mg/dL 2.7-4.5 N code = PHOS) [id number] 06:31:00 Test Item Value Reference Range Interpretation Comments MAGNESIUM (test code = MAG) 1.7 mg/dL 1.4-2.6 N - XR UGI SGL [id number] 10:18:00Patient Name: ERIC MILLAN Unit No: [id number] EXAMS: CPT CODE: [id number] XR UGI SGL CONTRAST 22202 Single contrast upper GI 11/19/2019 CLINICAL INDICATION: [...] Dt/Tm: 11/19/2019 (1018) by:[email or web address] Printed Date/Time: 11/19/2019 (6484) Name: ERIC MILLAN [facility] Phys: Ronan Srinivasan MD [address] : 1975 Age: 44 Sex: F [place] [address] [id number] Loc: P.[id number] 1 Exam Date: 11/19/2019 Status: ADM IN PH: FAX: PAGE 1 Signed ReportFERRITIN 2019-11-18 13:48:00 Test Item Value Reference Range Interpretation Comments FERRITIN (test code = ROBYN) 21 ng/mL 13-150 N FE W/TOTAL IRON BINDING [id number] 13:28:00 Test Item Value Reference Range Interpretation Comments IRON (test code = IRON) 17 mcg/dL 53-167 L TOTAL IRON BINDING CAPACITY (test 261 mcg/dL 250-450 N code = TIBC) IRON SATURATION (test code = 7 % 15-50 L FESAT) [id number] 12:46:00 Test Item Value Reference Range Interpretation Comments PREALBUMIN (test code = PREALB) 7.8 MG/ML 15-42 L COMPREHENSIVE METABOLIC [id number] 12:46:00 Test Item Value Reference Range Interpretation [...] PHOSPHATASE (test code = ALKP) CBC W/AUTO [id number] 12:13:00 Test Item Value Reference Range Interpretation [...]
[2022-04-22] MEDS ORDERED: FAMOTIDINE 20 MG/2 ML VIAL IV ONE (15:09)
[2022-04-22] MEDS ORDERED: PROMETHAZINE INJ 25 MG/ML AMP ONE (15:09)
[2022-04-22] MEDS ORDERED: NA CHLORIDE 0.9% 250 ML ONE (15:09)
[2022-04-22 16:02] LABS: Absolute Lymphocytes (CBC) 1.4 K/uL (0.7-4.9); Hematocrit 36.5 % (36.0-45.0); Lymphocytes % 8.6 % (15.3-44.8); MCV 77.1 fL (80-100); MPV 8.9 fL (7.6-11.3); RBC Red Blood Cell Count 4.74 M/uL (3.86-4.86)
[2022-04-22 16:03] LABS: Anisocytosis 1+; Blood Morphology Comment NOTED (NOT SEEN); Platelet Estimate ADEQ; White Blood Cell Scan OK (OK)
[2022-04-22 17:02] LABS: Albumin 3.4 g/dL (3.4-5.0); Bilirubin Total 0.5 mg/dL (0.2-1.0); Potassium 3.4 mEq/L (3.5-5.1); Protein, Total 6.8 g/dL (6.4-8.2)
[2022-04-22 17:48] LABS: Thyroid Stimulating Hormone 1.05 uIU/mL (0.358-3.740)
--- NOTE | 2022-04-22 17:55 | RAD REPORT ---
EXAM DESCRIPTION: CT - Abdomen Pelvis W Contrast - 04/22/2022 5:26 pm CLINICAL HISTORY: ABD PAIN Left lower quadrant pain COMPARISON: Abdomen Pelvis W Contrast dated 10/26/2021; Abdomen Pelvis W Contrast dated 0; Abdomen Pelvis W Contrast dated 09/29/2019; Abdomen Pelvis W Contrast dated 03/18/2016 TECHNIQUE: Thin cut axial CT imaging of the abdomen and pelvis was performed following intravenous a dministration of Isovue 300. Multiplanar reformats were generated and reviewed. All CT scans are performed using dose optimization technique as appropriate and may include automated exposure control or mA/KV adjustment according to patient size. FINDINGS: No suspicious findings in the lung bases. Partially visualized breast implants. The liver, spleen, and pancreas show no suspicious findings. Small region of focal fatty infiltration adjacent to the gallbladder lumen is stable. Gallbladder has been surgically removed. No evidence of intra or extrahepatic biliary ductal dilation. Small left adrenal nodule, measuring approximately 6 millimeter stable, difficult to characterize on a single phase exam. Symmetric renal function is seen with no hydronephrosis or suspicious renal mass. Bilateral small par apelvic cysts again noted. Sequelae of prior Dimple-en-Y gastric bypass. Inflammatory changes with wall thickening, mucosal hypere nhancement, and adjacent fat stranding along the jejunal loop just distal to the gastrojejunostomy an astomotic suture line. Mild fluid distention of the afferent jejunal loop of the jejunojejunostomy wi thout evidence of inflammatory changes. No other dilated bowel loops or bowel wall thickening. No cristine dence of free air or loculated fluid collections. Trace free fluid is layering in the pelvis. No srinath ia, mass or bulky lymphadenopathy. The urinary bladder is suboptimally distended limiting evaluation. . No suspicious bony findings. IMPRESSION: Inflammatory changes involving the jejunal loop adjacent to the gastrojejunostomy anasto motic suture line. Mild fluid distention of the afferent jejunal loop of the jejunojejunostomy, without evidence of infl ammatory changes. No evidence of free air or loculated collections. Trace free fluid layering in the pelvis. The findings were communicated to [place] on 04/22/2022 at 17:49 hours.
--- NOTE | 2022-04-22 18:55 | ER ---
Nurse's Notes [facility] Name: Pina Castrejon Age: 47 yrs Sex: Female : 1975 Arrival Date: 04/22/2022 Time: 14:54 Bed 2 Private MD: Diagnosis: Lower abdominal pain, unspecified;Encounter for screening for lower gastrointestinal disorder;Cramp and spasm Presentation: 04/22 17:00 Chief complaint: EMS states: patient has been having increasing abdominal pain. ko1 17:02 Coronavirus screen: Vaccine status: Patient reports receiving the 2nd dose of the covid ph vaccine. Ebola Screen: No symptoms or risks identified at this time. Initial Sepsis Screen: Does the patient meet any 2 criteria? No. Patient's initial sepsis screen is negative. Does the patient have a suspected source of infection? No. Patient's initial sepsis screen is negative. Risk Assessment: Do you want to hurt yourself or someone else? Patient reports no desire to harm self or others. Onset of symptoms was April 22, 2022. 17:02 Acuity: SAMIRA 3 ph 17:02 Method Of Arrival: EMS ph Triage Assessment: 17:00 General: Appears in no apparent distress. uncomfortable, Behavior is calm, cooperative, ko1 appropriate for age. Pain: Complains of pain in left lower quadrant. Historical: - Allergies: 17:09 Morphine; ph 17:09 Sulfa (Sulfonamide Antibiotics); ph - Home Meds: 17:09 Ambien Oral [Active]; doxipen [Active]; Xanax Oral [Active]; ph - PMHx: 17:09 Anemia; Anxiety; Depression; diabetes (controlled with diet); ESSENTIAL TREMORS; GI ph Bleed; insomnia; Seizures; - PSHx: 17:09 ablation; Gastric Bypass; ph - Immunization history:: Adult Immunizations unknown. - Social history:: Smoking status: Patient denies any tobacco usage or history of. Screenin:00 [facility] ED Fall Risk Assessment (Adult) History of falling in the last 3 months, ko1 including since admission No falls in past 3 months (0 pts) Confusion or Disorientation No (0 pts) Intoxicated or Sedated No (0 pts) Impaired Gait No (0 pts) Mobility Assist Device Used No (0 pt) Altered Elimination No (0 pt) Score/Fall Risk Level 0 - 2 = Low Risk Oriented to surroundings, Maintained a safe environment, Educated pt \\T\\ family on fall prevention, incl call for assistance when getting out of bed, Assessed \\T\\ reinforced patient's understanding of fall precautions, Provided non-skid footwear, Hourly rounding (assess needs \\T\\ fall precautionary measures) done, Used ambulatory aids as needed (educated on \\T\\ assisted with), Used gait belt as appropriate. Abuse screen: Denies threats or abuse. Denies injuries from another. Nutritional screening: No deficits noted. Tuberculosis screening: No symptoms or risk factors identified. Assessment: 15:00 General: Appears in no apparent distress. uncomfortable. Neuro: No deficits noted. ko1 Cardiovascular: No deficits noted. Respiratory: No deficits noted. GI: Reports lower abdominal pain. : No deficits noted. EENT: No deficits noted. Derm: No deficits noted. Musculoskeletal: No deficits noted. 18:37 Reassessment: Patient appears in no apparent distress at this time. Patient and/or ph family updated on plan of care and expected duration. Pain level reassessed. Patient is alert, oriented x 3, equal unlabored respirations, skin warm/dry/pink. Ambulated to restroom w/ pt to obtain urine sample, pt exited restroom and stated, " Oops, I'm not used to be a patient, I flushed it. If you can send me home w/ the order for the test I can bring a sample tomorrow?" ERP notified. Vital Signs: 15:30 BP 112 / 68; Pulse 74; Resp 18; Pulse Ox 99% ; ko1 16:00 BP 100 / 63; Pulse 72; Resp 18; Pulse Ox 100% ; ko1 16:30 BP 99 / 81; Pulse 65; Resp 16; Pulse Ox 100% ; ko1 17:00 BP 122 / 87; Pulse 63; Resp 16; Pulse Ox 98% ; ko1 17:02 BP 122 / 87; Pulse 72; Resp 18; Pulse Ox 100% on R/A; ED Course: 14:54 Patient arrived in ED. snw 15:00 Patient has correct armband on for positive identification. Bed in low position. Call ko1 light in reach. Side rails up X 1. night monitor on. Pulse ox on. NIBP on. Door closed. Lights dimmed. Warm blanket given. 15:02 Francisca Garcia, RN is Primary Nurse. ko1 15:03 Mono Rojas MD is Attending Physician. kdr 15:08 Uzma Carrasco FNP-C [facility]. snw 17:00 Arm band placed on right wrist. ko1 17:03 Triage completed. ph 17:28 CT Abd/Pelvis - IV Contrast Only In Process Unspecified. EDMS Administered Medications: 15:27 Drug: NS 0.9% IV 250 ml Route: IV; Rate: bolus; Site: left wrist; ko1 15:27 Drug: Promethazine IVP 25 mg Route: IVP; Site: left wrist; ko1 15:28 Drug: Famotidine IVP 20 mg Route: IVP; Site: left wrist; ko1 Outcome: 18:54 Discharge ordered by . snw Signatures: Dispatcher [employer] EDMS Mono Rojas MD MD kdr Waters, Shelly, FNP-C DIDACTIC INSTRUCTOR-Csnw Lina Turpin RN RN Francisca Garcia, RN RN ko1
--- NOTE | 2022-04-22 18:55 | EDPHYS ---
Physician Documentation [facility] Name: Pina Castrejon Age: 47 yrs Sex: Female : 1975 Arrival Date: 04/22/2022 Time: 14:54 Bed 2 Private MD: ED Physician Mono Rojas HPI: 04/22 14:57 This 47 yrs old Female presents to ER via Unassigned with complaints of abd pain. snw 14:57 The patient presents with abdominal pain in the lower abdomen, in the left lower snw quadrant. Onset: The symptoms/episode began/occurred acutely, 2 day(s) ago, and became persistent. The symptoms radiate to the left shoulder. Associated signs and symptoms: Pertinent positives: nausea. The symptoms are described as crampy. Severity of pain: At its worst the pain was severe today. The patient has experienced similar episodes in the past, but today's symptoms are worse, more painful. The patient has not recently seen a physician. hx of gastric bypass. Historical: - Allergies: 17:09 Morphine; ph 17:09 Sulfa (Sulfonamide Antibiotics); ph - Home Meds: 17:09 Ambien Oral [Active]; doxipen [Active]; Xanax Oral [Active]; ph - PMHx: 17:09 Anemia; Anxiety; Depression; diabetes (controlled with diet); ESSENTIAL TREMORS; GI ph Bleed; insomnia; Seizures; - PSHx: 17:09 ablation; Gastric Bypass; ph - Immunization history:: Adult Immunizations unknown. - Social history:: Smoking status: Patient denies any tobacco usage or history of. ROS: 14:57 Constitutional: Negative for fever, chills, and weight loss, Eyes: Negative for injury, snw pain, redness, and discharge, ENT: Negative for injury, pain, and discharge, Neck: Negative for injury, pain, and swelling, Cardiovascular: Negative for chest pain, palpitations, and edema, Respiratory: Negative for shortness of breath, cough, wheezing, and pleuritic chest pain, Back: Negative for injury and pain, : Negative for injury, bleeding, discharge, and swelling, MS/Extremity: Negative for injury and deformity, Skin: Negative for injury, rash, and discoloration, Neuro: Negative for headache, weakness, numbness, tingling, and seizure. 14:57 Abdomen/GI: Positive for abdominal pain, nausea. Exam: 15:03 Head/Face: Normocephalic, atraumatic. snw 15:03 ENT: Nares patent. No nasal discharge, no septal abnormalities noted. Tympanic membranes are normal and external auditory canals are clear. Oropharynx with no redness, swelling, or masses, exudates, or evidence of obstruction, uvula midline. Mucous membranes moist. Neck: Trachea midline, no thyromegaly or masses palpated, and no cervical lymphadenopathy. Supple, full range of motion without nuchal rigidity, or vertebral point tenderness. No Meningismus. Chest/axilla: Normal chest wall appearance and motion. Nontender with no deformity. No lesions are appreciated. Cardiovascular: Regular rate and rhythm with a normal S1 and S2. No gallops, murmurs, or rubs. Normal PMI, no JVD. No pulse deficits. Respiratory: Lungs have equal breath sounds bilaterally, clear to auscultation and percussion. No rales, rhonchi or wheezes noted. No increased work of breathing, no retractions or nasal flaring. 15:03 Back: No spinal tenderness. No costovertebral tenderness. Full range of motion. MS/ Extremity: Pulses equal, no cyanosis. Neurovascular intact. Full, normal range of motion. 15:03 Neuro: Awake and alert, GCS 15, oriented to person, place, time, and situation. Cranial nerves II-XII grossly intact. Motor strength 5/5 in all extremities. Sensory grossly intact. Cerebellar exam normal. Normal gait. 15:03 Constitutional: The patient appears alert, listless, pale, uncomfortable. 15:03 Eyes: Conjunctiva: pale, bilaterally. 15:03 Abdomen/GI: Inspection: abdomen appears normal, Bowel sounds: normal, Palpation: moderate abdominal tenderness, in the left lower quadrant. 15:03 Skin: Appearance: Color: pale. Vital Signs: 15:30 BP 112 / 68; Pulse 74; Resp 18; Pulse Ox 99% ; ko1 16:00 BP 100 / 63; Pulse 72; Resp 18; Pulse Ox 100% ; ko1 16:30 BP 99 / 81; Pulse 65; Resp 16; Pulse Ox 100% ; ko1 17:00 BP 122 / 87; Pulse 63; Resp 16; Pulse Ox 98% ; ko1 17:02 BP 122 / 87; Pulse 72; Resp 18; Pulse Ox 100% on R/A; ph MDM: 14:56 Differential diagnosis: diverticulitis, Endometriosis, non-specific abd pain, snw Ureterolithiasis, urinary tract infection. 14:56 Differential diagnosis: anemia from gastric bypass. Data reviewed: vital signs, nurses snw notes, EMS record. I considered the following discharge prescriptions or medication management in the emergency department Medications were administered in the Emergency Department. See MAR. Historians other than the Patient: EMS: LJ. 15:09 Patient medically screened. snw 18:29 Counseling: I had a detailed discussion with the patient and/or guardian regarding: the snw historical points, exam findings, and any diagnostic results supporting the discharge/admit diagnosis, lab results, radiology results. Response to treatment: pt complains of lower abd cramping pain similar to her monthly pain, came to ED today as it did not go away as quickly as normal. Discussed CT report with patient and she states she has not had any changes in bowel habits, consistency, or character. Pt describes bladder spasms and was assisted to the bathroom by me. When pt came out of the bathroom, she relayed to her nurse that she forgot to collect the specimen. Special discussion: Based on the patient's Hx, exam, and Dx evaluation, there is no indication for emergent surgery or inpatient Tx. It is understood by the patient/guardian that if the Sx's persist or worsen they need to return immediately for re-evaluation. ED course: Considered admitting pt for inflammation at the jejunostomy site. Pt states this is the same pain she gets every month and would like pain medications and discharge. 04/22 14:55 Order name: CBC with Diff; Complete Time: 16:06 w 04/22 14:55 Order name: Urine Microscopic Only w 04/22 14:55 Order name: IV Saline Lock; Complete Time: 15:02 snw 04/22 14:55 Order name: TS w 04/22 14:55 Order name: CMP; Complete Time: 17:50 snw 04/22 14:55 Order name: Lipase; Complete Time: 17:50 w 04/22 14:55 Order name: TSH; Complete Time: 17:50 snw 04/22 14:55 Order name: Ferritin; Complete Time: 17:50 snw 04/22 14:55 Order name: Vitamin B12; Complete Time: 17:50 snw 04/22 16:08 Order name: Labs - recollect needed: recollect type and screen and cbc; Complete Time: bd 17:50 04/22 14:55 Order name: Labs collected and sent; Complete Time: 17:51 snw 04/22 14:55 Order name: Urine Dipstick-Ancillary (obtain specimen); Complete Time: 17:51 snw 04/22 14:55 Order name: CT Abd/Pelvis - IV Contrast Only; Complete Time: 18:02 snw 04/22 16:03 Order name: CBC Smear Scan; Complete Time: 16:06 EDMS Administered Medications: 15:27 Drug: NS 0.9% IV 250 ml Route: IV; Rate: bolus; Site: left wrist; ko1 15:27 Drug: Promethazine IVP 25 mg Route: IVP; Site: left wrist; ko1 15:28 Drug: Famotidine IVP 20 mg Route: IVP; Site: left wrist; ko1 Disposition Summary: 04/22/22 18:54 Discharge Ordered Location: Home snw Condition: Stable snw Diagnosis - Lower abdominal pain, unspecified snw - Encounter for screening for lower gastrointestinal disorder snw - Cramp and spasm snw Followup: snw - With: Emergency Department - When: As needed - Reason: Worsening of condition Followup: snw - With: Private Physician - When: 2 - 3 days - Reason: Recheck today's complaints, Continuance of care, Re-evaluation by your physician Forms: - Medication Reconciliation Form snw - Thank You Letter snw - Antibiotic Education snw - Prescription Opioid Use snw Signatures: Dispatcher [employer] EDMS Mag Everett Shelly, SUPERVISOR [employer]OR[employer]-C SUPERVISOR TANK STORAGE-Csnw Lina Turpin, RN RN Francisca Powell RN RN ko1
[2022-04-22] MEDS ORDERED: CIPROFLOXACIN HCL 500 MG TAB ONE (19:18)
[2022-04-22] MEDS ORDERED: METRONIDAZOLE 500mg IVPB 500 MG/100 ML BAG IV ONE (19:19)
[2022-04-22] MEDS ORDERED: FENTANYL CITR 100 MCG/2 ML ONE (19:19)
[2022-04-22] MEDS ORDERED: NA CHLORIDE 0.9% 100 ML ONE (19:20)
[2022-04-22 22:24] VITALS: BP 122/87
[2022-04-22 22:26] VITALS: O2SAT 100
== END 2022-04-22 20:01 | disposition home or self-care (01) ==
LOC: ER 14:48
DX: R10.32 Left lower quadrant pain (principal); Z13.811 Encounter for screening for lower gastrointestinal disorder; R25.2 Cramp and spasm; Z88.2 Allergy status to sulfonamides; Z88.5 Allergy status to narcotic agent
CPT/HCPCS: 96365; 96361; 85025; 36415; 86900; 86850; 86901; 84443; 82728; 82607; 83690; 80053; 74177; 96375; 99284; Q9967; J2550; J3010; J7050

== ENCOUNTER 2022-10-16 19:16 | Emergency (ER) | payer OTHER ==
--- OUTSIDE RECORDS SUMMARY | 2022-10-16 19:21 | XMS REPORT | Continuity of Care Document ---
:1975 Author Organization [facility] t Address [address] [place] [address] [place] [address] Care Team Providers Name Role Phone Yuriy Saldaña MD Primary Care Physician [phone] Edy Chanel Attending Clinician Unavailable JOJO VAZQUEZ [...] Effective Date Expiration Date [employer] [id number] 2021 OUT OF NETWORK 00:00:00 Problems Condition [...] Added automatic ally from request for surgery [id number] Allergies, Adverse Reactions, Alerts Allergy Allergy Status [...] aspirin DA Active MO 2019-02 [facility] 0[facility] [place] [facility] aspirin DA Active MO RASH-HIVES 2019-02 [facility] 0 [place] [facility] NSAIDS; DA Active U RASH WITH 2019-02 [facility] SULFA THE SULFA [place] (SULFONA DRUGS; CAN'T 00:00: He althc MIDE NSAIDS D/T 00 are ANTIBIOT HX GASTRIC Medi michele ICS); [facility] ASPIRIN Nsaids Propensi Active Unknown - BYPASS [...] Stop Date Source Natural [facility] Hy[facility] mother Fibromyalgia [facility] Natural sister An[facility] Natural sister Depression [facility] Natural sister [facility] [facility] Natural sister Ulcers [facility] Natural sister Fibromyalgia [facility] Natural son ADD / ADHD [facility] pital Social History Social Habit Start Date Stop Date Quantity Comments Source [facility] identity [facility] Exposure to 2022-03-10 2022-03-20 Not sure University of SARS-CoV-2 (event) 00:00:00 14:40:00 [facility] Alcohol intake 2020-07-11 2020-07-11 Ex-drinker [facility] 00:00:00 00:00:00 (finding) Hospital History of Social 2020-07-11 2020-07-[address] function 00:00:00 00:00:00 Hospital Cigarettes smoked 2020-06-24 2020-06-[address] current (pack per 00:00:00 00:00:00 Hospita l day) - Reported History of tobacco 2020-06-07 Cigarette Smoker [facility] use 00:00:00 Hospital Education 2020-05-01 2020-05-01 14 [facility] 00:00:00 00:00:00 Hospital Tobacco use and 2018-03-01 2018-03-01 Smokeless Universit y of exposure 00:00:00 00:00:00 tobacco non-user [facility] Sex Assigned At [birth year] [facility] 00:00:00 00:00:00 Hospital Smoking Status Start Date Stop Date Source Ex-smoker 2020-06-24 00:00:00 2020-06-24 00:00:00 [facility] Smokes tobacco daily 2018-03-01 00:00:00 [facility] ity [facility] Medications Ordered Filled Start Stop Current Ordering Indication Dosage Frequency Signature Comments Components Source Medication Medication Date Date Medication? Clinician (SIG) Name Name traMADoL 50 Yes [id number] 50mg Take 1 Univ ers mg tablet 2-11 tablet by ity o f 00:00: mouth [place] 00 every 6 Medical (six) Branch hours as needed for Pain (scale 7-10). Indication s: acute pain iopamidol 2022- No [id number] 80mL 80 mL, Univers (ISOVUE 03-14 Intravenou ity o f 370-500 mL) 02:15: 01:19 s, ONCE, 1 [place] injection 00 :00 dose, On Medica l 80 mL 03/13/22 Branch at 2014, Routine NaCl 0.9% 2023-0 Yes 1000mL at 999 Univ ers (NS) IV 2-05 mL/hr, ity of infusion 01:45: Intravenou [place] as 1,000 mL 00 s, Medical CONTINUOUS Branch , Starting on 03/13/22 at 1945, Until Discontinu ed, HEBER clopidogrel 2022-0 Yes 75mg Take 75 mg Univers bisulfate 2-04 by mouth. ity o f (PLAVIX 21:00: [place] ORAL) 10 Medical Branch zolpidem 10 0 Yes 10mg Take 10 mg Univers mg tablet 2-04 by mouth. ity o f 21:00: [place] [facility] traZODone 0 Yes 50mg Take 50 mg Un karime 50 mg 2-04 by mouth ity of tablet 21:00: at bedtime [place] 10 as needed. Medical Branch busPIRone 0 Yes 10mg Take 10 mg Un karime 10 mg 2-04 by mouth. ity of tablet 21:00: [place] [address] Medical Branch foLIC acid 0 Yes Take by Univ ers 1 mg tablet 2-04 mouth ity of 21:00: daily. [place] [address] Medical Branch levETIRAcet 0 Yes 500mg Take 500 U nivers am 500 mg 2-04 mg by ity of tablet 21:00: mouth in [place] 10 the Medical morning Branch and 500 mg in the evening. desvenlafax 0 Yes 1{tbl} Take 1 Un karime ine 2-04 tablet by ity of succinate 21:00: mouth [place] 25 mg Tb24 10 daily. Medical Branch phentermine 0 Yes 37.5mg Take 37.5 Univers 37.5 mg 2-04 mg by ity of capsule 21:00: mouth [place] 10 every Medical morning. Branch propranoloL 0 Yes 10mg Take 10 mg Univers 10 mg 2-04 by mouth ity of tablet 21:00: in the [place] [address] morning Medical and 10 mg Branch in the evening. atorvastati 0 Yes 40mg Take 40 mg Univers n calcium 2-04 by mouth. ity o f (ATORVASTAT 21:00: [place] IN ORAL) 10 Medical Branch clopidogrel 2022-0 Yes 75mg Take 75 mg Univers bisulfate 2-04 by mouth. ity o f (PLAVIX 21:00: [place] ORAL) 10 Medical Branch zolpidem 10 2022-0 Yes 10mg Take 10 mg Univers mg tablet 2-04 by mouth. ity o f 21:00: [place] 10 Medical Branch traZODone 2022-0 Yes 50mg Take 50 mg Un karime 50 mg 2-04 by mouth ity of tablet 21:00: at bedtime [place] 10 as needed. Medical Branch busPIRone 2022-0 Yes 10mg Take 10 mg Un karime 10 mg 2-04 by mouth. ity of tablet 21:00: [place] [address] Medical Branch foLIC acid 2022-0 Yes Take by Univ ers 1 mg tablet 2-04 mouth ity of 21:00: daily. [place] [address] Medical Branch levETIRAcet 2022-0 Yes 500mg Take 500 U nivers am 500 mg 2-04 mg by ity of tablet 21:00: mouth in [place] 10 the Medical morning Branch and 500 mg in the evening. desvenlafax 2022-0 Yes 1{tbl} Take 1 Un karime ine 2-04 tablet by ity of succinate 21:00: mouth [place] 25 mg Tb24 10 daily. Medical Branch phentermine 2022-0 Yes 37.5mg Take 37.5 Univers 37.5 mg 2-04 mg by ity of capsule 21:00: mouth [place] 10 every Medical morning. Branch propranoloL 2022-0 Yes 10mg Take 10 mg Univers 10 mg 2-04 by mouth ity of tablet 21:00: in the [place] [address] morning Medical and 10 mg Branch in the evening. atorvastati 2022-0 Yes 40mg Take 40 mg Univers n calcium 2-04 by mouth. ity o f (ATORVASTAT 21:00: [place] IN ORAL) 10 Medical Branch gabapentin 2022-0 Yes 400mg Take 400 Un karime 300 mg 2-04 mg by ity of capsule 16:52: mouth in [place] [address] the Medical morning Branch and 400 mg in the evening. ALPRAZolam 3-0 Yes .75mg Take 0.75 U nivers 0.25 mg 2-04 mg by ity of tablet 16:52: mouth in [place] [address] the Medical morning Branch and 0.75 mg at noon and 0.75 mg in the evening. gabapentin 2022-0 Yes 400mg Take 400 Un karime 300 mg 2-04 mg by ity of capsule 16:52: mouth in [place] [address] the Medical morning Branch and 400 mg in the evening. ALPRAZolam Yes .75mg Take 0.75 U nivers 0.25 mg 2-04 mg by ity of tablet 16:52: mouth in [place] [address] the Medical morning Branch and 0.75 mg at noon and 0.75 mg in the evening. zolpidem 2022- No 20mg Take 20 mg Un karime tartrate 03-13-04 by mouth ity of (AMBIEN 16:52: 00:00 at [place] ORAL) 01 :00 bedtime. Medical Branch primidone 2022- No 250mg Take 250 Un karime 250 mg 03-13-04 mg by ity of tablet 16:51: 00:00 mouth 2 [place] 52 :00 (two) Medical times Branch daily. pantoprazol 2022- No 40mg Take 40 mg Univers e sodium 03-13-04 by mouth. ity o f (PANTOPRAZO 16:51: 00:00 [facility] ORAL) 46 :00 Medical Branch methylpheni 2022- No 20mg Take 20 mg Univers date HCl 03-13 by mouth 2 ity of (RITALIN) 16:51: 00:00 (two) [place] 20 mg 37 :00 times Medical tablet daily. Branch MELATONIN 2022- No Take by [facility] ORAL 03-13-04 mouth. ity of 16:51: 00:00 [place] 34 :00 Medical Branch levothyroxi 2022- No 75ug Take 75 Un karime ne 75 mcg 03-13 mcg by ity of tablet 16:51: 00:00 mouth [place] 31 :00 every Medical morning. Branch FLUoxetine 2022- No 40mg Take 40 mg Univers (PROZAC) 40 03-13-04 by mouth 2 i ty of mg capsule 16:50: 00:00 (two) [place] 25 :00 times Medical daily. Branch diphenhydrA 2022- No 2722 25mg Take 25 mg Univers MINE 03-13-04 by mouth ity of (BENADRYL) 16:50: 00:00 at [place] 25 mg 19 :00 bedtime. Medical capsule Branch clonazePAM 2022- No 1mg Take 1 mg U nivers 1 mg tablet 2-04 02-04 by mouth ity of 16:50: 00:00 at [place] 16 :00 bedtime. Medical Branch carvedilol 2022- No 6.25mg Take 6.25 Univers 6.25 mg 2-04 02-04 mg by ity of tablet 16:49: 00:00 mouth as [place] 42 :00 needed for Medical Other Branch (take one pill for diastolic >100). butalb/acet 2022-0 2022- No Take by Un karime aminophen/c 2-04 02-04 mouth. ity o f affeine 16:49: 00:00 [place] (FIORICET 18 :00 Medical ORAL) Branch ALPRAZolam [...] Yes 20mg QD Take 20 mg Met thomasi (AMBIEN) 10 6-[address] mg [...] 19 times a l day. FOLIC ACID 0 Yes Take by Meth yris ORAL 6-04 [...] 2022-03-20 20:44:00 108 mm[Hg] Univer sity of [facility] Diastolic blood 2022-03-20 20:44:00 73 mm[Hg] Unive rsity of [facility] Heart rate 2022-03-20 20:44:00 80 /min Universi ty of [facility] Body temperature 2022-03-20 20:44:00 37 [place] Univ ersity [facility] [place] [facility] Respiratory rate 2022-03-20 20:44:00 16 /min Univ ersity [facility] [place] [facility] Body height 2022-03-20 20:44:00 165.1 cm [facility]i ty [facility] Body weight 2022-03-20 20:44:00 77.111 kg Universi ty of [place] [facility] [place] BMI 2022-03-20 20:44:00 28.29 kg/m2 Universi ty [facility] [place] [facility] Oxygen saturation in 2022-03-20 20:44:00 100 /min University of Arterial blood by [facility] Pulse oximetry Branch Systolic blood 2022-03-14 02:00:00 120 mm[Hg] Univer sity of [facility] Diastolic blood 2022-03-14 02:00:00 79 mm[Hg] Unive rsity of [facility] Heart rate 2022-03-14 02:00:00 64 /min Universi ty [facility] Respiratory rate 2022-03-14 02:00:00 18 /min Univ ersity [facility] [place] [facility] Oxygen saturation in 2022-03-14 02:00:00 100 /min University of Arterial blood by [facility] Pulse oximetry [place] Body temperature 2022-03-13 22:34:00 36.89 [place] Univ ersity [facility] Body height 2022-03-13 22:34:00 165.1 cm Universi ty [facility] Body weight 2022-03-13 22:34:00 77.111 kg [facility] BMI 2022-03-13 22:34:00 28.29 kg/m2 [facility] Procedures Procedure Date / Time Performed Performing Clinician Abdulkadir jeffries XR ANKLE 3+ VW LEFT 2022-03-20 21:39:34 [facility] VW LEFT 2022-03-20 21:39:34 [facility] TOES 2 VW LEFT 2022-03-20 21:39:34 [facility] 2022-03-20 20:38:15 [facility] TREATMENT CT CHEST PULMONARY 2022-03-14 01:18:11 Cathy Moura [facility] ANGIOGRAM Medical Branch MAGNESIUM 2022-03-14 00:05:00 Cathy Moura [facility] TROPONIN I 2022-03-14 00:05:00 Cathy Moura [facility] COMP. METABOLIC PANEL 2022-03-14 00:05:00 Cathy Moura [facility] ([id number]) [facility] CBC WITH DIFF 2022-03-14 00:05:00 Cathy Moura [facility] D-DIMER 2022-03-14 00:05:00 Cathy Moura [facility] N-TERMINAL PRO-BNP 2022-03-14 00:05:00 Cathy Moura [facility] NOTICE OF PRIVACY 2022-03-13 22:29:55 Doctor Unassigned, No Univ [facility] PRACTICES Name [facility] CONSENT/REFUSAL FOR 2022-03-13 22:26:01 [facility] Name [facility] TREATMENT Plan of Care Planned Activity Planned Date Details Comments Source Future Scheduled 2022-10-15 [facility] Test 09:15:34 malignant neoplasm of colon (procedure) [code = 270473936] Future Scheduled 2022-10-15 [facility] Test 09:15:34 malignant neoplasm of colon (procedure) [code = 381519255] Future Scheduled 2022-10-15 [facility] Test 09:15:34 malignant neoplasm of colon (procedure) [code = 157899599] Future Scheduled 2022-10-15 COVID-19 VACCINE (#1) [facility] Test 09:15:34 [code = COVID-19 VACCINE (#1)] Future Scheduled 2022-10-15 Hepatitis C screening [facility] Test 09:15:34 (procedure) [code = 267351758] Future Scheduled 2022-10-15 [facility] Test 09:15:34 malignant neoplasm of cervix (procedure) [code = 435037771] Future Scheduled 2022-10-15 [facility] Test 09:15:34 SCREENING [code = BREAST CANCER SCREENING] Future Scheduled 2022-10-15 [facility] Test 09:15:34 malignant neoplasm of colon (procedure) [code = 889560123] Future Scheduled 2022-10-15 [facility] Test 09:15:34 malignant neoplasm of colon (procedure) [code = 504476253] Future Scheduled 2022-10-15 INFLUENZA VACCINE [facility] Test 09:15:34 (#1) [code = INFLUENZA VACCINE (#1)] Future Scheduled 2022-03-30 COVID-19 VACCINE (#1) [facility] Test 10:09:44 [code = COVID-19 VACCINE (#1)] Future Scheduled 2022-03-30 Hepatitis C screening [facility] Test 10:09:44 (procedure) [code = 070815866] Future Scheduled 2022-03-30 [facility] Test 10:09:44 malignant neoplasm of cervix (procedure) [code = 509533190] Future Scheduled 2022-03-30 [facility] Test 10:09:44 SCREENING [code = BREAST CANCER SCREENING] Future Scheduled 2022-03-30 COLONOSCOPY SCREENING [facility] Test 10:09:44 [code = COLONOSCOPY SCREENING] Future Scheduled 2022-03-30 INFLUENZA VACCINE [facility] Test 10:09:44 [code = INFLUENZA VACCINE] Future Scheduled 2022-01-21 COVID-19 VACCINE (#1) [facility] Test 12:53:01 [code = COVID-19 VACCINE (#1)] Future Scheduled 2022-01-21 Hepatitis C screening [facility] Test 12:53:01 (procedure) [code = 449618603] Future Scheduled 2022-01-21 BREAST CANCER [facility] Test 12:53:01 SCREENING [code = BREAST CANCER SCREENING] Future Scheduled 2022-01-21 COLONOSCOPY SCREENING [facility] Test 12:53:01 [code = COLONOSCOPY SCREENING] Future Scheduled 2022-01-21 INFLUENZA VACCINE [facility] Test 12:53:01 [code = INFLUENZA VACCINE] Future Scheduled 2021-10-09 HEPATITIS B VACCINES [facility] Test 20:23:15 (1 of 3 - 3-dose series) [code = HEPATITIS B VACCINES (1 of 3 - 3-dose series)] Future Scheduled 2021-10-09 COVID-19 VACCINE (#1) [facility] Test 20:23:15 [code = COVID-19 VACCINE (#1)] Future Scheduled 2021-10-09 Hepatitis C screening [facility] Test 20:23:15 (procedure) [code = 823570832] Future Scheduled 2021-10-09 Screening for [facility] Test 20:23:15 malignant neoplasm of cervix (procedure) [code = 765797622] Future Scheduled 2021-10-09 BREAST CANCER [facility] Test 20:23:15 SCREENING [code = BREAST CANCER SCREENING] Future Scheduled 2021-10-09 COLONOSCOPY SCREENING [facility] Test 20:23:15 [code = COLONOSCOPY SCREENING] Future Scheduled 2021-10-09 INFLUENZA VACCINE [facility] Test 20:23:15 [code = INFLUENZA VACCINE] Encounters Start End Encounter Admission Attending Care Care Encounter Source Date/Time Date/Time Type Type Clinicians Facility Department ID 2019-11-17 Inpatient FELTON Chanel [facility] ADMI [id number] [facility] 20:47:00 Edy 69 [facility] 2022-03-20 2022-03-20 Emergency X GEORGE DESHARON ERT [id number] Univers 14:47:00 16:38:00 JOJO hassan [facility] [place] [facility] 2022-03-20 2022-03-20 Emergency George DESHARON [id number] Univers 14:47:00 16:38:00 [id number] [facility] 4.2.7.2.686 [facility] [id number] [place] [address] Branch 2022-03-13 2022-03-13 Emergency [facility] [id number] Univers 16:37:00 21:05:00 Cathy HINKLE [id number] ity [facility] 4.2.7.2.686 [facility] [id number] [place] [address] Branch 2022-03-13 2022-03-13 Emergency X [facility] ERT [id number] Univers 16:37:00 21:05:00 CATHY itrod [facility] [place] [facility] 2021-12-09 2021-12-09 Documentat Provider, 1.2.840.1 [id number] Methodi 00:00:00 00:00:00 ion Unknown [id number] 3.430.2.7 Hospit a .3.182025 l .8 2021-12-09 2021-12-09 Documentat Provider, 1.2.840.1 [id number] Methodi 00:00:00 00:00:00 ion Unknown 38939.1.[address] 3.430.2.7 Hospit a .3.476029 l .8 2021-10-07 2021-10-07 Documentat Provider, 1.2.840.1 [id number] Methodi 00:00:00 00:00:00 ion Unknown [id number] 3.430.2.7 Hospit a .3.768697 l .8 2020-07-11 2020-07-11 Outpatient [facility] [id number] 00:00:00 00:00:[address] 2020-06-27 2020-06-29 Outpatient GABY LEGGETT [facility] 021 [id number] [place] 00:00:00 00:00:[address] 2020-06-26 2020-06-26 Outpatient GABY LEGGETT [facility] [id number] [place] 00:00:00 00:00:[address] 2020-06-17 2020-06-17 Outpatient GABY LEGGETT [facility] [id number] [place] 00:00:00 00:00:[address] 2020-06-17 2020-06-17 Outpatient GABY LEGGETT [facility] [id number] [place] 00:00:00 00:00:[address] 2020-06-03 2020-06-03 Outpatient GABY LEGGETT [facility] [id number] [place] 00:00:00 00:00:[address] 2020-06-03 2020-06-03 Outpatient GABY LEGGETT [facility] [id number] [place] 00:00:00 00:00:[address] 2020-05-02 2020-05-02 Outpatient GABY LEGGETT [place] [id number] [place] 00:00:00 00:00:[address] 2020-05-01 2020-05-01 Outpatient YANN [facility] [id number] [place] 00:00:00 00:00:00 UGOEZE [address] 2020-05-01 2020-05-01 Outpatient GABY LEGGETT [facility] [id number] [place] 00:00:00 00:00:[address] 2020-05-01 2020-05-01 Outpatient YANN [facility] [id number] [place] 00:00:00 00:00:00 UGOEZE [address] 2019-11-30 2019-11-30 Emergency X MCLEAN, [facility] ERT [id number] Univers 18:13:00 18:13:00 OPAL hassan [facility] [place] [facility] Results Test Description Test Time Test Comments Results Result Comments Source TROPONIN I 2022-03-14 00:39:36 Test Item Value Reference Range Interpretation Comme nts TROPONIN I (test code = 0477369646) 0.003 ng/mL <=0.034 ARCADIO (test code = [...] biotin. Lab Interpretation (test code = Normal 29181-9) [id number] 00:35:55 Test Item Value Reference Range Interpretation Comments NT-proBNP (test code = 62 pg/mL <=125 0309891936) ARCADIO (test code = ARCADIO) Biotin has been reported to cause a negative bias, interpret results relative to patient's use of biotin. Lab Interpretation (test Normal code = 68591-8) [facility] 00:27:58 Test Item Value Reference Range Interpretation Comments MAGNESIUM (test code = 0451302775) 2.1 mg/dL 1.7-2.4 Lab Interpretation (test code = Normal 70569-8) [facility] (97377)2022-03-14 00:27:58 Test Item Value Reference Range Interpretation Comments NA (test code = 140 mmol/L 135-145 5827472279) K (test code = 3.9 mmol/L 3.5-5.0 1271944250) CL (test code = 106 mmol/L 98-108 7144011923) CO2 TOTAL (test code = 26 mmol/L 23-31 4587055451) AGAP (test code = 8 2-16 8226317253) BUN (test code = 10 mg/dL 7-23 0975637293) GLUCOSE (test code = 106 mg/dL 70-110 5335608003) CREATININE (test code = 0.72 mg/dL 0.50-1.04 5971774537) TOTAL BILI (test code = 0.4 mg/dL 0.1-1.0 1251046641) CALCIUM (test code = 8.5 mg/dL 8.6-10.6 L 6104554849) T PROTEIN (test code = 6.5 g/dL 6.3-8.2 4056602287) ALBUMIN (test code = 3.9 g/dL 3.5-5.0 3195488907) ALK PHOS (test code = 108 U/L 34-122 1146371369) ALTv (test code = 20 U/L 5-35 1742-6) AST(SGOT) (test code = 25 U/L 13-40 6291359070) eGFR (test code = 86.5 mL/min/1.73m2 8661773635) ARCADIO (test code = ARCADIO) Association of [...] tests). Lab Interpretation Abnormal (test code = 74521-7) [id number] 00:24:17 Test Item Value Reference Interpretation Comments Range D-DIMER (test code = 0.99 See_Comment H [Autom ated 1952187072) message] The system which generated this result [...] diagnosis. Lab Interpretation Abnormal (test code = 13094-4) [facility] WITH [id number] 00:16:54 Test Item Value Reference Range Interpretation Comments WBC (test code = 6.85 See_Comment [Automated 9172-2) message] The sy stem which generated this result transmitted reference range : 4.30 - 11.10 10*3/?L. The reference range was not used to interpret this result as normal/abnormal . RBC (test code = 4.73 See_Comment [Automated 479-8) message] The sy stem which generated this [...] RDW-SD (test code = 47.4 fL 39.0-49.9 51475-3) RDW-CV (test code = 16.8 % 12.0-15.5 H 788-0) PLT (test code = 250 See_Comment [Automated 777-3) message] The sy stem which generated this result transmitted reference range : 166 - 358 10*3/ ?L. The reference r aayush was not used to interpret this result as normal/abnormal . MPV (test code = 9.9 fL 9.5-12.9 79240-9) NRBC/100 WBC (test 0.0 See_Comment [Automat ed code = 0252032601) message] The system which generated this result transmitted reference range : 0.0 - 10.0 /100 WBCs. The refer ence range was not u sed to interpret th is result as normal/abnormal . NRBC x10^3 (test code See_Comment [Auto mated = 0315108836) message] The s ystem which generated this result transmitted reference range : 10*3/?L. The reference range was not used to interpret this result as normal/abnormal . GRAN MAT (NEUT) % 56.2 % (test code = 770-8) IMM GRAN % (test code 0.30 % = 4286151317) LYMPH % (test code = 33.9 % 736-9) MONO % (test code = 5.3 % 5905-5) EOS % (test code = 3.9 % 713-8) BASO % (test code = 0.4 % 706-2) GRAN MAT x10^3(ANC) 3.85 10*3/uL 1.88-7.09 (test code = 1851056923) IMM GRAN x10^3 (test 0.00-0.06 code = 6224027888) LYMPH x10^3 (test code 2.32 10*3/uL 1.32-3.29 = 731-0) MONO x10^3 (test code 0.36 10*3/uL 0.33-0.92 = 742-7) EOS x10^3 (test code = 0.27 10*3/uL 0.03-0.39 711-2) BASO x10^3 (test code 0.03 10*3/uL 0.01-0.07 = 704-7) Lab Interpretation Abnormal (test code = 17659-2) [facility] RNA [Presence] in Respiratory specimen by [facility] with probe [id number] 19:44:12 Test Item Value Reference Range Interpretation Comments SARS-CoV-2 (COVID-19) RNA Not detected Not-Detected [Presence] in Respiratory specimen by [facility] with probe detection (test code = 93537-3) Whether patient is employed in a healthcare setting (test code = 25585-1) Whether the patient has symptoms related to condition of interest (test code = 82913-1) Patient was hospitalized because of this condition (test code = 42862-7) Whether the patient was admitted to intensive care unit (ICU) for condition of interest (test code = 92934-7) Whether patient resides in a congregate care setting (test code = 46171-6) ZULAY WILLISSARS-CoV-2 (COVID-19) RNA [Presence] in Respiratory specimen by [facility] with probe [id number] 21:53:07 Test Item Value Reference Range Interpretation Comments SARS-CoV-2 (COVID-19) RNA Not detected Not-Detected [Presence] in Respiratory specimen by [facility] with probe detection (test code = 36903-5) ZULAY TORRES WESTRENAL FUNCTION [id number] 06:31:00 Test Item Value Reference Range Interpretation [...] 3.0 mg/dL 2.7-4.5 N code = PHOS) [id number] 06:31:00 Test Item Value Reference Range Interpretation Comments MAGNESIUM (test code = MAG) 1.7 mg/dL 1.4-2.6 N - XR UGI SGL [id number] 10:18:00Patient Name: ERIC MILLAN Unit No: [id number] EXAMS: CPT CODE: [id number] XR UGI SGL CONTRAST [id number] Single contrast upper GI 11/19/2019 CLINICAL INDICATION: [...] Printed Date/Time: 11/19/2019 (1022) Name: ERIC MILLAN [facility] Phys: Ronan Srinivasan MD [address] : 1975 Age: 44 Sex: [place] [id number] Loc: P.[id number] 1 Exam Date: 11/19/2019 Status: ADM IN PH: FAX: PAGE 1 Signed ReportFERRITIN 2019-11-18 13:48:00 Test Item Value Reference Range Interpretation Comments FERRITIN (test code = ROBYN) 21 ng/mL 13-150 N FE W/TOTAL IRON BINDING [id number] 13:28:00 Test Item Value Reference Range Interpretation Comments IRON (test code = IRON) 17 mcg/dL 53-167 L TOTAL IRON BINDING CAPACITY (test 261 mcg/dL 250-450 N code = TIBC) IRON SATURATION (test code = 7 % 15-50 L FESAT) [id number] 12:46:00 Test Item Value Reference Range Interpretation Comments PREALBUMIN (test code = PREALB) 7.8 MG/ML 15-42 L COMPREHENSIVE METABOLIC [id number] 12:46:00 Test Item Value Reference Range Interpretation [...] PHOSPHATASE (test code = ALKP) CBC W/AUTO [id number] 12:13:00 Test Item Value Reference Range Interpretation [...] = BA#) 0.05 x10 3/uL 0.0-0.20 N Notes Date/Time Note Provider Source 2019-11-18 13:16:00-00:00 [id number] [facility] [address] [place] [address] PATIENT NAME: ERIC MILLAN ADMIT DATE: 11/17/19 ACCOUNT NO: [id number] ROOM NO: [id number] AGE: 44 REPORT TYPE: CONSULTATION SEX: F ADMITTING PHYSICIAN:Ty Oliveira MD ATTENDING PHYSICIAN:Ty Oliveira MD CONSULTATION DATE: CONSULTING PHYSICIAN: Ronan Sweet MD CONSULTING PHYSICIAN: Ty Oliveira MD REASON FOR CONSULTATION: Perforated ulcer. HISTORY OF PRESENT ILLNESS: This is a 44-year-ol d female, who had a laparoscopic Dimple-en-Y gastr ic bypass with Dr. Davis 7 years ago. Approximately 2 to 3 years ago, she was greenberg ving abdominal pain and was found to have a marginal ulcer. During that time period, she was instructed to continue PPI therapy and to stop smoking. The patient states that 2 days ago, the pain became much more severe and she brought herself to the Emergency Room yesterday. The workup there showed a small contained perforated ulcer most likely. The patient was started on broad-spectrum antibiotics and subseq uently transferred here for further care. The patient states that she stoppe d smoking about 1 month ago. Prior to this, she has been eating fine and having regular bowel movements for her. Currently, the patient is comfortab le with intermittent episodes of pain. PAST MEDICAL HISTORY: Anemia, anxiety, depressio n, insomnia, history of seizures, essential tremors. PAST SURGICAL HISTORY: As above; 1. Cholecystectomy. 2. Tracheostomy. 3. Breast surgery. 4. Uterine ablation. 5. Tubal ligation. SOCIAL HISTORY: The patient reports smoking up t o about 1 month ago. The patient denies any recent alcohol or drug use. FAMILY HISTORY: Noncontributory. ALLERGIES: THE PATIENT HAS NO KNOWN DRUG ALLERGI ES. ADMISSION MEDICATIONS: Please refer to her home reconciliation sheet. PHYSICAL EXAMINATION: VITAL SIGNS: Today, the patient is afebrile with stable vital signs. GENERAL: This is a pleasant female, lying comfor tably in bed, in no apparent distress. PATIENT NAME: ERIC MILLAN HEENT: Anicteric. Normocephalic and atraumatic. CHEST: Clear to auscultation. CARDIOVASCULAR: Regular rate and rhythm. ABDOMEN: Soft. Mild diffuse tenderness to palpat ion. There were no abdominal wall hernias and well-healed scars are present. LABORATORY DATA: Her labs today were significant for potassium of 3.4. The patient's white count is 7.5 and her hemoglobin is 8.7. ASSESSMENT: This is a 44-year-old female with a contained perforated marginal ulcer. PLAN: 1. Continue n.p.o. except for ice chips today. 2. We will order an upper GI swallow study tomor row. 3. Continue broad-spectrum antibiotics. 4. Replete electrolytes. 5. We will also give the patient some iron as khadijah jeffries is likely iron deficient. 6. We will continue to follow. Dictated By: Ronan Sweet MD WT: CON:PHENRY/BRYAN/ROSIBEL Conf#: [id number]/DID#: [id number] Authenticated by Ronan Sweet MD On 020 07:42:55 AM Electronically Signed by Ronan Sweet MD on 12/27 at 0743 PATIENT NAME: ERIC MILLAN 2019-11-18 10:29:00-00:00 [id number] [facility] [address] [place] [address] PATIENT NAME: ERIC MILLAN ADMIT DATE : 11/17/19 ACCOUNT NO: [id number] ROOM NO: [id number] AGE: 44 REPORT TYPE: HISTORY AND PHYSICAL SEX: F ADMITTING PHYSICIAN:Ty Oliveira MD ATTENDING PHYSICIAN:Ty Oliveira MD ADMISSION DATE: 11/17/2019 CHIEF COMPLAINT: Abdominal pain. HISTORY OF PRESENT ILLNESS: The patient is a ple asant 44-year-old female with history of morbid obesity, underwent gastric byp ass surgery with Dr. Davis approximately 7 years ago. T he patient did well, had lost significant amount of weight. Over the course of the past 3 years has had recurrent epigastric abdominal pain. Three years ago had an EGD done with Dr. Davis and found to have marginal ulcers. She says she has been on P rotonix since that time. Over the course of the past 2 to 3 months, pain has g radually worsened. She underwent a repeat EGD with Dr. Saldaña at [facility] where another marginal ulcer was noted. This last EGD was performed on 11/06/2019. The patient since that time has had progressive worsening abdominal pain, ended up visiting the Emergency Room at [facility] where a CT scan was done, which revealed marked thickening of the wa ll of the stomach, a 5-mm air bubble lies adjacent to the anterior asp ect of the proximal stomach, which was concerning for a possible le ak. The patient was subsequently transferred to our institution for further management. PAST MEDICAL HISTORY: 1. Morbid obesity. 2. Marginal ulcer. 3. Diabetes mellitus. 4. Anemia. 5. Anxiety. 6. Depression. 7. Essential tremors. 8. Insomnia. 9. Seizures. PAST SURGICAL HISTORY: Status post gastric bypas s surgery, status post tubal ligation, uterine ablation, cholecystectomy, lemuel ast surgery. FAMILY HISTORY: Positive for hypertension. PERSONAL AND SOCIAL HISTORY: Used to smoke. She says she stopped smoking more than a month ago, used to drink alcohol prior to gastric bypass surgery. ALLERGIES: ASPIRIN. MEDICATIONS: See APR. PATIENT NAME: ERIC MILLAN REVIEW OF SYSTEMS: Denies fever, cough, cold, ch est pain, palpitations, PND, orthopnea, polydipsia, polyphagia, heat or cold intolerance, bleeding tendencies, hearing impairment, vision i mpairment, loss of consciousness, skin rash, depression prior to admission. PHYSICAL EXAMINATION: GENERAL: The patient is awake, alert, oriented x 3, not in acute distress. VITAL SIGNS: Blood pressure 122/79, RR 18, pulse 84, and temperature 36.6. HEENT: Normocephalic. [place] conjunctivae. Anicter ic sclerae. Nasal septum midline. Moist buccal mucosa. NECK: Supple. No thyromegaly. CHEST: Symmetric expansion. Clear breath sounds. CARDIOVASCULAR: S1, S2. ABDOMEN: Mildly obese, soft, tender epigastric a deena, mild rebound. EXTREMITIES: No clubbing, cyanosis. IMPRESSION: 1. Suspected perforated marginal ulcer. Keep n.p .o. Start Zosyn 3.375 mg IV q.8. Consult Dr. Davis for comanagement. I have discussed the case with Dr. Sweet. 2. Marginal ulcer. Protonix 40 mg IV q. 12. 3. History of gastric bypass surgery. We will gi ve a liter of multivitamin infusion. 4. Diabetes mellitus. Monitor blood sugar. 5. History of anxiety and depression. Monitor sy mptoms. We will resume p.o. fluoxetine as soon as possible. 6. SCD boots for DVT prophylaxis. Dictated By: Ty Oliveira MD WT: HP:P.HIM/TOMASA/ROSIBEL Conf#: [id number]/DID#: [id number] Authenticated by Ty Oliveira MD On 11/19/2019 11:54:16 PM at 2354 PATIENT NAME: ERIC MILLAN
[2022-10-16 20:10] LABS: Absolute Lymphocytes (CBC) 2.8 K/uL (0.7-4.9); Hematocrit 30.6 % (36.0-45.0); Lymphocytes % 28.7 % (15.3-44.8); MCV 75.8 fL (80-100); MPV 7.9 fL (7.6-11.3); Platelets 290 thou/uL (152-406); RBC Red Blood Cell Count 4.03 M/uL (3.86-4.86)
[2022-10-16 20:15] LABS: Protime INR 0.93
[2022-10-16 20:27] LABS: ALT/SGPT 18 U/L (13-56); AST/SGOT 16 U/L (15-37); Albumin 3.5 g/dL (3.4-5.0); Alkaline Phosphatase 90 U/L (45-117); BUN Blood Urea Nitrogen 11 mg/dL (7-18); Bicarbonate 26 mEq/L (21-32); Bilirubin Total 0.1 mg/dL (0.2-1.0); Creatine Phosphokinase 147 U/L (26-192); Glomerular Filtration Rate 98 ml/min (=/>90); Glucose Level 97 mg/dL (74-106); Potassium 3.6 mEq/L (3.5-5.1); Protein, Total 7.2 g/dL (6.4-8.2); Sodium Level 139 mEq/L (136-145)
[2022-10-16 20:28] LABS: Bilirubin Direct < 0.1 mg/dL (0-0.2); Bilirubin Indirect, Calculated ND mg/dL (0.2-0.8)
[2022-10-16 22:06] LABS: Specific Gravity > 1.030 (1.005-1.030)
[2022-10-16 22:09] LABS: Calcium Oxalate Crystals- Ur Moderate /HPF (None Seen); Specific Gravity > 1.030 (1.005-1.030); Urine Bacteria <20 /HPF (<20); Urine Bilirubin NEGATIVE (Negative); Urine Blood Negative (Negative); Urine Clarity Turbid (Clear); Urine Color Yellow (Yellow); Urine Glucose NEGATIVE (Negative); Urine Mucus Slight /HPF (None Seen); Urine Protein TRACE (Negative); Urine RBC <5 /HPF (None Seen); Urine Urobilinogen 1+ (Normal)
[2022-10-16 22:14] LABS: Barbiturates NEGATIVE (NEGATIVE); Benzodiazepines NEGATIVE (NEGATIVE); Cocaine NEGATIVE (NEGATIVE); METHAMPHETAM NEGATIVE (NEGATIVE); Methadone NEGATIVE (NEGATIVE); Opiates NEGATIVE (NEGATIVE); Phencyclidine NEGATIVE (NEGATIVE); THC Cannibis NEGATIVE (NEGATIVE)
--- NOTE | 2022-10-16 23:13 | ER ---
Nurse's Notes [facility] Name: Pina Castrejon Age: 47 yrs Sex: Female : 1975 Arrival Date: 10/16/2022 Time: 19:16 Bed 7 Private MD: Diagnosis: Psychosis;Intentional overdose Presentation: 10/16 19:25 Chief complaint: EMS states: PD called EMS because the family had called stating that kd3 she was not acting right. PT is currently denying SI. Family is concerned that she took too much of her medications at home. When asked about the medications pt stated that all of her Ambien was placed in her weekly pill container. Pills were counted and identified out of the pill organizer. There are a total of 15 pills that are unaccounted for. Coronavirus screen: Vaccine status: Patient reports receiving the 2nd dose of the covid vaccine. Ebola Screen: No symptoms or risks identified at this time. Initial Sepsis Screen: Does the patient meet any 2 criteria? No. Patient's initial sepsis screen is negative. Does the patient have a suspected source of infection? No. Patient's initial sepsis screen is negative. Risk Assessment: Do you want to hurt yourself or someone else? Patient reports no desire to harm self or others. Onset of symptoms was October 16, 2022. 19:25 Method Of Arrival: EMS: [facility] kd3 19:25 Acuity: SAMIRA 2 kd3 Triage Assessment: 19:44 General: Appears in no apparent distress. Behavior is drowsy, Pt is speaking to kd3 "people" in the corner of the room and talking to her son who is not present in the hospital at this time. . Pain: Denies pain. Neuro: Level of Consciousness is awake, obeys commands, lethargic, Oriented to person, place, time, situation. Cardiovascular: Patient's skin is warm and dry. Respiratory: Airway is patent Trachea midline Respiratory effort is even, unlabored, Respiratory pattern is regular, symmetrical. GI: Abdomen is non-distended. DIGITAL MEASUREMENT ADVISOR: 10/17 06:44 LMP N/A - unknown kd3 Historical: - Allergies: 10/16 19:44 Morphine; kd3 19:44 Sulfa (Sulfonamide Antibiotics); kd3 - PMHx: 19:44 Anemia; Anxiety; Depression; diabetes (controlled with diet); ESSENTIAL TREMORS; GI kd3 Bleed; insomnia; Seizures; - PSHx: 19:44 ablation; Gastric Bypass; kd3 - Immunization history:: Adult Immunizations up to date. - Social history:: Smoking status: Patient reports the use of cigarette tobacco products, denies chronic smoking, but will smoke occasionally. - Family history:: not pertinent. Screenin:58 Abuse screen: Denies threats or abuse. Denies injuries from another. kd3 20:39 [facility] ED Fall Risk Assessment (Adult) History of falling in the last 3 months, kd3 including since admission No falls in past 3 months (0 pts) Confusion or Disorientation No (0 pts) Intoxicated or Sedated No (0 pts) Impaired Gait No (0 pts) Mobility Assist Device Used No (0 pt) Altered Elimination No (0 pt) Score/Fall Risk Level 0 - 2 = Low Risk Maintained a safe environment. Nutritional screening: No deficits noted. Tuberculosis screening: No symptoms or risk factors identified. Assessment: 19:52 General: Poison control contacted by this RN. Recommendation to observe until the kd3 patient is back at baseline. Recommendations include a tox screen, EKG and UDS. case number is [id number]. 20:12 General: Pt items sent with security. . kd3 22:10 General: Appears in no apparent distress. Behavior is calm, cooperative. Pain: Denies kd3 pain. Neuro: Level of Consciousness is awake, alert, obeys commands, Oriented to person, place, time, situation. Cardiovascular: Patient's skin is warm and dry. Respiratory: Airway is patent Trachea midline Respiratory effort is even, unlabored, Respiratory pattern is regular, symmetrical. 22:19 General: PT is assessed in the room by this RN, at this time, pt is speaking to people kd3 who are not present in the room and stating that she sees her father who is not present. . 22:42 General: Pt is currently pacing in room. Therapeutic communication used. Pt states that kd3 the vital sign cords are making her uncomfortable. PT allowed to remain off of continuous monitoring and spot checking vital signs. . 10/17 00:10 General: nurse to nurse given to Domenico Krishnan . kd3 00:54 General: shelby hunter called. Jesse COPELAND contacted for ANGELA. kd3 01:22 General: [employer] contacted for ANGELA at this time. . cm10 01:26 General: [facility] [place] ETA 45 minutes. cm10 01:43 General: Appears uncomfortable, Behavior is anxious, crying. General: Pt is still kd3 speaking to people who are not present in the room with her. Awaiting [facility] deputy to evaluate and place an ANGELA . Neuro: Level of Consciousness is awake, alert, obeys commands, Oriented to person, place, time, situation. 02:10 General: [facility] [place] at bedside. . cm10 02:19 General: Officer Antwan from the [facility] deputy arrived and issued kd3 an ANGELA. ANGELA placed in chart, transportation called for patient to go to [facility]. . 03:48 General: Appears uncomfortable, Behavior is agitated, anxious, crying. Neuro: kd3 Cardiovascular: Patient's skin is warm and dry. Respiratory: Airway is patent Trachea midline Respiratory effort is even, unlabored, Respiratory pattern is regular, symmetrical. 04:55 Reassessment: Patient is alert, oriented x 3, equal unlabored respirations, skin kd3 warm/dry/pink. Patient states feeling better. Patient states symptoms have improved. 06:07 General: Appears comfortable, Behavior is calm. General: Pt is resting quietly in bed. kd3 . Neuro: Level of Consciousness is awake, alert, obeys commands, confused, Oriented to person, place, time, situation. Cardiovascular: Patient's skin is warm and dry. Respiratory: Airway is patent Trachea midline Respiratory effort is even, unlabored, Respiratory pattern is regular, symmetrical. Overdose: 10/16 20:38 [place] Suicide Severity Screening: "In the past month, have you wished you were kd3 or wished you could go to sleep and not wake up?" Patient responds "no." "In the past month, have you actually had any thoughts of killing yourself?" Patient responds "no." "In your lifetime, have you ever done anything, started to do anything, or prepared to do anything to end your life?" Patient responds "yes." Patient reports suicidal intent within 3 past months. 20:39 [place] Suicide Severity Screening: "In the past month, have you wished you were kd3 or wished you could go to sleep and not wake up?" Patient responds "yes." Based off client's responses, additional C-SSRS screening questions required. "In the past month, have you actually had any thoughts of killing yourself?" Patient responds "no.". 20:39 [place] Suicide Severity Screening: "In the past month, have you actually had any kd3 thoughts of killing yourself?" Patient responds "no.". 10/17 06:43 [place] Suicide Severity Screening: "In the past month, have you actually had any kd3 thoughts of killing yourself?" Patient responds "yes." Based off client's responses, additional C-SSRS screening questions required. Vital Signs: 10/16 19:25 BP 138 / 84; Pulse 81; Resp 16; Temp 98.2(O); Pulse Ox 100% on R/A; Weight 72.57 kg; kd3 19:46 BP 117 / 72; Pulse 74; Resp 16; Pulse Ox 100% on R/A; kd3 20:40 BP 110 / 87; Pulse 84; Resp 18; Pulse Ox 98% on R/A; kd3 21:05 BP 115 / 73; Pulse 74; Resp 18; Pulse Ox 100% on R/A; kd3 21:21 BP 112 / 78; Pulse 82; Resp 14; kd3 22:10 BP 135 / 88; Pulse 77; Resp 14; Pulse Ox 100% on R/A; kd3 10/17 06:45 BP 129 / 74; Pulse 72; Resp 18; Pulse Ox 99% on R/A; kd3 ED Course: 10/16 19:16 Patient placed in an exam room. kd3 19:17 Patient arrived in ED. jj6 19:22 Adrian Muir MD is Attending Physician. rt 19:24 Kaleigh Silva, APOLLO is Primary Nurse. kd3 19:44 Triage completed. kd3 19:44 Arm band placed on right wrist. EKG completed in triage. Results shown to . kd3 20:21 Inserted saline lock: 20 gauge in right antecubital area, using aseptic technique. oe Blood collected. 20:39 Bed in low position. Provided Education on: Suicide precautions . Client placed on kd3 continuous cardiac and pulse oximetry monitoring. NIBP monitoring applied. desk monitor on. :59 Test, Urine Sent. lg3 21:59 Urinalysis w/ reflexes Sent. lg3 21:59 Urine Drug Screen Sent. lg3 22:11 Urine Drug Screen Sent. kd3 10/17 06:44 No provider procedures requiring assistance completed. IV discontinued, intact, kd3 bleeding controlled, No redness/swelling at site. Pressure dressing applied. Administered Medications: 00:38 Drug: Nicoderm CQ Transdermal Patch 21 mg/24 hr 21 mg Route: Transdermal; Site: left kd3 thigh; 06:11 Follow up: Response: No adverse reaction kd3 Medication: 10/16 20:02 VIS not applicable for this client. kd3 Outcome: 23:12 ER care complete, transfer ordered by . rt 10/17 06:44 Transferred Note: [facility] kd3 Condition: stable Discharge instructions given to patient, Instructed on the need for transfer, Demonstrated understanding of instructions. 06:46 Patient left the ED. kd3 Signatures: Dejan Mckeon Lacie, RN RN lg3 Kianna Claire jj6 Kaleigh Silva RN RN kd3 Adrian Muir MD MD rt Gaviota Seals RN RN cm10 Corrections: (The following items were deleted from the chart) 10/16 19:58 19:56 General: Poison control contacted by this RN. Recommendation to observe until the kd3 patient is back at baseline. Recommendations include a tox screen, EKG and UDS. case number is [id number]. kd3
--- NOTE | 2022-10-16 23:13 | EDPHYS ---
Physician Documentation [facility] Name: Pina Castrejon Age: 47 yrs Sex: Female : 1975 Arrival Date: 10/16/2022 Time: 19:16 Bed 7 Private MD: ED Physician Adrian Muir HPI: 10/16 23:05 This 47 yrs old Female presents to ER via EMS with complaints of Possible Overdose. rt 23:05 Patient presents to the ED with reported possible overdose. History mostly obtained per rt EMS and per sister. Patient reportedly had an argument with her daughter, reportedly took a large amount of pills, to include Ambien, trazodone. The patient is also reportedly been hallucinating, with concerning behaviors, specifically that she put papers in the microwave and tried to microwave them. The sister states that patient had a deterioration. Denies other acute complaints. Patient denies any of this. Symptoms are moderate severity, no other aggravating or alleviating factors.. VENUE ATTENDANT: 10/17 06:44 LMP N/A - unknown kd3 Historical: - Allergies: 10/16 19:44 Morphine; kd3 19:44 Sulfa (Sulfonamide Antibiotics); kd3 - PMHx: 19:44 Anemia; Anxiety; Depression; diabetes (controlled with diet); ESSENTIAL TREMORS; GI kd3 Bleed; insomnia; Seizures; - PSHx: 19:44 ablation; Gastric Bypass; kd3 - Immunization history:: Adult Immunizations up to date. - Social history:: Smoking status: Patient reports the use of cigarette tobacco products, denies chronic smoking, but will smoke occasionally. - Family history:: not pertinent. ROS: 23:05 Constitutional: Negative for fever, chills, and weight loss, Cardiovascular: Negative rt for chest pain, palpitations, and edema, Respiratory: Negative for shortness of breath, cough, wheezing, and pleuritic chest pain, Abdomen/GI: Negative for abdominal pain, nausea, vomiting, diarrhea, and constipation, MS/Extremity: Negative for injury and deformity, Psych: Negative for depression, anxiety, suicide ideation, homicidal ideation, and hallucinations. 23:05 Psych: Positive for auditory hallucinations, visual hallucinations. Exam: 23:05 Chest/axilla: Normal chest wall appearance and motion. Nontender with no deformity. rt No lesions are appreciated. Cardiovascular: Regular rate and rhythm with a normal S1 and S2. No gallops, murmurs, or rubs. Normal PMI, no JVD. No pulse deficits. Respiratory: Lungs have equal breath sounds bilaterally, clear to auscultation and percussion. No rales, rhonchi or wheezes noted. No increased work of breathing, no retractions or nasal flaring. Abdomen/GI: Soft, non-tender, with normal bowel sounds. No distension or tympany. No guarding or rebound. No evidence of tenderness throughout. Skin: Warm, dry with normal turgor. Normal color with no rashes, no lesions, and no evidence of cellulitis. Neuro: Awake and alert, GCS 15, oriented to person, place, time, and situation. Cranial nerves II-XII grossly intact. Motor strength 5/5 in all extremities. Sensory grossly intact. Cerebellar exam normal. Normal gait. 23:05 ECG was reviewed by the Attending Physician. 23:05 Psych: Evasive, reports visual hallucinations. Vital Signs: 19:25 BP 138 / 84; Pulse 81; Resp 16; Temp 98.2(O); Pulse Ox 100% on R/A; Weight 72.57 kg; kd3 19:46 BP 117 / 72; Pulse 74; Resp 16; Pulse Ox 100% on R/A; kd3 20:40 BP 110 / 87; Pulse 84; Resp 18; Pulse Ox 98% on R/A; kd3 21:05 BP 115 / 73; Pulse 74; Resp 18; Pulse Ox 100% on R/A; kd3 21:21 BP 112 / 78; Pulse 82; Resp 14; kd3 22:10 BP 135 / 88; Pulse 77; Resp 14; Pulse Ox 100% on R/A; kd3 10/17 06:45 BP 129 / 74; Pulse 72; Resp 18; Pulse Ox 99% on R/A; kd3 MDM: 10/16 19:35 Patient medically screened. rt 10/17 07:45 Differential diagnosis: polypharmacy, over medication, Psychosis, suicide attempt. Data rt reviewed: vital signs, nurses notes, lab test result(s). Consideration of Admission/Observation Escalation of care including admission/observation considered. Patient appears to be overtly psychotic, responding internal stimuli, is gravely disabled, requires admission for psychiatric stabilization.. Care significantly affected by the following chronic conditions: Diabetes. Counseling: I had a detailed discussion with the patient and/or guardian regarding the historical points, exam findings, and any diagnostic results supporting the discharge/admit diagnosis, lab results, the need to transfer to another facility. 10/16 19:40 Order name: Acetaminophen; Complete Time: 21:06 rt 10/16 19:40 Order name: Basic Metabolic Panel; Complete Time: 21: rt 10/16 19:40 Order name: CBC with Diff; Complete Time: : rt 10/16 19:40 Order name: ETOH Level; Complete Time: 21: rt 10/16 19:40 Order name: Hepatic Function; Complete Time: 21: rt 10/16 19:40 Order name: PT-INR; Complete Time: : rt 10/16 19:40 Order name: Test, Urine; Complete Time: 22:15 rt 10/16 19:40 Order name: Ptt, Activated; Complete Time: 21: rt 10/16 19:40 Order name: Salicylate; Complete Time: 21: rt 10/16 19:40 Order name: Urinalysis w/ reflexes; Complete Time: 22:15 rt 10/16 19:40 Order name: Urine Drug Screen; Complete Time: 22:15 rt 10/16 19:40 Order name: CPK; Complete Time: 21:06 rt 10/16 19:40 Order name: EKG; Complete Time: 19:41 rt 10/16 19:40 Order name: EKG - Nurse/Tech; Complete Time: 20:02 rt 10/16 19:40 Order name: IV Saline Lock; Complete Time: 20:21 rt 10/16 19:40 Order name: Labs collected and sent; Complete Time: 20:21 rt 10/16 19:40 Order name: Suicide Screening ([place]); Complete Time: 20:02 rt EC/09 23:05 Rate is 75 beats/min. Rhythm is regular, Normal Sinus Rhythm with No ectopy. QRS Noonan rt is Normal. LA interval is normal. QRS interval is normal. QT interval is normal. No Q waves. T waves are Normal. No ST changes noted. Interpreted by me. Administered Medications: 10/17 00:38 Drug: Nicoderm CQ Transdermal Patch 21 mg/24 hr 21 mg Route: Transdermal; Site: left kd3 thigh; 06:11 Follow up: Response: No adverse reaction kd3 Disposition Summary: 10/16/22 23:12 Transfer Ordered Transfer Location: Psych Facility rt Reason: Higher level of care rt Condition: Stable rt Problem: new rt Symptoms: are unchanged rt Accepting Physician: (10/17/22 06:46) kd3 Diagnosis - Psychosis rt - Intentional overdose rt Forms: - Medication Reconciliation Form rt - SBAR form rt Signatures: Dispatcher [employer] Kaleigh Beltrán RN RN kd3 Adrian Muir MD MD rt Corrections: (The following items were deleted from the chart) 06:46 10/16 23:12 rt kd3
[2022-10-17] MEDS ORDERED: NICOTINE 21 MG/PAT TD ONE (00:47)
[2022-10-17 07:29] VITALS: TEMP 98.2
[2022-10-17 07:38] VITALS: BP 129/74; O2SAT 99
--- NOTE | 2022-10-18 17:10 | EKG ---
Test Date: 2022-10-16 Test Time: 19:49:12 Vice President Global Digital Marketing: KWADWO MEASUREMENT RESULTS: Intervals: Rate: 75 DE: 180 QRSD: 82 QT: 374 QTc: 417 [place]: P: 67 DE: 180 QRS: 63 T: 65 INTERPRETIVE STATEMENTS: Normal sinus rhythm Normal ECG Electronically Signed On 10-18-22 17:06:26 CDT by Bharathi Hamilton
== END 2022-10-17 06:46 ==
LOC: ER 19:16
DX: F29 Unspecified psychosis not due to a substance or known physiological condition (principal); T43.212A Poisoning by selective serotonin and norepinephrine reuptake inhibitors, intentional self-harm, initial encounter; T42.6X2A Poisoning by other antiepileptic and sedative-hypnotic drugs, intentional self-harm, initial encounter; Y92.019 Unspecified place in single-family (private) house as the place of occurrence of the external cause; Z88.6 Allergy status to analgesic agent; Z88.2 Allergy status to sulfonamides; F41.9 Anxiety disorder, unspecified; F32.A Depression, unspecified; D64.9 Anemia, unspecified; R56.9 Unspecified convulsions; G25.0 Essential tremor; F17.210 Nicotine dependence, cigarettes, uncomplicated
CPT/HCPCS: 36415; 80048; 80076; 80143; 80179; 80307; 81001; 81025; 82077; 82550; 85025; 85610; 85730; 93005; 99285